=== PATIENT | female | born 1975 | race Caucasian/White ===

== ENCOUNTER 2024-08-07 18:18 | Inpatient (IN) ==
--- NOTE | 2024-08-07 18:32 | ED Triage Note ---
Date of Service August 07, 2024 Provider in Triage Author: Israel Verdugo History of Present Illness This patient was briefly evaluated while in triage. An abbreviated physical exam was performed. This patient is a 48-year-old Female who presents to the ED for evaluation has been having abdominal discomfort-had an MRI, so was sent for CT CT done today shows acute diverticulitis with perforation, abscess, and fistula denies fevers Physical Exam GENERAL: NAD CARDIOVASCULAR: RRR RESPIRATORY: CTA ABDOMEN: BS x 4. Nontender to palpation. Initial orders for labs and / or imaging were placed and patient was placed in the waiting area until a bed is available. Please see further documentation for the full ED course. MDM / Impression Impression Impression: Diverticulitis of intestine with perforation and abscess
[2024-08-07 18:50] LABS: Appearance Urine Clear (Clear); Bilirubin Urine Negative (Negative); Blood Urine Negative (Negative); Color Urine Yellow; Glucose Urine UA Negative (Negative); Ketones Urine Negative (Negative); Leukocyte Esterase Urine Negative (Negative); Nitrite Urine Negative (Negative); Protein Urine Negative (Negative); Specific Gravity Urine > 1.045 (1.000-1.030); Urobilinogen Urine Negative (Negative)
[2024-08-07] MEDS: SODIUM CHLORIDE 0.9% 1,000 ML IV SCH (19:07)
[2024-08-07 19:17] LABS: Basophils # (auto) 0.05 K/uL (0.00-0.20); Basophils % (auto) 0.4 %; Eosinophils # (auto) 0.14 K/uL (0.00-0.50); Hematocrit (blood only) 35.5 % (37.0-47.0); Hemoglobin 11.2 g/dl (12.0-16.0); Immature Granulocytes # (auto) 0.12 K/uL (0.01-0.20); Immature Granulocytes % (auto) 0.9 %; Lymphocytes # (auto) 2.91 K/uL (1.20-3.40); Mean Corpuscular Hemoglobin 19.1 pg (25.0-34.0); Mean Corpuscular Hgb Conc 31.5 g/dL (32.0-36.0); Mean Corpuscular Volume 60.7 fL (80.0-100.0); Monocytes # (auto) 0.89 K/uL (0.11-0.59); Monocytes % (auto) 6.4 %; Neutrophils # (auto) 9.74 K/uL (1.40-6.50); Neutrophils % (auto) 70.3 %; RDW Coefficient of Variation 18.6 % (11.5-14.5); RDW Standard Deviation 35.3 fL (36.4-46.3); Red Blood Count 5.85 M/uL (4.20-5.40); White Blood Count 13.85 K/ul (4.8-10.8)
[2024-08-07 19:28] LABS: Mean Platelet Volume 10.2 fL (9.4-12.4); Platelet Count 348 K/uL (130-400)
[2024-08-07 19:35] LABS: Albumin Level 4.4 gm/dl (3.4-5.0); BUN Creatinine Ratio 22.4 (10-20); Bilirubin Direct 0.1 mg/dl (0-0.2); Bilirubin,Total 0.6 mg/dl (0.2-1.0); Calcium 9.6 mg/dl (8.6-10.3); Creatinine Clr Calc Pharmacy 98.6 ml/min; Magnesium 1.9 mg/dl (1.7-2.4); Potassium 3.7 mmol/L (3.5-5.1)
[2024-08-07 19:45] LABS: Anisocytosis Present; Ovalocytes 1+; Tear Drop Cells 1+
[2024-08-07] MEDS: PIPERACILLIN/TAZOBACTAM 4.5 GM/100 ML BAG IV STA (19:52)
--- NOTE | 2024-08-07 20:01 | Emergency Department Note ---
Impression & Plan Diverticulitis of intestine with perforation and abscess ED Provider Note Diagnosis: Diverticulitis with perforation and abscess and fistula formation, malpositioned IUD Disposition: Admit CHIEF COMPLAINT: Abnormal CT scan HPI: Patient is a 48-year-old female presenting with complaint of abnormal CT scan. Patient was being evaluated due to malpositioned IUD as an outpatient. Patient had CT scan performed which shows diverticulitis with perforation and abscess and fistula formation. Patient denies any fevers nausea vomiting or diarrhea. Patient has not had any issues with diverticulitis previously reportedly. Patient sent over for further evaluation in the emergency room. PAST MEDICAL HISTORY: See Below PAST SURGICAL HISTORY: See Below SOCIAL HISTORY: See Below HOME MEDICATIONS: See Below ALLERGIES: See Below VITALS: See Below PHYSICAL EXAMINATION: GENERAL: Well appearing, well nourished, NAD, non-toxic. EYE EXAM: Normal conjunctiva. OROPHARYNX: Moist mucus membranes. Grossly normal dentition. NECK: Supple, LUNGS: Clear to auscultation. Normal chest wall mechanics. HEART: NSR ABDOMEN: Abdomen soft, non-tender, normo-active bowel sounds, no masses, no rebound or guarding BACK: No CVA TTP. SKIN: No rashes and no bruising. UPPER EXTREMITIES: Upper extremities are grossly normal LOWER EXTREMITIES: Grossly normal, no edema. NEURO EXAM: A&O x3,, normal speech, moves all 4 extremities PSYCH: Cooperative MEDICAL DECISION MAKING: Reviewed external documents: CT scan from outpatient History obtained from: Patient ER Course: Patient is a 48-year-old female presenting with incidental finding on outpatient CT scan. Patient was being worked up due to a malpositioned IUD and had a CT scan today. Patient CT scan report shows diverticulitis with perforation and 2 x 4 cm abscess with fistula. Patient has no active abdominal pain. Patient denies fevers or chills. Patient denies vomiting or diarrhea. Patient given IV Zosyn. Patient's case discussed with general surgery team and medicine service. Patient will be admitted for further treatment and workup Labs (independently interpreted) are significant for: Leukocytosis Medications given: Zosyn Consultants: General Surgeon Dr. Coronado, reviewed patient's presentation and CT scan findings. Recommends medical admission with IV antibiotics and consultation with IR for potential drainage. No indication at this time for acute emergent procedure and the fistula would have to be dealt with after this acute event as an outpatient in the future for potential removal Case discussed with medicine service who accepts patient for further treatment and evaluation Triage Nursing notes reviewed and agree them. Vital Signs: reviewed and remarkable for: no significant abnormalities Past Med/Surg History Problem List (Updated 08/07/24 @ 22:53 by Yoav Espinosa DO) Diverticulitis of intestine with perforation and abscess (Acute) Diverticulitis Dietary counseling and surveillance Knee pain, bilateral KENJI (obstructive sleep apnea) Morbid obesity Fatigue Arthralgia PCOS (polycystic ovarian syndrome) Asthma (Acute 02/21/13) Surgical History Hx of dilation and curettage Hx of section H/O knee surgery (02/21/13) anterior cruciate Family History Grandmother (Paternal) Diabetes Mother Hyperlipidemia Father No problems noted. Social History Smoking Status: Never smoker Hx Alcohol Use: No Preferred Language: Burmese marital status: current occupational status: employed How many Children do You have: 1 How many Children do You have Comment: son Feels Safe at Home: Yes Allergies Allergies Allergy/AdvReac Type Severity Reaction Status Date / Time codeine Allergy Mild Unknown Unverified 08/07/24 21:57 Home Meds Home Medications Medication Instructions Recorded Confirmed levonorgestrel 21 mcg/24 hr (up to 1 device intrauterine UNKNOWN 02/19/20 08/07/24 8 years) 52 mg intrauterine device (Mirena) mometasone 50 mcg/actuation nasal 2 spray intranasal DAILY PRN 02/19/20 08/07/24 spray (Nasonex) unknown multivitamin 1 cap PO DAILY 02/19/20 08/07/24 bupropion HCl 150 mg tablet,12 hr 150 mg PO DAILY 08/07/24 08/07/24 sustained-release meloxicam 7.5 mg tablet 7.5 mg DAILY 08/07/24 08/07/24 phentermine 15 mg capsule 15 mg DAILY 08/07/24 08/07/24 Results & Data (ED) Vital Signs Vital Signs - 24 hr 08/07/24 18:28 08/07/24 18:49 08/07/24 18:59 Temperature 36.1 C L Temperature Source Temporal Artery Scan Pulse Rate 91 H 94 H Pulse Rate [Apical] 81 Pulse Rhythm Pulse Rhythm [Apical] Regular Pulse Strength [Apical] Normal Respiratory Rate 18 18 Respiratory Effort / Characteristics Non-Labored Spontaneous Non-Labored Spontaneous Respiratory Depth Normal Normal Respiratory Pattern Regular Regular Blood Pressure 160/88 H Blood Pressure [Right Arm] 150/88 H Blood Pressure Mean 112 Blood Pressure Mean [Right Arm] 108 Blood Pressure Position [Right Arm] Lying Pulse Oximetry 97 95 Oxygen Delivery Method Room Air Room Air Sepsis Recent Fever Within 48 Hours No Sepsis New/Unexplained Change in Mental Status N/A Sepsis Action Taken by Nursing No Action Required 08/07/24 18:59 08/07/24 20:19 08/07/24 22:08 Temperature Temperature Source Pulse Rate 81 Pulse Rate [Apical] 71 76 Pulse Rhythm Regular Pulse Rhythm [Apical] Regular Pulse Strength [Apical] Normal Respiratory Rate 20 16 20 Respiratory Effort / Characteristics Non-Labored Spontaneous Non-Labored Spontaneous Respiratory Depth Normal Normal Respiratory Pattern Regular Regular Blood Pressure Blood Pressure [Right Arm] 133/83 127/76 Blood Pressure Mean Blood Pressure Mean [Right Arm] 99 93 Blood Pressure Position [Right Arm] Pulse Oximetry 95 98 94 Oxygen Delivery Method Room Air Room Air Room Air Sepsis Recent Fever Within 48 Hours Sepsis New/Unexplained Change in Mental Status Sepsis Action Taken by Nursing 08/07/24 22:42 Temperature Temperature Source Pulse Rate 76 Pulse Rate [Apical] Pulse Rhythm Pulse Rhythm [Apical] Pulse Strength [Apical] Respiratory Rate Respiratory Effort / Characteristics Respiratory Depth Respiratory Pattern Blood Pressure Blood Pressure [Right Arm] Blood Pressure Mean Blood Pressure Mean [Right Arm] Blood Pressure Position [Right Arm] Pulse Oximetry Oxygen Delivery Method Sepsis Recent Fever Within 48 Hours Sepsis New/Unexplained Change in Mental Status Sepsis Action Taken by Nursing Laboratory Data 08/07/24 18:55 08/07/24 18:55 Lab Results 08/07/24 08/07/24 Range/Units 18:40 18:55 WBC 13.85 H (4.8-10.8) K/ul RBC 5.85 H (4.20-5.40) M/uL Hgb 11.2 L (12.0-16.0) g/dl Hct 35.5 L (37.0-47.0) % MCV 60.7 L (80.0-100.0) fL MCH 19.1 L (25.0-34.0) pg MCHC 31.5 L (32.0-36.0) g/dL RDW Std Deviation 35.3 L (36.4-46.3) fL RDW Coeff of Teodoro 18.6 H (11.5-14.5) % Plt Count 348 (130-400) K/uL MPV 10.2 (9.4-12.4) fL Immature Gran % (Auto) 0.9 % Neut % (Auto) 70.3 % Lymph % (Auto) 21.0 % [place] % (Auto) 6.4 % Eos % (Auto) 1.0 % Baso % (Auto) 0.4 % Neut # (Auto) 9.74 H (1.40-6.50) K/uL Lymph # (Auto) 2.91 (1.20-3.40) K/uL [place] # (Auto) 0.89 H (0.11-0.59) K/uL Eos # (Auto) 0.14 (0.00-0.50) K/uL Baso # (Auto) 0.05 (0.00-0.20) K/uL Immature Gran # (Auto) 0.12 (0.01-0.20) K/uL Anisocytosis Present Tear Drop Cells 1+ Ovalocytes 1+ Sodium 137 (136-145) mmol/L Potassium 3.7 (3.5-5.1) mmol/L Chloride 102 (98-107) mmol/L Carbon Dioxide 26 (21-32) mmol/L Anion Gap 9 (3-11) BUN 17 (6-23) mg/dl Creatinine 0.76 (0.6-1.2) mg/dl Est Cr Clr Drug Dosing 98.6 ml/min eGFR 95.40 BUN/Creatinine Ratio 22.4 H (10-20) Glucose 96 (70-99(Fasting)) mg/dl Lactate 1.2 (0.4-2.0) mmol/L Calcium 9.6 (8.6-10.3) mg/dl Magnesium 1.9 (1.7-2.4) mg/dl Total Bilirubin 0.6 (0.2-1.0) mg/dl Direct Bilirubin 0.1 (0-0.2) mg/dl AST 13 (13-39) U/L ALT 16 (7-52) U/L Alkaline Phosphatase 83 (34-104) U/L Troponin I High Sens 3.0 (0-14) pg/ml Total Protein 8.0 (6.0-8.3) gm/dl Albumin 4.4 (3.4-5.0) gm/dl Procalcitonin 0.02 (0-0.5) ng/ml Urine Color Yellow Urine Appearance Clear (Clear) Urine pH 6.0 (4.5-7.5) Ur Specific Sylva > 1.045 H (1.000-1.030) Urine Protein Negative (Negative) Urine Glucose (UA) Negative (Negative) Urine Ketones Negative (Negative) Urine Blood Negative (Negative) Urine Nitrite Negative (Negative) Urine Bilirubin Negative (Negative) Urine Urobilinogen Negative (Negative) Ur Leukocyte Esterase Negative (Negative) Administered Medications Discontinued Medications Piperacillin Sod/Tazobactam Sod (Zosyn) 4.5 gm in 100 mls @ 200 mls/hr IV NOW STA Stop: 08/07/24 19:01 Last Infusion: 08/07/24 20:44 Dose: Infused Documented By: Admin: 08/07/24 19:52 Dose: 200 mls/hr Documented By: BETH Sodium Chloride (Nss) 1,000 mls @ 999 mls/hr IV .Q1H1M DANIELE Stop: 08/07/24 19:34 Last Infusion: 08/07/24 20:44 Dose: Infused Documented By: Admin: 08/07/24 19:07 Dose: 999 mls/hr Documented By: BETH Piperacillin Sod/Tazobactam Sod (Zosyn) 4.5 gm in 100 mls @ 200 mls/hr IV NOW ONE; Protocol Stop: 08/07/24 20:21 Last Admin: 08/07/24 20:15 Dose: Not Given Documented By: BETH Discharge Plan Visit Data Chief Complaint: Abnormal Labs/Diagnostic Testing Stated Complaint: REFERRED BY DOC ED Provider: Yoav Espinosa Discharge Problem: Diverticulitis of intestine with perforation and abscess Forms Stand Alone Forms: [facility] Prescriptions Prescriptions: No Action multivitamin Capsule 1 cap PO DAILY mometasone [Nasonex] 50 mcg/actuation spray,non-aerosol 2 spray intranasal DAILY PRN (Reason: unknown) Rx Instructions: administer into each nostril Mirena 20 mcg/24 hours (5 yrs) 52 mg intrauterine device 1 device intrauterine UNKNOWN bupropion HCl 150 mg tablet sustained-release 12 hr 150 mg PO DAILY phentermine 15 mg capsule 15 mg DAILY meloxicam 7.5 mg tablet 7.5 mg DAILY Referrals Referrals: PCP,NO [Physician] -
[2024-08-07] MEDS: PIPERACILLIN/TAZOBACTAM 4.5 GM/100 ML BAG IV ONE (20:15)
[2024-08-07] MEDS ORDERED: ALUMINUM/MAGNESIUM SUSP 30 ML UDC PO PRN (21:56)
[2024-08-07] MEDS ORDERED: MAGNESIUM HYDROXIDE SUSP 30 ML UDC PO PRN (21:56)
[2024-08-07] MEDS ORDERED: ONDANSETRON INJ 2 MG/ML 2 ML VIAL IV PRN (21:56)
--- NOTE | 2024-08-07 21:58 | History & Physical Report ---
Date of Service August 07, 2024 Assessment & Plan (1) Diverticulitis: Plan 08/07/[address] scan of abdomen pelvis w/ iv and oral contrast findings: Findings suggesting acute diverticulitis with perforation and abscess formation. Abscess measures 20 x 47 mm. Surrounding inflammatory phlegmon and suggestion of fistula between the sigmoid colon, left bladder, and anterior abdominal wall musculature. GI/surgical consultation is recommended. Marked bladder wall thickening and hyperenhancement, likely secondary to above process. Follow-up is advised to exclude a bladder mass. Malpositioned IUD. Pt is being managed for the following: Diverticulitis/abscess Sepsis POA: Secondary to above. WBC and heart rate elevated at presentation. Lactate WNL, Pro-Michael WNL. Patient referred to the ED due to abnormal outpatient CTAP. See above. Patient reports low-grade lower abdominal pain for months, denies fever. N.p.o., IV fluids, Zosyn, general surgery consult Reach out to IR in a.m. if abscess can be drained percutaneously. Follow admitting blood culture. Chronic anemia, history of thalassemia minor: Hemoglobin 11.2 at presentation, about baseline. Monitor. Malpositioned IUD: Follow-up with gynecology as an outpatient. Obesity Class III: Pt takes buproprion, naltrexone and phentermine for wt loss; hold these meds during acute illness. Other chronic medical conditions: Chronic pain of both knees, polyarthralgia - continue with/resume home meds as and when able. Medications reviewed with the patient: albuterol as needed, bupropion 150 Mg daily, diclofenac gel daily to both knees, Flonase as needed, meloxicam 7.5 Mg daily in the morning, naltrexone 25 Mg daily, phentermine 15 Mg daily. DVT prophylaxis: SCDs, Re: likely procedure tomorrow. Full code History of Present Illness Chief Complaint: Abnormal CTAP scan as outpatient Primary Care Provider: Joyce Dorantes DO 48-year-old lady with PMH of prediabetes, intermittent asthma, morbid obesity, left tubo-ovarian mass, chronic pain of both knees, polyarthralgia, thalassemia minor who is being evaluated as an outpatient for malpositioned IUD and received CT scan of abdomen pelvis which showed diverticulitis with perforation/abscess/fistula formation and hence was sent to the ED. Patient denies any fever/chills/sweats, reports ongoing low-grade lower abdominal pain for few months. Denies any increase in abd pain recently. Reports appetite okay, denies pain or burning while passing urine, reports moving bowels as usual. Patient reports having last colonoscopy about 3 to 4 years ago and denies any abnormal report. Patient denies smoking/alcohol/recreational drug use. Medications reviewed with the patient at bedside in detail. Full code. Plan of care discussed with the patient in detail, she voiced understanding and was agreeable to plan of care. Allergies Allergy/AdvReac Type Severity Reaction Status Date / Time codeine Allergy Mild Unknown Unverified 08/07/24 21:57 Home Medications Medication Instructions Recorded Confirmed Type levonorgestrel 21 mcg/24 hr (up to 1 device intrauterine 02/19/20 03/05/20 History 8 years) 52 mg intrauterine device (Mirena) mometasone 50 mcg/actuation nasal 2 spray intranasal DAILY PRN 02/19/20 03/05/20 History spray (Nasonex) multivitamin 1 cap PO DAILY 02/19/20 08/07/24 History bupropion HCl 150 mg tablet,12 hr 150 mg PO DAILY 08/07/24 08/07/24 History sustained-release meloxicam 7.5 mg tablet 7.5 mg DAILY 08/07/24 08/07/24 History phentermine 15 mg capsule 15 mg DAILY 08/07/24 08/07/24 History Past Med/Surg History Problem List (Updated 08/07/24 @ 21:56 by Omari Wong MD) Diverticulitis Dietary counseling and surveillance Knee pain, bilateral KENJI (obstructive sleep apnea) Morbid obesity Fatigue Arthralgia PCOS (polycystic ovarian syndrome) Asthma (Acute 02/21/13) Surgical History Hx of dilation and curettage Hx of section H/O knee surgery (02/21/13) anterior cruciate Family History Grandmother (Paternal) Diabetes Mother Hyperlipidemia Father No problems noted. Social History Smoking Status: Never smoker Hx Alcohol Use: No Preferred Language: Maltese marital status: current occupational status: employed How many Children do You have: 1 How many Children do You have Comment: son Feels Safe at Home: Yes Review of Systems Review of Systems: Negative otherwise mentioned in HPI. Physical Exam Physical Exam: GENERAL: Alert and oriented x3. NAD, on RA. Class III obese HEENT: No pallor, no icterus. Pupils equal, round and reactive to light. Oral mucosa moist. NECK: No JVD, no neck masses. HEART: S1 and S2 heard. Regular rate and rhythm. No murmur, no gallop. RESPIRATORY SYSTEM: Normal AP diameter. No accessory muscle use. No wheezing, no crackles. ABDOMEN: Soft, bowel sounds present, LLQ tender x mild, no distention. CENTRAL NERVOUS SYSTEM: No facial droop. Speech is clear. Obeys simple commands. Moves extremities. EXTREMITIES: No edema, no erythema seen. Results & Data Results & Data Vital Signs (Past 12 Hours) Vital Signs Temp Pulse Pulse Resp BP BP Pulse Ox 08/07/24 20:19 71 16 133/83 98 08/07/24 18:59 81 20 95 08/07/24 18:59 81 18 150/88 H 95 08/07/24 18:49 94 H 08/07/24 18:28 36.1 C L 91 H 18 160/88 H 97 O2 Del Method 08/07/24 20:19 Room Air 08/07/24 18:59 Room Air 08/07/24 18:59 Room Air 08/07/24 18:49 08/07/24 18:28 Room Air
[2024-08-07] MEDS: SODIUM CHLORIDE 0.9% 1,000 ML IV STA (22:54)
[2024-08-08] MEDS: PIPERACILLIN/TAZOBACTAM 4.5 GM/100 ML BAG IV SCH (02:28)
[2024-08-08 04:44] LABS: Hematocrit (blood only) 32.5 % (37.0-47.0); Mean Corpuscular Hemoglobin 18.8 pg (25.0-34.0); Mean Corpuscular Hgb Conc 30.8 g/dL (32.0-36.0); Mean Corpuscular Volume 61.2 fL (80.0-100.0); Mean Platelet Volume 10.7 fL (9.4-12.4); Platelet Count 315 K/uL (130-400); RDW Coefficient of Variation 18.3 % (11.5-14.5); Red Blood Count 5.31 M/uL (4.20-5.40); White Blood Count 9.78 K/ul (4.8-10.8)
[2024-08-08 05:02] LABS: BUN Creatinine Ratio 16.5 (10-20); Calcium 9.1 mg/dl (8.6-10.3); Creatinine Clr Calc Pharmacy 94.9 ml/min; Magnesium 1.8 mg/dl (1.7-2.4); Phosphorus 4.2 mg/dl (2.5-4.9); Potassium 3.9 mmol/L (3.5-5.1)
--- OUTSIDE RECORDS SUMMARY | 2024-08-08 05:37 | External Medical Summary | Summary of Care ---
Author Name Unknown Organization [facility] Address [address] [place] [address] Phone [phone] Care Team Providers Care Manager Dialysis Name Role Phone Joyce Dorantes DO Primary Care Provider [phone] Encounter Details Date Type Department Care Team (Late st Contact Info) Description 05/30/2024 Telephone Nutrition & Weight Management, [facility] [address] [place] [place] [address] Nata Alba PA-C [address] [place] [address] Allergies Active Allergy Reactions Criticality Noted Date Comments Morphine And Codeine High 08/13/2004 lose consciousness documented as of this encounter (statuses as of 08/02/2024) Medications MULTI-VITAMIN PO TABS One tablet daily 30 0 8 Active Cetirizine-Pseud oephedrine ER (ZYRTEC-D ALLERGY & CONGESTION) 5-120 MG TB12 Take 1 Tab by mouth 2 times a day. 6 Active Levonorgestrel 20 MCG/DAY Intrauterine Intrauterine Device (Mirena) Insert 1 Each into uterus once. Active Fluticasone Propionate 50 MCG/ACT Nasal Suspension (Flonase) 2 sprays each nostril daily. Can increase to twice daily as needed. 3 Each 3 4 Active Mometasone Furoate 0.1 % External CreamIndications :Dermatitis Apply topically to affected area daily. Apply to behind ear. 45 g 3 4 Active Additional Information Patient taking differently:ExternalPRN, Apply to behind ear., Reported on 07/20/2024 buPROPion HCl ER (SR) 150 MG Oral Tablet Extended Release 12 Hour (Wellbutrin SR) Take 1 tab by mouth once a day for 1 week then take 1 tab twice a day (morning & late afternoon) 60 Tablet 5 4 Active Naltrexone HCl 50 MG Oral Tablet (Revia) Take 1/2 tab by mouth once a day for 1 week then take 1/2 tab twice a day (morning & late afternoon) 30 Tablet 5 4 Active Diclofenac Sodium 1 % External Gel (Voltaren) Apply topically to affected area 4 times a day. 350 g 1 4 Active Additional Information Patient taking differently:TopicalTID PRN, Reported on 07/20/2024 Meloxicam 7.5 MG Oral Tablet (Mobic) Take 1 Tablet by mouth in the morning. for pain.. 30 Tablet 3 4 Active Albuterol Sulfate HFA 108 (90 Base) MCG/ACT Inhalation Aerosol Solution Use two puffs every four hours as needed for wheezing,cough, chest tightness, shortness of breath, prior to excerise - Inhalation 18 g 5 4 Active documented as of this encounter (statuses as of 08/02/2024) Active Problems Problem Noted Date Diagnosed Date Thrombocytopenia, congenital and hereditary 02/2025 Morbid obesity due to excess calories 07/11/2024 Left tubo-ovarian mass 07/11/2024 Polyarthralgia 07/11/2024 Eyelid gland swelling, right 07/11/2024 Chronic pain of both knees 04/03/2024 Medication management 04/03/2024 Nipple discharge 04/03/2024 Thalassemia minor 01/25/2022 Prediabetes 03/16/2021 Overview: Per Prediabetes protocol KENJI (obstructive sleep apnea) 02/19/2019 Intermittent asthma with reliever use up to twic e per week 09/13/2014 documented as of this encounter (statuses as of 08/02/2024) Resolved Problems Problem Noted Date Diagnosed Date Resolved Date Cyst of left ovary 04/15/2023 Overview (04/15/2023): Consider annual ultrasound Morbid obesity 01/25/2022 10/19/2023 Chronic allergic rhinitis 02/19/2019 Chronic nasal congestion 02/19/201911/2021 Body mass index (BMI) of 40. 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): Thallasemia 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 04/04/2005 01/25/2022 Overview (04/04/2005): transverse and sigmoid sinus thrombosis 2000 felt to be due to BCP, dehydrated and at high [place] per patient Cervical intraepithelial neoplasia grade 1 10/30/2004 01/25/2022 Polycystic ovaries 09/14/2004 Asthma with severity to be determined 08/13/2004 08/24/2011 Overview (10/13/2015): ICD-10 update of inactive term Allergic rhinitis 08/13/2004 10/06/2021 Allergic conjunctivitis 08/13/200401/02 documented as of this encounter (statuses as of 08/02/2024) Immunizations Name Administration Dates Next Due COVID-19 mRNA, LNP-s, No Pre serve, 2-Dose Series (Moderna) 08/30/2020,08/06/2020 Seasonal Influenza Vac., MDV, IM, 0.5 mL (Fluzon e) 04/10/2009 Seasonal Influenza, Quadrivalent, No Preserve, I M 04/21/2018,06/29/2016 06/29/2017 documented as of this encounter Social History Tobacco Use Types Packs/Day Years Used Date Smoking Tobacco: Never Smokeless Tobacco: Never Comments:no passive smoke ex posures Alcohol Use Standard Drinks/Week Comments Yes 0 (1 standard drink = 0.6 oz pur e alcohol) 2-3 drinks/month PHQ-2 Answer Date Recorded PHQ Adult Total Score 0 10/19/2023 Hunger Vital Sign Answer Date Recorded Within the past 12 months, y ou worried that your food would run out before you got the money to buy more. Never true 06/14/20 24 Within the past 12 months, t he food you bought just didn't last and you didn't have money to get more. Never true 06/14/2024 Childcare Answer Date Recorded Do you feel overwhelmed with taking care of a child, family member or friend? No 06/14/2024 Does your family need help f inding childcare? (Household - for ages 0-17 years) Not on file 06/14/2024 Clothing Answer Date Recorded Have you been unable to get clothing when it was really needed? No 06/14/2024 Is your family able to get c lothes or diapers when needed? (Household - for ages 0-17 years) Not on file 06/14/2024 Personal Safety Answer Date Recorded Do you feel unsafe or have concerns for your saf ety? No 06/14/2024 Do you have concerns for you r family's safety? (Household - for ages 0-17 years) Not on file 06/14/2024 Utilities Answer Date Recorded Do you have trouble paying y our heating, water, or electric bill? No 06/14/2024 Is your family able to pay t he heat, water, or electric bill? (Household - for ages 0-17 years) Not on file 06/14/2024 Does your family have access to good internet? (Household - for ages 0-17 years) Not on file 06/14/2024 Employment Status Answer Date Recorded Are you unemployed or without regular income? No 06/14/2024 Does the household have a re gular source of income? (Household - for ages 0-17 years) Not on file 06/14/2024 Social Connections Answer Date Recorded How often do you feel lonely or isolated from th ose around you? Never 06/14/2024 Financial Resource Strain Answer Date R ecorded Do you have any trouble payi ng for your medications, or do you think you might in the future? No 06/14/2024 Does your family have troubl e paying for medicine? (Household - for ages 0-17 years) Not on file 06/14/2024 Transportation Needs Answer Date Record ed Do you have trouble getting a ride to medical visits or work? (Adult - for ages 18 years and over) Not on file 06/14/2024 Does your family have a hard time getting a ride to doctors visits? (Household - for ages 0-17 years) Not on file 06/14/2024 Has lack of transportation k ept you from medical appointments, meetings, work, or from getting things needed for daily living? Check all that apply. No 06/14/2024 Do you (or your family) have trouble finding or paying for a ride (transportation)? (Household - for ages 0-17 years) Not on file 06/14/2024 Housing Stability Answer Date Recorded Do you currently live in a s helter or have no steady place to sleep at night? No 06/14/2024 Do you think you are at risk of becoming homeless? (Adult - for ages 18 years and over) Not on file 06/14/2024 Does your family worry about paying for your home or becoming homeless? (Household - for ages 0-17 years) Not on file 1 08/15/2023 Are you homeless or worried that you might be in the future? No 06/14/2024 Are you (or your family) diane eless or worried that you might be in the future? (Household - for ages 0-17 years) Not on file Food Insecurity Answer Date Recorded Do you need food for this week? No 06/14/2024 Are you able to get enough f ood for your family? (Household - for ages 0-17 years) Not on file 06/14/2024 Does your family need food t his week? (Household - for ages 0-17 years) Not on file 06/14/2024 Do you always have enough fo od for your family? (Household - for ages 0-17 years) Not on file 06/14/2024 Comments No Sex and Gender Information Value Date Recorded Sex Assigned at Female 06/14/2024 1:46 PM EST Legal Sex Female 6:01 AM EST Gender Identity Female 06/14/2024 1:46 PM EST Sexual Orientation Straight 06/14/2024 1: 46 PM EST Occupation Industry Job Start Date Job End Date [employer] Not on file Not on file Not on f ile documented as of this encounter Miscellaneous Notes * Telephone Encounter - Zenaida Rivers RN - 05/30/2024 9:36 AM EST Pt BP 142/82; recommended she follow up with her PCP for BP control documented in this encounter Plan of Treatment Upcoming Encounters Date Type Department Care Team (Late st Contact Info) Description 08/03/2024 11:00 AM EST Imaging Radiology [facility] [address] [phone] 09/05/2024 10:00 AM EST Office Visit Nutrition & Weight Management, [facility] [address] [address] Nata Alba PA-C [address] [place] [address] 10/02/2024 11:40 AM EDT Office Visit Family Practice [facility] [address] [address] Myah Valdivia CRNP [address] [place] [address] Scheduled Procedures Name Priority Associated Diagnoses Date/Ti me COLONOSCOPY FLEXIBLE PROXIMA L DIAGNOSTIC Recall Special screening for malignant neoplasms, colon Health Maintenance Due Date Last Done Comments Hepatitis C Screening 10/17/1991 DTap/Tdap Vaccines (1 - Tdap) 1992 Hepatitis B Vaccine (1 of 3 - 19+ 3-dose series) 1992 Pneumococcal Vaccine: 50+ Years (1 of 2 - PCV) 1992 HPV/Co-Test 10/17/2003 Cologuard 2018 Fecal Occult Blood Test 2018 Sigmoidoscopy 2018 Zoster Vaccines (1 of 2) 10/17/2023 COVID-19 Vaccine (3 - 2023- season) 2024 08/30/2020, 08/06/2020 Influenza Vaccine (FLU shot) (#1) 2024 04/21/2018, 06/29/2016, 04/10/2009 Depression Screening 10/18/2024 10/19/2023 HbA1c 12/30/2024 12/31/2023, 01/01, 03/11/2021, Additional history exists Mammogram 02/28/2025 02/29/2024, 08/05, 04/14/2023, Additional history exists Cervical Cancer Screening 03/18/2025 Pap Smear 03/18/2025 03/18/2022, 05/0 03/2019, 11/02/2017, Additional history exists IUD 7-Year 11/21/2025 11/21/2018 Lipid Panel 07/25/2029 07/25/2024, 02/01, 09/23/2010, Additional history exists Colonoscopy 03/04/2031 03/04/2021, 03/04/2021 Colorectal Cancer Screening 03/04/2031 RETIRED - COLONOSCOPY EVERY 10 YEARS,AGES 18-50 Discontinued 03/04/2021, 03/04/2021 HPV (Gardasil) Vaccine Aged Out No lo nger eligible based on patient's age to complete this topic MENINGOCOCCAL (MENACTRA/MENVEO) Aged Out No longer eligible based on patient's age to complete this topic documented as of this encounter Medical Devices Not on filedocumented as of this encounter Advance Directives Documents on File Type Date Recorded Patient Staff Nurse Icu Resource Team Expl anation Advance Directives and Living Will 03/22/2005 Power of Field Specialist 03/22/2005 * No Code Status (Latest Code Status on File) Date Activated Date Inactivated Comments 03/22/2005 10:26 AM 03/22/2005 10:26 AM Care Teams Manager Dialysis Relationship Specialty Start Date End Date Joyce Dorantes DO [address] [place] [address] PCP - General Family Medicine 12/23/15 documented as of this encounter
--- OUTSIDE RECORDS SUMMARY | 2024-08-08 05:37 | External Medical Summary | Summary of Care ---
Author Name Unknown Organization [facility] Address [address] [place] [address] Phone [phone] Care Team Providers Care Director Sanitation Bureau Name Role Phone PrashantJoyce duran Jennifer JC Primary Care Provider [phone] Reason for Visit * Reason Onset Date Comments Appointment 06/26/2024 Encounter Details Date Type Department Care Team (Late st Contact Info) Description 06/26/2024 Telephone Hematology/Oncology Treatment, [facility] [address] [place] [address] Lauren Galindo MD Appointment Allergies Active Allergy Reactions Criticality Noted Date Comments Morphine And Codeine High 08/13/2004 lose consciousness documented as of this encounter (statuses as of 08/06/2024) Medications MULTI-VITAMIN PO TABS One tablet daily 30 0 01/18/20 08 Active Cetirizine-Pseu doephedrine ER (ZYRTEC-D ALLERGY & CONGESTION) 5-120 MG TB12 Take 1 Tab by mouth 2 times a day. 09/22/19 16 Active Levonorgestrel 20 MCG/DAY Intrauterine Intrauterine Device (Mirena) Insert 1 Each into uterus once. Active Fluticasone Propionate 50 MCG/ACT Nasal Suspension (Flonase) 2 sprays each nostril daily. Can increase to twice daily as needed. 3 Each 3 12/23/19 24 Active Mometasone Furoate 0.1 % External CreamIndication s:Dermatitis Apply topically to affected area daily. Apply to behind ear. 45 g 3 12/23/19 24 Active Additional Information Patient taking differently:ExternalPRN, Apply to behind ear., Reported on 07/20/2024 buPROPion HCl ER (SR) 150 MG Oral Tablet Extended Release 12 Hour (Wellbutrin SR) Take 1 tab by mouth once a day for 1 week then take 1 tab twice a day (morning & late afternoon) 60 Tablet 5 12/22/19 24 Active Naltrexone HCl 50 MG Oral Tablet (Revia) Take 1/2 tab by mouth once a day for 1 week then take 1/2 tab twice a day (morning & late afternoon) 30 Tablet 5 12/22/19 24 Active Diclofenac Sodium 1 % External Gel (Voltaren) Apply topically to affected area 4 times a day. 350 g 1 12/30/19 24 Active Additional Information Patient taking differently:TopicalTID PRN, Reported on 07/20/2024 Meloxicam 7.5 MG Oral Tablet (Mobic) Take 1 Tablet by mouth in the morning. for pain.. 30 Tablet 3 04/03/20 24 Active Albuterol Sulfate HFA 108 (90 Base) MCG/ACT Inhalation Aerosol Solution Use two puffs every four hours as needed for wheezing,cough , chest tightness, shortness of breath, prior to excerise - Inhalation 18 g 5 05/15/20 24 Active Phentermine HCl 15 MG Oral Capsule Take 1 Capsule by mouth in the morning. 30 Capsule 06/04/20 24 025 Discontinued documented as of this encounter (statuses as of 08/06/2024) Active Problems Problem Noted Date Diagnosed Date [...] as of this encounter (statuses as of 08/06/2024) Resolved Problems Problem Noted Date Diagnosed Date [...] as of this encounter (statuses as of 08/06/2024) Immunizations Name Administration Dates Next Due COVID-19 [...] Industry Job Start Date Job End Date [employer] Not on file Not on file Not on f ile documented as of this encounter Miscellaneous Notes * Telephone Encounter - Janet Pantoja OSA - 08/06/2024 9:59 AM EST Call # [phone] - lmom to schedule NEW RETURN appt with either Dr Hernandez or Dr Jerome * Telephone Encounter - Janet Pantoja OSA - 07/26/2024 9:55 AM EST Call # 2- lmom to return call to schedule a NEW RETURN with either Dr Hernandez or Dr Jerome * Telephone Encounter - Janet Pantoja OSA - 07/18/2024 12:26 PM EST Attempted to call patient to schedule follow up appointment. LMOM to return call to co * Telephone Encounter - Kaley Jean-Baptiste RN - 07/13/2024 7:52 AM EST Patient scheduled MRI for 08/03/24. * Telephone Encounter - Kaley Jean-Baptiste RN - 06/29/2024 9:02 AM EST Left message #3 for return call, also sent MyG. * Telephone Encounter - Kaley Jean-Baptiste RN - 06/28/2024 9:46 AM EST Left message #2 for return call. Advised in message that we need to reschedule upcoming appt 07/26/24, but have some questions for her first. Asked her to return call. Scheduling: please cancel 07/26/[address] Galindo. Thanks! * Telephone Encounter - Kaley Jean-Baptiste RN - 06/26/2024 12:22 PM EST Patient is scheduled to see Dr Galindo 07/26/24. This will need to be cancelled and patient will need to see either JAMES or another MD. Dr Tolbert referred her to gynecology due to US showing concerning left ovarian mass. Gynecology ordered MRI; however, this has not been scheduled. Left message for patient to return call. Will need to find out if she has scheduled MRI elsewhere- follow up should be rescheduled based on further work up. documented in this encounter Plan of Treatment Upcoming Encounters Date Type Department Care Team (Late st Contact Info) Description 09/05/2024 10:00 AM EST Office Visit Nutrition & Weight Management, [facility] [address] [place] [address] Nata Alba PA-C [address] [place] [address] 10/02/2024 11:40 AM EDT Office Visit Family Practice [facility] [address] [place] [address] Myah Valdivia CRNP [address] [place] [address] Scheduled Procedures Name Priority Associated Diagnoses Date/Ti [...] Vaccines (1 of 2) 10/17/2023 COVID-19 Vaccine ( - season) 2024 08/30/2020, 08/06/2020 Influenza Vaccine (FLU shot) (#1) 2024 04/21/2018, 06/29/2016, 04/10/2009 Depression Screening 10/18/2024 10/19/2023 HbA1c 12/30/2024 12/31/2023, 01/01, 03/11/2021, Additional history exists Mammogram 02/28/2025 02/29/2024, 08/05, 04/14/2023, Additional history exists Cervical Cancer Screening 03/18/2025 Pap Smear 03/18/2025 03/18/2022, 05/03/2019, 11/02/2017, Additional history exists IUD 7-Year 11/21/2025 [...] Documents on File Type Date Recorded Patient Screen Handler Expl anation Advance Directives and Living Will 03/22/2005 Power of Mac Developer 03/22/2005 * No Code Status (Latest Code Status on File) Date Activated Date Inactivated Comments 03/22/2005 10:26 AM 03/22/2005 10:26 AM Care Teams Director Sanitation Bureau Relationship Specialty Start Date End Date Joyce Dorantes DO [address] [place] [address] PCP - General Family Medicine 12/23/15 documented as of this encounter
--- OUTSIDE RECORDS SUMMARY | 2024-08-08 05:41 | External Medical Summary | Summary of Care ---
Author Name Unknown Organization [facility] Address [address] [place] [address] Phone [phone] Care Team Providers Care Gauge And Weigh Machine Operator Name Role Phone SoilaJoyce lewis Jennifer JC Primary Care Provider [phone] Reason for Visit * Reason Comments Outpatient Testing Encounter Details Date Type Department Care Team (Late st Contact Info) Description 07/25/2024 12:50 PM EST Laboratory Laboratory, [facility] [address] [place] [id number] [facility] [address] [place] [address] Screening for lipid disorders; Ovarian mass, left Allergies Active Allergy Reactions Criticality Noted Date Comments Morphine And Codeine High 08/13/2004 lose consciousness documented as of this encounter (statuses as of 07/25/2024) Medications MULTI-VITAMIN PO TABS One tablet daily [...] - Inhalation 18 g 5 4 Active Phentermine HCl 15 MG Oral CapsuleIndicatio ns:Morbid obesity due to excess calories (HCC) TAKE 1 CAPSULE BY MOUTH EVERY MORNING 30 Capsule 2 5 Active documented as of this encounter (statuses as of 07/25/2024) Active Problems Problem Noted Date Diagnosed Date [...] as of this encounter (statuses as of 07/25/2024) Resolved Problems Problem Noted Date Diagnosed Date [...] term Allergic rhinitis 08/13/2004 10/06/2021 Allergic conjunctivitis 08/13/2004/11/2021 documented as of this encounter (statuses as of 07/25/2024) Immunizations Name Administration Dates Next Due COVID-19 [...] 06/14/2024 Does the household have a re lar source of income? (Household - for ages [...] Industry Job Start Date Job End Date [employer] Not on file Not on file Not on f ile documented as of this encounter Plan of Treatment Upcoming Encounters Date Type Department Care Team (Late st Contact Info) Description 08/03/2024 11:00 AM EST Imaging Radiology [facility] [address] [phone] 09/05/2024 10:00 AM EST Office Visit Nutrition & Weight Management, [facility] [address] [address] Nata Alba PA-C [address] [place] [address] 10/02/2024 11:40 AM EDT Office Visit Family Practice [facility] [address] [address] Myah Valdivia CRNP [address] [place] [address] Pending Results Name Type Priority Associated Diagnoses Date /Time LIPID PANEL WITH DIRECT LDL IF TG IS HIGH Lab Routine Screening for lipid disorders 07/25/2024 11:58 AM EST CA 125 Lab Routine Ovarian mass, left 07/25/2024 11:58 AM EST CEA Lab Routine Ovarian mass, left 07/25/2024 11:58 AM EST CA 19-9 Lab Routine Ovarian mass, left 07/25/2024 11:58 AM EST Scheduled Procedures Name Priority Associated Diagnoses Date/Ti [...] 2018 Zoster Vaccines (1 of 2) 10/17/2023 Lipid Panel 02/20/2024 02/19/2019, 09/02, 01/17/2009 COVID-19 Vaccine ( season) 2024 08/30/2020, 08/06/2020 Influenza Vaccine (FLU shot) (#1) 2024 04/21/2018, 06/29/2016, 04/10/2009 Depression Screening 10/18/2024 10/19/2023 HbA1c 12/30/2024 12/31/2023, 01/01, 03/11/2021, Additional history exists Mammogram 02/28/2025 02/29/2024, 08/05, 04/14/2023, Additional history exists Cervical Cancer Screening 03/18/2025 Pap Smear 03/18/2025 03/18/2022, 05/0 03/2019, 11/02/2017, Additional history exists IUD 7-Year 11/21/2025 11/21/2018 Colonoscopy 03/04/2031 03/04/2021, 03/04/2021 Colorectal Cancer Screening [...] Not on filedocumented as of this encounter Visit Diagnoses Diagnosis Screening for lipid disorders Ovarian mass, left documented in this encounter Advance Directives Documents on File Type Date Recorded Patient Rugby League Footballer Expl anation Advance Directives and Living Will 03/22/2005 Power of Heating Systems Installer 03/22/2005 * No Code Status (Latest Code Status on File) Date Activated Date Inactivated Comments 03/22/2005 10:26 AM 03/22/2005 10:26 AM Care Teams Gauge And Weigh Machine Operator Relationship Specialty Start Date End Date Joyce Dorantes DO [address] [address] PCP - General Family Medicine 12/23/15 documented as of this encounter
--- OUTSIDE RECORDS SUMMARY | 2024-08-08 05:41 | External Medical Summary ---
Author Name Unknown Address Unknown Organization K01:[facility] - [address] [place] [address] Laboratory Report Ordering Provider Test Date Status ZENY HEREDAI 07/25/2024 11:58:05 Final Observation Date Value Abnormality Reference (Units ) Status CEA 07/25/2024 11:58:05 0.9 <=5.2 (ng/ mL) Final Performing Location [facility] - [address] [place] [id number]
--- OUTSIDE RECORDS SUMMARY | 2024-08-08 05:41 | External Medical Summary ---
Author Name Unknown Address Unknown Organization K01:[facility] [place] [facility] [address] [facility] [place] [address] Laboratory Report Ordering Provider Test Date Status ANTON MAGALLANESR 07/25/2024 11:58:05 Final Observation Date Value Abnormality Reference (Units ) Status Triglyceride 07/25/2024 11:58:05 98 <=174 ( mg/dL) Final Triglyceride Reference Range s (mg/dL):
<150 Acceptable
150-174 Borderline high
175-499 High
>=500 Very high Cholesterol 07/25/2024 11:58:05 179 <200 (mg /dL) Final Total Cholesterol Reference Ranges (mg/dL):
<200 Desirable
200-239 Borderline high
>=240 High HDL 07/25/2024 11:58:05 38 Below low normal >49 (mg/dL) Final HDL Cholesterol Reference Ra nges (mg/dL):
>=60 High (Desirable)
<50 Low (Undesirable) For Females
<40 Low (Undesirable) For Males NON-HDL CHOLESTEROL 07/25/2024 11:58:05 141 <=159 (mg/dL) Final Non-HDL Cholesterol Referenc e Range (mg/dL):
<100 Target level for high risk ASCVD patient
<130 Optimal for general population
130-159 Near optimal for general population
160-189 Borderline High
190-219 High
>=220 Very High LDL, (calculated) 07/25/2024 11:58:05 121 <= 129 (mg/dL) Final LDL Cholesterol Reference Ra nges (mg/dL):
<70 Target level for high risk ASCVD patient
<100 Optimal for general population
100-129 Near optimal for general population
130-159 Borderline high
160-189 High
>=190 Very high Performing Location LABORATORY [facility] [place] - [address] [facility] [address]
--- OUTSIDE RECORDS SUMMARY | 2024-08-08 05:41 | External Medical Summary | Summary of Care ---
Author Name Unknown Organization [facility] Address [address] [place] [address] Phone [phone] Care Team Providers Care Restaurant Lead Name Role Phone PrashantJoyce duran Jennifer JC Primary Care Provider Reason for Visit * Reason Comments [employer] Return Encounter Details Date Type Department Care Team (Latest Contact Info) Description 07/25/2024 11:00 AM EST Office Visit Gynecology/Obstetric s [facility] [address] [place] [address] María Davidson MD [address] [place] [address] Intrauterine contraceptive device threads lost, subsequent encounter*; Ovarian mass, left Allergies Active Allergy Reactions [...] 09 01/25/2022 Low grade squamous intraepithelial dysplasia 08/31/ 6 01/25/2022 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/25/2022 Overview (04/04/2005): [...] Industry Job Start Date Job End Date [employer] Not on file Not on file Not on f ile documented as of this encounter Last Filed Vital Signs Vital Sign Reading Time Taken Comments Blood Pressure - - Pulse - - Temperature - - Respiratory Rate - - Oxygen Saturation - - Inhaled Oxygen Concentration - - Weight 99.8 kg (220 lb) 07/25/2024 11:14 AM EST Height 157.5 cm (5' 2") 07/25/2024 11:14 AM EST Body Mass Index 40.24 07/25/2024 11:14 AM EST documented in this encounter Progress Notes * María Davidson MD - 07/25/2024 11:44 AM EST Patient Name: Kley Mercado Patient CC: Malpositioned IUD, Left ovarian mass Context: (HPI) 48 year old with unknown LMP presents to discuss IUD removal. Mirena IUD inserted in 2018. IUD removal attempted in Jun 2024. One of the string broke and the procedure was aborted. TVUS in May 2024 revealed1. Abnormal position of the IUD, which is low in position and penetrates the myometrium. 2. Left ovarian mass, suspicious for a solid neoplasm. Recommend MRI pelvis with gadolinium. Patient had a normal CA 125 in Apr 2024. Patient has had multiple labs and reports concern with an increased ESR. 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, neg coag w/u thought to be due to OCP's, dehydration, altitude Past Surgical Hx: Past Surgical History: Procedure Laterality Date COLONOSCOPY, DIAGNOSTIC (RECTUM) 03/04/2021 Diverticulosis, 5y recall/ COLONOSCOPY FLEXIBLE PROXIMAL DIAGNOSTIC performed by Sly Peña MD at [facility] COLPOSCOPY OF CERVIX W/BIOPSY 09/01/2004 KNEE ARTHROSCOPY/REPAIR LIGAMENT Right ACL replaced KNEE ARTHROSCOPY/REPAIR LIGAMENT Left 07/04/2010 MD DELIVERY ONLY TREATMENT OF INCOMPLETE 07/04/2004 URIEL EMBO SUBCLAVIAN BY NECK 07/04/1999 Social Hx: Social History Socioeconomic History Marital status: Spouse name: WHITNEY Grey Occupational History Occupation: [employer] Employer: [employer] Tobacco Use Smoking status: Never Smokeless tobacco: Never Tobacco comments: no passive smoke exposures Vaping Use Vaping status: Never Used Substance and Sexual Activity Alcohol use: Yes Comment: 2-3 drinks/month Drug use: No Sexual activity: Yes Partners: Male control/protection: I.U.D. Comment: Elham inserted 11/14/2018 Social History Narrative [employer] [place] INFORMATION ENIVIRONMENTAL HISTORY: House: Bilevel Type of Heating System: Electric Air Conditioning: No Basement: Finished, Carpeted rooms and No evidence mold, mildew Home have cockroaches: No Irritants in the home: None Patient's bedroom: FLOOR: second TYPE OF JES: Carpeting Beds: AMOUNT : 1 TYPE OF BEDS: Mattress and Box spring Pillows: AMOUNT: 2 TYPE OF PILLOWS: Synthetic (hypoallergenic, polyester) Bedroom contains: Minimal items Pets: 1 dog(s) [place] farm: No speech scientist; no occupation related worsening of symptoms. 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 (Adult - for ages 18 years and over): No Food Insecurity: No Food Insecurity (06/14/2024) Food Insecurity Do you need food for this week? (Adult - for ages 18 years and over): No Transportation Needs: No Transportation Needs (06/14/2024) Transportation Needs Has lack of transportation kept you from medical appointments, meetings, work, or from getting things needed for daily living? Check all that apply. (Adult - for ages 18 years and over): No Social Connections: Socially Integrated (06/14/2024) Social Connections How often do you feel lonely or isolated from those around you? (Adult - for ages 18 years and over): Never Housing Stability: Low Risk (06/14/2024) Housing Stability Do you currently live in a chcf or have no steady place to sleep at night? (Adult - for ages 18 years and over): No Are you homeless or worried that you might be in the future? (Adult - for ages 18 years and over): No Allergy: Review of patient's allergies indicates: Allergen Reactions Morphine And Codeine lose consciousness Family HX: Family History Problem Relation Name Age of Onset Osteoarthritis Mother No Known Problems Sister Allergies Brother rhinitis, cats No Known Problems Brother Allergies Grandmother (Maternal) rhinitis Asthma Grandmother (Maternal) Dementia Grandmother (Maternal) Allergies Grandmother (Paternal) rhinitis Asthma Grandmother (Paternal) Diabetes Grandmother (Paternal) Diabetes Grandfather (Paternal) No Past Hx Son Cervical Cancer Aunt (Unspecified) Great Aunt ROS: Constitutional: no weight loss, no weakness, and no fatigue Eyes: no worsening of vision ENT: no hearing loss, no congestion Resp: no cough, no sputum, no wheezing, and no SOB Cardiac: no chest pain, no orthopnea, and no dyspnea on exertion GI: no pain, no heartburn, no diarrhea, no constipation Female : no dysuria, no abnormal vaginal bleeding, and no vaginal discharge LABS: Results for orders placed or performed in visit on 06/11/24 RHEUMATOID FACTOR Result Value Ref Range Rheumatoid Factor <10 <14 IU/mL CRP (INFLAMMATORY MARKER) Result Value Ref Range CRP (Inflammatory Marker) 38 (H) <=5 mg/L ERYTHROCYTE SEDIMENTATION RATE (ESR) Result Value Ref Range ESR 48 (H) <30 mm/hour ANTINUCLEAR ANTIBODY (CONNIE) SCREEN, SERGEI Result Value Ref Range CONNIE Screen Negative Negative dsDNA Antibody Interpretation Negative Negative dsDNA Antibody Value 7.5 <20 IU/mL JENNIE Antibodies Screen Interpretation Negative Negative JENNIE Antibodies Screen Value 0.3 <0.7 Ratio Pelvic Sonogram; Done Radiology at [facility] EXAM US PELVIS TRANS-VAGINAL NON-OB - 05/30/2024 8:40 am HISTORY follow up on abnormal left ovarian mass TECHNIQUE Real-time transvaginal ultrasound of the pelvis was performed. COMPARISON 04/14/2023. FINDINGS The uterus measures 7.9 x 3 x 5.5 cm and is mildly prominent and mildly heterogeneous in echotexture, possibly mild adenomyosis. No discrete myometrial lesion. Endometrium measures 5 mm in thickness.Linear echogenic structure represents an IUD and is abnormally low in position within the lower uterine segment. In addition, the arms of the device penetrates the myometrium. The right ovary measures 2.4 x 2.4 x 2 cm and is unremarkable. The left ovary measures 4.1 x 2.6 x 1.7 cm and contains a 2.8 x 2.2 x 1.7 cm (previously 2.2 x 2.1 x 2.1 cm) heterogeneous mass with some internal vascularity, suggesting a solid neoplasm. There is no adnexal mass. There is no free fluid in the cul-de-sac. IMPRESSION IMPRESSION 1. Abnormal position of the IUD, which is low in position and penetrates the myometrium. 2. Left ovarian mass, suspicious for a solid neoplasm. Recommend MRI pelvis with gadolinium. PHYSICAL EXAMINATION Well developed. Well nourishes white female in no acute distress Vital signs Ht 1.575 m (5' 2") | Wt 99.8 kg (220 lb) | BMI 40.24 kg/m | BSA 2.09 m Constitutional: no acute distress Neurologic: grossly intact Extremity: No Cyanoses, clubbing or edema. No lesions on either extremeties Psych: Alert, awake and oriented X 3. Normal gait A/P Intrauterine contraceptive device threads lost, subsequent encounter (Primary): Patient desires removal and re-insertion of the IUD in the OR. Patient will await findings from MRI to determine if additional surgical procedures are warranted. Ovarian mass, left: Tumor markers ordered. MRI pending. Will notify Patient of lab results. All questions answered. - CA 125; Future; Expected date: 07/25/2024 - CEA; Future; Expected date: 07/25/2024 - CA 19-9; Future; Expected date: 07/25/2024 María Davidson MD 07/25/2024 11:44 AM Gynecology/Obstetrics [facility] [address] [place] [address] documented in this encounter Nursing Notes * Erica Larson LPN - 07/25/2024 11:10 AM EST Here for Mirena removal and replacement. Placed 11/14/2018. Is not having periods with IUD. Sarina attempted removal and one string detatched. She was able to visualize 2nd string and did not further attempt removal and recommended f/u with . documented in this encounter Plan of Treatment Upcoming Encounters Date Type Department Care Team (Late st Contact Info) Description 08/03/2024 11:00 AM EST Imaging Radiology [facility] 1st Floor, [place] [address] [place] [phone] 09/05/2024 10:00 AM EST Office Visit Nutrition & Weight Management, [facility] [address] [place] [address] Nata Alba PA-C [address] [place] [address] 10/02/2024 11:40 AM EDT Office Visit Family Practice [facility] [address] [place] [address] Myah Valdivia CRNP [address] [place] [address] Pending Results Name Type Priority Associated Diagnoses Date /Time CA 125 Lab Routine Ovarian mass, left 07/25/2024 11:58 AM EST CEA Lab Routine Ovarian mass, left 07/25/2024 11:58 AM EST CA 19-9 Lab Routine Ovarian mass, left 07/25/2024 11:58 AM EST Scheduled Orders Name Type Priority Associated Diagnoses Orde r Schedule CA 125 Lab Routine Ovarian mass, left Expected: 07/25/2024, Expires: 6 CEA Lab Routine Ovarian mass, left Expected: 07/25/2024, Expires: 6 CA 19-9 Lab Routine Ovarian mass, left Expected: 07/25/2024, Expires: 6 Scheduled Procedures Name Priority Associated Diagnoses Date/Ti [...] Panel 02/20/2024 02/19/2019, 09/02, 01/17/2009 COVID-19 Vaccine (3 - season) 2024 08/30/2020, 08/06/2020 Influenza Vaccine [...] as of this encounter Visit Diagnoses Diagnosis Intrauterine contraceptive device threads lost, subsequent encounter- Primary Ovarian mass, left documented in this encounter Advance Directives Documents on File Type Date Recorded 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
--- OUTSIDE RECORDS SUMMARY | 2024-08-08 05:41 | External Medical Summary | Summary of Care ---
Author Name Unknown Organization [facility] Address [address] [place] [address] Phone [phone] Care Team Providers Care Doctor Of Veterinary Medicine Name Role Phone PrashantJoyce duran Jennifer JC Primary Care Provider Reason for Visit * Reason Onset Date Comments Appointment 06/26/2024 Encounter Details Date Type Department Care Team (Late st Contact Info) Description 06/26/2024 Telephone Hematology/Oncology Treatment, [place] [address] [place] [address] Lauren Galindo MD Appointment Allergies Active Allergy Reactions Criticality Noted Date Comments Morphine And Codeine High 08/13/2004 lose consciousness documented as of this encounter (statuses as of 07/18/2024) Medications MULTI-VITAMIN PO TABS One tablet daily [...] differently:ExternalPRN, Apply to behind ear., Reported on 07/11/2024 buPROPion HCl ER (SR) 150 MG Oral [...] Information Patient taking differently:TopicalTID PRN, Reported on 07/11/2024 Meloxicam 7.5 MG Oral Tablet (Mobic) Take [...] as of this encounter (statuses as of 07/18/2024) Active Problems Problem Noted Date Diagnosed Date [...] as of this encounter (statuses as of 07/18/2024) Resolved Problems Problem Noted Date Diagnosed Date [...] as of this encounter (statuses as of 07/18/2024) Immunizations Name Administration Dates Next Due COVID-19 [...] Industry Job Start Date Job End Date [employer] Not on file Not on file Not on f ile documented as of this encounter Miscellaneous Notes * Telephone Encounter - Kaley Jean-Baptiste RN [...] Care Team (Late st Contact Info) Description 07/20/2024 9:00 AM EST Office Visit Rheumatology [facility] [address] [place] [phone] Martín Paredes CRNP [address] [place] [address] [place] [address] 07/25/2024 11:00 AM EST Office Visit Gynecology/Obstetrics [facility] [address] [place] [place] [address] María Davidson MD [address] [place] [address] 08/03/2024 11:00 AM EST Imaging Radiology [facility] 1st Floor, [place] [address] [place] [address] 09/05/2024 10:00 AM EST Office Visit Nutrition & Weight Management, [facility] [address] [place] [place] [address] Nata Alba PA-C [address] [place] [address] 10/02/2024 11:40 AM EDT Office Visit Family Practice [facility] [address] [place] [address] Myah Valdivia CRNP [address] [place] [address] Scheduled Procedures Name Priority Associated Diagnoses Date/Ti [...] 02/20/2024 02/19/2019, 09/02, 01/17/2009 COVID-19 Vaccine ( - season) 2024 08/30/2020, [...] Documents on File Type Date Recorded 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
--- OUTSIDE RECORDS SUMMARY | 2024-08-08 05:41 | External Medical Summary ---
Author Name Unknown Address Unknown Organization [id number]:LABORATORY [facility] - [address] [place] [address] Laboratory Report Ordering Provider Test Date Status ZENY HEREDIA 07/25/2024 11:58:05 Final Observation Date Value Abnormality Reference (Units ) Status Cancer Ag 125 07/25/2024 11:58:05 11.7 <=38.1 (U/mL) Final Performing Location LABORATORY [facility] - [address] [place] [address]
--- OUTSIDE RECORDS SUMMARY | 2024-08-08 05:41 | External Medical Summary | Summary of Care ---
Author Name Unknown Organization [facility] Address [address] [place] [address] Phone [phone] Care Team Providers Care Machine Tool Electrician Name Role Phone PrashantJoyce duran Jennifer JC Primary Care Provider Reason for Visit * Reason Onset Date Comments Appointment 06/26/2024 Encounter Details Date Type Department Care Team (Late st Contact Info) Description 06/26/2024 Telephone Hematology/Oncology Treatment, [place] [address] [place] [address] Lauren Galindo MD Appointment Allergies Active Allergy Reactions Criticality Noted Date Comments Morphine And Codeine High 08/13/2004 lose consciousness documented as of this encounter (statuses as of 07/26/2024) Medications MULTI-VITAMIN PO TABS One tablet daily [...] as of this encounter (statuses as of 07/26/2024) Active Problems Problem Noted Date Diagnosed Date [...] as of this encounter (statuses as of 07/26/2024) Resolved Problems Problem Noted Date Diagnosed Date [...] as of this encounter (statuses as of 07/26/2024) Immunizations Name Administration Dates Next Due COVID-19 [...] Industry Job Start Date Job End Date [employer] [place] Not on file Not on file Not [...] up appointment. LMOM to return call to [place] * Telephone Encounter - Kaley Jean-Baptiste RN [...] Description 08/03/2024 11:00 AM EST [facility] [address] [place] [phone] 09/05/2024 10:00 AM EST Office Visit Nutrition & Weight Management, [facility] [address] [place] [address] Nata Alba PA-C [address] [place] [address] 10/02/2024 11:40 AM EDT Office Visit Family Practice [facility] [address] [place] [address] Myah Valdivia CRNP [address] [place] [address] Scheduled Procedures Name Priority Associated Diagnoses Date/Ti [...] of 2) 10/17/2023 COVID-19 Vaccine (3 - season) 2024 08/30/2020, [...] Documents on File Type Date Recorded 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
--- OUTSIDE RECORDS SUMMARY | 2024-08-08 05:41 | External Medical Summary | Summary of Care ---
Author Name Unknown Organization [facility] Address [address] [place] [address] Phone [phone] Care Team Providers Care Small Lot Operator Name Role Phone Jose E Joyce Jennifer JC Primary Care Provider [phone] Reason for Visit * Reason Comments NEW PATIENT Referred by Myah medrano for irregular blood results, pain in knees and hips * Evaluate & Treat - Unlimited Visits (Within 30 days (routine)) - Authorized Specialty Diagnoses / Procedures Referred By Alda pan Referred To Contact Rheumatology Diagnoses Polyarthralgia Myah Valdivia CRNP [address] [place] [address] Phone: tel: fax: Referral ID Status Reason Start Date Expiration Date Visits Requested Visits Authorized [id number] Authorized Specialty Services Required 07/11/[phone] Encounter Details Date Type Department Care Team (Late st Contact Info) Description 07/20/2024 9:00 AM EST Office Visit Rheumatology [facility] [address] [place] [phone] Martín [facility]aredes [facility] [address] [facility] [address] Primary generalized (osteo)arthritis*; Chronic pain of both knees Allergies Active Allergy Reactions Criticality Noted Date Comments Morphine And Codeine High 08/13/2004 lose consciousness documented as of this encounter (statuses as of 07/20/2024) Medications MULTI-VITAMIN PO TABS One tablet daily [...] BY MOUTH EVERY MORNING 30 Capsule 2 Active documented as of this encounter (statuses as of 07/20/2024) Active Problems Problem Noted Date Diagnosed Date [...] as of this encounter (statuses as of 07/20/2024) Resolved Problems Problem Noted Date Diagnosed Date [...] as of this encounter (statuses as of 07/20/2024) Immunizations Name Administration Dates Next Due COVID-19 mRNA, LNP-s, No Pre serve, 2-Dose Series (Moderna) 08/30/2020,08/06/2020 Seasonal Influenza Vac., MDV, IM, 0.5 mL (Fluzon e) 04/10/2009 Seasonal Influenza, Quadrivalent, No Preserve, I M 04/21/2018,06/29/2016 06/29/2017 documented as of this encounter Social History Tobacco Use Types Packs/Day Years Used Date Smoking Tobacco: Never Smokeless Tobacco: Never Tobacco Cessation:Counseling Given: Not Answered Comments:no passive smoke exposures Alcohol Use Standard Drinks/Week Comments Yes 0 [...] No 06/14/2024 Does the household have a [facility] source of income? (Household - for ages [...] Industry Job Start Date Job End Date [employer] Not on file Not on file Not on f ile documented as of this encounter Last Filed Vital Signs Vital Sign Reading Time Taken Comments Blood Pressure - - Pulse - - Temperature 36.1 C (96.9 F) 07/20/2024 9:05 AM ES T Respiratory Rate - - Oxygen Saturation - - Inhaled Oxygen Concentration - - Weight 99.3 kg (219 lb) 07/20/2024 9:05 AM EST Height - - Body Mass Index 40.06 07/11/2024 10:44 AM EST documented in this encounter Progress Notes * Martín Paredes CRNP - 07/20/2024 9:00 AM EST Reason for visit: Rheumatology consultation for polyarthralgia Referring Provider: Joyce Dorantes DO HPI: Kely Mercado is here at the request of Joyce Dorantes DO for further evaluation of polyarthralgia. Kely Mercado pmhx is listed below. Reports that she has joint pain in her knee's with carriage removal of her left knee 2011 and right knee ACL repair in 2000. Reports that she played sports in college, rugbe, field hockey, and hockey. Reports she had a ski injury of the left and had surgeries at [facility]. She had steroid injections that lasted about 2 weeks with Ortho first then shehad Gel injections with Dr. Richmond in November that the gel did not seem to improve pain. She denies hand or foot pain or swelling. Reports that her right knee will swell after an active day. Her pain is moderate in the knee's all day. Reports she will feel stiff in the monring. Reports that she took Tylenol Arthritis but was prescribed Melxicam 7.5 mg once daily with benefit.She also uses diclofenac as needed before bed or if she is going to have prolonged activity. Reports that she will stretch in the AM and takes an online Yoga class twice a week. Reports strong family history of osteoarthritis. Denies family history of autoimmune diseases. Musculoskeletal ROS: . Abnormal: joint pain, swelling . AM stiffness (hours): 0.5 . Pain scale (0-10): 5 . Fatigue scale (0-10): 3 . Job status: working Other ROS: . Constitutional: normal . Head normal . Eyes: normal . Ears, nose, throat, mouth: normal . Cardiovascular: normal . Respiratory: normal . Gastrointestinal: normal . Genitourinary: normal . Skin: normal . Neurologic: normal All other ROS reviewed and negative Current Outpatient Medications Medication Sig Dispense Refill Phentermine HCl 15 MG Oral Capsule TAKE 1 CAPSULE BY MOUTH EVERY MORNING 30 Capsule 2 Albuterol Sulfate HFA 108 (90 Base) MCG/ACT Inhalation Aerosol Solution Use two puffs every four hours as needed for wheezing,cough, chest tightness, shortness of breath, prior to excerise - Inhalation 18 g 5 Meloxicam 7.5 MG Oral Tablet (Mobic) Take 1 Tablet by mouth in the morning. for pain.. 30 Tablet 3 Diclofenac Sodium 1 % External Gel (Voltaren) Apply topically to affected area 4 times a day. (Patient taking differently: Apply topically to affected area 3 times a day as needed.) 350 g 1 Fluticasone Propionate 50 MCG/ACT Nasal Suspension (Flonase) 2 sprays each nostril daily. Can increase to twice daily as needed. 3 Each 3 Mometasone Furoate 0.1 % External Cream Apply topically to affected area daily. Apply to behind ear. (Patient taking differently: Apply topically to affected area as needed. Apply to behind ear.) 45 g 3 buPROPion HCl ER (SR) 150 MG Oral Tablet Extended Release 12 Hour (Wellbutrin SR) Take 1 tab by mouth once a day for 1 week then take 1 tab twice a day (morning & late afternoon) 60 Tablet 5 Naltrexone HCl 50 MG Oral Tablet (Revia) Take 1/2 tab by mouth once a day for 1 week then take 1/2 tab twice a day (morning & late afternoon) 30 Tablet 5 Levonorgestrel 20 MCG/DAY Intrauterine Intrauterine Device (Mirena) Insert 1 Each into uterus once. Cetirizine-Pseudoephedrine ER (ZYRTEC-D ALLERGY & CONGESTION) 5-120 MG TB12 Take 1 Tab by mouth2 times a day. MULTI-VITAMIN PO TABS One tablet daily 30 0 No current facility-administered medications for this visit. 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, neg coag w/u thought to be due to OCP's, dehydration, altitude Past Surgical History: Procedure Laterality Date COLONOSCOPY, DIAGNOSTIC (RECTUM) 03/04/2021 Diverticulosis, 5y recall/ COLONOSCOPY FLEXIBLE PROXIMAL DIAGNOSTIC performed by Sly Peña MD at [facility] COLPOSCOPY OF CERVIX W/BIOPSY 09/01/2004 KNEE ARTHROSCOPY/REPAIR LIGAMENT Right ACL replaced KNEE ARTHROSCOPY/REPAIR LIGAMENT Left 07/04/2010 [facility] DELIVERY ONLY TREATMENT OF INCOMPLETE 07/04/2004 URIEL EMBO SUBCLAVIAN BY NECK 07/04/1999 Family History Problem Relation Name Age of Onset Osteoarthritis Mother No Known Problems Sister Allergies Brother rhinitis, cats No Known Problems Brother Allergies Grandmother (Maternal) rhinitis Asthma Grandmother (Maternal) Dementia Grandmother (Maternal) Allergies Grandmother (Paternal) rhinitis Asthma Grandmother (Paternal) Diabetes Grandmother (Paternal) Diabetes Grandfather (Paternal) No Past Hx Son Cervical Cancer Aunt (Unspecified) Great Aunt Social History Social History Tobacco Use Smoking status: Never Smokeless tobacco: Never Tobacco comments: no passive smoke exposures Vaping Use Vaping status: Never Used Substance Use Topics Alcohol use: Yes Comment: 2-3 drinks/month Drug use: No Physical Exam Filed Vitals: 07/20/24 0905 Temp: 36.1 C (96.9 F) TempSrc: Infrared Weight: 99.3 kg (219 lb) General: alert, healthy, and no distress HENT: normocephalic, external ears normal, no mucosal erythema, no mucosal edema, moist mucosa, no oral ulcers Heart: regular rate & rhythm, no murmur, and no gallops Lungs: clear to auscultation , no rales, wheezes or rhonchi Extremities: no edema, no clubbing, no cyanosis Neuro Exam: alert & oriented x 3 with fluent speech, no focal motor/sensory deficits, gait normal Musculoskeletal Exam: A comprehensive musculoskeletal exam was performed for all joints of each upper and lower extremity and assessed for swelling, tenderness and range of motion. Crepitus of right knee noted. . Synovitis: None . Tenderness: None . Effusion: None . Range of Motion: Normal . Dsp Engineer strength: both 5/5 Musculoskeletal Index: . Joint count tender (0-28): 0 Latest Reference Range & Units 04/30/24 12:14 SODIUM 135 - 146 mmol/L 140 POTASSIUM 3.5 - 5.1 mmol/L 4.0 CHLORIDE 98 - 107 mmol/L 101 CO2 22 - 32 mmol/L 27 BUN 6 - 20 mg/dL 17 CREATININE 0.5 - 1.0 mg/dL 0.8 EGFR >=60 mL/min 85 ANION GAP 7 - 15 mmol/L 12 GLUCOSE 70 - 120 mg/dL 108 CALCIUM 8.4 - 10.2 mg/dL 10.0 Protein 6.0 - 8.3 g/dL 7.5 Latest Reference Range & Units 04/30/24 12:14 CBC Rpt ! WBC 4.00 - 10.80 K/uL 9.34 RBC 3.85 - 5.15 M/uL 5.79 HGB 12.0 - 15.3 g/dL 11.5 (L) HCT 36.0 - 45.2 % 35.8 (L) MCV 81.5 - 97.5 fL 61.8 MCH 27.0 - 34.0 pg 19.9 MCHC 32.0 - 36.0 g/dL 32.1 RDW 11.5 - 15.5 % 18.4 PLT 140 - 400 K/uL 337 MPV 6.6 - 11.1 fL 9.5 CBC WITH WBC DIFFERENTIAL Rpt ! Absolute Neutrophils 1.80 - 7.70 K/uL 6.37 Absolute Lymphocytes 1.00 - 4.80 K/ul 2.32 Absolute Monocytes 0.00 - 1.10 K/uL 0.49 Absolute Eosinophils 0.00 - 0.70 K/uL 0.13 Absolute Basophils 0.00 - 0.20 K/uL 0.03 Latest Reference Range & Units 06/11/24 12:38 CONNIE Screen Negative Negative JENNIE Antibodies Screen Value <0.7 Ratio 0.3 JENNIE Antibodies Screen Interpretation Negative Negative dsDNA Antibody Value <20 IU/mL 7.5 dsDNA Antibody Interpretation Negative Negative Latest Reference Range & Units 06/11/24 12:38 CRP (Inflammatory Marker) <=5 mg/L 38 (H) ESR <30 mm/hour 48 (H) Rheumatoid Factor <14 IU/mL <10 Knee X-rays 09/14/2023 IMPRESSION Moderate to severe osteoarthritis bilateral knees Wrist x-rays 05/07/2021 FINDINGS Normal alignment. No acute fracture. Mild 1st CMC and triscaphe joint osteoarthritis with marginal osteophytes. Assessment (M15.0) Primary generalized (osteo)arthritis (primary encounter diagnosis) Plan: XR HAND 3 OR MORE VIEWS (M25.561, M25.562, G89.29) Chronic pain of both knees Ms. Mercado presents today for evaluation of knee pain with elevated inflammatory markers. Patient has moderate to severe arthritis of bilateral knees and sees Orthopedics. Patient elevated inflammatory markers in April and then in June. No tenderness or synovitis of joints on exam. Based on history and exam patient does not appear to inflammatory arthritis. Not sure what to make of the elevated inflammatory markers. There several other factors that may cause these labs become elevated such as certain medications, central obesity, infection, repeated tissue injuries causing chronic inflammation. We will get baseline hand x-rays for completeness. Continue following with Orthopedics for osteoarthritis of the knees. Discussed some conservative measures for OA including continuing meloxicam, Tylenol Arthritis, we will Voltaren gel, stretches and exercises, healthy diet, good sleep hygiene, he bracing. We will not need to follow up with Rheumatology at this point. Patient agreeable to this plan and verbalized understanding. Plan 1. Imaging: Hands 2. No medication changes 3. Follow up as needed 4. Discussed conservative measures for OA 5. Continue following with Orthopedics 6. Contact clinic with any questions, concerns worsening symptoms 7. Discussed the above in detail with the patient. All questions answered. CC PCP I spent a total of 40-54 minutes (exact time 45 mins) on the date of service in preparation, delivery, and documentation of the care provided to Kely Mercado excluding any time spent in the performance of separately billed services. J[facility] Rheumat[facility] Department The patient was discussed with me. I agree with the findings and plan as documented by Martín RAMIREZ in this note. Oscar Tapia MD Rheumatology Department documented in this encounter Nursing Notes * Gracie Krause LPN - 07/20/2024 9:03 AM EST Chief Complaint Patient presents with NEW PATIENT Referred by Myah Valdivia for irregular blood results, pain in knees and hips documented in this encounter Plan of Treatment Upcoming Encounters Date Type Department Care Team (Late st Contact Info) Description 07/25/2024 11:00 AM EST [facility] [address] [place] [address] María Davidson MD [address] [place] [address] 08/03/2024 11:00 AM EST Imaging Radiology [facility] 1st [facility] [address] [place] [phone] 09/05/2024 10:00 AM EST Office Visit Nutrition & Weight Management, [facility] [address] [place] [address] Nata Alba PA-C [address] [place] [address] 10/02/2024 11:40 AM EDT Office Visit Family Practice [facility] [address] [place] [address] Myah Valdivia CRNP [address] [place] [address] Scheduled Orders Name Type Priority Associated Diagnoses Orde r Schedule XR HAND 3 OR MORE VIEWS Medical Imaging Routine Primary generalized (osteo)arthritis Ordered: 07/20/2024 Scheduled Procedures Name Priority Associated Diagnoses Date/Ti [...] 02/19/2019, 09/02, 01/17/2009 COVID-19 Vaccine (3 - 2023- season) 2024 [...] as of this encounter Visit Diagnoses Diagnosis Primary generalized (osteo)arthritis- Primary Generalized osteoarthrosis, involving multiple sites Chronic pain of both knees documented in this encounter Advance Directives Documents on File Type Date Recorded Patient Data Center Project Manager Expl anation Advance Directives and Living Will 03/22/2005 Power of Executive Pilot 03/22/2005 * No Code Status (Latest Code Status on File) Date Activated Date Inactivated Comments 03/22/2005 10:26 AM 03/22/2005 10:26 AM Care Teams Small Lot Operator Relationship Specialty Start Date End Date Joyce Dorantes DO [address] [place] [address] PCP - General Family Medicine 12/23/15 documented as of this encounter
--- OUTSIDE RECORDS SUMMARY | 2024-08-08 05:41 | External Medical Summary | Summary of Care ---
Author Name Unknown Organization [facility] Address [address] [place] [address] Phone [phone] Care Team Providers Care Gravity Prospecting Supervisor Name Role Phone PrashantJoyce duran Jennifer JC Primary Care Provider Reason for Visit * Reason Onset Date Comments Appointment 06/26/2024 Encounter Details Date Type Department Care Team (Late st Contact Info) Description 06/26/2024 Telephone Hematology/Oncology Treatment, [place] [address] [place] [address] Lauren Galindo MD Appointment Allergies [...] Industry Job Start Date Job End Date [employer] Not on file Not on file Not [...] 07/20/2024 9:00 AM EST Office Visit Rheumatology [facility] [address] [place] [phone] Martín Paredes CRNP [address] [place] [address] [place] [address] 07/25/2024 11:00 AM EST Office Visit Gynecology/Obstetrics [facility] [address] [place] [address] María Davidson MD [address] [place] [address] 08/03/2024 11:00 AM EST Imaging Radiology [facility] 1st Floor, [place] [address] [place] [address] 09/05/2024 10:00 AM EST Office Visit Nutrition & Weight Management, [facility] [address] [place] [address] Nata Alba PA-C [address] [place] [address] 10/02/2024 11:40 AM EDT Office Visit Family Practice [facility] [address] [place] [address] Myah Valdivia CRNP [address] [place] [address] Scheduled Procedures Name Priority Associated Diagnoses Date/Ti [...] Documents on File Type Date Recorded Patient Color Paste Mixer Expl anation Advance Directives and Living Will 03/22/2005 Power of Residential Treatment Staff 03/22/2005 * No Code Status (Latest Code Status on File) Date Activated Date Inactivated Comments 03/22/2005 10:26 AM 03/22/2005 10:26 AM Care Teams Gravity Prospecting Supervisor Relationship Specialty Start Date End Date Joyce Dorantes DO [address] [place] [address] PCP - General Family Medicine 12/23/15 documented as of this encounter
--- OUTSIDE RECORDS SUMMARY | 2024-08-08 05:41 | External Medical Summary | Summary of Care ---
Author Name Unknown Organization [facility] Address [address] [place] [address] Phone [phone] Care Team Providers Care Communication Lecturer Name Role Phone PrashantJoyce duran Jennifer JC Primary Care Provider Reason for Visit * Reason Onset Date Comments Appointment 06/26/2024 Encounter Details Date Type Department Care Team (Late st Contact Info) Description 06/26/2024 Telephone Hematology/Oncology Treatment, [place] [address] [place] [address] Lauren Galindo MD Appointment Allergies [...] Industry Job Start Date Job End Date [id number] Not on file Not on file Not on f ile documented as of this encounter Miscellaneous Notes * Telephone Encounter - Janet Pantoja OSA - 07/18/2024 12:26 PM EST Attempted to call patient to schedule follow up appointment. LMOM to return call to wv * Telephone Encounter - Kaley Jean-Baptiste RN [...] 07/20/2024 9:00 AM EST Office Visit Rheumatology [facility] [address] [place] [phone] Martín Paredes CRNP [address] [place] [address] [place] [address] 07/25/2024 11:00 AM EST Office Visit Gynecology/Obstetrics [facility] [address] [place] [address] María Davidson MD [address] [place] [address] 08/03/2024 11:00 AM EST Imaging Radiology [facility] 1st Floor, [place] [address] [place] [address] 09/05/2024 10:00 AM EST Office Visit Nutrition & Weight Management, [facility] [address] [place] [address] Nata Alba PA-C [address] [place] [address] 10/02/2024 11:40 AM EDT Office Visit Family [facility] [address] [place] [address] Myah Valdivia CRNP [address] [place] [address] Scheduled Procedures Name Priority Associated Diagnoses Date/Ti [...] Documents on File Type Date Recorded Patient Laundry Sorter Expl anation Advance Directives and Living Will 03/22/2005 Power of Kitchen Lead 03/22/2005 * No Code Status (Latest Code Status on File) Date Activated Date Inactivated Comments 03/22/2005 10:26 AM 03/22/2005 10:26 AM Care Teams Communication Lecturer Relationship Specialty Start Date End Date Joyce Dorantes DO [address] [place] [address] PCP - General Family Medicine 12/23/15 documented as of this encounter
--- OUTSIDE RECORDS SUMMARY | 2024-08-08 05:41 | External Medical Summary ---
Author Name Unknown Address Unknown Organization K01:LABORATORY [facility] - [address] [place] [address] Laboratory Report Ordering Provider Test Date Status ZENY HEREDIA 07/25/2024 11:58:05 Final Observation Date Value Abnormality Reference (Units ) Status Cancer Ag 19-9 07/25/2024 11:58:05 6.2 <35.0 (U/mL) Final Performing Location LABORATORY [facility] - [address] [place] [address]
--- OUTSIDE RECORDS SUMMARY | 2024-08-08 05:41 | External Medical Summary | Summary of Care ---
Author Name Unknown Organization [facility] Address [address] [place] [address] Phone [phone] Care Team Providers Care Patient Insurance Clerk Name Role Phone PrashantJoyce duran Jennifer JC Primary Care Provider Reason for Visit * Reason Onset Date Comments Appointment 06/26/2024 Encounter Details Date Type Department Care Team (Late st Contact Info) Description 06/26/2024 Telephone Hematology/Oncology Treatment, [place] [address] [place] [address] Lauren Galindo MD Appointment Allergies [...] Industry Job Start Date Job End Date [employer] Not on file Not on file Not [...] 07/20/2024 9:00 AM EST Office Visit Rheumatology [facility] [address] [place] [phone] Martín Paredes CRNP [address] [place] [address] [place] [address] 07/25/2024 11:00 AM EST Office Visit Gynecology/Obstetrics [facility] [address] [place] [address] María Davidson MD [address] [place] [address] 08/03/2024 11:00 AM EST Imaging Radiology [facility] 1st Floor, [place] [address] [place] [address] 09/05/2024 10:00 AM EST Office Visit Nutrition & Weight Management, [facility] [address] [place] [address] Nata Alba PA-C [address] [place] [address] 10/02/2024 11:40 AM EDT Office Visit Family Practice [facility] [address] [place] [address] Myah Valdivia CRNP [address] [place] [address] Scheduled Procedures Name Priority Associated Diagnoses Date/Ti [...] Documents on File Type Date Recorded Patient Carpet Measurer Expl anation Advance Directives and Living Will 03/22/2005 Power of Bus Info Consultant 03/22/2005 * No Code Status (Latest Code Status on File) Date Activated Date Inactivated Comments 03/22/2005 10:26 AM 03/22/2005 10:26 AM Care Teams Patient Insurance Clerk Relationship Specialty Start Date End Date Joyce Dorantes DO [address] [place] [address] PCP - General Family Medicine 12/23/15 documented as of this encounter
--- OUTSIDE RECORDS SUMMARY | 2024-08-08 05:42 | External Medical Summary | Summary of Care ---
Author Name Unknown Organization [facility] Address [address] [place] [address] Phone [phone] Care Team Providers Care Engineering Director Name Role Phone PrashantJoyce duran Jennifer JC Primary Care Provider Reason for Visit * Reason Onset Date Comments Appointment 06/26/2024 Encounter Details Date Type Department Care Team (Late st Contact Info) Description 06/26/2024 Telephone Hematology/Oncology Treatment, [place] [address] [place] [address] Lauren Galindo MD Appointment Allergies Active Allergy Reactions Criticality Noted Date Comments Morphine And Codeine High 08/13/2004 lose consciousness documented as of this encounter (statuses as of 06/29/2024) Medications MULTI-VITAMIN PO TABS One tablet daily [...] differently:ExternalPRN, Apply to behind ear., Reported on 06/14/2024 buPROPion HCl ER (SR) 150 MG Oral [...] Information Patient taking differently:TopicalTID PRN, Reported on 06/14/2024 Meloxicam 7.5 MG Oral Tablet (Mobic) Take 1 Tablet by mouth in the morning. for pain.. 30 Tablet 3 4 Active Albuterol Sulfate HFA 108 (90 Base) MCG/ACT Inhalation Aerosol Solution Use two puffs every four hours as needed for wheezing,cough, chest tightness, shortness of breath, prior to excerise - Inhalation 18 g 5 4 Active Phentermine HCl 15 MG Oral Capsule Take 1 Capsule by mouth in the morning. 30 Capsule 4 Active documented as of this encounter (statuses as of 06/29/2024) Active Problems Problem Noted Date Diagnosed Date Chronic pain of both knees 04/03/2024 Medication management 04/03/2024 Nipple discharge 04/03/2024 Cyst of left ovary 04/15/2023 Overview (04/15/2023): Consider annual ultrasound Thalassemia minor 01/25/2022 Prediabetes 03/16/2021 Overview: Per Prediabetes protocol KENJI (obstructive sleep apnea) 02/19/2019 Intermittent asthma with reliever use up to twic e per week 09/13/2014 documented as of this encounter (statuses as of 06/29/2024) Resolved Problems Problem Noted Date Diagnosed Date Resolved Date Morbid obesity 01/25/2022 10/19/2023 Chronic allergic rhinitis [...] grade 1 10/30/2004 01/25/2022 Polycystic ovaries 09/14/2004 2 Asthma with severity to be determined 08/13/2004 08/24/2011 Overview (10/13/2015): ICD-10 update of inactive term Allergic rhinitis 08/13/2004 10/06/2021 Allergic conjunctivitis 08/13/200401/02 documented as of this encounter (statuses as of 06/29/2024) Immunizations Name Administration Dates Next Due COVID-19 [...] Industry Job Start Date Job End Date [employer] Not on file Not on file Not [...] Care Team (Late st Contact Info) Description 07/06/2024 10:40 AM EST Office Visit [facility] [address] [place] [address] Myah Valdivia CRNP [address] [place] [address] 07/12/2024 9:45 AM EST Office Visit Gynecology/Obstetrics [facility] [address] [place] [address] Sarina Herrera CRNP [address] [place] [address] 07/25/2024 11:00 AM EST Office Visit Gynecology/Obstetrics [facility] [address] [place] [address] María Davidson MD [address] [place] [address] 09/05/2024 10:00 AM EST Office Visit Nutrition & Weight Management, [facility] [address] [place] [address] Nata Alba PA-C [address] [place] [address] 10/02/2024 11:40 AM EDT Office Visit [facility] [address] [place] [address] Myah Valdivia CRNP [address] [place] [address] Scheduled Procedures Name Priority Associated Diagnoses Date/Ti [...] Documents on File Type Date Recorded Patient Link And Link Knitting Machine Operator Expl anation Advance Directives and Living Will 03/22/2005 Power of Sign Language Interpreter 03/22/2005 * No Code Status (Latest Code Status on File) Date Activated Date Inactivated Comments 03/22/2005 10:26 AM 03/22/2005 10:26 AM Care Teams Engineering Director Relationship Specialty Start Date End Date Joyce Dorantes DO [address] [place] [place] [address] PCP - General Family Medicine 12/23/15 documented as of this encounter
--- OUTSIDE RECORDS SUMMARY | 2024-08-08 05:42 | External Medical Summary | Summary of Care ---
Author Name Unknown Organization [facility] Address [address] [place] [address] Phone [phone] Care Team Providers Care Quality Process Lead Name Role Phone PrashantJoyce duran Jennifer JC Primary Care Provider Reason for Visit * Reason Onset Date Comments Appointment 06/26/2024 Encounter Details Date Type Department Care Team (Late st Contact Info) Description 06/26/2024 Telephone Hematology/Oncology Treatment, [place] [address] [place] [address] Lauren Galindo MD Appointment Allergies Active Allergy Reactions Criticality Noted Date Comments Morphine And Codeine High 08/13/2004 lose consciousness documented as of this encounter (statuses as of 06/28/2024) Medications MULTI-VITAMIN PO TABS One tablet daily [...] as of this encounter (statuses as of 06/28/2024) Active Problems Problem Noted Date Diagnosed Date Chronic pain of both knees 04/03/2024 Medication management 04/03/2024 Nipple discharge 04/03/2024 Cyst of left ovary 04/15/2023 Overview (04/15/2023): Consider annual ultrasound Thalassemia minor 01/25/2022 Prediabetes 03/16/2021 Overview: Per Prediabetes protocol KENJI (obstructive sleep apnea) 02/19/2019 Intermittent asthma with reliever use up to twic e per week 09/13/2014 documented as of this encounter (statuses as of 06/28/2024) Resolved Problems Problem Noted Date Diagnosed Date [...] as of this encounter (statuses as of 06/28/2024) Immunizations Name Administration Dates Next Due COVID-19 [...] Industry Job Start Date Job End Date [employer] Not on file Not on file Not [...] Description 07/06/2024 10:40 AM EST Office Visit Family Practice [facility] [address] [facility] [place] [address] Myah Valdivia CRNP [address] [place] [address] 07/12/2024 9:45 AM EST Office Visit Gynecology/Obstetrics [facility] [address] [place] [address] Sarina Herrera CRNP [address] [place] [address] 07/25/2024 11:00 AM EST Office Visit Gynecology/Obstetrics [facility] [address] [place] [address] María Davidson MD [address] [place] [address] 07/26/2024 1:30 PM EST Office Visit [facility]ology[facility]On[facility] [address] [facility] [phone] Lauren Galindo MD 09/05/2024 10:00 AM EST Office Visit Nutrition & Weight Management, [facility] [address] [place] [address] Nata Alba PA-C [address] [place] [address] 10/02/2024 11:40 AM EDT Office Visit Family Practice [facility] [address] [place] [address] Myah Valdivia CRNP [address] [place] [address] Scheduled Procedures Name Priority Associated Diagnoses Date/Ti me COLONOSCOPY FLEXIBLE PROXIMA L DIAGNOSTIC Recall Special screening for malignant neoplasms, colon Health Maintenance Due Date Last Done Comments Hepatitis C Screening 10/17/1991 DTap/Tdap Vaccines (1 - Tdap) 1992 Hepatitis B Vaccine (1 of 3 - 19+ 3-dose series) 1992 Pneumococcal Vaccine: Pediatrics (0 to 5 Years) and At-Risk Patients (6 to 64 Years) (1 of 2 - PCV) 1992 HPV/Co-Test [...] Documents on File Type Date Recorded Patient Medical Billing Assistant Expl anation Advance Directives and Living Will 03/22/2005 Power of Gear Generator Set Up Operator 03/22/2005 * No Code Status (Latest Code Status on File) Date Activated Date Inactivated Comments 03/22/2005 10:26 AM 03/22/2005 10:26 AM Care Teams Quality Process Lead Relationship Specialty Start Date End Date Joyce Dorantes DO [address] [place] [address] PCP - General Family Medicine 12/23/15 documented as of this encounter
--- OUTSIDE RECORDS SUMMARY | 2024-08-08 05:42 | External Medical Summary | Summary of Care ---
Author Name Unknown Organization [facility] Address [address] [place] [address] Phone [phone] Care Team Providers Care Stock Ranch Supervisor Name Role Phone PrashantJoyce duran Jennifer JC Primary Care Provider Reason for Visit * Reason Onset Date Comments Appointment 06/26/2024 Encounter Details Date Type Department Care Team (Late st Contact Info) Description 06/26/2024 Telephone Hematology/Oncology Treatment, [place] [address] [place] [address] Lauren Galindo MD Appointment Allergies Active Allergy Reactions Criticality Noted Date Comments Morphine And Codeine High 08/13/2004 lose consciousness documented as of this encounter (statuses as of 07/03/2024) Medications MULTI-VITAMIN PO TABS One tablet daily [...] as of this encounter (statuses as of 07/03/2024) Active Problems Problem Noted Date Diagnosed Date Chronic pain of both knees 04/03/2024 Medication management 04/03/2024 Nipple discharge 04/03/2024 Cyst of left ovary 04/15/2023 Overview (04/15/2023): Consider annual ultrasound Thalassemia minor 01/25/2022 Prediabetes 03/16/2021 Overview: Per Prediabetes protocol KENJI (obstructive sleep apnea) 02/19/2019 Intermittent asthma with reliever use up to twic e per week 09/13/2014 documented as of this encounter (statuses as of 07/03/2024) Resolved Problems Problem Noted Date Diagnosed Date [...] as of this encounter (statuses as of 07/03/2024) Immunizations Name Administration Dates Next Due COVID-19 [...] Industry Job Start Date Job End Date [employer] Not on file Not on file Not [...] Description 07/06/2024 10:40 AM EST Office Visit [facility] [address] [place] [address] Myah Valdivia CRNP [address] [place] [address] 07/12/2024 9:45 AM EST Office Visit Gynecology/Obstetrics [facility] [address] [place] [address] Sarina Herrera CRNP [address] [place] [address] 07/25/2024 11:00 AM EST Office Visit Gynecology/Obstetrics [facility] [address] [place] [address] María Davidson MD [address] [place] [address] 09/05/2024 10:00 AM EST Office Visit Nutrition & Weight Management, [facility] [address] [place] [address] Nata Alba PA-C [address] [place] [address] 10/02/2024 11:40 AM EDT Office Visit [facility] [address] [place] [address] Myah Valdivia CRNP [address] [place] [address] Scheduled Procedures Name Priority Associated Diagnoses Date/Ti [...] Documents on File Type Date Recorded Patient Lighting Technician Expl anation Advance Directives and Living Will 03/22/2005 Power of Fitness Coordinator 03/22/2005 * No Code Status (Latest Code Status on File) Date Activated Date Inactivated Comments 03/22/2005 10:26 AM 03/22/2005 10:26 AM Care Teams Stock [place] Supervisor Relationship Specialty Start Date End Date Joyce Dorantes DO [address] [place] [address] PCP - General Family Medicine 12/23/15 documented as of this encounter
--- OUTSIDE RECORDS SUMMARY | 2024-08-08 05:42 | External Medical Summary | Summary of Care ---
Author Name Unknown Organization [facility] Address [address] [place] [address] Phone [phone] Care Team Providers Care Finish Molder Name Role Phone Joyce Dorantes DO Primary Care Provider [phone] Reason for Referral * Evaluate & Treat - Unlimited Visits (Within 30 days (routine)) - Authorized Specialty Diagnoses / Procedures Referred By Alda pan Referred To Contact Rheumatology Diagnoses Polyarthralgia Myah Valdivia CRNP [address] [place] [address] Phone: tel: fax: Referral ID Status Reason Start Date Expiration Date Visits Requested Visits Authorized [id number] Authorized Specialty Services Required 07/11/[phone] Question Answer Referral Priority Within 30 days (routine) Where should this appointment be scheduled? [facility] Reason for referral: Inflammatory arthritis/Autoimmune or Connective Tissue Diseases Comments Seronegative Crp and esr high Reason for Visit * Reason Comments Follow Up Patient presents in office today for a follow-up visit. Encounter Details Date Type Department Care Team (Late st Contact Info) Description 07/11/2024 10:40 AM EST Office Visit Family [facility] [address] [place] [address] Myah Valdivia CRNP [address] [place] [address] Thalassemia minor*; Nipple discharge; Left tubo-ovarian mass; Polyarthralgia; Medication management; Thrombocytopenia, congenital and hereditary (HCC); Morbid obesity due to excess calories (HCC); Eyelid gland swelling, right Allergies Active Allergy Reactions Criticality Noted Date Comments Morphine And Codeine High 08/13/2004 lose consciousness documented as of this encounter (statuses as of 07/11/2024) Medications MULTI-VITAMIN PO TABS One tablet daily [...] as of this encounter (statuses as of 07/11/2024) Active Problems Problem Noted Date Diagnosed Date [...] as of this encounter (statuses as of 07/11/2024) Resolved Problems Problem Noted Date Diagnosed Date Resolved Date Cyst of left ovary 04/15/2023 5 Overview (04/15/2023): Consider annual ultrasound Morbid obesity [...] as of this encounter (statuses as of 07/11/2024) Immunizations Name Administration Dates Next Due COVID-19 [...] Industry Job Start Date Job End Date [employer] Not on file Not on file Not on f ile documented as of this encounter Last Filed Vital Signs Vital Sign Reading Time Taken Comments Blood Pressure 124/76 07/11/2024 10:44 AM EST Pulse 80 07/11/2024 10:44 AM EST Temperature - - Respiratory Rate 16 07/11/2024 10:44 AM EST Oxygen Saturation 99% 07/11/2024 10:44 AM EST Inhaled Oxygen Concentration - - Weight 99.8 kg (220 lb) 07/11/2024 10:44 AM EST Height 157.5 cm (5' 2") 07/11/2024 10:44 AM EST Body Mass Index 40.24 07/11/2024 10:44 AM EST documented in this encounter Progress Notes * Myah Valdivia CRNP - 07/11/2024 10:39 AM EST Images from the original note were not included. Follow up Family Medicine Visit CC: History of Present Illness: Kely Mercado is a 48 year old female presenting for follow uo of Recent labs and imaging Left ovarian mass- TBD- MRI pelvis pending Thalasemia minor with RITA. She has lost approx 15 lbs and seeing weight management. Joint pain is improved with meloxicam. Last renal function. Social History Socioeconomic History Marital status: Spouse name: WHITNEY Grey Number of children: Not on file Years of education: Not on file Highest education level: Not on file Occupational History Occupation: [employer] Employer: [employer] Tobacco Use Smoking status: Never Smokeless tobacco: Never Tobacco comments: no passive smoke exposures Vaping Use Vaping status: Never Used Substance and Sexual Activity Alcohol use: Yes Comment: 2-3 drinks/month Drug use: No Sexual activity: Yes Partners: Male control/protection: I.U.D. Comment: Elham inserted 11/14/2018 Other Topics Concern Not on file Social History Narrative [employer] [place] INFORMATION [...] 1 dog(s) Lives on a farm: No environmental research scientist; no occupation related worsening of symptoms. Entered By: Teddy Ford MD 08/13/2004 environmentalist Single Works from Home Works for [employer] Social Needs Financial Resource Strain: Low Risk (06/14/2024) Financial Resource Strain Do you have any trouble paying for your medications, or do you think you might in the future? (Adult - for ages 18 years and over): No Does your family have trouble paying for medicine? (Household - for ages 0-17 years): Not on file Food Insecurity: No Food Insecurity (06/14/2024) Food Insecurity Do you need food for this week? (Adult - for ages 18 years and over): No Are you able to get enough food for your family? (Household - for ages 0-17 years): Not on file Does your family need food this week? (Household - for ages 0-17 years): Not on file Do you always have enough food for your family? (Household - for ages 0-17 years): Not on file Transportation Needs: No Transportation Needs (06/14/2024) Transportation Needs Do you have trouble getting a ride to medical visits or work? (Adult - for ages 18 years and over):Not on file Does your family have a hard time getting a ride to doctors visits? (Household - for ages 0-17 years): Not on file Has lack of transportation kept you from medical appointments, meetings, work, or from getting things needed for daily living? Check all that apply. (Adult - for ages 18 years and over): No Do you (or your family) have trouble finding or paying for a ride (transportation)? (Household - for ages 0-17 years): Not on file Social Connections: Socially Integrated (06/14/2024) Social Connections How often do you feel lonely or isolated from those around you? (Adult - for ages 18 years and over): Never Housing Stability: Low Risk (06/14/2024) Housing Stability Do you currently live in a skilled nursing or have no steady place to sleep at night? (Adult - for ages 18 years and over): No Do you think you are at risk of becoming homeless? (Adult - for ages 18 years and over): Not on file Does your family worry about paying for your home or becoming homeless? (Household - for ages 0-17 years): Not on file Are you homeless or worried that you might be in the future? (Adult - for ages 18 years and over): No Are you (or your family) homeless or worried that you might be in the future? (Household - for ages0-17 years): Not on file PMH: Past Medical History: Diagnosis Date Allergic rhinitis [...] performed by Sly Peña MD at [facility] COLPOSCOPY OF CERVIX W/BIOPSY 09/01/2004 KNEE ARTHROSCOPY/REPAIR LIGAMENT Right ACL replaced KNEE ARTHROSCOPY/REPAIR LIGAMENT Left 07/04/2010 [facility] DELIVERY ONLY TREATMENT OF INCOMPLETE 07/04/2004 URIEL EMBO SUBCLAVIAN BY NECK 07/04/1999 Current Outpatient Medications Medication Sig Dispense Refill [...] No current facility-administered medications for this visit. Review of patient's allergies indicates: Allergen Reactions Morphine And Codeine lose consciousness Most Recent Immunizations Administered Date(s) Administered Allergy Serum 05/06/2008 COVID-19 mRNA, LNP-s, No Preserve, 2-Dose Series (Moderna) 08/30/2020 Seasonal Influenza Vac., MDV, IM, 0.5 mL (Fluzone) 04/10/2009 Seasonal Influenza, Quadrivalent, No Preserve, IM 04/21/2018 Review of Systems: Review of Systems Constitutional: Negative for fatigue. Musculoskeletal: Positive for arthralgias. Physical Exam: Filed Vitals: 07/11/24 1044 BP: 124/76 Pulse: 80 Resp: 16 SpO2: 99% Weight: 220 lb (99.8 kg) Height: 5' 2" (1.575 m) Physical Exam HENT: Head: Normocephalic. Eyes: Comments: PUFFY, NO ERYTHEMA Cardiovascular: Rate and Rhythm: Normal rate and regular rhythm. Pulmonary: Effort: Pulmonary effort is normal. Breath sounds: Normal breath sounds. Abdominal: General: Bowel sounds are normal. Palpations: Abdomen is soft. Tenderness: There is abdominal tenderness in the left lower quadrant. Neurological: General: No focal deficit present. Mental Status: She is alert and oriented to person, place, and time. Psychiatric: Mood and Affect: Mood normal. Behavior: Behavior normal. Thought Content: Thought content normal. Judgment: Judgment normal. Assessment and Plan: 1. Thalassemia minor (Primary) S/p hematology visit No new intervention 2. Nipple discharge Now resolved Breast MRI negative 3. Left tubo-ovarian mass Left side Slightly larger Continue follow up with OBGYN 4. Polyarthralgia Ongoing with elevated ESR and CRP Seronegative autoimmune testing - RHEUMATOLOGY REFERRAL OP 5. Medication management - BASIC METABOLIC PANEL; Future 6. Thrombocytopenia, congenital and hereditary (HCC) 7. Morbid obesity due to excess calories (HCC) Working on weight loss with weight management team 8. Eyelid gland swelling, right No evidence of acute infection Recommend warm compresses I have advised the patient to call our office incase of any worsening or new symptoms. I spent a total of 30-39 minutes (exact time 30 mins) on the date of service in preparation, delivery, and documentation of the care provided to Kely Mercado excluding any time spent in the performance of separately billed services. ELISA Singh, JAMES [facility] Family Medicine documented in this encounter Nursing Notes * Alethea [place]ton MED ASSIST - 07/11/2024 10:43 AM EST The patient has been properly identified by confirmation of name and date of . Chief Complaint Patient presents with Follow Up Patient presents in office today for a follow-up visit. documented in this encounter Plan of Treatment Upcoming Encounters Date Type Department Care Team (Late st Contact Info) Description 07/20/2024 9:00 AM EST Office Visit Rheumatology [place] [id number] [facility] [place] [address] Martín Paredes CRNP [address] [place] [address] 07/25/2024 11:00 AM EST Office Visit Gynecology/Obstetrics [facility] [address] [facility] [place] [address] María Davidson MD [address] [place] [address] 09/05/2024 10:00 AM EST Office Visit Nutrition & Weight Management, [facility] [address] [place] [address] Nata Alba PA-C [address] [place] [address] 10/02/2024 11:40 AM EDT Office Visit Family Practice [facility] [address] [place] [address] Myah Valdivia CRNP [address] [place] [address] Scheduled Orders Name Type Priority Associated Diagnoses Orde r Schedule BASIC METABOLIC PANEL Lab Routine Medication management Expected: 10/09/2024 (Approximate), Expires: 07/11/2025 Scheduled Procedures Name Priority Associated Diagnoses Date/Ti me COLONOSCOPY FLEXIBLE PROXIMA L DIAGNOSTIC Recall Special screening for malignant neoplasms, colon Scheduled Referrals Name Type Priority Associated Diagnoses Order Schedule RHEUMATOLOGY REFERRAL OP Referral Within 30 days (routine) Polyarthralgia Ordered: 07/11/2024 Health Maintenance Due Date Last Done Comments [...] as of this encounter Visit Diagnoses Diagnosis Thalassemia minor- Primary Nipple discharge Other sign and symptom in breast Left tubo-ovarian mass Polyarthralgia Pain in joint, multiple sites Medication management Encounter for long-term (current) use of other medications Thrombocytopenia, congenital and hereditary (HCC) Congenital and hereditary thrombocytopenic purpura Morbid obesity due to excess calories (HCC) Eyelid gland swelling, right documented in this encounter Advance Directives Documents on File Type Date Recorded Patient Upper Shaper Expl anation Advance Directives and Living Will 03/22/2005 Power of Needle Grader 03/22/2005 * No Code Status (Latest Code Status on File) Date Activated Date Inactivated Comments 03/22/2005 10:26 AM 03/22/2005 10:26 AM Care Teams Finish Molder Relationship Specialty Start Date End Date Joyce Dorantes DO [address] [place] [address] PCP - General Family Medicine 12/23/15 documented as of this encounter
--- OUTSIDE RECORDS SUMMARY | 2024-08-08 05:42 | External Medical Summary | Summary of Care ---
Author Name Unknown Organization [facility] Address [address] [place] [address] Phone [phone] Care Team Providers Care Weight Recorder Name Role Phone PrashantJoyce duran Jennifer JC Primary Care Provider Reason for Visit * Reason Onset Date Comments Appointment 06/26/2024 Encounter Details Date Type Department Care Team (Late st Contact Info) Description 06/26/2024 Telephone Hematology/Oncology Treatment, [facility] [address] [place] [address] Lauren Galindo MD Appointment Allergies [...] Industry Job Start Date Job End Date [employer] Not on file Not on file Not [...] Description 07/06/2024 10:40 AM EST Office Visit [facility] [address] [place] [address] Myah Valdivia CRNP [address] [place] [address] 07/12/2024 9:45 AM EST Office Visit Gynecology/Obstetrics [facility] [address] [place] [address] Sarina Herrera CRNP [address] [place] [address] 07/25/2024 11:00 AM EST Office Visit Gynecology/Obstetrics [facility] [address] [place] [address] María Davidson MD [address] [place] [address] 09/05/2024 10:00 AM EST Office Visit Nutrition & Weight Management, [facility] [address] [place] [address] Nata Alba PA-C [address] [place] [address] 10/02/2024 11:40 AM EDT Office Visit [facility] [address] [place] [address] Myah Valdivia CRNP [address] [place] [address] Scheduled Procedures Name Priority Associated Diagnoses Date/Ti [...] Documents on File Type Date Recorded Patient Multimedia Educational Specialist Expl anation Advance Directives and Living Will 03/22/2005 Power of Convenience Store Clerk 03/22/2005 * No Code Status (Latest Code Status on File) Date Activated Date Inactivated Comments 03/22/2005 10:26 AM 03/22/2005 10:26 AM Care Teams Weight Recorder Relationship Specialty Start Date End Date Joyce Dorantes DO [address] [place] [place] [address] PCP - General Family Medicine 12/23/15 documented as of this encounter
--- OUTSIDE RECORDS SUMMARY | 2024-08-08 05:42 | External Medical Summary | Summary of Care ---
Author Name Unknown Organization [facility] Address [address] [place] [address] Phone [phone] Care Team Providers Care Poultry Grader Name Role Phone SoilaJoyce lewis Jennifer JC Primary Care Provider [phone] Reason for Visit * Reason Comments eRx-Medication Refill Encounter Details Date Type Department Care Team (Late st Contact Info) Description 07/06/2024 Refill Nutrition & Weight Management, [facility] [address] [place] [address] Nata Alba PA-C [address] [place] [address] Morbid obesity due to excess calories (HCC)* Allergies Active Allergy Reactions Criticality Noted Date Comments Morphine And Codeine High 08/13/2004 lose consciousness documented as of this encounter (statuses as of 07/06/2024) Medications MULTI-VITAMIN PO TABS One tablet daily [...] 24 Active Phentermine HCl 15 MG Oral CapsuleIndicati ons:Morbid obesity due to excess calories (HCC) TAKE 1 CAPSULE BY MOUTH EVERY MORNING 30 Capsule 2 07/06/19 25 Active Phentermine HCl 15 MG Oral Capsule Take 1 Capsule by mouth in the morning. 30 Capsule 06/04/20 24 025 Discontinued documented as of this encounter (statuses as of 07/06/2024) Active Problems Problem Noted Date Diagnosed Date Chronic pain of both knees 04/03/2024 Medication management 04/03/2024 Nipple discharge 04/03/2024 Cyst of left ovary 04/15/2023 Overview (04/15/2023): Consider annual ultrasound Thalassemia minor 01/25/2022 Prediabetes 03/16/2021 Overview: Per Prediabetes protocol KENJI (obstructive sleep apnea) 02/19/2019 Intermittent asthma with reliever use up to twic e per week 09/13/2014 documented as of this encounter (statuses as of 07/06/2024) Resolved Problems Problem Noted Date Diagnosed Date [...] term Allergic rhinitis 08/13/2004 10/06/2021 Allergic conjunctivitis 08/13/2004 07/2 11/2021 documented as of this encounter (statuses as of 07/06/2024) Immunizations Name Administration Dates Next Due COVID-19 [...] Industry Job Start Date Job End Date [employer] Not on file Not on file Not on f ile documented as of this encounter Miscellaneous Notes * Telephone Encounter - Nata Alba PA-C - 07/06/2024 10:43 AM EST Signed Prescriptions: Disp Refills Phentermine HCl 15 MG Oral Capsule 30 Cap*2 Sig: TAKE 1 CAPSULE BY MOUTH EVERY MORNING Authorizing Provider: NATA ALBA * Telephone Encounter - Zenaida Rivers RN - 07/06/2024 8:54 AM ESTPending Prescriptions: Disp Refills Phentermine HCl 15 MG Oral Capsule 30 Cap*0 Sig: TAKE 1 CAPSULEBY MOUTH EVERY MORNING documented in this encounter Plan of Treatment Upcoming Encounters Date Type Department Care Team (Late st Contact Info) Description 07/11/2024 10:40 AM EST Office Visit [facility] [address] [place] [address] Myah Valdivia CRNP [address] [place] [address] 07/12/2024 9:45 AM EST Office Visit Gynecology/Obstetrics [facility] [address] [place] [address] Sarina Herrera CRNP [address] [place] [address] 07/25/2024 11:00 AM EST Office Visit Gynecology/Obstetrics [facility] [address] [place] [address] María Davidson MD [address] [place] [address] 09/05/2024 10:00 AM EST Office Visit Nutrition & Weight Management, [facility] [address] [place] [address] Nata Alba PA-C [address] [place] [address] 10/02/2024 11:40 AM EDT Office Visit [facility] [address] [place] [address] Myah Valdivia CRNP [address] [place] [address] Scheduled Procedures Name Priority Associated Diagnoses Date/Ti [...] Depression Screening 10/18/2024 10/19/2023 HbA1c 12/30/2024 12/31/2023, 0708/2021, 03/11/2021, Additional history exists Mammogram 02/28/2025 02/29/2024, [...] as of this encounter Visit Diagnoses Diagnosis Morbid obesity due to excess calories (HCC)- Primary documented in this encounter Advance Directives Documents on File Type Date Recorded Patient Central Office Technician Expl anation Advance Directives and Living Will 03/22/2005 Power of Shop Tech 03/22/2005 * No Code Status (Latest Code Status on File) Date Activated Date Inactivated Comments 03/22/2005 10:26 AM 03/22/2005 10:26 AM Care Teams Poultry Grader Relationship Specialty Start Date End Date Joyce Dorantes DO [address] [place] [address] PCP - General Family Medicine 12/23/15 documented as of this encounter
--- OUTSIDE RECORDS SUMMARY | 2024-08-08 05:42 | External Medical Summary | Summary of Care ---
Author Name Unknown Organization [facility] Address [address] [place] [address] Phone [phone] Care Team Providers Care Ldr Rn Name Role Phone Joyce Dorantes DO Primary Care Provider Reason for Visit * Reason Onset Date Comments Referral 07/11/2024 Encounter Details Date Type Department Care Team (Late st Contact Info) Description 07/11/2024 Telephone Family Practice [facility] [address] [facility] [address] Joyce Dorantes DO [address] [place] [place] [address] Referral Allergies Active Allergy Reactions Criticality Noted Date [...] Morbid obesity due to excess calories 07/11/2024 Chronic pain of both knees 04/03/2024 [...] Industry Job Start Date Job End Date [employer] Not on file Not on file Not on f ile documented as of this encounter Miscellaneous Notes * Telephone Encounter - Chelo Geronimo OSA - 07/11/2024 11:26 AM EST Patient needs scheduled for MRI referral. Thank you. documented in this encounter Plan of Treatment Upcoming Encounters Date Type Department Care Team (Late st Contact Info) Description 07/20/2024 9:00 AM EST Office Visit Rheumatology [place] [address] [facility] [place] [address] Martín Paredes CRNP [address] [place] [address] [place] [address] 07/25/2024 11:00 AM EST Office Visit Gynecology/Obstetrics [facility] [address] [place] [address] María Davidson MD [address] [place] [address] 09/05/2024 10:00 AM EST Office Visit Nutrition & Weight Management, [facility] [address] [place] [address] Nata Alba PA-C [address] [place] [address] 10/02/2024 11:40 AM EDT Office Visit Family Practice [facility] [address] [place] [address] Myah Valdivia CRNP [address] [place] [address] Scheduled Procedures Name Priority Associated Diagnoses Date/Ti [...] Documents on File Type Date Recorded Patient Auto Service Mechanic Expl 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
--- OUTSIDE RECORDS SUMMARY | 2024-08-08 05:42 | External Medical Summary | Summary of Care ---
Author Name Unknown Organization [facility] Address [address] [place] [address] Phone [phone] Care Team Providers Care Guardian Ad Litem Name Role Phone PrashantJoyce duran Jennifer JC Primary Care Provider Reason for Visit * Reason Onset Date Comments Appointment 06/26/2024 Encounter Details Date Type Department Care Team (Late st Contact Info) Description 06/26/2024 Telephone Hematology/Oncology Treatment, [facility] [address] [place] [address] Lauren Galindo MD Appointment Allergies Active Allergy Reactions Criticality Noted Date Comments Morphine And Codeine High 08/13/2004 lose consciousness documented as of this encounter (statuses as of 07/13/2024) Medications MULTI-VITAMIN PO TABS One tablet daily [...] as of this encounter (statuses as of 07/13/2024) Active Problems Problem Noted Date Diagnosed Date [...] as of this encounter (statuses as of 07/13/2024) Resolved Problems Problem Noted Date Diagnosed Date [...] as of this encounter (statuses as of 07/13/2024) Immunizations Name Administration Dates Next Due COVID-19 [...] Industry Job Start Date Job End Date [employer] Not on file Not on file Not [...] 07/20/2024 9:00 AM EST Office Visit Rheumatology [address] [place] [address] Martín Paredes CRNP [address] [place] [address] [place] [address] 07/25/2024 11:00 AM EST Office Visit Gynecology/Obstetrics [facility] [address] [place] [address] María Davidson MD [address] [place] [address] 08/03/2024 11:00 AM EST [facility] [address] [place] [address] 09/05/2024 10:00 AM EST Office Visit Nutrition & Weight Management, [facility] [address] [place] [address] Nata Alba PA-C [address] [place] [address] 10/02/2024 11:40 AM EDT Office Visit Family Practice [facility] [address] [place] [place] [address] Myah Valdivia CRNP [address] [place] [address] Scheduled Procedures Name Priority Associated Diagnoses Date/Ti [...] Documents on File Type Date Recorded Patient Whiskey Filterer Expl anation Advance Directives and Living Will 03/22/2005 Power of Senior Relationship Manager 03/22/2005 * No Code Status (Latest Code Status on File) Date Activated Date Inactivated Comments 03/22/2005 10:26 AM 03/22/2005 10:26 AM Care Teams Guardian Ad Litem Relationship Specialty Start Date End Date Joyce Dorantes DO [address] [place] [address] PCP - General Family Medicine 12/23/15 documented as of this encounter
--- OUTSIDE RECORDS SUMMARY | 2024-08-08 05:43 | External Medical Summary ---
Author Name Unknown Address Unknown Organization K01:[facility] [place] [facility] [address] [place] [address] Laboratory Report Ordering Provider Test Date Status [id number] 06/11/2024 12:38:12 Final Observation Date Value Abnormality Reference (Units ) Status Erythrocyte sedimentation rate by Photometric method 06/11/2024 12:38:12 48 Above high normal <30 (mm/hour) Final Performing Location [facility] [place] - [address] [place] [address]
--- OUTSIDE RECORDS SUMMARY | 2024-08-08 05:43 | External Medical Summary | Summary of Care ---
Author Name Unknown Organization [facility] Address [address] [place] [address] Phone [phone] Care Team Providers Care Tax Professional Name Role Phone PrashantJoyce duran Jennifer JC Primary Care Provider Reason for Visit * Reason Onset Date Comments Appointment 06/26/2024 Encounter Details Date Type Department Care Team (Late st Contact Info) Description 06/26/2024 Telephone Hematology/Oncology Treatment, [facility] [address] [place] [address] Lauren Galindo MD Appointment Allergies Active Allergy Reactions Criticality Noted Date Comments Morphine And Codeine High 08/13/2004 lose consciousness documented as of this encounter (statuses as of 06/26/2024) Medications MULTI-VITAMIN PO TABS One tablet daily [...] as of this encounter (statuses as of 06/26/2024) Active Problems Problem Noted Date Diagnosed Date Chronic pain of both knees 04/03/2024 Medication management 04/03/2024 Nipple discharge 04/03/2024 Cyst of left ovary 04/15/2023 Overview (04/15/2023): Consider annual ultrasound Thalassemia minor 01/25/2022 Prediabetes 03/16/2021 Overview: Per Prediabetes protocol KENJI (obstructive sleep apnea) 02/19/2019 Intermittent asthma with reliever use up to twic e per week 09/13/2014 documented as of this encounter (statuses as of 06/26/2024) Resolved Problems Problem Noted Date Diagnosed Date [...] as of this encounter (statuses as of 06/26/2024) Immunizations Name Administration Dates Next Due COVID-19 [...] Industry Job Start Date Job End Date [employer] Not on file Not on file Not [...] 10:40 AM EST Office Visit Family Practice [facility] [address] [place] [address] Myah Valdivia CRNP [address] [place] [address] 07/12/2024 9:45 AM EST Office Visit Gynecology/Obstetrics [facility] [address] [place] [address] Sarina Herrera CRNP [address] [place] [address] 07/25/2024 11:00 AM EST Office Visit Gynecology/Obstetrics [facility] [address] [place] [address] María Davidson MD [address] [place] [address] 07/26/2024 1:30 PM EST Office Visit Hematology/Oncology [facility] [address] [facility] [id number] Laruen Galindo MD 09/05/2024 10:00 AM EST Office Visit Nutrition & Weight Management, [facility] [address] [place] [address] Nata Alba PA-C [address] [place] [address] 10/02/2024 11:40 AM EDT Office Visit Family Practice [facility] [address] [place] [address] Myah Valdivia CRNP [address] [place] [address] Scheduled Procedures Name Priority Associated Diagnoses Date/Ti [...] 02/19/2019, 09/02, 01/17/2009 COVID-19 Vaccine ( - 2023- season) 2024 08/30/2020, 08/06/2020 Influenza [...] Documents on File Type Date Recorded Patient C Python Developer Expl anation Advance Directives and Living Will 03/22/2005 Power of Business Relations Manager 03/22/2005 * No Code Status (Latest Code Status on File) Date Activated Date Inactivated Comments 03/22/2005 10:26 AM 03/22/2005 10:26 AM Care Teams Tax Professional Relationship Specialty Start Date End Date Joyce Dorantes DO [address] [facility] [place] [address] PCP - General Family Medicine 12/23/15 documented as of this encounter
--- OUTSIDE RECORDS SUMMARY | 2024-08-08 05:43 | External Medical Summary | Summary of Care ---
Author Name Unknown Organization [facility] Address [address] [facility] [place] [address] Phone [phone] Care Team Providers Care Web Content Editor Name Role Phone Soilajoshua Joyce Jennifer JC Primary Care Provider Reason for Visit * Reason Comments Follow Up Scan review Encounter Details Date Type Department Care Team (Late st Contact Info) Description 06/11/2024 11:00 AM EST Office Visit [facility]ematology/Oncology [facility] [address] [facility] [phone] Lauren Galindo MD [address] [place] [address] [place] [phone] Fatty liver*; Left tubo-ovarian mass Allergies Active Allergy Reactions Criticality Noted Date Comments Morphine And Codeine High 08/13/2004 lose consciousness documented as of this encounter (statuses as of 06/19/2024) Medications MULTI-VITAMIN PO TABS One tablet daily [...] as of this encounter (statuses as of 06/19/2024) Active Problems Problem Noted Date Diagnosed Date Chronic pain of both knees 04/03/2024 Medication management 04/03/2024 Nipple discharge 04/03/2024 Cyst of left ovary 04/15/2023 Overview (04/15/2023): Consider annual ultrasound Thalassemia minor 01/25/2022 Prediabetes 03/16/2021 Overview: Per Prediabetes protocol KENJI (obstructive sleep apnea) 02/19/2019 Intermittent asthma with reliever use up to twic e per week 09/13/2014 documented as of this encounter (statuses as of 06/19/2024) Resolved Problems Problem Noted Date Diagnosed Date [...] as of this encounter (statuses as of 06/19/2024) Immunizations Name Administration Dates Next Due COVID-19 [...] Industry Job Start Date Job End Date [employer] Not on file Not on file Not on f ile documented as of this encounter Last Filed Vital Signs Vital Sign Reading Time Taken Comments Blood Pressure 135/83 06/11/2024 11:12 AM EST Pulse 90 06/11/2024 11:12 AM EST Temperature 37.1 C (98.7 F) 06/11/2024 1 1:12 AM EST Respiratory Rate - - Oxygen Saturation 95% 06/11/2024 11: 12 AM EST Inhaled Oxygen Concentration - - Weight 102.6 kg (226 lb 3.2 oz) 024 11:12 AM EST Height - - Body Mass Index 41.37 05/07/2024 1:45 PM EST documented in this encounter Progress Notes * Lauren Galindo MD - 06/11/2024 11:34 AM EST Date of visit: 06/11/2024 Subjective Kely Mercado is a 48 year old female presents for follow up Chief Complaint Patient presents with Follow Up Scan review HPI: Date of visit: 05/07/2024 Chief Complaint Patient 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 with 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 HPI: Kely Mercado is a 48 year old female seen on 05/07/2024 for Hematology- Oncology consultation due to : Thalassemia, unspecified type [D56.9] - known history of Thalassemia minor Iron deficiency anemia, unspecified iron deficiency anemia type [D50.9] Underwent laboratory testing on 04/30/2024 that shows the following results: Component Latest Ref Rng 12/04/2020 04/03/2024 04/30/2024 WBC 4.00 - 10.80 K/uL 11.44 (H) 12.82 (H) 9.34 RBC 3.85 - 5.15 M/uL 5.97 (H) 6.11 5.79 HGB 12.0 - 15.3 g/dL 11.9 (L) 11.9 (L) 11.5 (L) HCT 36.0 - 45.2 % 37.0 40.3 35.8 (L) MCV 81.5 - 97.5 fL 62.0 (L) 66.0 61.8 MCH 27.0 - 34.0 pg 19.9 (L) 19.5 19.9 MCHC 32.0 - 36.0 g/dL 32.2 29.5 32.1 RDW 11.5 - 15.5 % 19.8 (H) 19.3 18.4 PLT 140 - 400 K/uL 307 429 (H) 337 MPV 6.6 - 11.1 fL 10.4 11.1 9.5 Ferritin Latest Ref Rng 13 - 150 ng/mL 12/04/2020 294 (H) 01/12/2022 280 (H) 04/03/2024 402 (H) Iron Iron Binding Capacity Transferrin Saturation Percent Latest Ref Rng 33 - 151 ug/dL 250 - 425 ug/dL 15 - 55 % 12/04/2020 53 280 19 01/12/2022 69 267 26 04/03/2024 45 284 16 ESR 37, CRP 34 normal being less than or equal to 5 CMP normal creatinine and liver function tests CBC shows hemoglobin 11.5 grams/deciliter hematocrit 35.8% RBC 5.79 MCV 61.8 RDW 18.4%, platelet count 337 ferritin 402, TSAT 16% pathologist review of the peripheral slide showed microcytic anemia and severely depressed retic hgb and mild thrombocytosis . Retic count 1.99% TSH 3.25 Patient reports having left breast milky drainage for the past 10 months starting in August 2023.She was seen by Dr. Suh on 08/16/2023. 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 Patient reports being followed up for left ovarian /adnexal pelvic mass. CA-125 = 13.6. Patient reports that her menses had ceased after IUD placement in 2007. She reports significant arthritis of bilateral knees. CRP significantly elevated 34 (normal<5). Patient was diagnosed with prediabetes, not on any treatment. A1c 6.2% on 12/31/2023. She has been on Wellbutrin, naltrexone and low-dose phentermine and reports having lost 15 lb in the past 2 months. ASSESSMENT/PLAN: 48-year-old woman with known history of thalassemia minor. She has known family history of thalassemia. Her most recent CBC shows hemoglobin 11.5 grams/deciliter hematocrit 35.8% RBC 5.79 MCV 61.8 RDW 18.4%, platelet count 337 ferritin 402, TSAT 16% . Pathologist's review of the peripheral slide showed microcytic anemia and severely depressed retic hgb and mild thrombocytosis. Reticulocyte count 1.99%. Patient does not need supplemental iron therapy. Markedly elevated inflammatory marker CRP 34 (normal < 5), cause unknown. Galactorrhea- Patient reports having left breast milky drainage for the past 10 months starting in August 2023. She was seen by Dr. Suh on 08/16/2023. Prolactin 10.4 History of dural sinus thrombus in 1999, at which time she had undergone a complete hypercoagulableworkup and was found to be negative for any hypercoagulable mutations. Left ovarian /adnexal pelvic mass. CA-125 = 13.6. Patient reports that her menses had ceased after IUD placement in 2007. Arthritis of bilateral knees, osteoarthritis/RA not clear. CRP significantly elevated 34 (normal<5). ESR borderline elevated. Rest of the autoimmune workup is negative Patient was diagnosed with prediabetes, not on any treatment. A1c 6.2% on 12/31/2023. She has been on Wellbutrin, naltrexone and low-dose phentermine and reports having lost 15 lb in the past 2 months. Discharge from breast (Primary) - MRI BRAIN W WO CONTRAST; Future; Expected date: 05/07/2024 - MRI BREAST BILATERAL W WO CONTRAST Thrombus - MRI BRAIN W WO CONTRAST; Future; Expected date: 05/07/2024 Fatty liver - US ABDOMEN DOPPLER COMPLETE Left tubo-ovarian mass - US PELVIS TRANS-VAGINAL NON-OB PLAN OF CARE DISCUSSED WITH PATIENT ON 05/07/2024 : MRI brain to rule out prolactinoma and to follow up on the dural sinus thrombus. MRI breasts for further workup of abnormal left breast drainage/discharge. Doppler ultrasound liver (for fatty liver workup) and spleen (due to hemoglobinopathy Pelvic ultrasound for follow up of the left ovarian mass. Return to clinic for follow up in 1 month to discuss the above test results 06/11/2024: Follow up visit MRI brain 06/05/2024: FINDINGS Mild cerebellar tonsillar ectopia is noted, which does not meet imaging criteria for Chiari malformation. There is a small irregular area of faint paintbrush- like enhancement in the central buddy, which is not clearly visible on precontrast images; this is consistent with a capillary telangiectasia.The brain otherwise demonstrates normal morphology, volume, and signal intensity without evidence of intracranial space-occupying lesion, edema, hemorrhage, mass effect, midline shift, hydrocephalus,or extraaxial fluid collection. The ventricles, sulci, and basal cisterns are normal in size and configuration. The midline structures, including the pituitary gland, corpus callosum, brainstem, and p ineal region are unremarkable. Specifically, the pituitary gland demonstrates normal size, morphology, and homogeneous enhancement. The pituitary stalk is at the midline. The suprasellar and parasellar structures appear normal. No restricted diffusion is identified. No pathological enhancement is seen. Expected flow voids are maintained in the main intracranial vessels. No calvarial abnormalities are detected. The intraorbital contents are within normal limits. The paranasal sinuses and mastoid air cells are clear and well aerated. IMPRESSION IMPRESSION 1. Mild cerebellar tonsillar ectopia, which does not meet imaging criteria for Chiari malformation. 2. 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 3. Otherwise, unremarkable MRI scan of the brain and sella turcica. Specifically, no definite pituitary abnormality identified. 05/30/2024:The uterus measures 7.9 x 3 x 5.5 cm and is mildly prominent and mildly heterogeneous inechotexture, possibly mild adenomyosis. No discrete myometrial lesion. Endometrium measures 5 mm inthickness. Linear echogenic structure represents an IUD and is [...] solid neoplasm. Recommend MRI pelvis with gadolinium. 05/30/2024:ve & Impression EXAM: US ABDOMEN DOPPLER COMPLETE; US ABDOMEN COMPLETE HISTORY: fatty liver, elevated CRP and ferritin TECHNIQUE: Real-time scanning is performed of the abdomen. Real-time scanning, color flow imaging and Doppler spectral analysis is performed right upper quadrant of hepatic vasculature. COMPARISON: CT CHEST W CONTRAST, ACC: [id number], dated 2020-12-12 14:25:56 FINDINGS: Gallbladder: Not abnormally distended. No cholelithiasis or demonstrable intraluminal sludge. This is allowing for technical artifact. No current ultrasound evidence acute cholecystitis. No intrahepatic biliary dilatation. There is no extrahepatic biliary dilatation with common duct measuring approximally 2 mm. There is no gross choledocholithiasis. Liver: Size length: Right lobe approximate 16.0 cm Visualized parenchyma homogeneous but diffusely somewhat increased in echotexture; a nonspecific finding as can reflect fatty infiltration, chronic inflammation, cirrhosis, Orr, hemochromatosis and etc.. Currently, however, visualized surface contour is smooth without nodularity. There is no discrete focal lesion. Spleen: Size length: 12.2 cm prominent but quantitatively within normal limits for size per length.Visualized parenchyma homogeneous without focal lesion. Ascites: None demonstrated. Pancreas: Unfortunately, pancreatic bed obscured by overlying bowel particularly distal body and tail. In visualized portions of parenchyma no discrete focal lesion or pancreatic ductal dilatation. Kidneys: Size length: Right-11.6 cm and left-11.8 cm Renal contour is bilaterally maintained as is cortex in regard to thickness/echotexture. No focal lesion. No hydronephrosis. No demonstrable intrarenal calculus or perinephric abnormality. Abdominal aorta: No focal aneurysm. There is however an element of distal ectasia with loss of expected cranial to caudal tapering. AP measurements: Proximal-2.2 cm, mid-1.7 cm and distal-1.7 cm. Venous flow seen in visualized portion inferior vena cava Pleural effusion: None demonstrated. Appropriate venous flow is seen within the inferior vena cava and portal vein. Portal vein mildly prominent but within normal limits for diameter measuring 1.3 cm. Hepatopetal flow is demonstrated. Appropriate venous flow identified in splenic vein superior mesenteric vein hepatic arteries and hepatic veins. There is no evidence of definite filling defect. IMPRESSION IMPRESSION: Diffuse increase in echotexture of hepatic parenchyma. Discussion as above. Appropriate venous flow within visualized inferior vena cava and right upper quadrant vasculature. Please see above discussion. 05/30/2024: Ultrasound abdomenEXAM: US ABDOMEN DOPPLER COMPLETE; US ABDOMEN COMPLETE HISTORY: fatty liver, elevated CRP and ferritin TECHNIQUE: Real-time scanning is performed of the abdomen. Real-time scanning, color flow imaging and Doppler spectral analysis is performed right upper quadrant of hepatic vasculature. COMPARISON: CT CHEST W CONTRAST, ACC: [id number], dated 2020-12-12 14:25:56 FINDINGS: Gallbladder: Not abnormally distended. No cholelithiasis or demonstrable intraluminal sludge. This is allowing for technical artifact. No current ultrasound evidence acute cholecystitis. No intrahepatic biliary dilatation. There is no extrahepatic biliary dilatation with common duct measuring approximally 2 mm. There is no gross choledocholithiasis. Liver: Size length: Right lobe approximate 16.0 cm Visualized parenchyma homogeneous but diffusely somewhat increased in echotexture; a nonspecific finding as can reflect fatty infiltration, chronic inflammation, cirrhosis, Orr, hemochromatosis and etc.. Currently, however, visualized surface contour is smooth without nodularity. There is no discrete focal lesion. Spleen: Size length: 12.2 cm prominent but quantitatively within normal limits for size per length.Visualized parenchyma homogeneous without focal lesion. Ascites: None demonstrated. Pancreas: Unfortunately, pancreatic bed obscured by overlying bowel particularly distal body and tail. In visualized portions of parenchyma no discrete focal lesion or pancreatic ductal dilatation. Kidneys: Size length: Right-11.6 cm and left-11.8 cm Renal contour is bilaterally maintained as is cortex in regard to thickness/echotexture. No focal lesion. No hydronephrosis. No demonstrable intrarenal calculus or perinephric abnormality. Abdominal aorta: No focal aneurysm. There is however an element of distal ectasia with loss of expected cranial to caudal tapering. AP measurements: Proximal-2.2 cm, mid-1.7 cm and distal-1.7 cm. Venous flow seen in visualized portion inferior vena cava Pleural effusion: None demonstrated. Appropriate venous flow is seen within the inferior vena cava and portal vein. Portal vein mildly prominent but within normal limits for diameter measuring 1.3 cm. Hepatopetal flow is demonstrated. Appropriate venous flow identified in splenic vein superior mesenteric vein hepatic arteries and hepatic veins. There is no evidence of definite filling defect. IMPRESSION IMPRESSION: Diffuse increase in echotexture of hepatic parenchyma. Discussion as above. Appropriate venous flow within visualized inferior vena cava and right upper quadrant vasculature. Please see above discussion. 05/12/2024:MRI BREAST BILATERAL W WO CONTRAST History Milky left nipple discharge for 10 months, which has spontaneously resolved now The patient has no documented relevant family history. Technique MR (magnetic resonance) imaging was performed utilizing multiple sequences. Following the intravenous administration of gadolinium, dynamic scanning was performed. Kinetic analysis was evaluated withClub Venit software. Films Compared 02/29/2024 MAMMOGRAM DIAGNOSTIC ARMANDO BILATERAL and 02/29/2024 US BREAST LIMITED LEFT Findings Left. The left breast is almost entirely fatty. There is minimal background parenchymal enhancement. No suspicious mass or nonmass enhancement is seen. A few retroareolar ducts are mildly dilated with no associated abnormalities. There is no axillary or internal mammary lymphadenopathy. Right. The right breast is almost entirely fatty. There is minimal background parenchymal enhancement. No suspicious mass or nonmass enhancement is seen. There is no axillary or internal mammary lymphadenopathy. Impression No findings suspicious for malignancy BI-RADS Category: 2 - Benign. Recommendation Resume annual mammographic screening, and manage discharge clinically. PMH: Patient Active Problem List Diagnosis Intermittent asthma with reliever use up to twice per week KENJI (obstructive sleep apnea) Prediabetes Thalassemia minor Cyst of left ovary Chronic pain of both knees Medication management Nipple discharge Current Outpatient Medications Medication Sig Dispense Refill MULTI-VITAMIN PO TABS One tablet daily 30 0 Cetirizine-Pseudoephedrine ER (ZYRTEC-D ALLERGY & CONGESTION) 5-120 MG TB12 Take 1 Tab by mouth2 times a day. Levonorgestrel 20 MCG/DAY Intrauterine Intrauterine Device (Mirena) Insert 1 Each into uterus once. Fluticasone Propionate 50 MCG/ACT Nasal Suspension (Flonase) [...] (morning & late afternoon) 30 Tablet 5 Diclofenac Sodium 1 % External Gel (Voltaren) Apply topically to affected area 4 times a day. (Patient taking differently: Apply topically to affected area 3 times a day as needed.) 350 g 1 Meloxicam 7.5 MG Oral Tablet (Mobic) Take 1 Tablet by mouth in the morning. for pain.. 30 Tablet 3 Albuterol Sulfate HFA 108 (90 Base) MCG/ACT Inhalation Aerosol Solution Use two puffs every four hours as needed for wheezing,cough, chest tightness, shortness of breath, prior to excerise - Inhalation 18 g 5 Phentermine HCl 15 MG Oral Capsule Take 1 Capsule by mouth in the morning. 30 Capsule 0 No current facility-administered medications for this visit. Review of patient's allergies indicates: Allergen Reactions Morphine And Codeine lose consciousness Objective BP 135/83 (BP Site: Right Arm, BP Position: Standing, BP Cuff Size: Large) | Pulse 90 | Temp 37.1 C (98.7 F) (Tympanic) | Wt 102.6 kg (226 lb 3.2 oz) | SpO2 95% | BMI 41.37 kg/m | BSA 2.12 m ASSESSMENT/PLAN: Fatty liver (Primary) - ANTINUCLEAR ANTIBODY (CONNIE) EIA SCREEN WITH REFLEX AB QUANT; Future; Expected date: 06/11/2024 - RHEUMATOID FACTOR; Future; Expected date: 06/11/2024 - CRP (INFLAMMATORY MARKER); Future; Expected date: 06/11/2024 - ERYTHROCYTE SEDIMENTATION RATE (ESR); Future; Expected date: 06/11/2024 Left tubo-ovarian mass Follow-up: Return in about 6 weeks (around 07/23/2024). | Check-out note: Labs today Follow up with machine rope maker regarding the left ovarian mass- appointment on 06/13/2024- please update me with the outcome/ recommendations. Hepatology referral Follow up with me in 6 weeks Lauren Galindo MD documented in this encounter Nursing Notes * Sulema Barrios MED ASSIST - 06/11/2024 11:14 AM EST Patient identifed by name and birthdate Do you have any concerns about pain management for today's visit? Yes. Patient instructed to discuss pain concerns with provider during the visit today Living Will or Advance Directive for Health Care as noted on the problem list. [facility] is a way you can talk to your provider on line through e-mail. Would you like to sign up? I can activate it for you? ALREADY ACTIVE Filed Vitals: 06/11/24 1112 BP: 135/83 Pulse: 90 Temp: 37.1 C (98.7 F) TempSrc: Tympanic SpO2: 95% Weight: 102.6 kg (226 lb 3.2 oz) Patient was instructed to not get up on the exam table/exam chair until directed and assisted by their provider; patient is to remain seated in the chair/ wheelchair/ exam table/ exam chair for fall prevention and safety reasons. Patient is aware to have assistance to step down off exam table/exam chair with personnel. Patient voiced full comprehension of instructions. documented in this encounter Plan of Treatment Upcoming Encounters Date Type Department Care Team (Late st Contact Info) Description 06/22/2024 9:00 AM EST Office Visit Family Practice [facility] [address] [place] [address] Myah Valdivia CRNP [address] [place] [address] 07/12/2024 9:45 AM EST Office Visit Gynecology/Obstetrics [facility] [address] [place] [address] Sarina Herrera CRNP [address] [place] [address] 07/25/2024 11:00 AM EST Office Visit Gynecology/Obstetrics [facility] [address] [place] [address] María Davidson MD [address] [place] [address] 07/26/2024 1:30 PM EST Office Visit Hematology/Oncology [facility] [address] [place] [id number] Lauren Galindo MD [address] [place] [phone] 09/05/2024 10:00 AM EST Office Visit Nutrition & Weight Management, [facility] [address] [facility] [place] [address] Nata Alba PA-C [address] [facility] [place] [address] 10/02/2024 11:40 AM EDT Office Visit Family Practice [facility] [address] [facility] [place] [address] [facility]ah Valdivia CR[facility] [address] [facility] [place] [address] Scheduled Procedures Name Priority Associated Diagnoses Date/Ti me COLONOSCOPY FLEXIBLE PROXIMA L DIAGNOSTIC Recall Special screening for malignant neoplasms, colon Health Maintenance Due Date Last Done Comments Pneumococcal Vaccine: Pediatrics (0 to 5 Years) and At-Risk Patients (6 to 64 Years) (1 of 2 - PCV) 10/17/1979 Hepatitis C Screening 10/17/1991 DTap/Tdap Vaccines (1 - Tdap) 1992 Hepatitis B Vaccine (1 of 3 - 19+ 3-dose series) 1992 HPV/Co-Test 10/17/2003 Cologuard 2018 Fecal Occult [...] Not on filedocumented as of this encounter Results * (ABNORMAL) ERYTHROCYTE SEDIMENTATION RATE (ESR) (06/11/2024 12:38 PM EST) ESR 48(H) <30 mm/hour 06/11/2024 5:18 PM EST LAB[facility]AT[facility] Blood Venous blood specimen / Unknown Venipuncture / Unknown 06/11/2024 12:38 PM EST 06/11/2024 12:38 PM EST Lauren Galindo MD LAB BLOOD OR DERABLES Final Result Performing Organization Address [facility] Co de Phone Number [facility]ATORY [facility] [address] [place] [address] * (ABNORMAL) CRP (INFLAMMATORY MARKER) (06/11/2024 12:38 PM EST) [facility] CRP (Inflammatory Marker) 38(H) <=5 mg/L 06/11/2024 5:47 PM EST [facility]ORY [facility] Blood Venous blood specimen / Unknown Venipuncture / Unknown 06/11/2024 12:38 PM EST 06/11/2024 12:38 PM EST Lauren Galindo MD LAB BLOOD OR DERABLES Final Result Performing Organization Address [facility] de Phone Number [facility]ORY [facility] [address] [place] [address] * RHEUMATOID FACTOR (06/11/2024 12:38 PM EST) [facility] Rheumatoid Factor <10 <14 IU/mL 06/11/2024 5:47 PM EST [facility] Blood Venous blood specimen / Unknown Venipuncture / Unknown 06/11/2024 12:38 PM EST 06/11/2024 12:38 PM EST Lauren Galindo MD LAB BLOOD OR DERABLES Final Result Performing Organization Address [facility] de Phone Number [facility]ORY [facility] [address] [place] [address] documented in this encounter Visit Diagnoses Diagnosis Fatty liver- Primary Other chronic nonalcoholic liver disease Left tubo-ovarian mass documented in this encounter Advance Directives Documents on File Type Date Recorded 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
--- OUTSIDE RECORDS SUMMARY | 2024-08-08 05:43 | External Medical Summary | Summary of Care ---
Author Name Unknown Organization [facility] Address [address] [facility] [place] [address] Phone [phone] Care Team Providers Care Marriage And Family Counselor Name Role Phone SoilaJoyce lewis Jennifer JC Primary Care Provider [phone] Reason for Visit * Reason Onset Date Comments Test Results 05/30/2024 Unexpected or In determinate Result Encounter Details Date Type Department Care Team (Late st Contact Info) Description 05/30/2024 Telephone Hematology/Oncology, [facility] [address] [place] [address] Lauren Galindo MD [address] [place] [address] Test Results (Unexpected or Indeterminate ... Allergies Active Allergy Reactions Criticality Noted Date Comments Morphine And Codeine High 08/13/2004 lose consciousness documented as of this encounter (statuses as of 06/08/2024) Medications MULTI-VITAMIN PO TABS One tablet daily 30 0 01/18/20 08 Active Cetirizine-Pseud oephedrine ER (ZYRTEC-D ALLERGY & [...] 24 Active Mometasone Furoate 0.1 % External CreamIndications :Dermatitis Apply topically to affected area daily. Apply to behind ear. 45 g 3 12/23/19 24 Active Additional Information Patient taking differently:ExternalPRN, Apply to behind ear., Reported on 03/16/2024 buPROPion HCl ER (SR) 150 MG Oral [...] Information Patient taking differently:TopicalTID PRN, Reported on 03/16/2024 Meloxicam 7.5 MG Oral Tablet (Mobic) Take [...] by mouth in the morning. 30 Capsule 03/19/20 24 024 Discontin ued(Refil l) documented as of this encounter (statuses as of 06/08/2024) Active Problems Problem Noted Date Diagnosed Date Chronic pain of both knees 04/03/2024 Medication management 04/03/2024 Nipple discharge 04/03/2024 Cyst of left ovary 04/15/2023 Overview (04/15/2023): Consider annual ultrasound Thalassemia minor 01/25/2022 Prediabetes 03/16/2021 Overview: Per Prediabetes protocol KENJI (obstructive sleep apnea) 02/19/2019 Intermittent asthma with reliever use up to twic e per week 09/13/2014 documented as of this encounter (statuses as of 06/08/2024) Resolved Problems Problem Noted Date Diagnosed Date [...] as of this encounter (statuses as of 06/08/2024) Immunizations Name Administration Dates Next Due COVID-19 [...] 10/19/2023 Hunger Vital Sign Answer Date Recorded Worried About Running Out of Food in the Last Ye ar Never true 02/02/2019 Ran Out of Food in the Last Year Never true 02/02/2019 Utilities Answer Date Recorded Do you have trouble paying y our heating, water, or electric bill? (Adult - for ages 18 years and over) Not on file 12/20/2023 Is your family able to pay t he heat, water, or electric bill? (Household - for ages 0-17 years) Not on file 12/20/2023 Does your family have access to good internet? (Household - for ages 0-17 years) Not on file 12/20/2023 Social Connections Answer Date Recorded How often do you feel lonely or isolated from those around you? (Adult - for ages 18 years and over) Not on file 12/20/2023 Comments No Sex and Gender Information Value Date Recorded Sex Assigned at Not on file Legal Sex Female 6:01 AM EST Gender Identity Not on file Sexual Orientation Not on file Occupation Industry Job Start Date Job End Date [employer] Not on file Not on file Not on f ile documented as of this encounter Miscellaneous Notes * Telephone Encounter - Kaley Jean-Baptiste RN - 06/08/2024 8:[address] Galindo has appt with patient 06/11. If not already reviewed, US results will be reviewed by her at this visit. * Telephone Encounter - Kaley Jean-Baptiste RN - 06/07/2024 8:12 AM EST Note placed on Dr Tolbert's computer reminding her to review this result. * Telephone Encounter - Kaley Jean-Baptiste RN - 06/04/2024 8:19 AM EST TT sent to Dr Tolbert 06/01/[address] Tolbert: were results reviewed? Thanks! * Telephone Encounter - Kaley Jean-Baptiste RN - 05/30/2024 4:[address] Tolbert: please route to Diana Reardon when this encounter has been reviewed Sarina: LEEROY on results- patient sees you for door to door lead generation follow up 07/12/23 * Telephone Encounter - Diana Reardon OSA - 05/30/2024 9:29 AM EST Hello- The radiologist discovered an unexpected or indeterminate finding on Kely Mercado ([id number]) and asks that you review the following report. Study Type: US PELVIS TRANS-VAGINAL NON-OB Date of Study: 05/30/2024 IMPRESSION 1. Abnormal position of the IUD, which is low in position and penetrates the myometrium. 2. Left ovarian mass, suspicious for a solid neoplasm. Recommend MRI pelvis with gadolinium. Please respond to this encounter to acknowledge receipt of this message and take responsibility to ensure this report is reviewed. Thank you, KENJI Cramer Client Service [facility] documented in this encounter Plan of Treatment Upcoming Encounters Date Type Department Care Team (Late st Contact Info) Description 06/11/2024 11:00 AM EST Office Visit Hematology[facility]Oncology [facility] [place] [address] [place] [phone] Lauren Galindo MD [address] [place] [address] 06/14/2024 1:45 PM EST Office Visit Gynecology/Obstetrics [facility] [address] [place] [address] Sarina Herrera CRNP [address] [place] [address] 07/12/2024 9:45 AM EST Office Visit Gynecology/Obstetrics 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
--- OUTSIDE RECORDS SUMMARY | 2024-08-08 05:43 | External Medical Summary ---
Author Name Unknown Address Unknown Organization K01:LABORATORY [address] [facility] [address] Laboratory Report Ordering Provider Test Date Status MOY ALEX 06/11/2024 12:38:12 Final Observation Date Value Abnormality Reference (Units ) Status Nuclear IgG Ab [Ratio] in Serum by Immunoassay 06/11/2024 12:38:12 Negative Negative Final DNA double strand Ab [Presence] in Serum 06/11/2024 12:38:12 Negative Negative Final DOUBLE STRANDED DNA VALUE - [facility] 06/11/2024 12:38:12 7.5 <20 (IU/mL) Final Extractable nuclear Ab [Presence] in Serum 06/11/2024 12:38:12 Negative Negative Final Nuclear IgG Ab [Ratio] in Serum by Immunoassay 06/11/2024 12:38:12 0.3 <0.7 (Ratio) Final Screening is based on detect ion of the following antibodies: dsDNA, U1-AUDIT OFFICER (RNP70, A, C), SS-A/Ro, SS-B / La, Tracy-1, Scl-70, Centromere B proteins and Sm proteins. In conjunction with clinical findings, this can aid in the diagnosis of systemic lupus erythematosous (SLE), mixed connective tissue disease (MCTD), Sjogren's syndrome, scleroderma and polymyositis/dermatomyositis.
However, a negative result does not rule out systemic rheumatic or other autoimmune disease. If clinically suspected, further evaluation and testing may be necessary. Please consult with Rheumatology Department.
Methodology: Fluorescent Enzyme Immunoassay. Performing Location LABORATORY [address] [facility] [address]
--- OUTSIDE RECORDS SUMMARY | 2024-08-08 05:43 | External Medical Summary | Summary of Care ---
Author Name Unknown Organization [facility] Address [address] [place] [address] Phone [phone] Care Team Providers Care Aircraft Powertrain Repairer Name Role Phone Joyce Dorantes DO Primary Care Provider Encounter Details Date Type Department Care Team (Late st Contact Info) Description 06/14/2024 Telephone Gynecology/Obstetrics [facility] [address] [facility] [place] [address] Sarina Herrera CRNP [address] [place] [address] Allergies Active Allergy Reactions Criticality Noted Date Comments Morphine And Codeine High 08/13/2004 lose consciousness documented as of this encounter (statuses as of 06/14/2024) Medications MULTI-VITAMIN PO TABS One tablet daily [...] as of this encounter (statuses as of 06/14/2024) Active Problems Problem Noted Date Diagnosed Date Chronic pain of both knees 04/03/2024 Medication management 04/03/2024 Nipple discharge 04/03/2024 Cyst of left ovary 04/15/2023 Overview (04/15/2023): Consider annual ultrasound Thalassemia minor 01/25/2022 Prediabetes 03/16/2021 Overview: Per Prediabetes protocol KENJI (obstructive sleep apnea) 02/19/2019 Intermittent asthma with reliever use up to twic e per week 09/13/2014 documented as of this encounter (statuses as of 06/14/2024) Resolved Problems Problem Noted Date Diagnosed Date [...] as of this encounter (statuses as of 06/14/2024) Immunizations Name Administration Dates Next Due COVID-19 [...] Industry Job Start Date Job End Date [employer] Not on file Not on file Not on f ile documented as of this encounter Miscellaneous Notes * Telephone Encounter - Erica Larson LPN - 06/14/2024 10:44 AM EST Reviewed with patient. She would like to still have iud replaced today. * Telephone Encounter - Erica Larson LPN - 06/14/2024 8:56 AM EST left message for patient to call office * Telephone Encounter - Sarina Herrera CRNP - 06/14/2024 8:26 AM EST Pt is scheduled for IUD removal and replacement today. However, she had a recent u/s showing the following: Left ovarian mass, suspicious for a solid neoplasm. Recommend MRI pelvis with gadolinium. This was ordered by hematology. She had a normal Ca125, but has not yet had this MRI of her pelvis.I feel as though it is more important to get this figured out rather than replace the IUD that we have known was low lying for a few years (that she did not want replaced despite this info). Hematology ordered her an u/s, but the report is recommending a MRI. The note remains unsigned from that hematology visit, so I'm not exactly sure what was said at the visit. If they are managing this, fine.otheriwse I think she needs to see a physician in our office for evaluation/management of this ovarian mass before we replace her IUD. If she does want to come today for the IUD replacement, this is fine, but I don't think this shouldtake priority. documented in this encounter Plan of Treatment Upcoming Encounters Date Type Department Care Team (Late st Contact Info) Description 06/14/2024 1:45 PM EST Office Visit Gynecology/Obstetrics [facility] [address] [place] [address] Sarina Herrera CRNP [address] [place] [address] 06/22/2024 9:00 AM EST Office Visit Family Practice [facility] [address] [place] [address] Myah Valdivia CRNP [address] [place] [address] 07/12/2024 9:45 AM EST Office Visit [facility]necology[facility]st[facility]s [facility] [place] [address] Sarina Herrera CRNP [address] [place] [address] 07/26/2024 1:30 PM EST Office Visit Hematology/Oncology [facility] [place] [address] [facility] [place] [phone] Lauren Galindo MD [address] [place] [address] [place] [phone] 09/05/2024 10:00 AM EST Office Visit Nutrition & Weight Management, [facility] [address] [place] [address] Nata Alba PA-C [address] [facility] [place] [address] 10/02/2024 11:40 AM EDT Office Visit Family Practice [facility] [address] [place] [address] Myah Valdivia CRNP [address] [place] [address] Scheduled Procedures Name Priority Associated Diagnoses Date/Ti [...] Documents on File Type Date Recorded Patient Defensive Secondary Coach Expl anation Advance Directives and Living Will 03/22/2005 Power of Plaster Form Maker 03/22/2005 * No Code Status (Latest Code Status on File) Date Activated Date Inactivated Comments 03/22/2005 10:26 AM 03/22/2005 10:26 AM Care Teams Aircraft Powertrain Repairer Relationship Specialty Start Date End Date Joyce Dorantes DO [address] [place] [address] PCP - General Family Medicine 12/23/15 documented as of this encounter
--- OUTSIDE RECORDS SUMMARY | 2024-08-08 05:43 | External Medical Summary | Summary of Care ---
Author Name Unknown Organization [facility] Address [address] [place] [address] Phone [phone] Care Team Providers Care Resp Therapist Name Role Phone Joyce Dorantes DO Primary Care Provider [phone] Reason for Referral * Precert (Within 10 days (routine)) - Pending Review Specialty Diagnoses / Procedures Referred By Alda pan Referred To Contact Radiology Diagnoses Ovarian mass, left Procedures MRI PELVIS W WO CONTRAST Sarina Herrera CRNP [address] [place] [address] Phone: tel: fax: Referral ID Status Reason Start Date Expiration Date V isits Requested Visits Authorized [id number] Pending Review 06/21/[phone] Reason for Visit * Reason Comments IUD Encounter Details Date Type Department Care Team (Latest Contact Info) Description 06/14/2024 1:45 PM EST Office Visit Gynecology/Obstetric s [facility] [address] [place] [address] Sarina Herrera CRNP [address] [place] [phone] Malpositioned IUD, sequela*; Ovarian mass, left Allergies Active Allergy Reactions [...] Industry Job Start Date Job End Date [employer] Not on file Not on file Not on f ile documented as of this encounter Last Filed Vital Signs Vital Sign Reading Time Taken Comments Blood Pressure 130/82 06/14/2024 1:53 PM EST Pulse - - Temperature - - Respiratory Rate - - Oxygen Saturation - - Inhaled Oxygen Concentration - - Weight 102.7 kg (226 lb 6.4 oz) 06/14/2024 1:53 PM EST Height - - Body Mass Index 41.41 05/07/2024 1:45 PM EST documented in this encounter Progress Notes * Sarina Herrera CRNP - 06/14/2024 3:15 PM EST Kely Mercado [id number] Kely Mercado 48 year old is here for Mirena IUD removal and reinsertion. Mirena has been positioned in lower uterine segment for several years but she has declined removal and replacement. She now states she has some pain with intercourse, thinking the IUD has moved down causing this. Also fearful of . Would like another IUD placed. She also had a recent pelvic u/s that showed a concerning left ovarian mass. MRI recommended. Needsorder placed for this. Ultrasound ordered by hematology, and she states at her hematology appt earlier this week they had asked her to see if this office would order the MRI. Theatrical Performer Documentation Provider requested firer portable boiler. Name of firer portable boiler: Priya Mcmanus "time out" was initiated by JAMES La prior to procedure. The patient was identified byname and date of . The correct procedure, and correct site identified. Correct positioning (asapplicable). There is availability of necessary equipment. Patient states she is not allergic to lat ex. IUD strings visualized in cervical os. Strings grasped with ring forceps. Gentle traction applied, and one IUD string broke off. At this point, decision was made to discontinue procedure, and have ptf/u with physician. Discussed that if both strings fall off, or if unable to remove, she will need removal in the OR. Of note, there is one string still visible, approximately 2cm in length. IMP: failed removal of Mirena IUD Malpositioned IUD, sequela (Primary) Ovarian mass, left - MRI PELVIS W WO CONTRAST; Future; Expected date: 06/21/2024 Follow Up: Return in about 2 weeks (around 06/28/2024) for IUD removal- physician. | For: IUD removal- physician JAMES La 06/14/2024 3:15 PM documented in this encounter Nursing Notes * Priya Hawkins CMA - 06/14/2024 1:53 PM EST Patient present today for Mirena IUD removal and insertion. No unprotected intercourse in the last 14 days. Currently malpositioned. documented in this encounter Plan of Treatment Upcoming Encounters Date Type Department Care Team (Late st Contact Info) Description 06/22/2024 9:00 AM EST Office Visit [facility] [address] [facility] [place] [address] Myah Valdivia CRNP [address] [place] [address] 07/12/2024 9:45 AM EST Office Visit Gynecology/Obstetrics [facility] [address] [facility] [address] Sarina Herrera CRNP [address] [place] [address] 07/25/2024 11:00 AM EST Office Visit Gynecology/Obstetrics [facility] [address] [facility] [place] [address] María Davidson MD [address] [place] [address] 07/26/2024 1:30 PM EST Office Visit Hematology/Oncology [facility] [address] [place] [phone] Lauren Galindo MD [address] [place] [address] [place] [phone] 09/05/2024 10:00 AM EST Office Visit Nutrition & Weight Management, [facility] [address] [facility] [place] [address] Nata Alba PA-C [facility] [place] [address] 10/02/2024 11:40 AM EDT Office Visit Family Practice 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
--- OUTSIDE RECORDS SUMMARY | 2024-08-08 05:43 | External Medical Summary | Summary of Care ---
Author Name Unknown Organization [facility] Address [address] [place] [address] Phone [phone] Care Team Providers Care Cafeteria Supervisor Name Role Phone SoilaJoyce lewis Jennifer JC Primary Care Provider [phone] Reason for Visit * Reason Onset Date Comments Test Results 05/30/2024 Unexpected or In determinate Result Encounter Details Date Type Department Care Team (Late st Contact Info) Description 05/30/2024 Telephone Hematology/Oncology, [facility] [address] [place] [address] Lauren Galindo MD [address] [place] [address] Test Results (Unexpected or Indeterminate ... Allergies Active Allergy Reactions Criticality Noted Date Comments Morphine And Codeine High 08/13/2004 lose consciousness documented as of this encounter (statuses as of 06/07/2024) Medications MULTI-VITAMIN PO TABS One tablet daily [...] as of this encounter (statuses as of 06/07/2024) Active Problems Problem Noted Date Diagnosed Date Chronic pain of both knees 04/03/2024 Medication management 04/03/2024 Nipple discharge 04/03/2024 Cyst of left ovary 04/15/2023 Overview (04/15/2023): Consider annual ultrasound Thalassemia minor 01/25/2022 Prediabetes 03/16/2021 Overview: Per Prediabetes protocol KENJI (obstructive sleep apnea) 02/19/2019 Intermittent asthma with reliever use up to twic e per week 09/13/2014 documented as of this encounter (statuses as of 06/07/2024) Resolved Problems Problem Noted Date Diagnosed Date [...] as of this encounter (statuses as of 06/07/2024) Immunizations Name Administration Dates Next Due COVID-19 [...] Industry Job Start Date Job End Date [employer] Not on file Not on file Not [...] Reardon when this encounter has been reviewed Jessa UMAÑA on results- patient sees you for fabricator special items follow up 07/12/23 * Telephone Encounter - Diana Reardon OSA - 05/30/2024 9:29 AM EST Hello- The radiologist discovered an unexpected or indeterminate finding on Kely Mercado ([id number]) and asks that you review the following [...] reviewed. Thank you, KENJI Cramer Client Service Rep [facility] [place] documented in this encounter Plan of Treatment Upcoming Encounters Date Type Department Care Team (Late st Contact Info) Description 06/11/2024 11:00 AM EST Office Visit Hematology/Oncology [facility] [address] [facility] [place] [address] Lauren Galindo MD [address] [place] [address] [place] [address] 06/14/2024 1:45 PM EST Office Visit Gynecology/Obstetrics [facility] [address] [place] [address] Sarina Herrera CRNP [address] [place] [address] 07/12/2024 9:45 AM EST Office Visit Gynecology/Obstetrics [facility] [address] [place] [address] Sarina Herrera CRNP [address] [place] [address] 09/05/2024 10:00 AM EST Office Visit Nutrition & Weight Management, [facility] [address] [place] [address] Nata Alba PA-C [address] [place] [address] 10/02/2024 1:00 PM EDT Office Visit Family Practice [facility] [address] [place] [address] Myah Valdivia CRNP [address] [place] [address] Scheduled Procedures Name Priority Associated Diagnoses Date/Ti [...] Documents on File Type Date Recorded Patient Coat Tailor Expl anation Advance Directives and Living Will 03/22/2005 Power of Charcoal Burner Beehive Kiln 03/22/2005 * No Code Status (Latest Code Status on File) Date Activated Date Inactivated Comments 03/22/2005 10:26 AM 03/22/2005 10:26 AM Care Teams Cafeteria Supervisor Relationship Specialty Start Date End Date Joyce Dorantes DO [address] [place] [address] PCP - General Family Medicine 12/23/15 documented as of this encounter
--- OUTSIDE RECORDS SUMMARY | 2024-08-08 05:43 | External Medical Summary | Summary of Care ---
Author Name Unknown Organization [facility] Address [address] [place] [address] Phone [phone] Care Team Providers Care Grounds Manager Name Role Phone Joyce Dorantes DO Primary Care Provider [phone] Reason for Referral * Precert (Within 10 days (routine)) - Pending Review Specialty Diagnoses / Procedures Referred By Alda pan Referred To Contact Radiology Diagnoses Ovarian mass, left Procedures MRI PELVIS W WO CONTRAST Sarina Herrera CRNP [address] [place] [address] Phone: tel: fax: Referral ID Status Reason Start Date Expiration Date V isits Requested Visits Authorized [id number] Pending Review 06/21/2024 999 999 Reason for Visit * Reason Comments IUD Encounter Details Date Type Department Care Team (Latest Contact Info) Description 06/14/2024 1:45 PM EST Office Visit Gynecology/Obstetric s [facility] [address] [place] [address] Sarina Herrera CRNP [address] [place] [phone] Malpositioned IUD, sequela*; Ovarian mass, left Allergies [...] Industry Job Start Date 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 Industrial Roofer Documentation Provider requested staff consultant. Name of staff consultant: Priya Mcmanus "time out" was initiated by [...] Description 06/22/2024 9:00 AM EST Office Visit [facility] [address] [facility] [place] [address] Myah Valdivia CRNP [address] [place] [address] 07/12/2024 9:45 AM EST Office Visit [facility] [place] [address] Sarina Herrera CRNP [address] [place] [address] 07/25/2024 11:00 AM EST Office Visit [facility] [place] [address] María Davidson MD [address] [place] [address] 07/26/2024 1:30 PM EST Office Visit Hematology/Oncology [facility] [address] [place] [phone] Lauren Galindo MD [address] [place] [address] [place] [phone] 09/05/2024 10:00 AM EST Office Visit Nutrition & Weight Management, [facility] 132 [facility] [place] [address] Nata Alba PA-C [facility] [place] [address] 10/02/2024 11:40 AM EDT Office Visit [facility] [place] [address] Myah Valdivia CRNP [address] [place] [address] Scheduled Orders Name Type Priority Associated Diagnoses [...] Documents on File Type Date Recorded Patient Nurse Clinical Expl anation Advance Directives and Living Will 03/22/2005 Power of Regional Manager 03/22/2005 * No Code Status (Latest Code Status on File) Date Activated Date Inactivated Comments 03/22/2005 10:26 AM 03/22/2005 10:26 AM Care Teams Grounds Manager Relationship Specialty Start Date End Date Joyce Dorantes DO [address] [place] [address] PCP - General Family Medicine 12/23/15 documented as of this encounter
--- OUTSIDE RECORDS SUMMARY | 2024-08-08 05:43 | External Medical Summary | Summary of Care ---
Author Name Unknown Organization [facility] Address [address] [place] [address] Phone [phone] Care Team Providers Care Director Biostatistics Name Role Phone Joyce Dorantes DO Primary Care Provider Reason for Visit * Reason Onset Date Comments Health Maintenance 06/13/2024 Encounter Details Date Type Department Care Team (Late st Contact Info) Description 06/13/2024 Telephone Family Practice [facility] [address] [facility] [place] [address] Joyce Dorantes DO [address] [facility] [address] Health Maintenance Allergies Active Allergy Reactions Criticality Noted Date Comments Morphine And Codeine High 08/13/2004 lose consciousness documented as of this encounter (statuses as of 06/13/2024) Medications MULTI-VITAMIN PO TABS One tablet daily [...] as of this encounter (statuses as of 06/13/2024) Active Problems Problem Noted Date Diagnosed Date Chronic pain of both knees 04/03/2024 Medication management 04/03/2024 Nipple discharge 04/03/2024 Cyst of left ovary 04/15/2023 Overview (04/15/2023): Consider annual ultrasound Thalassemia minor 01/25/2022 Prediabetes 03/16/2021 Overview: Per Prediabetes protocol KENJI (obstructive sleep apnea) 02/19/2019 Intermittent asthma with reliever use up to twic e per week 09/13/2014 documented as of this encounter (statuses as of 06/13/2024) Resolved Problems Problem Noted Date Diagnosed Date [...] as of this encounter (statuses as of 06/13/2024) Immunizations Name Administration Dates Next Due COVID-19 [...] Industry Job Start Date Job End Date [employer] Not on file Not on file Not on f ile documented as of this encounter Miscellaneous Notes * Telephone Encounter - Cinthya Carmichael LPN - 06/13/2024 2:11 PM EST Care Gaps Comprehensive Care Outreach Last Office/Telemedicine Visit: 04/03/2024 (in office), 11/24/2022 (telemedicine) Next Office Visit: 06/22/2024 Hemoglobin AIC Results: Lab Results Component Value Date/Time HEMOGLOBIN A1C - [facility] 6.2 (H) 12/31/2023 08:25 AM HEMOGLOBIN A1C - [facility] 5.7 (H) 01/12/2022 09:36 AM HEMOGLOBIN A1C - [facility] 6.2 (H) 03/11/2021 10:37 AM HEMOGLOBIN A1C - [facility] 5.9 09/23/2010 09:07 AM BP Readings from Last 1 Encounters: 06/11/24 135/83 Reviewed Health Maintenance below: Health Maintenance Topic Date Due Pneumococcal Vaccine: Pediatrics (0 to 5 Years) and At-Risk Patients (6 to 64 Years) (1 of 2 - PCV)Never done Hepatitis C Screening Never done Hepatitis B Vaccine (1 of 3 - 19+ 3-dose series) Never done DTap/Tdap Vaccines (1 - Tdap) Never done Zoster Vaccines (1 of 2) Never done Lipid Panel 02/20/2024 lipid Care Gap Outreach Action Taken: [place] [facility] message sent documented in this encounter Plan of Treatment Upcoming Encounters Date Type Department Care Team (Late st Contact Info) Description 06/14/2024 1:45 PM EST Office Visit Gynecology/Obstetrics [facility] [address] [place] [address] Sarina Herrera CRNP [address] [place] [address] 06/22/2024 9:00 AM EST Office Visit Family Practice [facility] [address] [place] [address] Myah Valdivia CRNP [address] [place] [address] 07/12/2024 9:45 AM EST Office Visit Gynecology/Obstetrics [facility] [address] [place] [address] Sarina Herrera CRNP [address] [place] [address] 07/26/2024 1:30 PM EST Office Visit Hematology/Oncology [facility] [address] [place] [address] Lauren Galindo MD [address] [place] [address] [place] [address] 09/05/2024 10:00 AM EST Office Visit Nutrition & Weight Management, [facility] [address] [place] [address] Nata Alba PA-C [address] [place] [address] 10/02/2024 11:40 AM EDT Office Visit Family Practice [facility] [address] [place] [address] Myah Valdivia CRNP [address] [place] [address] Scheduled Procedures Name Priority Associated Diagnoses Date/Ti [...] Documents on File Type Date Recorded Patient Room Cleaner Expl anation Advance Directives and Living Will 03/22/2005 Power of Neonatal Doctor 03/22/2005 * No Code Status (Latest Code Status on File) Date Activated Date Inactivated Comments 03/22/2005 10:26 AM 03/22/2005 10:26 AM Care Teams Director Biostatistics Relationship Specialty Start Date End Date Joyce Dorantes DO [address] [place] [address] PCP - General Family Medicine 12/23/15 documented as of this encounter
--- OUTSIDE RECORDS SUMMARY | 2024-08-08 05:43 | External Medical Summary | Summary of Care ---
Author Name Unknown Organization [facility] Address [address] [facility] [place] [address] Phone [phone] Care Team Providers Care Tourist Guide Name Role Phone Joyce Dorantes DO Primary Care Provider Encounter Details Date Type Department Care Team (Late st Contact Info) Description 06/01/2024 Telephone Gynecology/Obstetrics [facility] [address] [place] [address] BackerTaryn CRNP [address] [facility] [place] [address] Allergies Active Allergy Reactions Criticality Noted Date Comments Morphine And Codeine High 08/13/2004 lose consciousness documented as of this encounter (statuses as of 06/06/2024) Medications MULTI-VITAMIN PO TABS One tablet daily [...] as of this encounter (statuses as of 06/06/2024) Active Problems Problem Noted Date Diagnosed Date Chronic pain of both knees 04/03/2024 Medication management 04/03/2024 Nipple discharge 04/03/2024 Cyst of left ovary 04/15/2023 Overview (04/15/2023): Consider annual ultrasound Thalassemia minor 01/25/2022 Prediabetes 03/16/2021 Overview: Per Prediabetes protocol KENJI (obstructive sleep apnea) 02/19/2019 Intermittent asthma with reliever use up to twic e per week 09/13/2014 documented as of this encounter (statuses as of 06/06/2024) Resolved Problems Problem Noted Date Diagnosed Date [...] as of this encounter (statuses as of 06/06/2024) Immunizations Name Administration Dates Next Due COVID-19 [...] Industry Job Start Date Job End Date [employer] Not on file Not on file Not on f ile documented as of this encounter Miscellaneous Notes * Telephone Encounter - Erica Larson LPN - 06/06/2024 3:54 PM EST left message for patient to call office . Letter sent * Telephone Encounter - Ronda Lewis LPN - 06/04/2024 10:24 AM EST Attempted to call pt, na, lm for pt to call office. Triage number provided. * Telephone Encounter - Kayla De Los Santos LPN - 06/01/2024 8:27 AM EST left message for patient to call office * Telephone Encounter - Taryn Michael CRNP - 06/01/2024 8:01 AM EST IUD low in pelvis, recommend removal. Advise barrier method, such as condoms, as back up contraception. JAMES Urbano * Telephone Encounter - Taryn Michael CRNP - 06/01/2024 8:01 AM EST ----- Message from Kaley Jean-Baptiste RN sent at 05/30/2024 4:28 PM EST ----- ----- Message from KENJI Hayes sent at 05/30/2024 3:55 PM EST ----- SP patient thank you. ----- Message ----- From: Diana Reardon OSA Sent: 05/30/2024 9:32 AM EST To: Lauren Galindo MD; # documented in this encounter Plan of Treatment Upcoming Encounters Date Type Department Care Team (Late st Contact Info) Description 06/11/2024 11:00 AM EST Office Visit Hematology/Oncology [facility] [place] [address] [facility] [address] Lauren Galindo MD [address] [place] [address] [place] [address] 06/14/2024 1:45 PM EST Office Visit Gynecology/Obstetrics [facility] [address] [facility] [place] [address] Sarina Herrera CRNP [address] [place] [address] 07/12/2024 9:45 AM EST Office Visit Gynecology/Obstetrics [facility] [address] [place] [address] Sarina Herrera CRNP [address] [place] [address] 09/05/2024 10:00 AM EST Office Visit Nutrition & [facility] Management, [facility] [place] [address] Nata Alba PA-C [address] [place] [address] 10/02/2024 1:00 PM EDT Office Visit Family Practice [facility] [address] [place] [address] Myah Valdivia CRNP [address] [place] [address] Scheduled Procedures Name Priority Associated Diagnoses Date/Ti [...] Cancer Screening 03/18/2025 Pap Smear 03/18/2025 03/18/2022, 050 03/2019, 11/02/2017, Additional history exists IUD 7-Year [...] Documents on File Type Date Recorded Patient Route Salesman And Driver Expl anation Advance Directives and Living Will 03/22/2005 Power of Band Saw Runner 03/22/2005 * No Code Status (Latest Code Status on File) Date Activated Date Inactivated Comments 03/22/2005 10:26 AM 03/22/2005 10:26 AM Care Teams Tourist Guide Relationship Specialty Start Date End Date Joyce Dorantes DO [address] [place] [address] PCP - General Family Medicine 12/23/15 documented as of this encounter
--- OUTSIDE RECORDS SUMMARY | 2024-08-08 05:43 | External Medical Summary ---
Author Name Unknown Address Unknown Organization K01:[facility] - [address] [place] [address] Laboratory Report Ordering Provider Test Date Status MOY ALEX 06/11/2024 12:38:12 Final Observation Date Value Abnormality Reference (Units ) Status CRP, low-sensitivity 06/11/2024 12:38:12 38 Above high normal <=5 (mg/L) Final Performing Location [facility] - [address] [place] [address]
--- OUTSIDE RECORDS SUMMARY | 2024-08-08 05:43 | External Medical Summary | Summary of Care ---
Author Name Unknown Organization [facility] Address [address] [place] [address] Phone [phone] Care Team Providers Care Avionics System Engineer Name Role Phone SoilaJoyce lewis Jennifer JC Primary Care Provider [phone] Reason for Visit * Reason Onset Date Comments Medication Refill 05/12/2024 Encounter Details Date Type Department Care Team (Late st Contact Info) Description 05/12/2024 Refill Nutrition & Weight Management, [facility] [address] [place] [address] Nata Alba PA-C [address] [place] [address] Allergies Active Allergy Reactions Criticality Noted Date Comments Morphine And Codeine High 08/13/2004 lose consciousness documented as of this encounter (statuses as of 06/11/2024) Medications MULTI-VITAMIN PO TABS One tablet daily [...] pain.. 30 Tablet 3 04/03/20 24 Active Phentermine HCl 15 MG Oral Capsule Take 1 Capsule by mouth in the morning. 30 Capsule 06/04/20 24 Active Phentermine HCl 15 MG Oral Capsule Take 1 Capsule by mouth in the morning. 30 Capsule 03/19/20 24 024 Discontin ued(Refil l) documented as of this encounter (statuses as of 06/11/2024) Active Problems Problem Noted Date Diagnosed Date Chronic pain of both knees 04/03/2024 Medication management 04/03/2024 Nipple discharge 04/03/2024 Cyst of left ovary 04/15/2023 Overview (04/15/2023): Consider annual ultrasound Thalassemia minor 01/25/2022 Prediabetes 03/16/2021 Overview: Per Prediabetes protocol KENJI (obstructive sleep apnea) 02/19/2019 Intermittent asthma with reliever use up to twic e per week 09/13/2014 documented as of this encounter (statuses as of 06/11/2024) Resolved Problems Problem Noted Date Diagnosed Date [...] as of this encounter (statuses as of 06/11/2024) Immunizations Name Administration Dates Next Due COVID-19 [...] Industry Job Start Date Job End Date [employer] Not on file Not on file Not on f ile documented as of this encounter Miscellaneous Notes * Telephone Encounter - Shawn Garcia PA-C - 06/01/2024 10:34 AM EST She is out of office. BP high on 05/27 at heme/onc and elevated on 05/30/24 at 142/82 Ok at pcp appt in April. Most recent rx for phentermine was March 19 for 30 day supply so has been without it and still running high. Hold for Nata's review upon return. * Telephone Encounter - Jose Miller LPN - 05/28/2024 10:57 AM EST See last BP * Telephone Encounter - Jose Miller LPN - 05/24/2024 2:49 PM EST Left message for patient to return call. * Telephone Encounter - Jose Miller LPN - 05/23/2024 10:27 AM EST Refused Prescriptions: Disp Refills Phentermine HCl 15 MG Oral Capsule 30 Cap*0 Sig: Take 1 Capsule by mouth in the morning. Refused By: NATA ALBA Reason for Refusal: Appt. Required, please call patient * Telephone Encounter - Nata Alba PA-C - 05/15/2024 2:47 PM EST Refused Prescriptions: Disp Refills Phentermine HCl 15 MG Oral Capsule 30 Cap*0 Sig: Take 1 Capsule by mouth in the morning. Refused By: NATA ALBA Reason for Refusal: Appt. Required, please call patient * Telephone Encounter - Jose Miller LPN - 05/15/2024 12:24 PM EST Pending Prescriptions: Disp Refills Phentermine HCl 15 MG Oral Capsule 30 Cap*0 Sig: Take 1 Capsule by mouth in the morning. * Telephone Encounter - Jose Miller LPN - 05/15/2024 12:22 PM EST Did you pend patient's preferred pharmacy and medication before forwarding?yes Pharmacy: [id number] [place] Pending Prescriptions: Disp Refills Phentermine HCl 15 MG Oral Capsule 30 Cap*0 Sig: Take 1 Capsule by mouth in the morning. Last Visit: 03/16/2024 (in office), Visit date not found (telemedicine) Next Visit: 09/05/2024 If no future appointments scheduled, and last appointment is greater than a year ago, please schedule patient for a follow-up appointment Last date the medication was ordered: 03/19/24 Is this request for a controlled substance?Yes, What was the last refill date 03/19/24 w/ quantity 30 and dosage 15mg and Urine Drug Screen Not completed Urine Drug Screen:No results found for this or any previous visit. Patient Phone Numbers Labs: Lab Results Component Value Date/Time CREAT 0.8 04/30/2024 12:14 PM CREAT 0.8 02/28/2020 02:28 PM POTASSIUM 4.0 04/30/2024 12:14 PM POTASSIUM 4.0 02/28/2020 02:28 PM TSH 3.25 04/03/2024 01:43 PM TSH 2.69 02/28/2020 02:28 PM LDL 118 02/19/2019 08:55 AM LDL NOT APPLICABLE 02/19/2019 08:55 AM ALT 15 04/30/2024 12:14 PM ALT 25 02/28/2020 02:28 PM HGBA1C 6.2 (H) 12/31/2023 08:25 AM HGBA1C 5.9 09/23/2010 09:07 AM documented in this encounter Plan of Treatment Upcoming Encounters Date Type Department Care Team (Late st Contact Info) Description 06/14/2024 1:45 PM EST Office Visit Gynecology/Obstetrics [facility] [address] [place] [address] Sarina Herrera CRNP [address] [place] [address] 07/12/2024 9:45 AM EST Office Visit Gynecology/Obstetrics [facility] [address] [place] [address] Sarina Herrera CRNP [address] [place] [address] 09/05/2024 10:00 AM EST Office Visit Nutrition & Weight Management, [facility] [address] [place] [address] Nata Alba PA-C [address] [place] [address] 10/02/2024 1:00 PM EDT Office Visit Family Practice [facility] [address] [place] [address] Myah Valdivia CRNP [address] [place] [address] Scheduled Procedures Name Priority Associated Diagnoses Date/Ti [...] Panel 02/20/2024 02/19/2019, 09/02, 01/17/2009 COVID-19 Vaccine (2023- season) 2024 08/30/2020, 08/06/2020 Influenza Vaccine (FLU [...] Documents on File Type Date Recorded Patient Developmental Psychologist Expl anation Advance Directives and Living Will 03/22/2005 Power of Grip 03/22/2005 * No Code Status (Latest Code Status on File) Date Activated Date Inactivated Comments 03/22/2005 10:26 AM 03/22/2005 10:26 AM Care Teams Avionics System Engineer Relationship Specialty Start Date End Date Joyce Dorantes DO [address] [place] [address] PCP - General Family Medicine 12/23/15 documented as of this encounter
--- OUTSIDE RECORDS SUMMARY | 2024-08-08 05:43 | External Medical Summary | Summary of Care ---
Author Name Unknown Organization [facility] Address [address] [place] [address] Phone [phone] Care Team Providers Care Diamond Picker Name Role Phone Joyce Dorantes DO Primary Care Provider [phone] Reason for Visit * Reason Onset Date Comments Health Maintenance 06/13/2024 Encounter Details Date Type Department Care Team (Late st Contact Info) Description 06/13/2024 Telephone Family Practice [facility] [address] [facility] [place] [address] Joyce Dorantes DO [address] [facility] [address] Health Maintenance Allergies Active Allergy Reactions Criticality Noted Date Comments Morphine And Codeine High 08/13/2004 lose consciousness documented as of this encounter (statuses as of 06/20/2024) Medications MULTI-VITAMIN PO TABS One tablet daily [...] as of this encounter (statuses as of 06/20/2024) Active Problems Problem Noted Date Diagnosed Date Chronic pain of both knees 04/03/2024 Medication management 04/03/2024 Nipple discharge 04/03/2024 Cyst of left ovary 04/15/2023 Overview (04/15/2023): Consider annual ultrasound Thalassemia minor 01/25/2022 Prediabetes 03/16/2021 Overview: Per Prediabetes protocol KENJI (obstructive sleep apnea) 02/19/2019 Intermittent asthma with reliever use up to twic e per week 09/13/2014 documented as of this encounter (statuses as of 06/20/2024) Resolved Problems Problem Noted Date Diagnosed Date [...] as of this encounter (statuses as of 06/20/2024) Immunizations Name Administration Dates Next Due COVID-19 [...] Industry Job Start Date Job End Date [employer] Not on file Not on file Not on f ile documented as of this encounter Miscellaneous Notes * Addendum Note - Baltazar Carmichael LPN - 06/20/2024 7:48 AM ESTAddended by: BALTAZAR CARMICHAEL on: 06/20/2024 07:48 AM Modules accepted: Orders * Telephone Encounter - Baltazar Carmichael LPN - 06/13/2024 2:11 PM EST [...] 02/20/2024 lipid Care Gap Outreach Action Taken: Streamlinehart message sent documented in this encounter Plan of Treatment Upcoming Encounters Date Type Department Care Team (Late st Contact Info) Description 06/22/2024 9:00 AM EST Office Visit Family Practice [facility] [address] [place] [address] Myah Valdivia CRNP [address] [place] [address] 07/12/2024 9:45 AM EST Office Visit Gynecology/Obstetrics [facility] [address] [place] [address] Sarina Herrera CRNP [address] [place] [address] 07/25/2024 11:00 AM EST Office Visit Gynecology/Obstetrics [facility] [address] [place] [address] María Davidson MD [address] [place] [address] 07/26/2024 1:30 PM EST Office Visit Hematology/Oncology [facility] [address] [facility], [place] [phone] Lauren Galindo MD [address] [place] [address] [place] [phone] 09/05/2024 10:00 AM EST Office Visit Nutrition & Weight Management, [facility] [address] [place] [address] Nata Alba PA-C [address] [place] [address] 10/02/2024 11:40 AM EDT Office Visit Family Practice [facility] [address] [place] [address] Myah Valdivia CRNP [address] [place] [address] Scheduled Orders Name Type Priority Associated Diagnoses Orde r Schedule LIPID PANEL WITH DIRECT LDL IF TG IS HIGH Lab Routine Screening for lipid disorders Expected: 06/20/2024, Expires: 06/20/2025 Scheduled Procedures Name Priority Associated Diagnoses Date/Ti [...] encounter Visit Diagnoses Diagnosis Screening for lipid disorders- Primary documented in this encounter Advance Directives Documents on File Type Date Recorded Patient Window Draper Expl anation Advance Directives and Living Will 03/22/2005 Power of Job Analyst 03/22/2005 * No Code Status (Latest Code Status on File) Date Activated Date Inactivated Comments 03/22/2005 10:26 AM 03/22/2005 10:26 AM Care Teams Diamond Picker Relationship Specialty Start Date End Date Joyce Dorantes DO [address] [place] [address] PCP - General Family Medicine 12/23/15 documented as of this encounter
--- OUTSIDE RECORDS SUMMARY | 2024-08-08 05:43 | External Medical Summary ---
Author Name Unknown Address Unknown Organization K01:LAB[facility]ORY [facility] [place] - [address] [place] [address] Laboratory Report Ordering Provider Test Date Status MOY ALEX 06/11/2024 12:38:12 Final Observation Date Value Abnormality Reference (Units ) Status Rheumatoid Factor 06/11/2024 12:38:12 <10 <1 4 (IU/mL) Final Performing Location LABORATORY [facility] - [address] [place] [address]
--- OUTSIDE RECORDS SUMMARY | 2024-08-08 05:43 | External Medical Summary | Summary of Care ---
Author Name Unknown Organization [facility] Address [address] [place] [address] Phone [phone] Care Team Providers Care Assistant Professor Nurse Education Name Role Phone SoilajoshuaThierrya Jennifer JC Primary Care Provider Reason for Visit * Reason Comments Outpatient Testing Encounter Details Date Type Department Care Team (Late st Contact Info) Description 06/11/2024 12:30 PM EST Laboratory Laboratory Scenery Harriet Steward [address] [place] [phone] Harriet, Lab Scenery [address] [place] [address] Fatty liver Allergies Active Allergy Reactions Criticality Noted Date [...] Industry Job Start Date Job End Date [employer] Not on file Not on file Not on f ile documented as of this encounter Plan of Treatment Upcoming Encounters Date Type Department Care Team (Late st Contact Info) Description 06/14/2024 1:45 PM EST Office Visit Gynecology/Obstetrics [facility] [address] [place] [address] Sarina Herrera CRNP [address] [place] [address] 07/12/2024 9:45 AM EST Office Visit Gynecology/Obstetrics [facility] 132 [facility] [place] [address] Sarina Herrera CRNP 132 [facility] [place] [address] 07/26/2024 1:30 PM EST Office Visit Hematology/Oncology [facility] 200 [facility], [place] [address] Lauren Galindo MD [address] [place] [address] [place] [phone] 09/05/2024 10:00 AM EST Office Visit Nutrition & Weight Management, [facility] 132 [facility] [place] [address] Nata Alba PA-C [facility] [place] [address] 10/02/2024 1:00 PM EDT Office Visit Family Practice [facility] 132 [facility] [place] [address] Myah Valdivia CRNP 132 [facility] [place] [address] Pending Results Name Type Priority Associated Diagnoses Date /Time ANTINUCLEAR ANTIBODY (CONNIE) EIA SCREEN WITH REFLEX AB QUANT Lab Routine Fatty liver 06/11/2024 12:38 PM EST RHEUMATOID FACTOR Lab Routine Fatty liver 06/11/2024 12:38 PM EST CRP (INFLAMMATORY MARKER) Lab Routine Fatty liver 06/11/2024 12:38 PM EST ERYTHROCYTE SEDIMENTATION RATE (ESR) Lab Routine Fatty liver 06/11/2024 12:38 PM EST ANTINUCLEAR ANTIBODY (CONNIE) SCREEN, SERGEI Lab Routine Fatty liver 06/11/2024 12:38 PM EST Scheduled Procedures Name Priority Associated Diagnoses [...] as of this encounter Visit Diagnoses Diagnosis Fatty liver Other chronic nonalcoholic liver disease documented in this encounter Advance Directives Documents on File Type Date Recorded Patient Fish Conservationist Expl anation Advance Directives and Living Will 03/22/2005 Power of Correspondence Specialist 03/22/2005 * No Code Status (Latest Code Status on File) Date Activated Date Inactivated Comments 03/22/2005 10:26 AM 03/22/2005 10:26 AM Care Teams Assistant Professor Nurse Education Relationship Specialty Start Date End Date Joyce Dorantes DO [address] [place] [address] PCP - General Family Medicine 12/23/15 documented as of this encounter
--- OUTSIDE RECORDS SUMMARY | 2024-08-08 05:44 | External Medical Summary | Summary of Care ---
Author Name Unknown Organization [facility] Address [address] [facility] [place] [address] Phone [phone] Care Team Providers Care Web Development Consultant Name Role Phone SoilaJoyce lewis Jennifer JC Primary Care Provider +1 [phone] Reason for Visit * Reason Onset Date Comments Test Results 05/30/2024 Unexpected or In determinate Result Encounter Details Date Type Department Care Team (Late st Contact Info) Description 05/30/2024 Telephone Hematology/Oncology, [facility] [address] [place] [address] Lauren Galindo MD [address] [place] [address] Test Results (Unexpected or Indeterminate [...] Industry Job Start Date Job End Date [employer] Not on file Not on file Not [...] UMAÑA on results- 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 Thank you, KENJI Cramer Client Service [facility] documented in this encounter Plan of Treatment Upcoming Encounters Date Type Department Care Team (Late st Contact Info) Description 06/11/2024 11:00 AM EST Office Visit Hematology/Oncology [facility] 200 [facility] [place] [address] Lauren Galindo MD [address] [place] [address] [place] [address] 06/14/2024 1:45 PM EST Office Visit Gynecology/Obstetrics [facility] [address] [place] [address] Sarina Herrera CRNP [address] [place] [address] 07/12/2024 9:45 AM EST Office Visit Gynecology/Obstetrics [facility] [address] [place] [address] Sarina Herrera CRNP [address] [place] [address] 09/05/2024 10:00 AM EST Office Visit Nutrition & Weight Management, [facility] [address] [place] [address] Nata Alba PA-C [address] [place] [address] 10/02/2024 1:00 PM EDT Office Visit Family Practice [facility] [address] [place] [address] Myah Valdivia CRNP [address] [place] [address] Scheduled Procedures Name Priority Associated Diagnoses Date/Ti [...] Documents on File Type Date Recorded Patient Flour Blender Helper Expl anation Advance Directives and Living Will 03/22/2005 Power of Professor Of Environmental Studies 03/22/2005 * No Code Status (Latest Code Status on File) Date Activated Date Inactivated Comments 03/22/2005 10:26 AM 03/22/2005 10:26 AM Care Teams Web Development Consultant Relationship Specialty Start Date End Date Joyce Dorantes DO [address] [place] [address] PCP - General Family Medicine 12/23/15 documented as of this encounter
--- OUTSIDE RECORDS SUMMARY | 2024-08-08 05:44 | External Medical Summary | Summary of Care ---
Author Name Unknown Organization [facility] Address 100 [facility] [address] Phone [phone] Care Team Providers Care Lottery Office Manager Name Role Phone SoilaJoyce lewis Jennifer JC Primary Care Provider [phone] Reason for Visit * Reason Onset Date Comments Test Results 05/30/2024 Unexpected or In determinate Result Encounter Details Date Type Department Care Team (Late st Contact Info) Description 05/30/2024 Telephone Hematology/Oncology, [facility] 400 [place] [address] Lauren Galindo MD 400 [place] [address] Test Results (Unexpected or Indeterminate ... Allergies Active Allergy Reactions Criticality Noted Date Comments Morphine And Codeine High 08/13/2004 lose consciousness documented as of this encounter (statuses as of 06/04/2024) Medications MULTI-VITAMIN PO TABS One tablet daily [...] Patient taking differently:TopicalTID PRN, Reported on 03/16/2024 Phentermine HCl 15 MG Oral Capsule Take 1 Capsule by mouth in the morning. 30 Capsule 4 Active Additional Information Patient not taking.Reported on 04/03/2024 Meloxicam 7.5 MG Oral Tablet (Mobic) Take [...] as of this encounter (statuses as of 06/04/2024) Active Problems Problem Noted Date Diagnosed Date Chronic pain of both knees 04/03/2024 Medication management 04/03/2024 Nipple discharge 04/03/2024 Cyst of left ovary 04/15/2023 Overview (04/15/2023): Consider annual ultrasound Thalassemia minor 01/25/2022 Prediabetes 03/16/2021 Overview: Per Prediabetes protocol KENJI (obstructive sleep apnea) 02/19/2019 Intermittent asthma with reliever use up to twic e per week 09/13/2014 documented as of this encounter (statuses as of 06/04/2024) Resolved Problems Problem Noted Date Diagnosed Date [...] as of this encounter (statuses as of 06/04/2024) Immunizations Name Administration Dates Next Due COVID-19 [...] Industry Job Start Date Job End Date [employer] Not on file Not on file Not [...] LEEROY on results- patient sees you for excel expert follow up 07/12/23 * Telephone Encounter - Diana Reardon OSA - 05/30/2024 9:29 AM EST Hello- The radiologist discovered an unexpected or indeterminate finding on Kely Mercado ([id number]) and asks that you review the following [...] Thank you, KENJI Cramer Client Service Rep [facility] [place] documented in this encounter Plan of Treatment Upcoming Encounters Date Type Department Care Team (Late st Contact Info) Description 06/05/2024 4:00 PM EST Imaging Radiology [facility] 1st [facility] 132 [facility] [place] [address] 06/11/2024 8:30 AM EST Office Visit Hematology/Oncology [facility] [place] 200 [facility] [place] [address] Lauren Galindo MD [address] [place] [address] [place] [address] 07/12/2024 9:45 AM EST Office Visit Gynecology/Obstetrics [facility] [address] [place] [address] Sarina Herrera CRNP [address] [place] [address] 09/05/2024 10:00 AM EST Office Visit Nutrition & Weight Management, [facility] [address] [place] [address] Nata Alba PA-C [address] [place] [address] 10/02/2024 1:00 PM EDT Office Visit Family Practice [facility] [address] [place] [address] Myah Valdivia CRNP [address] [place] [address] Scheduled Procedures Name Priority Associated Diagnoses Date/Ti [...] Documents on File Type Date Recorded Patient Waste Picker Expl anation Advance Directives and Living Will 03/22/2005 Power of Knuckle Strap Sewer 03/22/2005 * No Code Status (Latest Code Status on File) Date Activated Date Inactivated Comments 03/22/2005 10:26 AM 03/22/2005 10:26 AM Care Teams Lottery Office Manager Relationship Specialty Start Date End Date Joyce Dorantes DO [address] [place] [address] PCP - General Family Medicine 12/23/15 documented as of this encounter
--- OUTSIDE RECORDS SUMMARY | 2024-08-08 05:44 | External Medical Summary | Summary of Care ---
Author Name Unknown Organization [facility] Address 100 [place] [address] Phone [phone] Care Team Providers Care Dry Starch Operator Name Role Phone SoilaJoyce lewis Jennifer JC Primary Care Provider [phone] Reason for Visit * Reason Onset Date Comments Test Results 05/30/2024 Unexpected or In determinate Result Encounter Details Date Type Department Care Team (Late st Contact Info) Description 05/30/2024 Telephone Hematology/Oncology, [facility] [address] [place] [address] Lauren Galindo MD [address] [place] [address] Test Results (Unexpected or Indeterminate [...] Industry Job Start Date Job End Date [employer] Not on file Not on file Not on f ile documented as of this encounter Miscellaneous Notes * Telephone Encounter - Kaley Jean-Baptiste RN - 05/30/2024 4:[address] Tolbert: please route to Diana Reardon when this encounter has been reviewed Jessa UMAÑA on results- patient sees you for form presser follow up 07/12/23 * Telephone Encounter - Diana Reardon OSA - 05/30/2024 9:29 AM EST Hello- The radiologist discovered an unexpected or indeterminate finding on Kely Ernestine Mercado ([id number]) and asks that you review the following [...] Service Rep [facility] documented in this encounter Plan of Treatment Upcoming Encounters Date Type Department Care Team (Late st Contact Info) Description 06/05/2024 4:00 PM EST Imaging Radiology [facility] 1st [facility] 132 [facility] [place] [address] 06/11/2024 8:30 AM EST Office Visit Hematology/Oncology [facility] 200 [facility] [phone] Lauren Galindo MD [address] [place] [address] [place] [phone] 07/12/2024 9:45 AM EST Office Visit Gynecology/Obstetrics [facility] 132 [facility] [place] [address] Sarina Herrera CRNP 132 [facility] [place] [address] 09/05/2024 10:00 AM EST Office Visit Nutrition & Weight Management, [facility] [address] [place] [address] Nata Alba PA-C [address] [place] [address] 10/02/2024 1:00 PM EDT Office Visit Family Practice [facility] [address] [place] [address] Myah Valdivia CRNP [address] [place] [address] Scheduled Procedures Name Priority Associated Diagnoses Date/Ti [...] Documents on File Type Date Recorded Patient Vascular Tech Expl anation Advance Directives and Living Will 03/22/2005 Power of Jewel Setter 03/22/2005 * No Code Status (Latest Code Status on File) Date Activated Date Inactivated Comments 03/22/2005 10:26 AM 03/22/2005 10:26 AM Care Teams Dry Starch Operator Relationship Specialty Start Date End Date Joyce Dorantes DO [address] [place] [address] PCP - General Family Medicine 12/23/15 documented as of this encounter
--- OUTSIDE RECORDS SUMMARY | 2024-08-08 05:44 | External Medical Summary | Summary of Care ---
Author Name Unknown Organization [facility] Address [address] [place] [address] Phone [phone] Care Team Providers Care Mint Machine Operator Name Role Phone Jose EJoyce Jennifer JC Primary Care Provider [phone] Reason for Visit * Reason Onset Date Comments Medication Refill 05/12/2024 Encounter Details Date Type Department Care Team (Late st Contact Info) Description 05/12/2024 Refill Nutrition & Weight Management, [facility] [address] [place] [address] Nata Alba PA-C [address] [place] [address] Allergies Active Allergy Reactions Criticality Noted Date [...] Industry Job Start Date Job End Date [employer] Not on file Not on file Not [...] pharmacy and medication before forwarding?yes Pharmacy: [id number] Pending Prescriptions: Disp Refills Phentermine [...] Description 06/05/2024 4:00 PM EST Imaging [facility] [address] [place] [address] 06/11/2024 11:00 AM EST Office Visit Hematology/Oncology [facility] 200 [facility] [phone] Lauren Galindo MD [address] [place] [address] [place] [phone] 07/12/2024 9:45 AM EST Office Visit Gynecology/Obstetrics [facility] [address] [place] [address] Sarina Herrera CRNP [address] [place] [address] 09/05/2024 10:00 AM EST Office Visit Nutrition & Weight Management, [facility] [address] [place] [address] Nata Alba PA-C [address] [place] [address] 10/02/2024 1:00 PM EDT Office Visit Family Practice [facility] [address] [place] [address] Myah Valdivia CRNP [address] [place] [address] Scheduled Procedures Name Priority Associated Diagnoses Date/Ti [...] Documents on File Type Date Recorded Patient Center Sales And Service Associate Expl anation Advance Directives and Living Will 03/22/2005 Power of Green Chain Marker 03/22/2005 * No Code Status (Latest Code Status on File) Date Activated Date Inactivated Comments 03/22/2005 10:26 AM 03/22/2005 10:26 AM Care Teams Mint Machine Operator Relationship Specialty Start Date End Date Joyce Dorantes DO [address] [place] [address] PCP - General Family Medicine 12/23/15 documented as of this encounter
--- OUTSIDE RECORDS SUMMARY | 2024-08-08 05:44 | External Medical Summary | Summary of Care ---
Author Name Unknown Organization [facility] Address [address] [facility] [address] Phone [phone] Care Team Providers Care Netbackup Administrator Name Role Phone Joyce Dorantes DO Primary Care Provider Encounter Details Date Type Department Care Team (Late st Contact Info) Description 06/01/2024 Telephone Gynecology/Obstetrics [facility] [address] [place] [address] BackerTaryn CRNP [address] [facility] [place] [address] Allergies Active Allergy Reactions Criticality Noted Date [...] Industry Job Start Date Job End Date [employer] Not on file Not on file Not on f ile documented as of this encounter Miscellaneous Notes * Telephone Encounter - Ronda Lewis LPN [...] 06/11/2024 11:00 AM EST Office Visit Hematology/Oncology [facility] [place] [facility] [address] Lauren Galindo MD [address] [place] [address] [place] [address] 06/14/2024 1:45 PM EST Office Visit Gynecology/Obstetrics [address] [place] [address] Sarina Herrera CRNP [address] [place] [address] 07/12/2024 9:45 AM EST Office Visit Gynecology/Obstetrics [facility] [address] [place] [address] Sarina Herrera CRNP [address] [place] [address] 09/05/2024 10:00 AM EST Office Visit Nutrition & Weight Management, [facility] [address] [place] [address] Nata Alba PA-C [address] [place] [address] 10/02/2024 1:00 PM EDT Office Visit Family Practice [facility] [address] [place] [address] Myha Valdivia CRNP [address] [place] [address] Scheduled Procedures Name Priority Associated Diagnoses Date/Ti [...] Documents on File Type Date Recorded Patient Shop Fitter Expl anation Advance Directives and Living Will 03/22/2005 Power of Qm Nurse 03/22/2005 * No Code Status (Latest Code Status on File) Date Activated Date Inactivated Comments 03/22/2005 10:26 AM 03/22/2005 10:26 AM Care Teams Netbackup Administrator Relationship Specialty Start Date End Date Joyce Dorantes DO [address] [place] [address] PCP - General Family Medicine 12/23/15 documented as of this encounter
--- OUTSIDE RECORDS SUMMARY | 2024-08-08 05:44 | External Medical Summary | Summary of Care ---
Author Name Unknown Organization [facility] Address 100 [place] [address] Phone [phone] Care Team Providers Care Director Of Community Life Name Role Phone SoilaJoyce lewis Jennifer JC Primary Care Provider [phone] Reason for Visit * Reason Onset Date Comments Test Results 05/30/2024 Unexpected or In determinate Result Encounter Details Date Type Department Care Team (Late st Contact Info) Description 05/30/2024 Telephone Hematology/Oncology, [facility] 400 [place] [address] Lauren Galindo MD 400 [place] [address] Test Results (Unexpected or Indeterminate ... Allergies Active Allergy Reactions Criticality Noted Date Comments Morphine And Codeine High 08/13/2004 lose consciousness documented as of this encounter (statuses as of 05/30/2024) Medications MULTI-VITAMIN PO TABS One tablet daily [...] as of this encounter (statuses as of 05/30/2024) Active Problems Problem Noted Date Diagnosed Date Chronic pain of both knees 04/03/2024 Medication management 04/03/2024 Nipple discharge 04/03/2024 Cyst of left ovary 04/15/2023 Overview (04/15/2023): Consider annual ultrasound Thalassemia minor 01/25/2022 Prediabetes 03/16/2021 Overview: Per Prediabetes protocol KENJI (obstructive sleep apnea) 02/19/2019 Intermittent asthma with reliever use up to twic e per week 09/13/2014 documented as of this encounter (statuses as of 05/30/2024) Resolved Problems Problem Noted Date Diagnosed Date [...] as of this encounter (statuses as of 05/30/2024) Immunizations Name Administration Dates Next Due COVID-19 [...] Industry Job Start Date Job End Date [employer] Not on file Not on file Not on f ile documented as of this encounter Miscellaneous Notes * Telephone Encounter - Kaley Jean-Baptiste RN - 05/30/2024 4:[address] Tolbert: please route to Diana Reardon when this encounter has been reviewed Jessa UMAÑA on results- patient sees you for legal file clerk follow up 07/12/23 * Telephone Encounter - Diana Reardon OSA - 05/30/2024 9:29 AM EST Hello- The radiologist discovered an unexpected or indeterminate finding on Kely Ernestine Mercado ([id number]) and asks that you review the following [...] Thank you, KENJI Cramer Client Service Rep [facility] documented in this encounter Plan of Treatment Upcoming Encounters Date Type Department Care Team (Late st Contact Info) Description 06/05/2024 4:00 PM EST Imaging Radiology [facility]st [facility] 132 [facility] [place] [address] 06/11/2024 8:30 AM EST Office Visit Hematology/Oncology [facility] 200 [facility] [phone] Lauren Galindo MD [address] [place] [address] [place] [address] 07/12/2024 9:45 AM EST Office Visit Gynecology/Obstetrics [facility] 132 [facility] [place] [address] Sarina Herrera CRNP 132 [facility] [place] [address] 09/05/2024 10:00 AM EST Office Visit Nutrition & Weight Management, [facility] [address] [place] [address] Nata Alba PA-C [address] [place] [address] 10/02/2024 1:00 PM EDT Office Visit Family Practice [facility] [address] [place] [address] Myah Valdivia CRNP [address] [place] [address] Scheduled Procedures Name Priority Associated Diagnoses Date/Ti [...] Documents on File Type Date Recorded Patient Cloth Presser Expl anation Advance Directives and Living Will 03/22/2005 Power of Tearoom Hostess 03/22/2005 * No Code Status (Latest Code Status on File) Date Activated Date Inactivated Comments 03/22/2005 10:26 AM 03/22/2005 10:26 AM Care Teams Director Of Community Life Relationship Specialty Start Date End Date Joyce Dorantes DO [address] [place] [address] PCP - General Family Medicine 12/23/15 documented as of this encounter
--- OUTSIDE RECORDS SUMMARY | 2024-08-08 05:44 | External Medical Summary | Summary of Care ---
Author Name Unknown Organization [facility] Address [address] [facility] [place] [address] Phone [phone] Care Team Providers Care Citizen Participation Specialist Name Role Phone SoilaJoyce lewis Jennifer JC Primary Care Provider [phone] [phone] Reason for Visit * Reason Onset Date Comments Test Results 05/30/2024 Unexpected or In determinate Result Encounter Details Date Type Department Care Team (Late st Contact Info) Description 05/30/2024 Telephone Hematology/Oncology, [facility] [address] [place] [address] Lauren Galindo MD [address] [place] [address] Test Results (Unexpected or Indeterminate [...] Industry Job Start Date Job End Date [employer] Not on file Not on file Not on f ile documented as of this encounter Miscellaneous Notes * Telephone Encounter - Kaley Jean-Baptiste RN - 05/30/2024 4:[address] Tolbert: please route to Diana Reardon when this encounter has been reviewed Jessa UMAÑA on results- patient sees you for picker follow up 07/12/23 * Telephone Encounter - Diana Reardon OSA - 05/30/2024 9:29 AM EST Hello- The radiologist discovered an unexpected or indeterminate finding on Kely Ernestine Mercado ([id number]) and asks that you review the following [...] Thank you, KENJI Cramer Client Service Rep [facility] documented in this encounter Plan of Treatment Upcoming Encounters Date Type Department Care Team (Late st Contact Info) Description 06/05/2024 4:00 PM EST Imaging Radiology [facility] 1st [facility] 132 [facility] [place] [address] 06/11/2024 8:30 AM EST Office Visit Hematology/Oncology [facility] [phone] Lauren Galindo MD [address] [place] [address] Brad [place] [phone] 07/12/2024 9:45 AM EST Office Visit Gynecology/Obstetrics [facility] 132 [facility] [place] [address] Sarina Herrera CRNP 132 [facility] [place] [address] 09/05/2024 10:00 AM EST Office Visit Nutrition & Weight Management, [facility] [address] [place] [address] Nata Alba PA-C [address] [place] [address] 10/02/2024 1:00 PM EDT Office Visit Family Practice [facility] [address] [place] [address] Myah Valdivia CRNP [address] [place] [address] Scheduled Procedures Name Priority Associated Diagnoses Date/Ti [...] Documents on File Type Date Recorded Patient Criminal Justice Social Worker Expl anation Advance Directives and Living Will 03/22/2005 Power of Supervisor Operations 03/22/2005 * No Code Status (Latest Code Status on File) Date Activated Date Inactivated Comments 03/22/2005 10:26 AM 03/22/2005 10:26 AM Care Teams Citizen Participation Specialist Relationship Specialty Start Date End Date Joyce Dorantes DO [address] [place] [address] PCP - General Family Medicine 12/23/15 documented as of this encounter
--- OUTSIDE RECORDS SUMMARY | 2024-08-08 05:45 | External Medical Summary ---
Author Name Unknown Address Unknown Organization [id number][facility] [address] [place] [address] Laboratory Report Ordering Provider Test Date Status JANETANTHONY 04/30/2024 12:14:44 Final Observation Date Value Abnormality Reference (Units ) Status Nucleated erythrocytes/100 leukocytes [Ratio] in Blood by Automated count 04/30/2024 12:14:44 Final Performing Location [facility] - [address] [place] [address]
--- OUTSIDE RECORDS SUMMARY | 2024-08-08 05:45 | External Medical Summary | Summary of Care ---
Author Name Unknown Organization [facility] Address [address] [place] [address] Phone [phone] Care Team Providers Care Blasting Miner Name Role Phone PrashantJoyce duran Primary Care Provider [phone] Reason for Visit * Reason Onset Date Comments Nurse Documentation BP and P ana ck Weight Check Pt here for BP/w eight check Blood Pressure Check 05/30/2024 Encounter Details Date Type Department Care Team (Late st Contact Info) Description 05/30/2024 9:45 AM EST Nurse Only Nutrition & Weight Management, [facility] 132 [place] [address] MatosNurse ton Gi Nutrition [facility] 132 [place] [address] Nurse Documentation (BP and P check); Weig... Allergies Active Allergy Reactions Criticality Noted Date [...] Industry Job Start Date Job End Date [employer] Not on file Not on file Not on f ile documented as of this encounter Last Filed Vital Signs Vital Sign Reading Time Taken Comments Blood Pressure 142/82 05/30/2024 9:28 AM EST Pulse - - Temperature - - Respiratory Rate - - Oxygen Saturation - - Inhaled Oxygen Concentration - - Weight 103.3 kg (227 lb 11.2 oz) 05/30/2024 9:28 AM EST Height - - Body Mass Index 41.65 05/07/2024 1:45 PM EST documented in this encounter Progress Notes * Zenaida Rivers RN - 05/30/2024 9:34 AM EST Kely Mercado presented for blood pressure check per provider orders. The blood pressure was obtained using the left arm in the sitting position using a adult cuff. The results were charted in Vital Signs. BP Readings from Last 3 Encounters: 05/30/24 142/82 05/07/24 156/85 04/13/24 132/68 BP 142/82 | Wt 103.3 kg (227 lb 11.2 oz) | BMI 41.65 kg/m | BSA 2.13 m documented in this encounter Nursing Notes * Zenaida Rivers RN - 05/30/2024 9:31 AM EST Chief Complaint Patient presents with Nurse Documentation BP and P check Weight Check Pt here for BP/weight check * Jose Miller LPN - 05/30/2024 9:17 AM EST Chief Complaint Patient presents with Nurse Documentation BP and P and check documented in this encounter Plan of Treatment Upcoming Encounters Date Type Department Care Team (Late st Contact Info) Description 06/05/2024 4:00 PM EST Imaging Radiology [facility] 1st [facility] 132 [facility] [place] [address] 06/11/2024 8:30 AM EST Office Visit Hematology/Oncology [facility] [address] Lauren Galindo MD [address] [place] [address] [place] [address] 07/12/2024 9:45 AM EST Office Visit Gynecology/Obstetrics [facility] [address] [place] [address] Sarina Herrera CRNP [address] [place] [address] 09/05/2024 10:00 AM EST Office Visit Nutrition & Weight Management, [facility] [address] [place] [address] Nata Alba PA-C [address] [place] [address] 10/02/2024 1:00 PM EDT Office Visit Family Practice [facility] [address] [place] [address] Myah Valdivia CRNP [address] [place] [address] Scheduled Orders Name Type Priority Associated Diagnoses Orde r Schedule BLOOD PRESSURE Procedures Routine Morbid obesity due to excess calories (HCC) Ordered: 05/30/2024 Scheduled Procedures Name Priority Associated Diagnoses Date/Ti [...] Cancer Screening 03/18/2025 Pap Smear 03/18/2025 03/18/2022, 03/2019, 11/02/2017, Additional history exists IUD 7-Year [...] Documents on File Type Date Recorded Patient Floor Worker Expl anation Advance Directives and Living Will 03/22/2005 Power of Motorcycle Technician 03/22/2005 * No Code Status (Latest Code Status on File) Date Activated Date Inactivated Comments 03/22/2005 10:26 AM 03/22/2005 10:26 AM Care Teams Blasting Miner Relationship Specialty Start Date End Date Joyce Dorantes DO [address] [place] [address] PCP - General Family Medicine 12/23/15 documented as of this encounter"
--- OUTSIDE RECORDS SUMMARY | 2024-08-08 05:45 | External Medical Summary ---
Author Name Unknown Address Unknown Organization K01:[facility] [address] [place] [address] Laboratory Report Ordering Provider Test Date Status ANTOHNY GONZALES 04/30/2024 12:14:44 Final Observation Date Value Abnormality Reference (Units ) Status Erythrocyte sedimentation rate by Photometric method 04/30/2024 12:14:44 37 Above high normal <30 (mm/hour) Final Performing Location [facility] [place] [address] [place] [address]
--- OUTSIDE RECORDS SUMMARY | 2024-08-08 05:45 | External Medical Summary | Summary of Care ---
Author Name Unknown Organization [facility] Address [address] [place] [address] Phone [phone] Care Team Providers Care Turret Punch Press Operator Name Role Phone PrashantJoyce duran Primary Care Provider [phone] Reason for Visit * Reason Onset Date Comments Nurse Documentation BP and P ana ck Weight Check Pt here for BP/w eight check Blood Pressure Check 05/30/2024 Encounter Details Date Type Department Care Team (Late st Contact Info) Description 05/30/2024 9:45 AM EST Nurse Only Nutrition & Weight Management, [facility] 132 [place] [address] MatosNurse ton Gi Nutrition [facility] 132 [facility] [place] [address] Nurse Documentation (BP and P check); Weig... [...] Industry Job Start Date Job End Date [employer] Not on file Not on file Not [...] 4:00 PM EST Imaging Radiology [facility] 132 [facility] [place] [address] 06/11/2024 8:30 AM EST Office Visit Hematology/Oncology [facility] [address] Lauren Galindo MD [address] [place] [address] [place] [address] 07/12/2024 9:45 AM EST Office Visit Gynecology/Obst[facility] [address] [place] [address] Sarina Herrera CRNP [address] [place] [address] 09/05/2024 10:00 AM EST Office Visit Nutrition & Weight Management, [facility] [address] [place] [address] Nata Alba PA-C [address] [place] [address] 10/02/2024 1:00 PM EDT Office Visit Family Practice [facility] [address] [place] [address] Myah Valdivia CRNP [address] [place] [address] Scheduled Orders Name Type Priority Associated Diagnoses [...] Documents on File Type Date Recorded Patient Cutter And Edge Trimmer Expl anation Advance Directives and Living Will 03/22/2005 Power of Bar Back 03/22/2005 * No Code Status (Latest Code Status on File) Date Activated Date Inactivated Comments 03/22/2005 10:26 AM 03/22/2005 10:26 AM Care Teams Turret Punch Press Operator Relationship Specialty Start Date End Date Joyce Dorantes DO [address] [place] [address] PCP - General Family Medicine 12/23/15 documented as of this encounter"
--- OUTSIDE RECORDS SUMMARY | 2024-08-08 05:45 | External Medical Summary | Summary of Care ---
Author Name Unknown Organization [facility] Address [address] [place] [address] Phone [phone] Care Team Providers Care Telepathist Name Role Phone Jose E Joyce Jennifer JC Primary Care Provider [phone] Reason for Referral * Precert (Within 24 hrs (call dept; emergent)) - Authorized Specialty Diagnoses / Procedures Referred By Contac t Referred To Contact Radiology Diagnoses Discharge from breast Procedures MRI BREAST BILATERAL W WO CONTRAST Lauren Galindo MD 400 [facility] [place] [address] Referral ID Status Reason Start Date Expiration Date V isits Requested Visits Authorized [id number] Authorized Precert 05/07/2024 11/03/2024 999 999 * Precert (Within 24 hrs (call dept; emergent)) - Authorized Specialty Diagnoses / Procedures Referred By Contkranthi t Referred To Contact Radiology Diagnoses Discharge from breast Thrombus Procedures MRI BRAIN W WO CONTRAST Lauren [facility]indo MD [address] [facility] [place] [address] Referral ID Status Reason Start Date Expiration Date V isits Requested Visits Authorized [id number] Authorized Precert 05/07/2024 11/03/2024 999 999 Reason for Visit * Reason Comments 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 * Evaluate & Treat - Unlimited Visits (Within 30 days (routine)) - Authorized Specialty Diagnoses / Procedures Referred By Alda pan Referred To Contact Hematology/Oncology / Hematology Oncology Diagnoses Thalassemia, unspecified type Iron deficiency anemia, unspecified iron deficiency anemia type Rhed, JAMES Bella [address] [place] [address] Referral ID Status Reason Start Date Expiration Date Visits Requested Visits Authorized [id number] Authorized Specialty Services Required 04/10/2024 999 999 Encounter Details Date Type Department Care Team (Late st Contact Info) Description 05/07/2024 1:30 PM EST Office Visit Hematology/Oncology [facility] [place] [address] [facility] [address] Lauren Galindo MD [address] [place] [address] [place] [phone] Discharge from breast*; Thrombus; Fatty liver; Left tubo-ovarian mass Allergies Active Allergy Reactions Criticality Noted Date Comments Morphine And Codeine High 08/13/2004 lose consciousness documented as of this encounter (statuses as of 05/07/2024) Medications Medication Sig Dispensed Refills Start Date End Date Status MULTI-VITAMIN PO TABS One tablet daily 30 0 01/18/2008 Active Cetirizine-Pseudoep hedrine ER (ZYRTEC-D ALLERGY & CONGESTION) 5-120 MG TB12 Take 1 Tab by mouth 2 times a day. 09/22/2015 Active Levonorgestrel 20 MCG/DAY Intrauterine Intrauterine Device (Mirena) Insert 1 Each into uterus once. Active Albuterol Sulfate HFA 108 (90 Base) MCG/ACT Inhalation Aerosol Solution Use two puffs every four hours as needed for wheezing,cough, chest tightness, shortness of breath, prior to excerise - Inhalation 18 g 5 11/24/2022 Active Fluticasone Propionate 50 MCG/ACT Nasal Suspension (Flonase) 2 sprays each nostril daily. Can increase to twice daily as needed. 3 Each 3 12/23/2023 Active Mometasone Furoate 0.1 % External CreamIndications:De rmatitis Apply topically to affected area daily. Apply to behind ear. 45 g 3 12/23/2023 Active Additional Information Patient taking differently:ExternalPRN, Apply to behind ear., Reported on 03/16/2024 buPROPion HCl ER (SR) 150 MG Oral Tablet Extended Release 12 Hour (Wellbutrin SR) Take 1 tab by mouth once a day for 1 week then take 1 tab twice a day (morning & late afternoon) 60 Tablet 5 12/22/2023 Active Naltrexone HCl 50 MG Oral Tablet (Revia) Take 1/2 tab by mouth once a day for 1 week then take 1/2 tab twice a day (morning & late afternoon) 30 Tablet 5 12/22/2023 Active Diclofenac Sodium 1 % External Gel (Voltaren) Apply topically to affected area 4 times a day. 350 g 1 12/30/2023 Active Additional Information Patient taking differently:TopicalTID PRN, Reported on 03/16/2024 Phentermine HCl 15 MG Oral Capsule Take 1 Capsule by mouth in the morning. 30 Capsule 03/19/2024 Active Additional Information Patient not taking.Reported on 04/03/2024 Meloxicam 7.5 MG Oral Tablet (Mobic) Take 1 Tablet by mouth in the morning. for pain.. 30 Tablet 3 04/03/2024 Active documented as of this encounter (statuses as of 05/07/2024) Active Problems Problem Noted Date Diagnosed Date Chronic pain of both knees 04/03/2024 Medication management 04/03/2024 Nipple discharge 04/03/2024 Cyst of left ovary 04/15/2023 Overview: Consider annual ultrasound Thalassemia minor 01/25/2022 Prediabetes 03/16/2021 Overview: Per Prediabetes protocol KENJI (obstructive sleep apnea) 02/19/2019 Intermittent asthma with reliever use up to twic e per week 09/13/2014 documented as of this encounter (statuses as of 05/07/2024) Resolved Problems Problem Noted Date Diagnosed Date [...] intraepithelial dysplasia 6 01/25/2022 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 04/04/2005 01/25/2022 Overview: transverse and sigmoid sinus thrombosis 2000 felt to be due to BCP, dehydrated and at high altitude per patient Cervical intraepithelial neoplasia grade 1 10/30/2004 01/25/2022 Polycystic ovaries 09/14/2004 Asthma with severity to be determined 08/13/2004 08/24/2011 Overview: ICD-10 update of inactive term Allergic rhinitis 08/13/2004 10/06/2021 Allergic conjunctivitis 08/13/200401/02 documented as of this encounter (statuses as of 05/07/2024) Immunizations Name Administration Dates Next Due COVID-19 [...] years and over) Not on file 12/20/2023 Sex and Gender Information Value Date Recorded Sex Assigned at Not on file Gender Identity Not on file Sexual Orientation Not on file Job Start Date Occupation Industry Not on file Not on file Not on file documented as of this encounter Last Filed Vital Signs Vital Sign Reading Time Taken Comments Blood Pressure 156/85 05/07/2024 1:45 PM EST Pulse 78 05/07/2024 1:45 PM EST Temperature 36.3 C (97.3 F) 05/07/2024 1:45 PM ES T Respiratory Rate - - Oxygen Saturation 98% 05/07/2024 1:45 PM EST Inhaled Oxygen Concentration - - Weight 104.9 kg (231 lb 4.8 oz) 05/07/2024 1:45 PM EST Height 157.5 cm (5' 2") 05/07/2024 1:45 PM EST Body Mass Index 42.31 05/07/2024 1:45 PM EST documented in this encounter Progress Notes * Lauren Galindo MD - 05/07/2024 2:03 PM EST Date of visit: 05/07/2024 Chief Complaint Patient presents with 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 PMH: Patient Active Problem List Diagnosis Intermittent [...] (Mirena) Insert 1 Each into uterus once. Albuterol Sulfate HFA 108 (90 Base) MCG/ACT Inhalation Aerosol Solution Use two puffs every four hours as needed for wheezing,cough, chest tightness, shortness of breath, prior to excerise - Inhalation 18 g 5 Fluticasone Propionate 50 MCG/ACT Nasal Suspension (Flonase) [...] a day as needed.) 350 g 1 Phentermine HCl 15 MG Oral Capsule Take 1 Capsule by mouth in the morning. (Patient not taking: Reported on 04/03/2024) 30 Capsule 0 Meloxicam 7.5 MG Oral Tablet (Mobic) Take 1 Tablet by mouth in the morning. for pain.. 30 Tablet 3 No current facility-administered medications for this visit. Review of patient's allergies indicates: Allergen Reactions Morphine And Codeine lose consciousness Review of Systems Constitutional: Negative. HENT: Negative. Eyes: Negative. Respiratory: Negative. Cardiovascular: Negative. Gastrointestinal: Negative. Endocrine: Negative. Genitourinary: Negative. Skin: Negative. Allergic/Immunologic: Negative. Neurological: Negative. Hematological: Negative. Objective BP 156/85 (BP Site: Left Arm, BP Position: Sitting, BP Cuff Size: Regular) | Pulse 78 | Temp 36.3 C (97.3 F) (Tympanic) | Ht 1.575 m (5' 2") | Wt 104.9 kg (231 lb 4.8 oz) | SpO2 98% | BMI 42.31 kg/m | BSA 2.14 m Physical Exam Constitutional: Appearance: Normal appearance. HENT: Head: Normocephalic and atraumatic. Eyes: General: No scleral icterus. Extraocular Movements: Extraocular movements intact. Conjunctiva/sclera: Conjunctivae normal. Pupils: Pupils are equal, round, and reactive to light. Cardiovascular: Rate and Rhythm: Normal rate and regular rhythm. Heart sounds: No murmur heard. Pulmonary: Effort: Pulmonary effort is normal. Breath sounds: Normal breath sounds. Abdominal: General: Abdomen is flat. Bowel sounds are normal. Palpations: Abdomen is soft. Musculoskeletal: Cervical back: Normal range of motion and neck supple. No tenderness. Lymphadenopathy: Cervical: No cervical adenopathy. Skin: Coloration: Skin is not jaundiced or pale. Findings: No bruising. Neurological: General: No focal deficit present. Mental Status: She is alert and oriented to person, place, and time. Psychiatric: Mood and Affect: Mood normal. Behavior: Behavior normal. Thought Content: Thought content normal. Judgment: Judgment normal. ASSESSMENT/PLAN: 48-year-old woman with known history of [...] month to discuss the above test results Lauren Galindo MD documented in this encounter Nursing Notes * Stephani Naik CMA - 05/07/2024 1:48 PM EST Patient identifed by name and birthdate [...] it for you? ALREADY ACTIVE Filed Vitals: 05/07/24 1345 BP: 156/85 Pulse: 78 Temp: 36.3 C (97.3 F) TempSrc: Tympanic SpO2: 98% Weight: 104.9 kg (231 lb 4.8 oz) Height: 1.575 m (5' 2") Patient was instructed to not get up [...] Care Team (Late st Contact Info) Description 05/09/2024 6:30 PM EST Imaging Radiology [address] 132 [facility] [place] [address] 05/12/2024 8:00 AM EST Imaging Radiology [address] 132 [facility] [place] [address] 05/16/2024 7:45 AM EST Imaging Radiology [facility] 132 [facility] [place] [address] 05/16/2024 8:30 AM EST Imaging Radiology [facility] [address] [place] [address] 05/24/2024 2:30 PM EST Office Visit Hematology/Oncology [facility] [address] [facility] [phone] Lauren Galindo MD [address] [place] [address] [place] [phone] 07/12/2024 9:45 AM EST Office Visit Gynecology/Obstetrics [facility] [address] [place] [address] Sarina Herrera CRNP 132 [facility] [place] [address] 09/05/2024 10:00 AM EST Office Visit Nutrition & Weight Management, [facility] [address] [place] [address] Nata Alba PA-C [address] [place] [address] 10/02/2024 1:00 PM EDT Office Visit Family Practice [facility] [address] [place] [address] Myah Valdivia CRNP [address] [place] [address] Scheduled Orders Name Type Priority Associated Diagnoses Orde r Schedule MRI BRAIN W WO CONTRAST Medical Imaging STAT Discharge from breast Thrombus Expected: 05/07/2024, Expires: 06/06/2025 MRI BREAST BILATERAL W WO CONTRAST Medical Imaging STAT Discharge from breast Ordered: 05/07/2024 US ABDOMEN DOPPLER COMPLETE Medical Imaging STAT Fatty liver Ordered: 05/07/2024 US PELVIS TRANS-VAGINAL NON-OB Medical Imaging STAT Left tubo-ovarian mass Ordered: 05/07/2024 Scheduled Procedures Name Priority Associated Diagnoses Date/Ti [...] as of this encounter Visit Diagnoses Diagnosis Discharge from breast- Primary Thrombus Embolism and thrombosis of unspecified site Fatty liver Other chronic nonalcoholic liver disease Left tubo-ovarian mass documented in this encounter Advance Directives Documents on File Type Date Recorded Patient Air Conditioning Manager Expl anation Advance Directives and Living Will 03/22/2005 Power of Certified Medical Aide 03/22/2005 * No Code Status (Latest Code Status on File) Date Activated Date Inactivated Comments 03/22/2005 10:26 AM 03/22/2005 10:26 AM Care Teams Telepathist Relationship Specialty Start Date End Date Joyce Dorantes DO [address] [place] [address] PCP - General Family Medicine 12/23/15 documented as of this encounter
--- OUTSIDE RECORDS SUMMARY | 2024-08-08 05:45 | External Medical Summary | Summary of Care ---
Author Name Unknown Organization [facility] Address [address] [place] [address] Phone [phone] Care Team Providers Care Turkey Egg Gatherer Name Role Phone SoilaJoyce lewis Jennifer JC Primary Care Provider Reason for Visit * Reason Onset Date Comments Appointment 05/30/2024 Encounter Details Date Type Department Care Team (Late st Contact Info) Description 05/30/2024 Telephone Radiology [address] [place] [address] Diana Rodriguez TECH Appointment Allergies Active Allergy Reactions Criticality Noted [...] 2-Dose Series (Moderna) 08/30/2020,08/06/2020 Seasonal Influenza Vac., BARBARA, IM, 0.5 mL (Fluzon e) 04/10/2009 Seasonal [...] Industry Job Start Date Job End Date [employer] Not on file Not on file Not on f ile documented as of this encounter Plan of Treatment Upcoming Encounters Date Type Department Care Team (Late st Contact Info) Description 06/05/2024 4:00 PM EST Imaging Radiology [facility] 1st [facility] 132 [facility] [place] [id number] 06/11/2024 8:30 AM EST Office Visit Hematology/Oncology [facility] [place] [facility] [address] Lauren Galindo MD [address] [place] [address] 07/12/2024 9:45 AM EST Office Visit Gynecology/Obstetrics [facility] [address] [place] [address] Sarina Herrera CRNP [address] [place] [address] 09/05/2024 10:00 AM EST Office Visit Nutrition & Weight Management, [facility] [address] [place] [address] Nata Alba PA-C [address] [place] [address] 10/02/2024 1:00 PM EDT Office Visit Family Practice [facility] [address] [place] [address] Myah Valdivia CRNP [address] [place] [address] Scheduled Procedures Name Priority Associated Diagnoses Date/Ti [...] Documents on File Type Date Recorded Patient Rubbing Bed Operator Expl anation Advance Directives and Living Will 03/22/2005 Power of Youth Worker 03/22/2005 * No Code Status (Latest Code Status on File) Date Activated Date Inactivated Comments 03/22/2005 10:26 AM 03/22/2005 10:26 AM Care Teams Turkey Egg Gatherer Relationship Specialty Start Date End Date Joyce Dorantes DO [address] [place] [address] PCP - General Family Medicine 12/23/15 documented as of this encounter
--- OUTSIDE RECORDS SUMMARY | 2024-08-08 05:45 | External Medical Summary ---
Author Name Unknown Address Unknown Organization K0G:[facility] [address] [place] [address] Laboratory Report Ordering Provider Test Date Status ANTHONY GONZALES 04/30/2024 12:14:44 Final Observation Date Value Abnormality Reference (Units ) Status BUN 04/30/2024 12:14:44 17 6-20 (mg/dL) Final Creatinine 04/30/2024 12:14:44 0.8 0.5-1.0 (mg/dL) Final Glomerular filtration rate/1.73 sq M.predicted [Volume Rate/Area] in Serum, Plasma or Blood by Creatinine-based formula (CKD-EPI) 04/30/2024 12:14:44 85 >=60 (mL/min) Final eGFR is calculated based on the CKD-EPI 2020 equation. Sodium 04/30/2024 12:14:44 140 135-146 (m mol/L) Final Potassium 04/30/2024 12:14:44 4.0 3.5-5.1 (m mol/L) Final Cl 04/30/2024 12:14:44 101 98-107 (mm ol/L) Final CO2 04/30/2024 12:14:44 27 22-32 (mmo l/L) Final Anion gap 04/30/2024 12:14:44 12 7-15 (mmol /L) Final Glucose 04/30/2024 12:14:44 108 70-120 (mg /dL) Final Albumin 04/30/2024 12:14:44 4.3 3.8-5.0 (g /dL) Final AST (Aspartate aminotransferase) 04/30/2024 12:14:44 18 10-35 (U/L) Final Alk Phos 04/30/2024 12:14:44 107 35-130 (U/ L) Final Bilirubin, Total 04/30/2024 12:14:44 0.4 <=1 .2 (mg/dL) Final Calcium 04/30/2024 12:14:44 10.0 8.4-10.2 ( mg/dL) Final Protein 04/30/2024 12:14:44 7.5 6.0-8.3 (g /dL) Final ALT (Alanine aminotransferase) 04/30/2024 12:14:44 15 10-35 (U/L) Final Performing Location [facility] [address] [facility] [address]
--- OUTSIDE RECORDS SUMMARY | 2024-08-08 05:45 | External Medical Summary | Summary of Care ---
Author Name Unknown Organization [facility] Address [address] [place] [address] Phone [phone] Care Team Providers Care Booth Manager Name Role Phone SoilaJoyce lewis Jennifer JC Primary Care Provider +1 [phone] Reason for Visit * Reason Onset Date Comments Medication Refill 05/14/2024 Encounter Details Date Type Department Care Team (Late st Contact Info) Description 05/14/2024 Refill Nutrition & Weight Management, [facility] [address] [place] [address] Nata Alba PA-C [address] [place] [address] Allergies Active Allergy Reactions Criticality Noted Date Comments Morphine And Codeine High 08/13/2004 lose consciousness documented as of this encounter (statuses as of 05/14/2024) Medications MULTI-VITAMIN PO TABS One tablet daily [...] to excerise - Inhalation 18 g 5 3 Active Fluticasone Propionate 50 MCG/ACT Nasal Suspension [...] for pain.. 30 Tablet 3 4 Active documented as of this encounter (statuses as of 05/14/2024) Active Problems Problem Noted Date Diagnosed Date Chronic pain of both knees 04/03/2024 Medication management 04/03/2024 Nipple discharge 04/03/2024 Cyst of left ovary 04/15/2023 Overview (04/15/2023): Consider annual ultrasound Thalassemia minor 01/25/2022 Prediabetes 03/16/2021 Overview: Per Prediabetes protocol KENJI (obstructive sleep apnea) 02/19/2019 Intermittent asthma with reliever use up to twic e per week 09/13/2014 documented as of this encounter (statuses as of 05/14/2024) Resolved Problems Problem Noted Date Diagnosed Date [...] as of this encounter (statuses as of 05/14/2024) Immunizations Name Administration Dates Next Due COVID-19 [...] Industry Job Start Date Job End Date [employer] Not on file Not on file Not on f ile documented as of this encounter Miscellaneous Notes * Telephone Encounter - Zenaida Rivers RN - 05/14/2024 1:52 PM ESTRefused Prescriptions: Disp Refills Phentermine HCl 15 MG Oral Capsule 30 Cap*0 Sig: Take 1 Capsuleby mouth in the morning.Refused By: ZENAIDA RIVERS LReason for Refusal: Refill Not Appropriate------- documented in this encounter Plan of Treatment Upcoming Encounters Date Type Department Care Team (Late st Contact Info) Description 05/30/2024 7:15 AM EST Imaging Radiology [facility] 132 [facility] [address] 05/30/2024 8:00 AM EST Imaging Radiology [address] [place] [address] 05/30/2024 8:45 AM EST Imaging Radiology [address] [place] [address] 06/05/2024 4:00 PM EST Imaging Radiology [facility] 1st Floor, [place] 132 [facility] [place] [address] 06/11/2024 8:30 AM EST Office Visit Hematology/Oncology [facility] 200 [facility] [address] Lauren Galindo MD [address] [place] [address] [place] [phone] 07/12/2024 9:45 AM EST Office Visit Gynecology/Obstetrics [facility] 132 [facility] [place] [address] Sarina Herrera CRNP 132 [facility] [place] [address] 09/05/2024 10:00 AM EST Office Visit Nutrition & Weight Management, [facility] 132 [facility] [place] [address] Nata Alba PA-C [address] [place] [address] 10/02/2024 1:00 PM EDT Office Visit Family [facility] [address] [place] [address] Myah Valdivia CRNP [address] [place] [address] Scheduled Procedures Name Priority Associated Diagnoses Date/Ti [...] on File Type Date Recorded Patient Community Marketing Coordinator Expl anation Advance Directives and Living Will 03/22/2005 Power of Supervisor Fur Floor Worker 03/22/2005 * No Code Status (Latest Code Status on File) Date Activated Date Inactivated Comments 03/22/2005 10:26 AM 03/22/2005 10:26 AM Care Teams Booth Manager Relationship Specialty Start Date End Date Joyce Dorantes DO [address] [place] [address] PCP - General Family Medicine 12/23/15 documented as of this encounter
--- OUTSIDE RECORDS SUMMARY | 2024-08-08 05:45 | External Medical Summary | Summary of Care ---
Author Name Unknown Organization [facility] Address 100 [facility] [place] [address] Phone [phone] Care Team Providers Care Shipping Support Name Role Phone SoilaJoyce lewis Jennifer JC Primary Care Provider +[phone] Reason for Visit * Reason Onset Date Comments Test Results 05/30/2024 Unexpected or In determinate Result Encounter Details Date Type Department Care Team (Late st Contact Info) Description 05/30/2024 Telephone Hematology/Oncology, [facility] [address] [place] [address] Lauren Galindo MD [address] [place] [address] Test Results (Unexpected or Indeterminate [...] Industry Job Start Date Job End Date [employer] Not on file Not on file Not on f ile documented as of this encounter Miscellaneous Notes * Telephone Encounter - Diana Reardon OSA - 05/30/2024 9:29 AM EST Hello- The radiologist discovered an unexpected or indeterminate finding on Kely Mercado ([id number]) and asks that you review the following [...] Thank you, KENJI Cramer Client Service Rep [facility] Medicine [place] documented in this encounter Plan of Treatment Upcoming Encounters Date Type Department Care Team (Late st Contact Info) Description 06/05/2024 4:00 PM EST Imaging Radiology [facility] 1st [facility] [address] [place] [address] 06/11/2024 8:30 AM EST Office Visit Hematology/Oncology [facility] 200 [facility] [phone] Lauren Galindo MD [address] [place] [address] [place] [phone] 07/12/2024 9:45 AM EST Office Visit Gynecology/Obstetrics [facility] 132 [facility] [place] [address] Sarina Herrera CRNP 132 [facility] [place] [address] 09/05/2024 10:00 AM EST Office Visit Nutrition & Weight Management, [facility] [address] [place] [address] Nata Alba PA-C [address] [place] [address] 10/02/2024 1:00 PM EDT Office Visit Family Practice [facility] [address] [place] [address] Skip Myah JAMES Turner [address] [place] [address] Scheduled Procedures Name Priority Associated Diagnoses Date/Ti [...] Documents on File Type Date Recorded Patient Salesforce Administrator Expl anation Advance Directives and Living Will 03/22/2005 Power of Computer Technician 03/22/2005 * No Code Status (Latest Code Status on File) Date Activated Date Inactivated Comments 03/22/2005 10:26 AM 03/22/2005 10:26 AM Care Teams Shipping Support Relationship Specialty Start Date End Date Joyce Dorantes DO 132 [place] [address] PCP - General Family Medicine 12/23/15 documented as of this encounter
--- OUTSIDE RECORDS SUMMARY | 2024-08-08 05:45 | External Medical Summary ---
Author Name Unknown Address Unknown Organization [facility] [place] [address] [place] [address] Laboratory Report Ordering Provider Test Date Status ANTHONY GONZALES 04/30/2024 12:14:44 Final Observation Date Value Abnormality Reference (Units ) Status WBC, Total 04/30/2024 12:14:44 9.34 4.00-10.8 0 (K/uL) Final RBC 04/30/2024 12:14:44 5.79 3.85-5.15 (M/uL) Final Hemoglobin 04/30/2024 12:14:44 11.5 Below low normal 12 .0-15.3 (g/dL) Final HCT 04/30/2024 12:14:44 35.8 Below low normal 36. 0-45.2 (%) Final MCV 04/30/2024 12:14:44 61.8 81.5-97.5 (fL) Final MCH 04/30/2024 12:14:44 19.9 27.0-34.0 (pg) Final MCHC 04/30/2024 12:14:44 32.1 32.0-36.0 (g/dL) Final RDW 04/30/2024 12:14:44 18.4 11.5-15.5 (%) Final Platelets 04/30/2024 12:14:44 337 140-400 (K /uL) Final MPV 04/30/2024 12:14:44 9.5 6.6-11.1 ( fL) Final Performing Location [facility] 0 - [address] [place] [address]
--- OUTSIDE RECORDS SUMMARY | 2024-08-08 05:45 | External Medical Summary | Summary of Care ---
Author Name Unknown Organization [facility] Address [address] [facility] [address] Phone [phone] Care Team Providers Care Surgical Supervisor Name Role Phone SoilaJoyce lewis Jennifer JC Primary Care Provider [phone] Reason for Visit * Reason Onset Date Comments Information 05/11/2024 US needs resched uled Encounter Details Date Type Department Care Team (Late st Contact Info) Description 05/11/2024 Telephone Radiology [facility] [address] [facility] [place] [address] Lauren Galindo MD 400 [facility] [place] [phone] Information (US needs rescheduled ) Allergies Active Allergy Reactions Criticality Noted Date [...] Industry Job Start Date Job End Date [employer] Not on file Not on file Not on f ile documented as of this encounter Miscellaneous Notes * Telephone Encounter - Kaley Davidson OSA - 05/14/2024 8:52 AM EST PT IS SCHEDULED FOR 05/30/24 * Telephone Encounter - Payal Sutherland OSA - 05/12/2024 8:59 AM EST Patient was attempting to reschedule the US that needed to be added to her chart. It does not look like the new order has been placed. Are you able to advise. Thank you! * Telephone Encounter - Bushra Swain RDMS - 05/11/2024 4:12 PM EST Kely is scheduled on Tuesday05/14/24 for ultrasound. Her ordering physician is adding an additional order, so she will need rescheduled to another day. We will need 3 [id number] time slots for her: Abdomen US complete Abdomen doppler complete Transvaginal US Thank you! documented in this encounter Plan of Treatment Upcoming Encounters Date Type Department Care Team (Late st Contact Info) Description 05/30/2024 7:15 AM EST Imaging Radiology [facility] 132 [facility] [place] [address] 05/30/2024 8:00 AM EST Imaging Radiology [address] [place] [address] 05/30/2024 8:45 AM EST Imaging Radiology [facility] 132 [facility] [place] [address] 06/05/2024 4:00 PM EST Imaging Radiology [facility] 1st Floor, [place] [address] [place] [address] 06/11/2024 8:30 AM EST Office Visit Hematology/Oncology [facility] 200 [facility] [address] Lauren Galindo MD [address] [place] [address] [place] [phone] 07/12/2024 9:45 AM EST Office Visit Gynecology/Obstetrics [facility] [address] [place] [address] Sarina Herrera CRNP [address] [place] [address] 09/05/2024 10:00 AM EST Office Visit Nutrition & Weight Management, [facility] [address] [place] [address] Nata Alba PA-C [address] [place] [address] 10/02/2024 1:00 PM EDT Office Visit Family Practice [facility] [address] [place] [address] Myah Valdivia CRNP [address] [place] [address] Scheduled Procedures Name Priority Associated Diagnoses Date/Ti [...] Documents on File Type Date Recorded Patient Management Information Systems Director Expl anation Advance Directives and Living Will 03/22/2005 Power of Glass Cutter Hand 03/22/2005 * No Code Status (Latest Code Status on File) Date Activated Date Inactivated Comments 03/22/2005 10:26 AM 03/22/2005 10:26 AM Care Teams Surgical Supervisor Relationship Specialty Start Date End Date Joyce Dorantes DO [address] [place] [address] PCP - General Family Medicine 12/23/15 documented as of this encounter
--- OUTSIDE RECORDS SUMMARY | 2024-08-08 05:45 | External Medical Summary ---
Author Name Unknown Address Unknown Organization [facility] [address] [place] [address] Laboratory Report Ordering Provider Test Date Status ANTHONY GONZALES 04/30/2024 12:14:44 Final Observation Date Value Abnormality Reference (Units ) Status SYNC LEUKOCYTES IN BLOOD BY AUTOMATED COUNT 04/30/2024 12:14:44 9.34 4.00-10.80 (K/uL) Final Segs 04/30/2024 12:14:44 68.3 40.0-75.0 (%) Final Lymphs % 04/30/2024 12:14:44 24.8 18.0-42.0 (%) Final Monos 04/30/2024 12:14:44 5.2 1.0-11.0 (%) Final Eosinophils 04/30/2024 12:14:44 1.4 0.0-6.0 (%) Final Basos 04/30/2024 12:14:44 0.3 0.0-2.0 (%) Final Absolute Segs 04/30/2024 12:14:44 6.37 1.80-7.70 (K/uL) Final Lymphs, absolute 04/30/2024 12:14:44 2.32 1.00-4.80 (K/ul) Final Monos, Abs 04/30/2024 12:14:44 0.49 0.00-1.10 (K/uL) Final Eos, Abs 04/30/2024 12:14:44 0.13 0.00-0.70 (K/uL) Final Basos, Abs 04/30/2024 12:14:44 0.03 0.00-0.20 (K/uL) Final Performing Location [facility] [address] - [address] [place] [address]
--- OUTSIDE RECORDS SUMMARY | 2024-08-08 05:45 | External Medical Summary | Summary of Care ---
Author Name Unknown Organization [facility] Address [address] [place] [address] Phone [phone] Care Team Providers Care Shoer Name Role Phone PrashantJoyce duran Primary Care Provider +[phone] Reason for Visit * Reason Onset Date Comments Nurse Documentation BP and P ana ck Weight Check Pt here for BP/w eight check Blood Pressure Check 05/30/2024 Encounter Details Date Type Department Care Team (Late st Contact Info) Description 05/30/2024 9:45 AM EST Nurse Only Nutrition & Weight Management, [facility] 132 [place] [address] MatosNurse ton Gi Nutrition [facility] 132 [place] [address] Nurse Documentation (BP and P check); Weig... [...] Industry Job Start Date Job End Date [employer] Not on file Not on file Not [...] Description 06/05/2024 4:00 PM EST Imaging Radiology [facility] 1st [facility] 132 [facility] [place] [address] 06/11/2024 8:30 AM EST Office Visit Hematology/Oncology [facility] [place] 200 [facility] [address] Lauren Galindo MD [address] [place] [address] [place] [address] 07/12/2024 9:45 AM EST Office Visit Gynecology/Obstetrics [facility] [address] [place] [address] Sarina Herrera CRNP [address] [place] [address] 09/05/2024 10:00 AM EST Office Visit Nutrition & Weight Management, [facility] [address] [place] [address] Nata Alba PA-C [address] [place] [address] 10/02/2024 1:00 PM EDT Office Visit Family Practice [facility] [address] [place] [address] Myah Valdivia CRNP [address] [place] [address] Scheduled Orders Name Type Priority Associated Diagnoses [...] Documents on File Type Date Recorded Patient Trimming Cutter Expl anation Advance Directives and Living Will 03/22/2005 Power of Multiple Games Dealer 03/22/2005 * No Code Status (Latest Code Status on File) Date Activated Date Inactivated Comments 03/22/2005 10:26 AM 03/22/2005 10:26 AM Care Teams Shoer Relationship Specialty Start Date End Date Joyce Dorantes DO 132 [place] [address] PCP - General Family Medicine 12/23/15 documented as of this encounter"
--- OUTSIDE RECORDS SUMMARY | 2024-08-08 05:45 | External Medical Summary ---
Author Name Unknown Address Unknown Organization K01:[facility] [place] [address] [place] [address] Laboratory Report Ordering Provider Test Date Status ANTHONY GONZALES 04/30/2024 12:14:44 Final Observation Date Value Abnormality Reference (Units ) Status CRP, low-sensitivity 04/30/2024 12:14:44 34 Above high normal <=5 (mg/L) Final Performing Location [facility] - [address] [place] [address]
--- OUTSIDE RECORDS SUMMARY | 2024-08-08 05:45 | External Medical Summary | Summary of Care ---
Author Name Unknown Organization [facility] Address [address] [facility] [address] Phone [phone] Care Team Providers Care Mac Developer Name Role Phone SoilaJoyce lewis Jennifer JC Primary Care Provider +[phone] Reason for Visit * Reason Onset Date Comments Test Results 05/30/2024 Unexpected or In determinate Result Encounter Details Date Type Department Care Team (Late st Contact Info) Description 05/30/2024 Telephone Hematology/Oncology, [facility] 400 [place] [address] Laurne Galindo MD 400 [place] [address] Test Results (Unexpected or Indeterminate [...] Industry Job Start Date Job End Date [employer] Not on file Not on file Not on f ile documented as of this encounter Miscellaneous Notes * Telephone Encounter - Diana Reardon OSA - 05/30/2024 9:29 AM EST Hello- The radiologist discovered an unexpected or indeterminate finding on Kely Mercado ([id number]) and asks that you review the following [...] Cramer Client Service Rep [facility] Medicine [place] documented in this encounter Plan of Treatment Upcoming Encounters Date Type Department Care Team (Late st Contact Info) Description 06/05/2024 4:00 PM EST Imaging Radiology [facility] [address] [facility] [address] [place] [address] 06/11/2024 8:30 AM EST Office Visit Hematology/Oncology [facility] 200 [facility] [address] Lauren Galindo MD [address] [place] [address] [place] [phone] 07/12/2024 9:45 AM EST Office Visit Gynecology/Obstetrics [facility] 132 [facility] [place] [address] Sarina Herrera CRNP 132 [facility] [place] [address] 09/05/2024 10:00 AM EST Office Visit Nutrition & Weight Management, [facility] [address] [place] [address] Nata Alba PA-C [address] [place] [address] 10/02/2024 1:00 PM EDT Office Visit Family Practice [facility] [address] [place] [address] Skip Myah JAMES Turner [address] [place] [address] Scheduled Procedures Name Priority Associated Diagnoses Date/Ti [...] Documents on File Type Date Recorded Patient Production Broaching Machine Operator Expl anation Advance Directives and Living Will 03/22/2005 Power of Radio Reporter 03/22/2005 * No Code Status (Latest Code Status on File) Date Activated Date Inactivated Comments 03/22/2005 10:26 AM 03/22/2005 10:26 AM Care Teams Mac Developer Relationship Specialty Start Date End Date Joyce Dorantes DO 132 [place] [address] PCP - General Family Medicine 12/23/15 documented as of this encounter
--- OUTSIDE RECORDS SUMMARY | 2024-08-08 05:45 | External Medical Summary | Summary of Care ---
Author Name Unknown Organization [facility] Address [address] [place] [address] Phone [phone] Care Team Providers Care Naphthalene Operator Helper Name Role Phone SoilaSona lewis Jennifer JC Primary Care Provider [phone] Reason for Visit * Reason Onset Date Comments Medication Refill 05/13/2024 Encounter Details Date Type Department Care Team (Late st Contact Info) Description 05/13/[address] [facility] [address] [facility] [place] [address] Ned Delacruz MD [address] [facility] [place] [id number] Allergies Active Allergy Reactions Criticality Noted Date Comments Morphine And Codeine High 08/13/2004 lose consciousness documented as of this encounter (statuses as of 05/15/2024) Medications MULTI-VITAMIN PO TABS One tablet daily [...] in the morning. 30 Capsule 03/19/20 24 Active Additional Information Patient not taking.Reported on [...] Inhalation 18 g 5 05/15/20 24 Active Albuterol Sulfate HFA 108 (90 Base) MCG/ACT Inhalation Aerosol Solution Use two puffs every four hours as needed for wheezing,cough, chest tightness, shortness of breath, prior to excerise - Inhalation 18 g 5 11/25/19 23 024 Discontin ued(Refil l) documented as of this encounter (statuses as of 05/15/2024) Active Problems Problem Noted Date Diagnosed Date Chronic pain of both knees 04/03/2024 Medication management 04/03/2024 Nipple discharge 04/03/2024 Cyst of left ovary 04/15/2023 Overview (04/15/2023): Consider annual ultrasound Thalassemia minor 01/25/2022 Prediabetes 03/16/2021 Overview: Per Prediabetes protocol KENJI (obstructive sleep apnea) 02/19/2019 Intermittent asthma with reliever use up to twic e per week 09/13/2014 documented as of this encounter (statuses as of 05/15/2024) Resolved Problems Problem Noted Date Diagnosed Date [...] as of this encounter (statuses as of 05/15/2024) Immunizations Name Administration Dates Next Due COVID-19 [...] Industry Job Start Date Job End Date [employer] Not on file Not on file Not on f ile documented as of this encounter Miscellaneous Notes * Telephone Encounter - Moon Nix, [facility] - 05/15/2024 10:05 AM ESTSigned Prescriptions: Disp Refills Albuterol Sulfate HFA 108 (90 Base) MCG/AC*18 g 5 Sig: Use two puffs every four hours as needed for wheezing,cough, chest tightness, shortness of breath, prior to excerise - InhalationAuthorizing Provider: SONA DORANTES User: MOON NIX------- documented in this encounter Plan of Treatment Upcoming Encounters Date Type Department Care Team (Late st Contact Info) Description 05/30/2024 7:15 AM EST [address] Radiology [address] [address] 05/30/2024 8:00 AM EST Imaging Radiology [address] [place] [address] 05/30/2024 8:45 AM EST Imaging Radiology [address] [place] [address] 06/05/2024 4:00 PM EST Imaging Radiology [facility] [address] [place] [address] 06/11/2024 8:30 AM EST Office Visit Hematology/Oncology [facility] [phone] Lauren Galindo MD [address] [place] [address] [place] [phone] 07/12/2024 9:45 AM EST Office Visit Gynecology/Obstetrics [address] [place] [address] Sarina Herrera CRNP [address] [place] [address] 09/05/2024 10:00 AM EST Office Visit Nutrition & Weight Management, [facility] [address] [place] [address] Nata Alba PA-C [address] [place] [address] 10/02/2024 1:00 PM EDT Office Visit Family Practice [facility] [address] [place] [address] Myah Valdivia CRNP [address] [place] [address] Scheduled Procedures Name Priority Associated Diagnoses Date/Ti [...] Documents on File Type Date Recorded Patient Trimmer And Reinforcer Expl anation Advance Directives and Living Will 03/22/2005 Power of Hemmer Chainstitch 03/22/2005 * No Code Status (Latest Code Status on File) Date Activated Date Inactivated Comments 03/22/2005 10:26 AM 03/22/2005 10:26 AM Care Teams Naphthalene Operator Helper Relationship Specialty Start Date End Date Sona Dorantes DO 132 [place] [address] PCP - General Family Medicine 12/23/15 documented as of this encounter
--- OUTSIDE RECORDS SUMMARY | 2024-08-08 05:45 | External Medical Summary | Summary of Care ---
Author Name Unknown Organization [facility] Address [address] [place] [address] Phone [phone] Care Team Providers Care Body Stylist Name Role Phone SoilaJoyce lewis Jennifer JC Primary Care Provider [phone] Reason for Visit * Reason Comments Outpatient Testing Encounter Details Date Type Department Care Team (Late st Contact Info) Description 04/30/2024 12:10 PM EDT Laboratory Laboratory, [facility] 132 [place] [phone] [employer] [address] [place] [address] Thalassemia minor Allergies Active Allergy Reactions Criticality Noted Date Comments Morphine And Codeine High 08/13/2004 lose consciousness documented as of this encounter (statuses as of 04/30/2024) Medications Medication Sig Dispensed Refills Start Date [...] day (morning & late afternoon) 60 Tablet 12/22/2023 Active Naltrexone HCl 50 MG Oral Tablet (Revia) Take 1/2 tab by mouth once a day for 1 week then take 1/2 tab twice a day (morning & late afternoon) 30 Tablet 12/22/2023 Active Diclofenac Sodium 1 % External [...] as of this encounter (statuses as of 04/30/2024) Active Problems Problem Noted Date Diagnosed Date Chronic pain of both knees 04/03/2024 Medication management 04/03/2024 Nipple discharge 04/03/2024 Cyst of left ovary 04/15/2023 Overview: Consider annual ultrasound Thalassemia minor 01/25/2022 Prediabetes 03/16/2021 Overview: Per Prediabetes protocol KENJI (obstructive sleep apnea) 02/19/2019 Intermittent asthma with reliever use up to twic e per week 09/13/2014 documented as of this encounter (statuses as of 04/30/2024) Resolved Problems Problem Noted Date Diagnosed Date [...] as of this encounter (statuses as of 04/30/2024) Immunizations Name Administration Dates Next Due COVID-19 mRNA, LNP-s, No Pre serve, 2-Dose Series (Moderna) 08/30/2020,08/06/2020 Seasonal Influenza Vac., V, IM, 0.5 mL (Fluzon e) 04/10/2009 Seasonal [...] on file documented as of this encounter Plan of Treatment Upcoming Encounters Date Type Department Care Team (Late st Contact Info) Description 05/07/2024 1:30 PM EST Office Visit Hematology/Oncology [facility] [place] [address] [facility] [place] [phone] Lauren Galindo MD [address] [place] [address] [place] [phone] 07/12/2024 9:45 AM EST Office Visit Gynecology/Obstetrics [address] [place] [address] Sarina Herrera CRNP [address] [place] [address] 09/05/2024 10:00 AM EST Office Visit Nutrition & Weight Management, [facility] [address] [place] [address] Nata Alba PA-C [address] [place] [address] 10/02/2024 1:00 PM EDT Office Visit Family Practice [facility] [address] [place] [address] Myah Valdivia CRNP [address] [place] [address] Pending Results Name Type Priority Associated Diagnoses Date /Time COMPREHENSIVE METABOLIC PANEL Lab Routine Thalassemia minor 04/30/2024 12:14 PM EDT CRP (INFLAMMATORY MARKER) Lab Routine Thalassemia minor 04/30/2024 12:14 PM EDT ERYTHROCYTE SEDIMENTATION RATE (ESR) Lab Routine Thalassemia minor 04/30/2024 12:14 PM EDT Scheduled Procedures Name Priority Associated Diagnoses Date/Ti [...] Not on filedocumented as of this encounter Procedures Procedure Name Priority Date/Time Associated Diagnosis Comments DIFFERENTIAL, AUTOMATED Routine 04/30/2024 12:14 PM EDT Thalassemia minor CBC Routine 04/30/2024 12:14 PM EDT Thalassemia minor CBC Routine 04/30/2024 12:14 PM EDT Thalassemia minor DIFFERENTIAL, TECHNOLOGIST REVIEW Routine 04/30/2024 12:14 PM EDT Thalassemia minor documented in this encounter Results * DIFFERENTIAL, TECHNOLOGIST REVIEW (04/30/2024 12:14 PM EDT) Pathologist [facility] 04/30/2024 12:26 PM EDT LAB[facility]ATORY [facility] 57-10 Blood Venous blood specimen / Unknown Venipuncture / Unknown 04/30/2024 12:14 PM EDT 04/30/2024 12:14 PM EDT Deysi Neyda RAMIREZ LAB BLOOD ORDER [facility] [place] 57-10 [address] [place], [place] [address] * DIFFERENTIAL, AUTOMATED (04/30/2024 12:14 PM EDT) WBC 9.34 4.00 - 10.80 K/uL 04/30/2024 12:26 PM EDT LABORATORY [facility] 57-10 Neutrophils % 68.3 40.0 - 75.0 % 04/30/2024 12:26 PM EDT LABORATORY [facility] [place] 57-10 Lymphocytes % 24.8 18.0 - 42.0 % 04/30/2024 12:26 PM EDT LAB[facility]ORY [facility] [place] 57-10 Monocytes % 5.2 1.0 - 11.0 % 04/30/2024 12:26 PM EDT LAB[facility]ORY [facility] 57-10 Eosinophils % 1.4 0.0 - 6.0 % 04/30/2024 12:26 PM EDT LABORATORY [facility] [place] 57-10 Basophils % 0.3 0.0 - 2.0 % 04/30/2024 12:26 PM EDT LABORATORY [facility] 57-10 Absolute Neutrophils 6.37 1.80 - 7.70 K/uL 04/30/2024 12:26 PM EDT LABORATORY [facility] [place] 57-10 Absolute Lymphocytes 2.32 1.00 - 4.80 K/ul 04/30/2024 12:26 PM EDT LABORATORY [facility] [place] 57-10 Absolute Monocytes 0.49 0.00 - 1.10 K/uL 04/30/2024 12:26 PM EDT LAB[facility]ORY [facility] [place] 57[facility]10 Absolute Eosinophils 0.13 0.00 - 0.70 K/uL 04/30/2024 12:26 PM EDT LAB[facility]ORY [facility] 57[facility]10 Absolute Basophils 0.03 0.00 - 0.20 K/uL 04/30/2024 12:26 PM EDT LAB[facility]ORY [facility] [place] 57-10 Blood Venous blood specimen / Unknown Venipuncture / Unknown 04/30/2024 12:14 PM EDT 04/30/2024 12:14 PM EDT Deysi RAMIREZ LAB BLOOD ORDER [facility] [place]10 [address] [place] [address] * (ABNORMAL) CBC (04/30/2024 12:14 PM EDT) [facility] WBC 9.34 4.00 - 10.80 K/uL 04/30/2024 12:26 PM EDT LABORATORY [facility]10 RBC 5.79 3.85 - 5.15 M/uL 04/30/2024 12:26 PM EDT LABORATORY [facility] 57-10 HGB 11.5(L) 12.0 - 15.3 g/dL 04/30/2024 12:26 PM EDT LABORATORY [facility] 57[facility]10 HCT 35.8(L) 36.0 - 45.2 % 04/30/2024 12:26 PM EDT LABORATORY [facility] 57[facility]10 MCV 61.8 81.5 - 97.5 fL 04/30/2024 12:26 PM EDT LAB[facility]ORY [facility] 57[facility]10 MCH 19.9 27.0 - 34.0 pg 04/30/2024 12:26 PM EDT LAB[facility] 57[facility]10 MCHC 32.1 32.0 - 36.0 g/dL 04/30/2024 12:26 PM EDT LABOR[facility]ORY [facility] 57[facility]10 RDW 18.4 11.5 - 15.5 % 04/30/2024 12:26 PM EDT LABORATORY [facility] 57[facility]10 PLT 337 140 - 400 K/uL 04/30/2024 12:26 PM EDT LAB[facility]ORY [facility]10 MPV 9.5 6.6 - 11.1 fL 04/30/2024 12:26 PM EDT LAB[facility]ORY [facility]10 Blood Venous blood specimen / Unknown Venipuncture / Unknown 04/30/2024 12:14 PM EDT 04/30/2024 12:14 PM EDT Deysi Faye Wu RAMIREZ LAB BLOOD ORDER [facility] [place] 57-10 [address] [place] [address] documented in this encounter Visit Diagnoses Diagnosis Thalassemia minor documented in this encounter Advance Directives Documents on File Type Date Recorded Patient Jacquard Loom Heddles Tier Expl anation Advance Directives and Living Will 03/22/2005 Power of Portrait Studio Photographer 03/22/2005 * No Code Status (Latest Code Status on File) Date Activated Date Inactivated Comments 03/22/2005 10:26 AM 03/22/2005 10:26 AM Care Teams Body Stylist Relationship Specialty Start Date End Date Joyce Dorantes DO 132 [place] [address] PCP - General Family Medicine 12/23/15 documented as of this encounter
--- OUTSIDE RECORDS SUMMARY | 2024-08-08 05:46 | External Medical Summary | Summary of Care ---
Author Name Unknown Organization [facility] Address [address] [place] [address] Phone [phone] Care Team Providers Care Quality Control Name Role Phone SoilaJoyce lewis Jennifer JC Primary Care Provider Reason for Visit * Reason Comments Re-Check Encounter Details Date Type Department Care Team (Late st Contact Info) Description 04/03/2024 1:00 PM EDT Office Visit Family Practice [facility] [address] [facility] [address] Myah Valdivia CRNP [address] [place] [address] Chronic pain of both knees*; Nipple discharge; Medication management Allergies Active Allergy Reactions Criticality Noted Date Comments Morphine And Codeine High 08/13/2004 lose consciousness documented as of this encounter (statuses as of 04/03/2024) Medications Medication Sig Dispensed Refills Start Date End Date Status MULTI-VITAMIN PO TABS One tablet daily 30 0 01/18/2008 Active Cetirizine-Pseudoe phedrine ER (ZYRTEC-D ALLERGY & CONGESTION) 5-120 MG [...] 12/23/2023 Active Mometasone Furoate 0.1 % External CreamIndications:D ermatitis Apply topically to affected area daily. Apply [...] for pain.. 30 Tablet 3 04/03/2024 Active Meloxicam 7.5 MG Oral Tablet (Mobic) Take 1 Tablet by mouth in the morning. for pain.. 30 Tablet 3 01/02/2024 Discontinue d(Refill) documented as of this encounter (statuses as of 04/03/2024) Active Problems Problem Noted Date Diagnosed Date Chronic pain of both knees 04/03/2024 Medication management 04/03/2024 Nipple discharge 04/03/2024 Cyst of left ovary 04/15/2023 Overview: Consider annual ultrasound Thalassemia minor 01/25/2022 Prediabetes 03/16/2021 Overview: Per Prediabetes protocol KENJI (obstructive sleep apnea) 02/19/2019 Intermittent asthma with reliever use up to twic e per week 09/13/2014 documented as of this encounter (statuses as of 04/03/2024) Resolved Problems Problem Noted Date Diagnosed Date [...] dysplasia 08/31/ 6 01/25/2022 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 [...] as of this encounter (statuses as of 04/03/2024) Immunizations Name Administration Dates Next Due COVID-19 [...] Sign Reading Time Taken Comments Blood Pressure 130/80 04/03/2024 12:55 PM EDT Pulse 68 04/03/2024 12:55 PM EDT Temperature - - Respiratory Rate - - Oxygen Saturation - - Inhaled Oxygen Concentration - - Weight 106.6 kg (235 lb) 04/03/2024 12:55 PM EDT Height - - Body Mass Index 42.98 03/16/2024 9:45 AM EDT documented in this encounter Progress Notes * Skip MyahJAMES Claire - 04/03/2024 1:07 PM EDT Follow up Family Medicine Visit CC: Chief Complaint Patient presents with Re-Check History of Present Illness: Kely Mercado is a 48 year old female presenting rice 6 month follow up. Feels like the meloxicam wears off in the evening. She prefers to take lower dose. Voltaren gel HELPS- uses less often She is taking meloxicam. Now taking before bed and sleeping better. Declines flu shot. Nipple discharge is still present. 2 mammograms. Feels build up of pressure then yellowish brown discharge left side. Breast feels full at times.She has been seen by breast care office with all imaging normal. Social History Socioeconomic History Marital status: Spouse name: WHITNEY Grey Number of children: Not on file Years of education: Not on file Highest education level: Not on file Occupational History Occupation: [employer] Employer: [place] [employer] Tobacco Use Smoking status: Never Smokeless tobacco: Never Tobacco comments: no passive smoke exposures Vaping Use Vaping status: Never Used Substance and Sexual Activity Alcohol use: Yes Comment: 2-3 drinks/month Drug use: No Sexual activity: Yes Partners: Male control/protection: I.U.D. Comment: Elham inserted 11/14/2018 Other Topics Concern Not on file Social History Narrative [facility] INFORMATION ENIVIRONMENTAL HISTORY: House: Bilevel Type [...] 1 dog(s) Lives on a farm: No scientist propagator; no occupation related worsening of symptoms. 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 (Adult - for ages 18 years and over): Not on file Housing Stability: Not on file PMH: Past Medical History: [...] performed by Sly Peña MD at END[facility] COLPOSCOPY OF CERVIX W/BIOPSY 09/01/2004 KNEE ARTHROSCOPY/REPAIR LIGAMENT Right ACL replaced KNEE ARTHROSCOPY/REPAIR LIGAMENT Left 07/04/2010 DE DELIVERY ONLY TREATMENT OF INCOMPLETE 07/04/2004 URIEL EMBO SUBCLAVIAN BY NECK 07/04/1999 Current Outpatient Medications Medication Sig Dispense Refill Meloxicam 7.5 MG Oral Tablet (Mobic) Take [...] (morning & late afternoon) 30 Tablet 5 Albuterol Sulfate HFA 108 (90 Base) MCG/ACT Inhalation Aerosol Solution Use two puffs every four hours as needed for wheezing,cough, chest tightness, shortness of breath, prior to excerise - Inhalation 18 g 5 Levonorgestrel 20 MCG/DAY Intrauterine Intrauterine Device (Mirena) Insert 1 Each into uterus once. Cetirizine-Pseudoephedrine ER (ZYRTEC-D ALLERGY & CONGESTION) 5-120 MG TB12 Take 1 Tab by mouth2 times a day. MULTI-VITAMIN PO TABS One tablet daily 30 0 Phentermine HCl 15 MG Oral Capsule Take 1 Capsule by mouth in the morning. (Patient not taking: Reported on 04/03/2024) 30 Capsule 0 No current facility-administered medications [...] Systems: Review of Systems Constitutional: Negative for fatigue and fever. Respiratory: Negative for shortness of breath. Cardiovascular: Negative for chest pain. Gastrointestinal: Negative for abdominal pain. Genitourinary: Left nipple discharge Waxy and brown and yellow Musculoskeletal: Positive for arthralgias. Physical Exam: BP 130/80 | Pulse 68 | Wt 106.6 kg (235 lb) | BMI 42.98 kg/m | BSA 2.16 m Physical Exam HENT: Head: Normocephalic. Cardiovascular: Rate and Rhythm: Normal rate and regular rhythm. Pulmonary: Effort: Pulmonary effort is normal. Breath sounds: Normal breath sounds. Chest: Breasts: Left: Nipple discharge present. Comments: Waxy, brown and yellow Neurological: General: No focal deficit present. Mental Status: She is alert and oriented to person, place, and time. Psychiatric: Mood and Affect: Mood normal. Behavior: Behavior normal. Thought Content: Thought content normal. Judgment: Judgment normal. Assessment and Plan: 1. Chronic pain of both knees CONTINUE MELOXICAM Add voltaren gel to knees bilaterally 2. Nipple discharge SINCE SPRING S/P IMAGING - PROLACTIN; Future - CULTURE, WOUND, DEEP, AEROBIC AND ANAEROBIC; Future - TSH WITH FREE T4 IF INDICATED; Future - CBC WITH WBC DIFFERENTIAL AND ANEMIA REFLEX WORKUP; Future - CULTURE, WOUND, DEEP, AEROBIC AND ANAEROBIC 3. Medication management - BASIC METABOLIC PANEL; Future I have advised the patient to call our office incase of any worsening or new symptoms. I spent a total of 30-39 minutes (exact time 30 mins) on the date of service in preparation, delivery, and documentation of the care provided to Kely Mercado excluding any time spent in the performance of separately billed services. Samantha, MSN, JAMES [facility] Medicine documented in this encounter Plan of Treatment Upcoming Encounters Date Type Department Care Team (Late st Contact Info) Description 04/13/2024 1:15 PM EDT Nurse Only Nutrition & Weight Management, [address] [place] [address] Carlo, Nurse Gi Nutrition [address] [place] [address] 04/17/2024 11:30 AM EDT Imaging Radiology [facility] 1st Floor, [place] [address] [facility] [place] [address] 07/12/2024 9:45 AM EST Office Visit Gynecology/Obstetrics [address] [place] [address] Sarina Herrera CRNP 132 [facility] [place] [address] 10/02/2024 1:00 PM EDT Office Visit Family Practice [facility] [address] [place] [address] Myah Valdivia CRNP [address] [place] [address] Pending Results Name Type Priority Associated Diagnoses Date /Time PROLACTIN Lab Routine Nipple discharge 04/03/2024 1:43 PM EDT TSH WITH FREE T4 IF INDICATED Lab Routine Nipple discharge 04/03/2024 1:43 PM EDT CBC WITH WBC DIFFERENTIAL AND ANEMIA REFLEX WORKUP Lab Routine Nipple discharge 04/03/2024 1:43 PM EDT Scheduled Orders Name Type Priority Associated Diagnoses Orde r Schedule PROLACTIN Lab Routine Nipple discharge Expected: 04/03/2024 (Approximate), Expires: 04/03/2025 CULTURE, WOUND, DEEP, AEROBIC AND ANAEROBIC Lab Routine Nipple discharge Expected: 04/03/2024, Expires: 04/03/2025 TSH WITH FREE T4 IF INDICATED Lab Routine Nipple discharge Expected: 04/03/2024 (Approximate), Expires: 04/03/2025 CBC WITH WBC DIFFERENTIAL AND ANEMIA REFLEX WORKUP Lab Routine Nipple discharge Expected: 04/03/2024 (Approximate), Expires: 04/03/2025 Scheduled Procedures Name Priority Associated Diagnoses Date/Ti [...] filedocumented as of this encounter Results * BASIC METABOLIC PANEL (04/03/2024 1:43 PM EDT) BUN 18 6 - 20 mg/dL 04/03/2024 3:29 PM EDT LABORATORY [facility]10 CREATININE 0.9 0.5 - 1.0 mg/dL 04/03/2024 3:29 PM EDT LAB[facility]ORY [facility] 57[facility]10 EGFR 82 >=60 mL/min 04/03/2024 3:29 PM EDT LAB[facility]ORY [facility] 57[facility]10 Comment:eGFR is calculated b ased on the CKD-EPI 2020 equation. SODIUM 143 135 - 146 mmol/L 04/03/2024 3:29 PM EDT LAB[facility]ORY [facility] 57[facility]10 POTASSIUM 4.1 3.5 - 5.1 mmol/L 04/03/2024 3:29 PM EDT LAB[facility] 57[facility]10 CHLORIDE 102 98 - 107 mmol/L 04/03/2024 3:29 PM EDT LAB[facility]10 CO2 28 22 - 32 mmol/L 04/03/2024 3:29 PM EDT LAB[facility] 57[facility]10 ANION GAP 13 7 - 15 mmol/L 04/03/2024 3:29 PM EDT LAB[facility] 57[facility]10 GLUCOSE 93 70 - 120 mg/dL 04/03/2024 3:29 PM EDT LAB[facility]10 CALCIUM 10.1 8.4 - 10.2 mg/dL 04/03/2024 3:29 PM EDT LAB[facility]10 Blood Venous blood specimen / Unknown Venipuncture / Unknown 04/03/2024 1:43 PM EDT 04/03/2024 1:43 PM EDT Myah RAMIREZ LAB BLOOD D[facility] [place] 57-[address] [place] [address] documented in this encounter Visit Diagnoses Diagnosis Chronic pain of both knees- Primary Nipple discharge Other sign and symptom in breast Medication management Encounter for long-term (current) use of other medications documented in this encounter Advance Directives Documents on File Type Date Recorded 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
--- OUTSIDE RECORDS SUMMARY | 2024-08-08 05:46 | External Medical Summary | Summary of Care ---
Author Name Unknown Organization [facility] Address [address] [place] [address] Phone [phone] Care Team Providers Care Nurses Medical Assistants Phlebotomists Name Role Phone Jose EJoyce Jennifer JC Primary Care Provider [phone] Reason for Visit * Reason Comments Outpatient Testing Encounter Details Date Type Department Care Team (Late st Contact Info) Description 04/03/2024 1:40 PM EDT Laboratory Laboratory, [facility] [address] [place] [address] [facility] [address] [place] [address] Cyst of left ovary; Medication management; Nipple discharge Allergies Active Allergy Reactions Criticality Noted Date [...] EDT Nurse Only Nutrition & Weight Management, [facility] 132 [facility] [place] [address] Nurse Carlo Gi Nutrition [facility] [address] [place] [address] 04/17/2024 11:30 AM EDT Imaging Radiology [facility] 1st Floor, [place] [address] [place] [address] 07/12/2024 9:45 AM EST Office Visit Gynecology/Obstetrics [facility] [address] [place] [address] Sarina Herrera CRNP [address] [place] [address] 10/02/2024 1:00 PM EDT Office Visit Family Practice [facility] [address] [place] [address] Myah Valdivia CRNP [address] [place] [address] Pending Results Name Type Priority Associated Diagnoses Date /Time CA 125 Lab Routine Cyst of left ovary 04/03/2024 1:43 PM EDT BASIC METABOLIC PANEL Lab Routine Medication management 04/03/2024 1:43 PM EDT PROLACTIN Lab Routine Nipple discharge 04/03/2024 1:43 PM EDT TSH WITH FREE T4 IF INDICATED Lab Routine Nipple discharge 04/03/2024 1:43 PM EDT CBC WITH WBC DIFFERENTIAL AND ANEMIA REFLEX WORKUP Lab Routine Nipple discharge 04/03/2024 1:43 PM EDT ANEMIA CBC Lab Routine Nipple discharge 04/03/2024 1:43 PM EDT DIFFERENTIAL, AUTOMATED Lab Routine Nipple discharge 04/03/2024 1:43 PM EDT ANEMIA REFLEX CHEMISTRY HOLD Lab Routine Nipple discharge 04/03/2024 1:43 PM EDT Scheduled Procedures Name Priority Associated [...] as of this encounter Visit Diagnoses Diagnosis Cyst of left ovary Other and unspecified ovarian cyst Medication management Encounter for long-term (current) use of other medications Nipple discharge Other sign and symptom in breast documented in this encounter Advance Directives Documents on File Type Date Recorded 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
--- OUTSIDE RECORDS SUMMARY | 2024-08-08 05:46 | External Medical Summary | Summary of Care ---
Author Name Unknown Organization [facility] Address [address] [place] [facility] [place] [address] Phone [phone] Care Team Providers Care Single End Sewer Name Role Phone SoilaJoyce lewis Jennifer JC Primary Care Provider +1 [phone] Reason for Visit * Reason Onset Date Comments Referral 04/11/2024 SP 30-Day Encounter Details Date Type Department Care Team (Late st Contact Info) Description 04/11/2024 New Patient Triage (PRINCIPAL MILITARY ANALYST USE ONLY) Hematology/Oncology [facility] 200 [facility] [place] [address] Deysi Washburn CRNP 400 [facility] [place] [address] Referral (SP 30-Day) Allergies Active Allergy Reactions Criticality Noted Date Comments Morphine And Codeine High 08/13/2004 lose consciousness documented as of this encounter (statuses as of 04/11/2024) Medications Medication Sig Dispensed Refills Start Date [...] as of this encounter (statuses as of 04/11/2024) Active Problems Problem Noted Date Diagnosed Date Chronic pain of both knees 04/03/2024 Medication management 04/03/2024 Nipple discharge 04/03/2024 Cyst of left ovary 04/15/2023 Overview: Consider annual ultrasound Thalassemia minor 01/25/2022 Prediabetes 03/16/2021 Overview: Per Prediabetes protocol KENJI (obstructive sleep apnea) 02/19/2019 Intermittent asthma with reliever use up to twic e per week 09/13/2014 documented as of this encounter (statuses as of 04/11/2024) Resolved Problems Problem Noted Date Diagnosed Date [...] as of this encounter (statuses as of 04/11/2024) Immunizations Name Administration Dates Next Due COVID-19 [...] on file documented as of this encounter Progress Notes * Taryn Regan LPN - 04/11/2024 7:05 AM EDT Images from the original note were not included. New Patient Triage What is the diagnosis/reason for referral?: Thalassemia unspecified type, RITA unspecified Enter order ID here: [id number] Specialty specific documentation: Hematology/Oncology NEW PATIENT - HEMATOLOGY/ONCOLOGY SPECIALTY TRIAGE Triage needed?: Yes Referring provider name: JAMES Servin Confirmation of diagnosis: Yes TRIAGE PLAN: Baseline/staging imaging complete: No Labs available: Yes Referral to other specialty recommended (ie. Surgery, outpatient infusion): No Additional triage comments: Please see Patient Message 04/06/2024 JAMES Servin documented in this encounter Plan of Treatment Upcoming Encounters Date Type Department Care Team (Late st Contact Info) Description 04/13/2024 1:15 PM EDT Nurse Only Nutrition & Weight Management, [facility] [address] [place] [address] [facility], Nurse Gi Nutrition [facility] [address] [place] [address] 07/12/2024 9:45 AM EST Office Visit Gynecology/Obstetrics [facility] [address] [place] [address] Sarina Herrera CRNP [address] [place] [address] 10/02/2024 1:00 PM EDT Office Visit Family Practice [facility] [address] [place] [address] Myah Valdivia CRNP [address] [place] [address] Scheduled Procedures Name Priority Associated Diagnoses Date/Ti [...] Documents on File Type Date Recorded 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
--- OUTSIDE RECORDS SUMMARY | 2024-08-08 05:46 | External Medical Summary ---
Author Name Unknown Address Unknown Organization K01:[facility] [facility] [address] [place] [address] Laboratory Report Ordering Provider Test Date Status ARIADNE SHELL 04/03/2024 13:43:47 Final Observation Date Value Abnormality Reference (Units ) Status Retic, % (auto) 04/03/2024 13:43:47 1.99 Above high normal 0.80-1.90 (%) Final Reticulocytes, Absolute 04/03/2024 13:43:47 121.8 Above high normal 31.3-100.1 (K/uL) Final Reticulocyte fraction, immature 04/03/2024 13:43:47 26.7 Above high normal 2.5-20.6 (%) Final Reticulocyte HGB 04/03/2024 13:43:47 20.6 Below low normal 29.7-37.4 (pg) Final Performing Location [facility] [place] [facility] [place] [address]
--- OUTSIDE RECORDS SUMMARY | 2024-08-08 05:46 | External Medical Summary | Summary of Care ---
Author Name Unknown Organization [facility] Address [address] [place] [address] Phone [phone] Care Team Providers Care Harness And Bag Inspector Name Role Phone SoilaJoyce lewis Jennifer JC Primary Care Provider [phone] Reason for Visit * Reason Onset Date Comments Referral 04/11/2024 SP 30-Day Encounter Details Date Type Department Care Team (Late st Contact Info) Description 04/11/2024 New Patient Triage (EXTRUSION DIE CORRECTOR USE ONLY) Hematology/Oncology [facility] [address] [facility] [place] [address] Deysi Washburn CRNP 400 [place] [address] Referral (SP 30-Day) Allergies Active Allergy Reactions Criticality Noted Date Comments Morphine And Codeine High 08/13/2004 lose consciousness documented as of this encounter (statuses as of 04/16/2024) Medications Medication Sig Dispensed Refills Start Date [...] as of this encounter (statuses as of 04/16/2024) Active Problems Problem Noted Date Diagnosed Date Chronic pain of both knees 04/03/2024 Medication management 04/03/2024 Nipple discharge 04/03/2024 Cyst of left ovary 04/15/2023 Overview: Consider annual ultrasound Thalassemia minor 01/25/2022 Prediabetes 03/16/2021 Overview: Per Prediabetes protocol KENJI (obstructive sleep apnea) 02/19/2019 Intermittent asthma with reliever use up to twic e per week 09/13/2014 documented as of this encounter (statuses as of 04/16/2024) Resolved Problems Problem Noted Date Diagnosed Date [...] as of this encounter (statuses as of 04/16/2024) Immunizations Name Administration Dates Next Due COVID-19 [...] as of this encounter Progress Notes * Deysi Washburn CRNP - 04/16/2024 11:07 AM EDT Hematology New Referral Triage Note 48 y/o female referred for thalassemia minor. 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 Patient with chronic, stable and mild microcytic anemiawith baseline Hgb in the 11 range. No iron deficiency present. Does not appear patient is taking anoral iron supplement. Currently with a mild leukocytosis and thrombocytosis, possibly reactive. Patient is a non smoker. Timeframe to be seen: 30 days Can the patient be seen by an advanced practitioner? no Are additional labs or studies needed prior to initial visit? Yes - CBCd, CMP, CRP and ESR Is an infusion appointment needed after initial visit? no Discussed care plan with patient or proxy?: No Nurse to call. Previously seen hematology? No JAMES Medina Hematology * Taryn Regan LPN - 04/11/2024 7:05 AM EDT Images from the original note were not included. New Patient Triage What is the diagnosis/reason for referral?: Thalassemia unspecified type, RITA unspecified Enter order ID here: [id number] Specialty specific documentation: Hematology/Oncology NEW PATIENT - [...] Care Team (Late st Contact Info) Description 07/12/2024 9:45 AM EST Office Visit Gynecology/Obstetrics [facility] [address] [place] [address] Sarina Herrera CRNP [address] [place] [address] 09/05/2024 10:00 AM EST Office [facility] [address] [place] [address] Nata Alba PA-C [address] [place] [address] 10/02/2024 1:00 PM EDT Office Visit Family Practice [facility] [address] [place] [address] Myah Valdivia CRNP [address] [place] [address] Scheduled Procedures Name Priority Associated Diagnoses Date/Ti [...] Documents on File Type Date Recorded 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
--- OUTSIDE RECORDS SUMMARY | 2024-08-08 05:46 | External Medical Summary | Summary of Care ---
Author Name Unknown Organization [facility] Address [address] [place] [address] Phone [phone] Care Team Providers Care Landscape Architecture Teacher Name Role Phone Joyce Dorantes DO Primary Care Provider [phone] Encounter Details Date Type Department Care Team (Late st Contact Info) Description 04/18/2024 Orders Only PATIENT PORTAL DO NOT DELETE THIS DEPT USED BY [place] [address] Allergies Active Allergy Reactions Criticality Noted Date Comments Morphine And Codeine High 08/13/2004 lose consciousness documented as of this encounter (statuses as of 04/18/2024) Medications Medication Sig Dispensed Refills Start Date [...] as of this encounter (statuses as of 04/18/2024) Active Problems Problem Noted Date Diagnosed Date Chronic pain of both knees 04/03/2024 Medication management 04/03/2024 Nipple discharge 04/03/2024 Cyst of left ovary 04/15/2023 Overview: Consider annual ultrasound Thalassemia minor 01/25/2022 Prediabetes 03/16/2021 Overview: Per Prediabetes protocol KENJI (obstructive sleep apnea) 02/19/2019 Intermittent asthma with reliever use up to twic e per week 09/13/2014 documented as of this encounter (statuses as of 04/18/2024) Resolved Problems Problem Noted Date Diagnosed Date [...] as of this encounter (statuses as of 04/18/2024) Immunizations Name Administration Dates Next Due COVID-19 [...] AM EST Office Visit Gynecology/Obstetrics [facility] [address] [place] [address] Sarina Herrera CRNP [address] [place] [address] 09/05/2024 10:00 AM EST [facility] [address] [place] [address] Nata Alba PA-C [address] [place] [address] 10/02/2024 1:00 PM EDT Office Visit Family Practice [facility] [address] [place] [address] Myah Valdivia CRNP [address] [place] [address] Scheduled Procedures Name Priority Associated Diagnoses Date/Ti [...] Cancer Screening 03/18/2025 Pap Smear 03/18/2025 03/18/2022, 0503/2019, 11/02/2017, Additional history exists IUD 7-Year 11/21/2025 [...] Documents on File Type Date Recorded Patient Toy Painter Expl anation Advance Directives and Living Will 03/22/2005 Power of Gas Pit Worker 03/22/2005 * No Code Status (Latest Code Status on File) Date Activated Date Inactivated Comments 03/22/2005 10:26 AM 03/22/2005 10:26 AM Care Teams Landscape Architecture Teacher Relationship Specialty Start Date End Date Joyce Dorantes DO [address] [place] [address] PCP - General Family Medicine 12/23/15 documented as of this encounter
--- OUTSIDE RECORDS SUMMARY | 2024-08-08 05:46 | External Medical Summary | Summary of Care ---
Author Name Unknown Organization [facility] Address [address] [facility] [place] [address] Phone [phone] Care Team Providers Care Embroidery Finisher Name Role Phone SoilaJoyce lewis Jennifer JC Primary Care Provider [phone] Reason for Visit * Reason Onset Date Comments Referral 04/11/2024 SP 30-Day Encounter Details Date Type Department Care Team (Late st Contact Info) Description 04/11/2024 New Patient Triage (WARP COILER USE ONLY) Hematology/Oncology [facility] [address] [facility] [place] [address] Deysi Washburn CRNP [address] [place] [address] Referral (SP 30-Day) Allergies Active Allergy [...] as of this encounter Progress Notes * Joey Regan LPN - 04/16/2024 1:53 PM EDT Discussed care plan with patient or proxy?: Yes, LM for patient to return call, phone number provided. Sent to CS: Ok to schedule with next available MD, New Hematology, "Thalassemia, RITA", within the next 30-days. Please schedule lab appt 3-4 days prior to appointment for the following labs, "CBCd, CMP, CRP and ESR". 04/16/2024 Communicated with patient on Date (mm/dd/yyyy): 04/16/2024 at Time ([facility]): 01:53 PM Additional imaging needed: No Additional imaging orders pended: No Further labs recommended and ordered: Yes Bone Marrow biopsy recommended:No [facility] clinic review recommended: No * Deysi Washburn CRNP - 04/16/2024 11:07 [...] seen hematology? No JAMES Medina Hematology * Joey Regan LPN - 04/11/2024 7:05 AM EDT Images from the original note were not included. New Patient Triage What is the diagnosis/reason for referral?: Thalassemia unspecified type, RITA unspecified Enter order ID here: [id number] Specialty specific documentation: Hematology/Oncology NEW PATIENT - HEMATOLOGY/ONCOLOGY SPECIALTY TRIAGE Triage needed?: Yes Referring provider name: JAMES Servin Confirmation of diagnosis: Yes TRIAGE PLAN: Baseline/staging imaging complete: No Labs available: Yes Referral to other specialty recommended (ie. Surgery, outpatient infusion): No Additional triage comments: Please see Patient Message 04/06/2024 JAMES Servin documented in this encounter Miscellaneous Notes * Addendum Note - Joey Regan LPN - 04/16/2024 2:00 PM EDTAddended by: JOEY REGAN on: 04/16/2024 02:00 PM Modules accepted: Orders documented in this encounter Plan of Treatment Upcoming Encounters Date Type Department Care Team (Late st Contact Info) Description 07/12/2024 9:45 AM EST Office Visit Gynecology/Obstetrics [facility] [address] [place] [address] Sarina Herrera CRNP [address] [place] [address] 09/05/2024 10:00 AM EST Office Visit Nutrition & Weight Management, [facility] [address] [place] [address] Nata Alba PA-C [address] [place] [address] 10/02/2024 1:00 PM EDT Office Visit Family Practice [facility] [address] [place] [address] Myah Valdivia CRNP [address] [place] [address] Scheduled Orders Name Type Priority Associated Diagnoses Orde r Schedule CBC WITH WBC DIFFERENTIAL Lab Routine Thalassemia minor Expected: 04/16/2024 (Approximate), Expires: 07/04/2024 COMPREHENSIVE METABOLIC PANEL Lab Routine Thalassemia minor Expected: 04/16/2024 (Approximate), Expires: 07/04/2024 CRP (INFLAMMATORY MARKER) Lab Routine Thalassemia minor Expected: 04/16/2024 (Approximate), Expires: 07/04/2024 ERYTHROCYTE SEDIMENTATION RATE (ESR) Lab Routine Thalassemia minor Expected: 04/16/2024 (Approximate), Expires: 07/04/2024 Scheduled Procedures Name Priority Associated Diagnoses Date/Ti [...] encounter Visit Diagnoses Diagnosis Thalassemia minor- Primary Thrombocytopenia, congenital and hereditary (HCC) Congenital and hereditary thrombocytopenic purpura Erythrocytosis Polycythemia, secondary documented in this encounter Advance Directives Documents on File Type Date Recorded Patient Shipping And Receiving Clerk Expl anation Advance Directives and Living Will 03/22/2005 Power of Associate Automation Engineer 03/22/2005 * No Code Status (Latest Code Status on File) Date Activated Date Inactivated Comments 03/22/2005 10:26 AM 03/22/2005 10:26 AM Care Teams Embroidery Finisher Relationship Specialty Start Date End Date Joyce Dorantes DO [address] [place] [address] PCP - General Family Medicine 12/23/15 documented as of this encounter
--- OUTSIDE RECORDS SUMMARY | 2024-08-08 05:46 | External Medical Summary | Summary of Care ---
Author Name Unknown Organization [facility] Address [address] [place] [address] Phone [phone] Care Team Providers Care Inspector Raw Quartz Name Role Phone PrashantJoyce duran Jennifer JC Primary Care Provider +1 [phone] Reason for Visit * Reason Comments Nurse Documentation B12 shot Encounter Details Date Type Department Care Team (Late st Contact Info) Description 04/13/2024 1:15 PM EDT Nurse Only Nutrition & Weight Management, [facility] 132 [place] [address] [facility] 132 [place] [address] Nurse Documentation (B12 shot) Allergies Active Allergy Reactions Criticality Noted Date Comments Morphine And Codeine High 08/13/2004 lose consciousness documented as of this encounter (statuses as of 04/13/2024) Medications Medication Sig Dispensed Refills Start Date [...] as of this encounter (statuses as of 04/13/2024) Active Problems Problem Noted Date Diagnosed Date Chronic pain of both knees 04/03/2024 Medication management 04/03/2024 Nipple discharge 04/03/2024 Cyst of left ovary 04/15/2023 Overview: Consider annual ultrasound Thalassemia minor 01/25/2022 Prediabetes 03/16/2021 Overview: Per Prediabetes protocol KENJI (obstructive sleep apnea) 02/19/2019 Intermittent asthma with reliever use up to twic e per week 09/13/2014 documented as of this encounter (statuses as of 04/13/2024) Resolved Problems Problem Noted Date Diagnosed Date [...] as of this encounter (statuses as of 04/13/2024) Immunizations Name Administration Dates Next Due COVID-19 [...] Sign Reading Time Taken Comments Blood Pressure 132/68 04/13/2024 1:24 PM EDT Pulse 67 04/13/2024 1:24 PM EDT Temperature - - Respiratory Rate - - Oxygen Saturation 97% 04/13/2024 1:24 PM EDT Inhaled Oxygen Concentration - - Weight - - Height - - Body Mass Index - - documented in this encounter Plan of Treatment Upcoming Encounters Date Type Department Care Team (Late st Contact Info) Description 07/12/2024 9:45 AM EST Office Visit Gynecology/Obstetrics [facility] 132 [facility] [place] [address] Sarina Herrera CRNP [address] [place] [address] 09/05/2024 10:00 AM EST Office Visit Nutrition & Weight Management, [facility] [address] [place] [address] Nata Alba PA-C [address] [place] [address] 10/02/2024 1:00 PM EDT Office Visit Family Practice [facility] [address] [place] [address] Myah Valdivia CRNP [address] [place] [address] Scheduled Procedures Name Priority Associated Diagnoses Date/Ti [...] on File Type Date Recorded Patient Industrial Waste Treatment Technician Expl anation Advance Directives and Living Will 03/22/2005 Power of Medical Services Manager 03/22/2005 * No Code Status (Latest Code Status on File) Date Activated Date Inactivated Comments 03/22/2005 10:26 AM 03/22/2005 10:26 AM Care Teams Inspector Raw Quartz Relationship Specialty Start Date End Date Joyce Dorantes DO [address] [place] [address] PCP - General Family Medicine 12/23/15 documented as of this encounter
--- OUTSIDE RECORDS SUMMARY | 2024-08-08 05:47 | External Medical Summary | Summary of Care ---
Author Name Unknown Organization [facility] Address [address] [place] [address] Phone [phone] Care Team Providers Care Microsoft Crm Developer Name Role Phone SoilaJoyce lewis Jennifer JC Primary Care Provider [phone] Reason for Visit * Reason Comments Weight Management The pt stated she is here to follow up regarding her Wellbutrin/Naltrexone. Encounter Details Date Type Department Care Team (Late st Contact Info) Description 03/16/2024 9:40 AM EDT Office Visit Nutrition & Weight Management, [facility] [address] [place] [address] Nata Alba PA-C [address] [place] [address] Morbid obesity due to excess calories (HCC)* Allergies Active Allergy Reactions Criticality Noted Date Comments Morphine And Codeine High 08/13/2004 lose consciousness documented as of this encounter (statuses as of 03/16/2024) Medications Medication Sig Dispensed Refills Start Date End Date Status MULTI-VITAMIN PO TABS One tablet daily 30 0 01/18/2008 Active Cetirizine-Pseudoeph edrine ER (ZYRTEC-D ALLERGY & CONGESTION) 5-120 MG TB12 Take 1 Tab by mouth 2 times a day. 09/22/2015 Active Additional Information Patient taking differently:1 Tablet OralPRN, Reported on 03/16/2024 Levonorgestrel 20 MCG/DAY Intrauterine Intrauterine Device (Mirena) [...] 12/23/2023 Active Mometasone Furoate 0.1 % External CreamIndications:Juan matitis Apply topically to affected area daily. Apply [...] morning. for pain.. 30 Tablet 3 01/02/2024 Active documented as of this encounter (statuses as of 03/16/2024) Active Problems Problem Noted Date Diagnosed Date Cyst of left ovary 04/15/2023 Overview: Consider annual ultrasound Thalassemia minor 01/25/2022 Prediabetes 03/16/2021 Overview: Per Prediabetes protocol KENJI (obstructive sleep apnea) 02/19/2019 Intermittent asthma with reliever use up to twic e per week 09/13/2014 documented as of this encounter (statuses as of 03/16/2024) Resolved Problems Problem Noted Date Diagnosed Date [...] as of this encounter (statuses as of 03/16/2024) Immunizations Name Administration Dates Next Due COVID-19 mRNA, LNP-s, No Pre serve, 2-Dose Series (Moderna) 08/30/2020,08/06/2020 Seasonal Influenza, Quadrivalent, No Preserve, I M 04/21/2018,06/29/2016 06/29/2017 Seasonal Influenza, Trivalen t, (IIV3), with Preserv, (Fluzone) 04/10/2009 documented as of this encounter Social History [...] Sign Reading Time Taken Comments Blood Pressure 132/82 03/16/2024 9:45 AM EDT Pulse 64 03/16/2024 9:45 AM EDT Temperature 36.6 C (97.9 F) 03/16/2024 9:45 AM ED T Respiratory Rate - - Oxygen Saturation 97% 03/16/2024 9:45 AM EDT Inhaled Oxygen Concentration - - Weight 106 kg (233 lb 11.2 oz) 03/16/2024 9:45 A M EDT Height 157.5 cm (5' 2") 03/16/2024 9:45 AM EDT Body Mass Index 42.74 03/16/2024 9:45 AM EDT documented in this encounter Progress Notes * Nata Alba PA-C - 03/16/2024 9:48 AM EDT Comprehensive [facility] Management Clinic Note Nursing Notes: Jose Miller, ZENIA 03/16/24 0946 Signed Chief Complaint Patient presents with Weight Management The pt stated she is here to follow up regarding her Wellbutrin/Naltrexone. Kely Mercado presents in follow up to the comprehensive weight management clinic. The patient is a 48 year old female Wt Readings from Last 6 Encounters: 03/16/24 106 kg (233 lb 11.2 oz) 10/19/23 108 kg (238 lb) 10/14/23 108.4 kg (239 lb) 09/14/23 108.6 kg (239 lb 8 oz) 04/05/23 110.1 kg (242 lb 11.2 oz) 04/05/23 110.2 kg (243 lb) Patient is receiving ongoing education regarding dietary and physical modifications for weight loss. - Initial clinic visit 05/04/22. Weight 243 lbs Height 62 Body mass index is 44.56 kg/m. - Today's weight: 233 lbs - Total weight loss of -10 since initial weight in clinic - Patient's last follow up with GI/Nutrition clinic was on 09/14/23. 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 job in [employer], will be walking more, packing lunch (working from home now) -requesting to see ortho - ongoing R knee pain, worse with walking, taking ibuprofen/tylenol, concerned with pain given her increased need to walk 04/05/23 -on wellbutrin/naltrexone -had headache initially, better now -tolerating well, craving less sweets -had some abdominal pain - thinks maybe diverticulitis flare, feeling better now -having some knee pain - limits walking on occasion -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 - more travel/hotel/eating out 12/15/22 -not on any AOM - couldn't get Ozempic covered this year -still using Noom Today's Visit 05/04/22 - Overall goal: goal under 200lbs - Wt hx: has gained since COVID; Doing Noom x 1 year; Tried Ozempic 2 times - only up to 0.5mg - Highest wt as adult: 250 lbs - Lowest wt as adult: 160lbs pre kids - Barriers: right knee pain Patient Active Problem List Diagnosis Intermittent asthma with reliever use up to twice per week KENJI (obstructive sleep apnea) Prediabetes Thalassemia minor Cyst of left ovary Review of Systems: Review of Systems Musculoskeletal: Positive for arthralgias. All other systems reviewed and are negative. Current Medications: Current Outpatient Medications Medication Sig Dispense Refill MULTI-VITAMIN PO TABS One tablet daily 30 0 Cetirizine-Pseudoephedrine ER (ZYRTEC-D ALLERGY & CONGESTION) 5-120 MG TB12 Take 1 Tab by mouth2 times a day. (Patient taking differently: Take 1 Tablet by mouth as needed.) Levonorgestrel 20 MCG/DAY Intrauterine Intrauterine Device (Mirena) [...] No current facility-administered medications for this visit. Water intake: yes Prescribed diet: [id number] Calorie Controlled Current diet: Breakfast-- smoothie Snack-- cheese stick Lunch-- salad - riley salad from [employer] Snack--pretzels Dinner-- steak, mushrooms, broccoli Snack-- skips Drinks-- water, coffee Meals Away from Home-- 1-2x per week Food logs: No Type of exercise: Walking more, now having some knee pain Exercise: Times per week: daily Weight loss Pharmacotherapy: yes Wellbutrin 150 mg mg Twice a day Naltrexone 25 mg mg Twice a day BP 132/82 | Pulse 64 | Temp 36.6 C (97.9 F) | Ht 1.575 m (5' 2") | Wt 106 kg (233 lb 11.2 oz) |SpO2 97% | BMI 42.74 kg/m | BSA 2.15 m PHYSICAL EXAMINATION: General: Patient awake alert and oriented. Patient is well appearing and in no acute distress. Skin: No rashes. HEENT: Head is atraumatic, normocephalic. EOMs intact Abdomen: Obese Neuro: No focal deficits Psych: Appropriate mood and affect. Assessment and Plan: Abnormal weight gain / Body mass index is 42.74 kg/m. / Morbid obesity : - Would like to proceed with medical management - Barriers are consistency. - Motivators are feeling better overall, avoiding/reducing co-morbid conditions. - The patient was encouraged to to avoid all fruit juices and regular sodas, consume at least 64 ounces of water per day, keep food logs and get weighed on a weekly basis. They were encouraged to increase physical activity as prescribed. - Handouts regarding nutrition and physical activity were provided, as appropriate. 1. Keep a food log. If you bite it, write it! Apps like [employer] or [employer] Calorie goal: 5770-7377 2. Drink 48-64 ounces of non-caloric beverages per day. No fruit juices or regular soda Try crystal light, propel, zero calorie flavored water, plain water 3. Goal of 30 minutes of exercise 5 days per week (150 minutes per week--can be divided up however you would like) Aim for aerobic activity and muscle strengthening activities 4. Increase fruit and vegetable servings to 5-6 per day. 1/2 of your plate should be fruits and vegetables 5. Eat 100-200 calories within 1-2 hours of awakening, and every 4 - 6 hours while awake. (3 meals with snacks in between) Choose 100 calorie or less snacks, protein snacks 7. Weight yourself weekly and follow trend over time (day to day weight fluctuations can be discouraging) 8. Decrease starches like bread, pasta, cereal, potatoes and corn. Aim for of your plate Try substitutions like zoodles, lentil pasta, cauliflower mashed potatoes, whole grain foods, quinoa Limit junk/processed foods Chips, pretzels, cookies, cakes, sweets White bread/rolls/wraps/bagels, white rice 9. Increase protein to feel full longer (1/4 of your plate) Kely was seen today for weight management. Diagnoses and all orders for this visit: Morbid obesity due to excess calories (HCC) -continue wellbutrin and naltrexone -will get EKG today - if normal, add phentermine - last ECHO reviewed -increase protein, fruits and veggies --increase exercise - knee is feeling better -consider phentermine+/-topamax Abnormal weight gain Prediabetes -not currently on metformin -recent A1c 6.2% Intermittent asthma with reliever use up to twice per week without complication -stable KENJI (obstructive sleep apnea) -compliant with CPAP Pseudotumor cerebri -history of pseudotumor -recent headaches, improved now The patient agreed to try the plan as discussed and return in 1 months. They were encouraged to call or send a patient portal message in the meantime with any questions or concerns prior to their next clinic visit. I spent a total of 20 minutes on the date of service in preparation, delivery, and documentation ofthe care provided to Kely Mercado excluding any time spent in the performance of separately billed services. This included but was no limited to providing counseling about the benefits of weight loss, about their nutritional status, detailed explanations about calorie count, types of nutrients to choose, and composition of the meals. Motivational interview provided in order to prepare the patient to achieve future goals. Nata Alba PA-C documented in this encounter Nursing Notes * Jose Miller LPN - 03/16/2024 9:44 AM EDT Chief Complaint Patient presents with Weight Management The pt stated she is here to follow up regarding her Wellbutrin/Naltrexone. documented in this encounter Plan of Treatment Upcoming Encounters Date Type Department Care Team (Late st Contact Info) Description 03/16/2024 11:30 AM EDT Nurse Only Ancillary [facility] [address] [place] [address] Nurse Carlo Fam Prac [facility] [address] [place] [address] 04/03/2024 1:00 PM EDT Office Visit Family Practice [facility] [address] [place] [address] Myah Valdivia CRNP [address] [facility] [place] [address] 04/13/2024 1:15 PM EDT Nurse Only Nutrition & Weight Management, [facility] [address] [place] [address] Nurse Carlo Gi Nutrition [facility] [address] [place] [address] 04/17/2024 11:30 AM EDT Imaging Radiology [facility] 1st Floor, [place] [address] [place] [address] 07/12/2024 9:45 AM EST Office Visit Gynecology/Obstetrics [facility] [address] [place] [address] Sarina Herrera CRNP [address] [place] [address] Scheduled Orders Name Type Priority Associated Diagnoses Orde r Schedule EKG EKG Routine Morbid obesity due to excess calories (HCC) Expected: 03/16/2024 (Approximate), Expires: 04/15/2025 Scheduled Procedures Name Priority Associated Diagnoses Date/Ti [...] Documents on File Type Date Recorded Patient Manager Group Expl anation Advance Directives and Living Will 03/22/2005 Power of Welfare Administrator 03/22/2005 * No Code Status (Latest Code Status on File) Date Activated Date Inactivated Comments 03/22/2005 10:26 AM 03/22/2005 10:26 AM Care Teams Microsoft Crm Developer Relationship Specialty Start Date End Date Joyce Dorantes DO [address] [facility] [place] [address] PCP - General Family Medicine 12/23/15 documented as of this encounter
--- OUTSIDE RECORDS SUMMARY | 2024-08-08 05:47 | External Medical Summary ---
Author Name Unknown Address Unknown Organization [id number]:[facility] [place] [address] [facility] [facility] [address] Laboratory Report Ordering Provider Test Date Status ARIADNE SHELL 04/03/2024 13:36:49 Final No anaerobic growth
null Observation Date Value Abnormality Reference (Units) Status Bacteria identified in Specimen by Culture 04/03/2024 13:36:49 [id number]^STAPHYLOCO CCUS EPIDERMIDIS Abnormal Final One colony Staphylococcus ep idermidis
This result may not be clinically significant and should be interpreted in the context of the microbe detected. Gram Stain 04/03/2024 13:36:49 No polymorphonuclear leukocyt es seen Final Gram Stain 04/03/2024 13:36:49 No organisms seen Final Test: Culture, Wound, Deep, Aerobic and Anaerobic
Specimen Source: Breast, Left
Specimen Type: Drainage
Specimen Date: 04/03/2024 1336
Result Date: 04/09/2024 1020
Result Status: Final result
Abnormal: Yes
Resulting Lab: [facility]
[address] [facility] [address]

CULTURE

One colony Staphylococcus epidermidis (Abnormal)

This result may not be clinically significant and should be interpreted in
the context of the microbe detected.

No anaerobic growth

STAIN

No polymorphonuclear leukocytes seen

No organisms seen

null Performing Location [facility] [place] - [address] [facility] [address]
--- OUTSIDE RECORDS SUMMARY | 2024-08-08 05:47 | External Medical Summary ---
Author Name Unknown Address Unknown Organization [id number]:[facility] [place] - [address] [place] [address] Laboratory Report Ordering Provider Test Date Status ARIADNE SHELL 04/03/2024 13:43:47 Final Observation Date Value Abnormality Reference (Units ) Status WBC, Total 04/03/2024 13:43:47 12.82 Above high normal 4 .00-10.80 (K/uL) Final RBC 04/03/2024 13:43:47 6.11 3.85-5.15 (M/uL) Final Hemoglobin 04/03/2024 13:43:47 11.9 Below low normal 12 .0-15.3 (g/dL) Final Anemia reflex testing trigge rs on a HGB < 12.0 for Females and HGB < 13.0 for Males in accordance with the WHO Anemia Guidelines
Anemia reflex testing triggers on a HGB < 12.0 for Females and HGB < 13.0 for Males in accordance with the WHO Anemia Guidelines HCT 04/03/2024 13:43:47 40.3 36.0-45.2 (%) Final MCV 04/03/2024 13:43:47 66.0 81.5-97.5 (fL) Final MCH 04/03/2024 13:43:47 19.5 27.0-34.0 (pg) Final MCHC 04/03/2024 13:43:47 29.5 32.0-36.0 (g/dL) Final RDW 04/03/2024 13:43:47 19.3 11.5-15.5 (%) Final Platelets 04/03/2024 13:43:47 429 Above hi gh normal 140-400 (K/uL) Final MPV 04/03/2024 13:43:47 11.1 6.6-11.1 ( fL) Final Nucleated erythrocytes/100 leukocytes [Ratio] in Blood by Automated count 04/03/2024 13:43:47 0 <=0 (/100 WBCs) Final Performing Location [facility] [place] - [address] [facility] [address]
--- OUTSIDE RECORDS SUMMARY | 2024-08-08 05:47 | External Medical Summary ---
Author Name Unknown Address Unknown Organization [id number][place] [place] [address] [facility] [address] [facility] [address] Laboratory Report Ordering Provider Test Date Status AKIN SHELLBryan 04/03/2024 13:43:47 Final Observation Date Value Abnormality Reference (Units ) Status TSH 04/03/2024 13:43:47 3.25 0.27-4.20 (uIU/mL) Final Performing Location [facility] [place] [address] [facility] [address]
--- OUTSIDE RECORDS SUMMARY | 2024-08-08 05:47 | External Medical Summary ---
Author Name Unknown Address Unknown Organization [id number][place] [place] [address] [facility] [address] [facility] [address] Laboratory Report Ordering Provider Test Date Status AKIN SHELLBryan 04/03/2024 13:43:47 Final Observation Date Value Abnormality Reference (Units ) Status Ferritin 04/03/2024 13:43:47 402 Above high normal 13 -150 (ng/mL) Final Postmenopausal women have hi gher ferritin levels than pre-menopausal women. The above reference interval is based on pre-menopausal women. Performing Location [facility] [address] [facility] [address]
--- OUTSIDE RECORDS SUMMARY | 2024-08-08 05:47 | External Medical Summary | Summary of Care ---
Author Name Unknown Organization [facility] Address [address] [place] [address] Phone [phone] Care Team Providers Care Formwork Carpenter Name Role Phone SoilaJoyce lewis Jennifer JC Primary Care Provider Encounter Details Date Type Department Care Team (Late st Contact Info) Description 03/16/2024 11:30 AM EDT Nurse Only Ancillary [facility] [address] [place] [address] [facility] Nurse [facility] [address] [place] [address] Arrived Allergies Active Allergy Reactions Criticality Noted Date [...] Family Practice [facility] [address] [facility] [place] [address] Myah Valdivia CRNP [address] [place] [address] 04/13/2024 1:15 PM EDT Nurse Only Nutrition & Weight Management, [facility] [address] [place] [address] Nurse Evelina Matos Nutrition [facility] [address] [facility] [place] [address] 04/17/2024 11:30 AM EDT Imaging Radiology [facility] 1st Floor, [place] [address] [place] [address] 07/12/2024 9:45 AM EST Office Visit Gynecology/Obstetrics [facility] [address] [place] [address] Sarina Herrera, [employer] [address] [place] [address] Scheduled Procedures Name Priority Associated Diagnoses Date/Ti [...] Documents on File Type Date Recorded Patient Supervisor Putty And Caluking Expl anation Advance Directives and Living Will 03/22/2005 Power of Histology Aide 03/22/2005 * No Code Status (Latest Code Status on File) Date Activated Date Inactivated Comments 03/22/2005 10:26 AM 03/22/2005 10:26 AM Care Teams Formwork Carpenter Relationship Specialty Start Date End Date Joyce Dorantes DO [address] [place] [address] PCP - General Family Medicine 12/23/15 documented as of this encounter
--- OUTSIDE RECORDS SUMMARY | 2024-08-08 05:47 | External Medical Summary | Summary of Care ---
Author Name Unknown Organization [facility] Address [address] [place] [address] Phone [phone] Care Team Providers Care Freight Team Associate Name Role Phone Joyce Dorantes DO Primary Care Provider Reason for Visit * Reason Onset Date Comments Appointment 12/27/2023 Encounter Details Date Type Department Care Team (Late st Contact Info) Description 12/27/2023 Telephone Family Practice [facility] [address] [facility] [address] Joyce Dorantes DO [address] [place] [address] Appointment Allergies Active Allergy Reactions Criticality Noted Date Comments Morphine And Codeine High 08/13/2004 lose consciousness documented as of this encounter (statuses as of 03/27/2024) Medications Medication Sig Dispensed Refills Start Date [...] & late afternoon) 30 Tablet 12/22/2023 Active documented as of this encounter (statuses as of 03/27/2024) Active Problems Problem Noted Date Diagnosed Date Cyst of left ovary 04/15/2023 Overview: Consider annual ultrasound Thalassemia minor 01/25/2022 Prediabetes 03/16/2021 Overview: Per Prediabetes protocol KENJI (obstructive sleep apnea) 02/19/2019 Intermittent asthma with reliever use up to twic e per week 09/13/2014 documented as of this encounter (statuses as of 03/27/2024) Resolved Problems Problem Noted Date Diagnosed Date [...] as of this encounter (statuses as of 03/27/2024) Immunizations Name Administration Dates Next Due COVID-19 [...] on file documented as of this encounter Miscellaneous Notes * Telephone Encounter - Antonette Noble RN - 12/27/2023 3:55 PM EDT Could we offer with Skip later in week? * Telephone Encounter - Mariama Day OSA - 12/27/2023 2:57 PM EDT Pain in right knee No Appointments Available Patient declined appointments?: No What Visit Type is needed? Acute If Acute Visit Type is needed, were surrounding clinics offered to patient (Yes/No)? Yes Was patient offered appointments with other available providers (Yes/No)? Yes See Call Details? (Yes or No): Yes documented in this encounter Plan of Treatment Upcoming Encounters Date Type Department Care Team (Late st Contact Info) Description 04/03/2024 1:00 PM EDT Office Visit Family [facility] [address] [facility] [place] [address] Myah Valdivia CRNP [address] [place] [address] 04/13/2024 1:15 PM EDT Nurse Only Nutrition & Weight Management, [facility] [address] [place] [address] [facility], Nurse Gi Nutrition [facility] [address] [facility] [place] [address] 04/17/2024 11:30 AM EDT Imaging Radiology [facility] 1st Floor, [place] [address] [place] [address] 07/12/2024 9:45 AM EST Office Visit Gynecology/Obstetrics [facility] [address] [facility] [place] [address] Sarina Herrera CRNP [address] [place] [address] Scheduled Procedures Name Priority Associated Diagnoses Date/Ti [...] Documents on File Type Date Recorded Patient Stopperer Assembler Expl anation Advance Directives and Living Will 03/22/2005 Power of Retirement Actuary 03/22/2005 * No Code Status (Latest Code Status on File) Date Activated Date Inactivated Comments 03/22/2005 10:26 AM 03/22/2005 10:26 AM Care Teams Freight Team Associate Relationship Specialty Start Date End Date Joyce Dorantes DO [address] [place] [address] PCP - General Family Medicine 12/23/15 documented as of this encounter
--- OUTSIDE RECORDS SUMMARY | 2024-08-08 05:47 | External Medical Summary ---
Author Name Unknown Address Unknown Organization [id number]:LABORATORY [facility] [place] - [address] [facility] [address] Laboratory Report Ordering Provider Test Date Status ARIADNE SEHLL 04/03/2024 13:43:47 Final Observation Date Value Abnormality Reference (Units ) Status SYNC LEUKOCYTES IN BLOOD BY AUTOMATED COUNT 04/03/2024 13:43:47 12.82 Above high normal 4.00-10.80 (K/uL) Final Neutrophils/100 leukocytes in Blood by Manual count 04/03/2024 13:43:47 64.0 40.0-75.0 (%) Final Lymphocytes/100 leukocytes in Blood by Manual count 04/03/2024 13:43:47 23.0 18.0-42.0 (%) Final Monocytes/100 leukocytes in Blood by Manual count 04/03/2024 13:43:47 11.0 1.0-11.0 (%) Final Eosinophils/100 leukocytes in Blood by Manual count 04/03/2024 13:43:47 1.0 0.0-6.0 (%) Final Basophils/100 leukocytes in Blood by Manual count 04/03/2024 13:43:47 1.0 0.0-2.0 (%) Final Neutrophils [#/volume] in Blood by Manual count 04/03/2024 13:43:47 8.20 Above high normal 1.80-7.70 (K/uL) Final Lymphocytes [#/volume] in Blood by Manual count 04/03/2024 13:43:47 2.95 1.00-4.80 (K/uL) Final Monocytes [#/volume] in Blood by Manual count 04/03/2024 13:43:47 1.41 Above high normal 0.00-1.10 (K/uL) Final Eosinophils [#/volume] in Blood by Manual count 04/03/2024 13:43:47 0.13 0.00-0.70 (K/uL) Final Basophils [#/volume] in Blood by Manual count 04/03/2024 13:43:47 0.13 0.00-0.20 (K/uL) Final Ovalocytes [Presence] in Blood by Light microscopy 04/03/2024 13:43:47 Moderate Abnormal None Seen Final Schistocytes 04/03/2024 13:43:47 Moderate Abnormal None Seen Final Variant lymphocytes [Presence] in Blood by Light microscopy 04/03/2024 13:43:47 Present Abnormal None Seen Final Performing Location LABORATORY [facility] [place] - [address] [facility] [address]
--- OUTSIDE RECORDS SUMMARY | 2024-08-08 05:47 | External Medical Summary ---
Author Name Unknown Address Unknown Organization [id number]:[facility] [place] [address] [facility] [address] Laboratory Report Ordering Provider Test Date Status ARIADNE SHELL 04/03/2024 13:43:47 Final Observation Date Value Abnormality Reference (Units) Status Pathologist review of results 04/03/2024 13:43:47 Microcytic anemia with morphologic changes suggestive of Iron Deficiency Anemia (RITA). Final Pathologist review of results 04/03/2024 13:43:47 Negative for evidence of dysplasia or malignancy. Final Pathologist review of results 04/03/2024 13:43:47 Negative for evidence of specific infection. Final Pathologist review of results 04/03/2024 13:43:47 Final Pathologist review of results 04/03/2024 13:43:47 Comment: Morphology and severely depressed retic hgb and mild thrombocytosis all support RITA. Please replete iron and if these indices fail to correct, then consider thalassemia workup. Please consider a Blood Management referral if Patient Blood Management nursing and pharmacy support is desired. Final HEMATOLOGY PATHOLOGIST 04/03/2024 13:43:47 Dr. Nikolai Mcclure MD Final Performing Location [facility] - [address] [facility] [address]
--- OUTSIDE RECORDS SUMMARY | 2024-08-08 05:47 | External Medical Summary ---
Author Name Unknown Address Unknown Organization [id number]:[facility]ATORY [facility] - [address] [place] [address] Laboratory Report Ordering Provider Test Date Status ARIADNE SHELL 04/03/2024 13:43:47 Final Observation Date Value Abnormality Reference (Units ) Status BUN 04/03/2024 13:43:47 18 6-20 (mg/dL) Final Creatinine 04/03/2024 13:43:47 0.9 0.5-1.0 (mg/dL) Final Glomerular filtration rate/1.73 sq M.predicted [Volume Rate/Area] in Serum, Plasma or Blood by Creatinine-based formula (CKD-EPI) 04/03/2024 13:43:47 82 >=60 (mL/min) Final eGFR is calculated based on the CKD-EPI 2020 equation. Sodium 04/03/2024 13:43:47 143 135-146 (m mol/L) Final Potassium 04/03/2024 13:43:47 4.1 3.5-5.1 (m mol/L) Final Cl 04/03/2024 13:43:47 102 98-107 (mm ol/L) Final CO2 04/03/2024 13:43:47 28 22-32 (mmo l/L) Final Anion gap 04/03/2024 13:43:47 13 7-15 (mmol /L) Final Glucose 04/03/2024 13:43:47 93 70-120 (mg /dL) Final Calcium 04/03/2024 13:43:47 10.1 8.4-10.2 ( mg/dL) Final Performing Location [facility]ATORY [facility] [place] [address]
--- OUTSIDE RECORDS SUMMARY | 2024-08-08 05:47 | External Medical Summary ---
Author Name Unknown Address Unknown Organization [id number]:LAB[facility]ATORY [facility] - [address] [place] [address] Laboratory Report Ordering Provider Test Date Status LORETTA COOK 04/03/2024 13:43:47 Final Observation Date Value Abnormality Reference (Units ) Status Cancer Ag 125 04/03/2024 13:43:47 13.6 <=38.1 (U/mL) Final Performing Location [facility] - [address] [place] [address]
--- OUTSIDE RECORDS SUMMARY | 2024-08-08 05:47 | External Medical Summary ---
Author Name Unknown Address Unknown Organization [id number]:[facility]ATORY [facility] [place] - [address] [facility] [address] Laboratory Report Ordering Provider Test Date Status AKIN SHELLBryan 04/03/2024 13:43:47 Final Observation Date Value Abnormality Reference (Units ) Status Prolactin [Mass/volume] in Serum or Plasma by 3rd IS 04/03/2024 13:43:47 10.4 4.8-30.0 (ng/mL) Final Prolactin level varies durin g menstrual cycle, with peak level at ovulatory phase.
Postmenopausal women have lower prolactin than premenopausal women. The reference interval for non- premenopausal women is 4.8-30 ng/mL, and for postmenopausal women is 4.0-20.0 ng/mL. Performing Location LAB[facility]ATORY [facility] [place] [facility] [address] [facility] [address]
--- OUTSIDE RECORDS SUMMARY | 2024-08-08 05:47 | External Medical Summary ---
Author Name Unknown Address Unknown Organization [id number]:LAB[facility]ATORY [facility] [place] - [address] [place] [address] Laboratory Report Ordering Provider Test Date Status ARIADNE SHELL 04/03/2024 13:43:47 Final Observation Date Value Abnormality Reference (Units ) Status Iron 04/03/2024 13:43:47 45 33-151 (ug /dL) Final Iron-binding capacity 04/03/2024 13:43:47 284 250-425 (ug/dL) Final Transferrin Sat % 04/03/2024 13:43:47 16 15 -55 (%) Final Performing Location LABORATORY [facility] [place] - [address] [place] [address]
--- OUTSIDE RECORDS SUMMARY | 2024-08-08 05:47 | External Medical Summary | Summary of Care ---
Author Name Unknown Organization [facility] Address [address] [place] [address] Phone [phone] Care Team Providers Care Landscape Architecture Professor Name Role Phone Joyce Dorantes DO Primary Care Provider [phone] Encounter Details Date Type Department Care Team (Late st Contact Info) Description 03/19/2024 Orders Only Nutrition & Weight Management, [facility] [address] [facility] [place] [address] Nata Alba PA-C [address] [place] [address] Allergies Active Allergy Reactions Criticality Noted Date Comments Morphine And Codeine High 08/13/2004 lose consciousness documented as of this encounter (statuses as of 03/19/2024) Medications Medication Sig Dispensed Refills Start Date [...] for pain.. 30 Tablet 3 01/02/2024 Active Phentermine HCl 15 MG Oral Capsule Take 1 Capsule by mouth in the morning. 30 Capsule 03/19/2024 Active documented as of this encounter (statuses as of 03/19/2024) Active Problems Problem Noted Date Diagnosed Date Cyst of left ovary 04/15/2023 Overview: Consider annual ultrasound Thalassemia minor 01/25/2022 Prediabetes 03/16/2021 Overview: Per Prediabetes protocol KENJI (obstructive sleep apnea) 02/19/2019 Intermittent asthma with reliever use up to twic e per week 09/13/2014 documented as of this encounter (statuses as of 03/19/2024) Resolved Problems Problem Noted Date Diagnosed Date [...] as of this encounter (statuses as of 03/19/2024) Immunizations Name Administration Dates Next Due COVID-19 [...] [facility] [address] [place] [address] Myah Valdivia CRNP [address] [place] [address] 04/13/2024 1:15 PM EDT Nurse Only Nutrition & Weight Management, [facility] [address] [place] [address] Nurse Carlo Gi Nutrition [facility] [address] [place] [address] 04/17/2024 11:30 AM EDT Imaging Radiology [facility] 1st [facility] [place] [address] [place] [address] 07/12/2024 9:45 AM EST Office Visit Gynecology/Obstetrics [facility] [address] [facility] [place] [address] Sarina Herrera CRNP [address] [place] [address] Scheduled Procedures Name Priority Associated Diagnoses Date/Ti [...] Documents on File Type Date Recorded Patient Mingler Operator Expl anation Advance Directives and Living Will 03/22/2005 Power of Engineering Design Manager 03/22/2005 * No Code Status (Latest Code Status on File) Date Activated Date Inactivated Comments 03/22/2005 10:26 AM 03/22/2005 10:26 AM Care Teams Landscape Architecture Professor Relationship Specialty Start Date End Date Joyce Dorantes DO [address] [place] [address] PCP - General Family Medicine 12/23/15 documented as of this encounter
--- OUTSIDE RECORDS SUMMARY | 2024-08-08 05:48 | External Medical Summary | Summary of Care ---
Author Name Unknown Organization [facility] Address [address] [place] [address] Phone [phone] Care Team Providers Care General Forecaster Name Role Phone Joyce Dorantes DO Primary Care Provider Reason for Visit * Reason Onset Date Comments Appointment 02/28/2024 Encounter Details Date Type Department Care Team (Late st Contact Info) Description 02/28/2024 Telephone Family Practice [facility] [address] [facility] [address] Joyce Dorantes DO [address] [facility] [place] [address] Appointment Allergies Active Allergy Reactions Criticality Noted Date Comments Morphine And Codeine High 08/13/2004 lose consciousness documented as of this encounter (statuses as of 02/28/2024) Medications Medication Sig Dispensed Refills Start Date [...] behind ear. 45 g 3 12/23/2023 Active buPROPion HCl ER (SR) 150 MG Oral [...] a day. 350 g 1 12/30/2023 Active Meloxicam 7.5 MG Oral Tablet (Mobic) Take 1 Tablet by mouth in the morning. for pain.. 30 Tablet 3 01/02/2024 Active documented as of this encounter (statuses as of 02/28/2024) Active Problems Problem Noted Date Diagnosed Date Cyst of left ovary 04/15/2023 Overview: Consider annual ultrasound Thalassemia minor 01/25/2022 Prediabetes 03/16/2021 Overview: Per Prediabetes protocol KENJI (obstructive sleep apnea) 02/19/2019 Intermittent asthma with reliever use up to twic e per week 09/13/2014 documented as of this encounter (statuses as of 02/28/2024) Resolved Problems Problem Noted Date Diagnosed Date [...] as of this encounter (statuses as of 02/28/2024) Immunizations Name Administration Dates Next Due COVID-19 mRNA, LNP-s, No Pre serve, 2-Dose Series (Moderna) 08/30/2020,08/06/2020 Seasonal Influenza, Quadrivalent, No Preserve, I M 04/21/2018,06/29/2016 06/29/2017 Seasonal Influenza, Split, IIV3, With Preserve, Inj 04/10/2009 documented as of this encounter Social [...] encounter Miscellaneous Notes * Telephone Encounter - Deysi Null OSA - 02/28/2024 11:24 AM EDT LM for patient that we cancelled her 11:30 for tomorrow and to keep mammo and us documented in this encounter Plan of Treatment Upcoming Encounters Date Type Department Care Team (Late st Contact Info) Description 02/29/2024 1:00 PM EDT Imaging Radiology [facility] 1st Floor, [place] [address] [address] 02/29/2024 1:30 PM EDT Imaging Radiology [facility] [address] [place] [address] 03/16/2024 9:40 AM EDT Office Visit Nutrition & Weight Management, [facility] [address] [place] [address] Nata Alba PA-C [address] [place] [address] 04/17/2024 11:30 AM EDT Imaging Radiology [facility] 1st [facility] [place] [address] [place] [address] 07/12/2024 9:45 AM EST Office Visit Gynecology/Obstetrics [facility] [address] [place] [address] Sarina Herrera CRNP [address] [place] [address] Scheduled Procedures Name Priority Associated Diagnoses Date/Ti [...] Fecal Occult Blood Test 2018 Sigmoidoscopy 2018 COVID-19 Vaccine (3 - 2022- season) 2023 08/30/2020, 08/06/2020 Zoster Vaccines (1 of 2) 10/17/2023 Lipid Panel 02/20/2024 02/19/2019, 09/02, 01/17/2009 Influenza Vaccine (FLU shot) (#1) 2024 04/21/2018, 06/29/2016, 04/10/2009 Mammogram 08/30/2024 08/30/2023, 04/03, 04/14/2023, Additional history exists Depression Screening 10/18/2024 10/19/2023 HbA1c 12/30/2024 12/31/2023, 01/01, 03/11/2021, Additional history exists Cervical Cancer Screening 03/18/2025 [...] Documents on File Type Date Recorded Patient Head Of Science Expl anation Advance Directives and Living Will 03/22/2005 Power of Human Resources Services Specialist 03/22/2005 * No Code Status (Latest Code Status on File) Date Activated Date Inactivated Comments 03/22/2005 10:26 AM 03/22/2005 10:26 AM Care Teams General Forecaster Relationship Specialty Start Date End Date Joyce Dorantes DO [address] [place] [address] PCP - General Family Medicine 12/23/15 documented as of this encounter
--- OUTSIDE RECORDS SUMMARY | 2024-08-08 05:48 | External Medical Summary | Summary of Care ---
Author Name Unknown Organization [facility] Address [address] [place] [address] Phone [phone] Care Team Providers Care Scalehouse Attendant Name Role Phone Joyce Dorantes DO Primary Care Provider Reason for Visit * Reason Onset Date Comments Order Request 02/27/2024 Encounter Details Date Type Department Care Team (Late st Contact Info) Description 02/27/2024 Telephone Family Practice [facility] [place] [address] Joyce Dorantes DO [address] [place] [address] Order Request Allergies Active Allergy Reactions Criticality Noted Date Comments Morphine And Codeine High 08/13/2004 lose consciousness documented as of this encounter (statuses as of 02/27/2024) Medications Medication Sig Dispensed Refills Start Date [...] as of this encounter (statuses as of 02/27/2024) Active Problems Problem Noted Date Diagnosed Date Cyst of left ovary 04/15/2023 Overview: Consider annual ultrasound Thalassemia minor 01/25/2022 Prediabetes 03/16/2021 Overview: Per Prediabetes protocol KENJI (obstructive sleep apnea) 02/19/2019 Intermittent asthma with reliever use up to twic e per week 09/13/2014 documented as of this encounter (statuses as of 02/27/2024) Resolved Problems Problem Noted Date Diagnosed Date [...] 09 01/25/2022 Low grade squamous intraepithelial dysplasia 01/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 Pt states that she is due for her mammogram and would like an order placed. Pt reports that she has been having right nipple pain that it intermittent every day along with yellow discharge from the nipple. Did you want to see pt before she has the mammogram? Order pend below for the mammogram. * Telephone Encounter - Abeba Day OSA - 02/27/2024 12:01 PM EDT An order was requested for this patient. Name of Requesting Provider: patient Order Requested: yearly mammogram Diagnosis/Reason for Request: yearly If order request is for Mammogram: Is the patient having any breast symptoms? Yes Is there a chance of ? No Has the patient had any breast problems in the past? No What location AND department does the patient wish to have their order completed at? [facility] Fax Number, if applicable: patient is having breast problems If the caller is not a current patient, please advise the patient to call their current PCP to havethe order's prior to being seen in our office. The patient was informed that our providers would not order anything (medication, labs, etc.) prior to being seen. documented in this encounter Plan of Treatment Upcoming Encounters Date Type Department Care Team (Late st Contact Info) Description 02/29/2024 11:30 AM EDT [facility] [place] [address] 02/29/2024 1:00 PM EDT Imaging Radiology [address] [place] [address] 03/16/2024 9:40 AM EDT Office Visit Nutrition & Weight Management, [facility] [address] [place] [address] Nata Alba PA-C [address] [place] [address] 04/17/2024 11:30 AM EDT Imaging Radiology [address] [place] [address] 07/12/2024 9:45 AM EST Office Visit Gynecology/Obstetrics [facility] [address] [place] [address] Sarina Herrera CRNP [address] [place] [address] Scheduled Orders Name Type Priority Associated Diagnoses Orde r Schedule MAMMOGRAM SCREENING ARMANDO BILATERAL Medical Imaging Routine Encounter for screening mammogram for breast cancer Expected: 02/28/2024, Expires: 03/29/2025 MAMMOGRAM DIAGNOSTIC RIGHT Medical Imaging Routine Nipple pain Nipple discharge Ordered: 02/27/2024 US BREAST LIMITED RIGHT Medical Imaging Routine Nipple pain Nipple discharge Ordered: 02/27/2024 Scheduled Procedures Name Priority Associated Diagnoses Date/Ti me COLONOSCOPY FLEXIBLE PROXIMA L DIAGNOSTIC Recall Special screening for malignant neoplasms, colon Health Maintenance Due Date Last Done Comments Pneumococcal Vaccine: Pediatrics (0 to 5 Years) and At-Risk Patients (6 to 64 Years) (1 of 2 - PCV) 10/17/1979 Hepatitis C Screening 10/17/1991 DTaP,Tdap,and Td Vaccines (1 - Tdap) 1992 Hepatitis B Vaccine (1 of 3 - 19+ 3-dose series) 1992 HPV/Co-Test 10/17/2003 Cologuard 2018 Fecal Occult Blood Test 2018 Sigmoidoscopy 2018 COVID-19 Vaccine (3 - 2022- season) 2023 08/30/2020, 08/06/2020 Zoster Vaccines (1 of 2) 10/17/2023 Lipid Panel 02/20/2024 02/19/2019, /09/2010, 01/17/2009 Influenza Vaccine (FLU shot) (#1) 2024 [...] as of this encounter Visit Diagnoses Diagnosis Encounter for screening mammogram for breast cancer- Primary Nipple pain Mastodynia Nipple discharge Other sign and symptom in breast documented in this encounter Advance Directives Documents on File Type Date Recorded Patient Utility Bill Collector Expl anation Advance Directives and Living Will 03/22/2005 Power of Branch Service Representative 03/22/2005 * No Code Status (Latest Code Status on File) Date Activated Date Inactivated Comments 03/22/2005 10:26 AM 03/22/2005 10:26 AM Care Teams Scalehouse Attendant Relationship Specialty Start Date End Date Joyce Dorantes DO [address] [place] [address] PCP - General Family Medicine 12/23/15 documented as of this encounter
[2024-08-08 06:48] LABS: Hypochromasia Present; Microcytosis Present
[2024-08-08] MEDS: ACETAMINOPHEN 325 MG TAB PO PRN (07:44)
--- NOTE | 2024-08-08 11:48 | Surgery Consultation ---
Date of Consultation August 08, 2024 Assessment & Plan (1) Diverticulitis of intestine with perforation and abscess: 48-year-old female with vague intermittent lower abdominal pain for the past 2 to 3 months found to have complicated diverticulitis of the sigmoid colon with phlegmon and small abscess on outpatient CT scan of the abdomen and pelvis. There is question of possible fistula to the bladder however patient has no concerning symptoms for fistula. Her leukocytosis has resolved. Her pain is minimal at this time. Will discuss with IR team about possibly IR drainage of the abscess. She will require at least 3 to 4 days of IV antibiotics and transition to oral antibiotics for 2 weeks. Will like to need to repeat CT scan in 1 week to assess response to antibiotic therapy. She will need a colonoscopy in 6 to 8 weeks once through the acute phase. She may require colorectal evaluation given concern for possible fistula however this can be reassessed after repeating CT scan. No acute surgical or intervention required at this time. Would continue medical management. Keep NPO. IV Zosyn, antiemetics and pain management as needed. Will follow along. Dr. Jara has seen patient and agrees with above. Supervising Physician Co-Signing Physician Notes I have seen and examined the patient personally and agree with the above assessment and plan. In brief, she had vague intermittent abdominal pain in the lower abdomen on the left side for the past few months. CT scan demonstrates complicated diverticulitis with abscess and possible fistula to the bladder. She has no white blood cell count elevation at this time. Minimal tenderness to palpation in the lower right and left quadrants. No surgical intervention required at this time. We will talk with the IR team for possible IR drain placement into the abscess which measures up to 4.7 cm. Continue IV antibiotics. Will continue to follow. If no improvement she will require repeat CT scan. History of Present Illness Reason for Consultation: Sigmoid diverticulitis with abscess, possible fistula Requesting Physician: Dr. Wong Attending Physician: John Triana MD History of Present Illness 48-year-old female with a history of morbid obesity, obstructive sleep apnea, PCOS, asthma presented to the emergency room due to abnormal CT scan of abdomen pelvis showing diverticulitis with abscess. Patient states that she has had some vague lower abdominal pain off and on for the past 2 to 3 months. This all started with a displaced IUD which prompted MRI imaging which showed phlegmon changes surrounding the sigmoid colon and then prompted a CT scan of the abdomen and pelvis as an outpatient to further evaluate which showed sigmoid diverticulitis with phlegmon and small abscess up to 47 mm extending to the an terior abdominal wall musculature and possibly abutting the dome of the bladder. She states the abdominal pain is very vague and otherwise has been feeling okay. She has denied any fevers, chills, nausea, vomiting. She denies of any recurrent UTIs, blood in the urine, stool in the urine or passing any gas in the urine stream. She denies of any diarrhea, bowel changes or blood in the stools. States she had a colonoscopy 4 years ago which showed diverticulosis and she was placed on oral antibiotics at the time however she has had no history of acute diverticulitis with prior admissions. History of a no other abdominal surgeries.Currently states she is feeling good pain is minimal in the lower abdomen only upon examination. She denies of any fevers or chills currently. Allergies Allergy/AdvReac Type Severity Reaction Status Date / Time codeine Allergy Mild Unknown Unverified 08/07/24 21:57 Home Medications Medication Instructions Recorded Confirmed Type levonorgestrel 21 mcg/24 hr (up to 1 device intrauterine UNKNOWN 02/19/20 08/07/24 History 8 years) 52 mg intrauterine device (Mirena) mometasone 50 mcg/actuation nasal 2 spray intranasal DAILY PRN 02/19/20 08/07/24 History spray (Nasonex) unknown multivitamin 1 cap PO DAILY 02/19/20 08/07/24 History bupropion HCl 150 mg tablet,12 hr 150 mg PO DAILY 08/07/24 08/07/24 History sustained-release meloxicam 7.5 mg tablet 7.5 mg DAILY 08/07/24 08/07/24 History phentermine 15 mg capsule 15 mg DAILY 08/07/24 08/07/24 History naltrexone 50 mg tablet 25 mg PO DAILY 08/08/24 08/08/24 History Patient History Surgical History Hx of dilation and curettage Hx of section H/O knee surgery (02/21/13) anterior cruciate Family History Grandmother (Paternal) Diabetes Mother Hyperlipidemia Father No problems noted. Social History Smoking Status: Never smoker Second Hand Exposure: No; Do You Dip or Chew Tobacco: No; Tobacco Cessation Education Requested by Patient: No Hx Alcohol Use: No Hx Substance Use: No Preferred Language: Kyrgyz Communication Ability: Effective Market Basket Maker Required: No Beliefs That Will Affect Care: None marital status: Current Living Situation: Spouse current occupational status: employed How many Children do You have: 1 How many Children do You have Comment: son Other Information That Helps Us Care for You: No Feels Safe at Home: Yes Safety Concerns: Feels Safe At This Time Assistive Devices: CPAP and Glasses Review of Systems Review of Systems: All systems reviewed & are unremarkable except as noted in HPI & below Physical Exam Constitutional: WD/WN, vitals as above + obese, cooperative and comfortable; no acute distress and not ill appearing Respiratory: normal respiratory effort, lungs clear to auscultation Cardiovascular: RRR, no murmur, no edema Gastrointestinal (Abdomen): Inspection/Auscultation: abdomen normal to inspection; abdomen not distended Percussion/Palpation: + abdomen tender (LLQ into suprapubic region) and abdomen soft; no guarding, abdomen not rigid and abdomen not firm Skin: no rashes, warm and dry Psychiatric: A+Ox3, euthymic affect Results & Data Vital Signs (Past 12 Hours) Vital Signs Temp Pulse Pulse Resp BP BP Pulse Ox 08/08/24 11:24 36.8 C 66 17 112/60 96 08/08/24 07:45 37.1 C 64 18 130/70 98 08/08/24 07:09 69 08/08/24 05:56 108/70 08/08/24 05:54 68 16 96 08/08/24 05:30 55 L 17 96 08/08/24 05:03 64 19 93 08/08/24 04:30 60 18 93 08/08/24 04:06 95 08/08/24 03:30 63 18 94 08/08/24 03:00 65 23 94 08/08/24 02:46 65 18 150/77 H 97 08/08/24 02:03 68 24 94 08/08/24 01:36 62 08/08/24 01:33 65 24 96 08/08/24 01:03 70 20 92 08/08/24 00:46 70 20 110/67 95 08/08/24 00:46 08/08/24 00:30 66 19 94 08/08/24 00:09 68 23 96 08/07/24 23:58 110/67 Pulse Ox O2 Del Method O2 Del Method 08/08/24 11:24 Room Air 08/08/24 07:45 Room Air 08/08/24 07:09 08/08/24 05:56 08/08/24 05:54 Room Air 08/08/24 05:30 08/08/24 05:03 08/08/24 04:30 08/08/24 04:06 08/08/24 03:30 08/08/24 03:00 08/08/24 02:46 Room Air 08/08/24 02:03 08/08/24 01:36 08/08/24 01:33 08/08/24 01:03 08/08/24 00:46 Room Air 08/08/24 00:46 95 Room Air 08/08/24 00:30 08/08/24 00:09 08/07/24 23:58 Laboratory Results 08/08/24 08/07/24 08/07/24 Range/Units 04:12 18:55 18:40 WBC 9.78 13.85 H (4.8-10.8) K/ul RBC 5.31 5.85 H (4.20-5.40) M/uL Hgb 10.0 L 11.2 L (12.0-16.0) g/dl Hct 32.5 L 35.5 L (37.0-47.0) % MCV 61.2 L 60.7 L (80.0-100.0) fL MCH 18.8 L 19.1 L (25.0-34.0) pg MCHC 30.8 L 31.5 L (32.0-36.0) g/dL RDW Std Deviation 36.0 L 35.3 L (36.4-46.3) fL RDW Coeff of Teodoro 18.3 H 18.6 H (11.5-14.5) % Plt Count 315 348 (130-400) K/uL MPV 10.7 10.2 (9.4-12.4) fL Immature Gran % (Auto) 0.9 % Neut % (Auto) 70.3 % Lymph % (Auto) 21.0 % [place] % (Auto) 6.4 % Eos % (Auto) 1.0 % Baso % (Auto) 0.4 % Neut # (Auto) 9.74 H (1.40-6.50) K/uL Lymph # (Auto) 2.91 (1.20-3.40) K/uL [place] # (Auto) 0.89 H (0.11-0.59) K/uL Eos # (Auto) 0.14 (0.00-0.50) K/uL Baso # (Auto) 0.05 (0.00-0.20) K/uL Immature Gran # (Auto) 0.12 (0.01-0.20) K/uL Hypochromasia Present Anisocytosis Present Microcytosis Present Tear Drop Cells 1+ Ovalocytes 1+ Sodium 140 137 (136-145) mmol/L Potassium 3.9 3.7 (3.5-5.1) mmol/L Chloride 107 102 (98-107) mmol/L Carbon Dioxide 28 26 (21-32) mmol/L Anion Gap 5 9 (3-11) BUN 13 17 (6-23) mg/dl Creatinine 0.79 0.76 (0.6-1.2) mg/dl Est Cr Clr Drug Dosing 94.9 98.6 ml/min eGFR 91.07 95.40 BUN/Creatinine Ratio 16.5 22.4 H (10-20) Glucose 108 H 96 (70-99(Fasting)) mg/dl Lactate 1.2 (0.4-2.0) mmol/L Calcium 9.1 9.6 (8.6-10.3) mg/dl Phosphorus 4.2 (2.5-4.9) mg/dl Magnesium 1.8 1.9 (1.7-2.4) mg/dl Total Bilirubin 0.6 (0.2-1.0) mg/dl Direct Bilirubin 0.1 (0-0.2) mg/dl AST 13 (13-39) U/L ALT 16 (7-52) U/L Alkaline Phosphatase 83 (34-104) U/L Troponin I High Sens 3.0 (0-14) pg/ml Total Protein 8.0 (6.0-8.3) gm/dl Albumin 4.4 (3.4-5.0) gm/dl Procalcitonin 0.02 (0-0.5) ng/ml Urine Color Yellow Urine Appearance Clear (Clear) Urine pH 6.0 (4.5-7.5) Ur Specific [place] > 1.045 H (1.000-1.030) Urine Protein Negative (Negative) Urine Glucose (UA) Negative (Negative) Urine Ketones Negative (Negative) Urine Blood Negative (Negative) Urine Nitrite Negative (Negative) Urine Bilirubin Negative (Negative) Urine Urobilinogen Negative (Negative) Ur Leukocyte Esterase Negative (Negative) Diagnostic Findings CT abdomen and pelvis COMPARISON 08/03/2024, 01/01/2021, 12/12/2020 FINDINGS LOWER CHEST: HEART(visualized): Within normal limits. LUNG BASES: Stable right middle lobe subpleural 4 mm nodule compared with 12/12/2020, consistent with benign etiology. ABDOMEN/PELVIS: LINES AND DEVICES: None. LIVER: Within normal limits. BILE DUCTS: Within normal limits. GALLBLADDER: No calcified gallstones. PANCREAS: Within normal limits. SPLEEN: Within normal limits. ADRENALS: Stable mild nodularity of the left adrenal gland consistent with mild adenomatous changes. No right adrenal nodule. KIDNEYS/URETERS: Within normal limits. BLADDER: Marked left anterior bladder dome wall thickening confluent with an adjacent air containing abscess and fistula to adjacent proximal sigmoid colon and surrounding phlegmon left (axial image 117 through 131 series 2). The left anterolateral bladder wall measures up to 24 mm in thickness and hyper enhances, likely infectious/inflammatory in etiology favored over neoplastic process. BOWEL: Diverticulosis coli is present. At the level of the proximal to mid sigmoid colon, there is paracolic fatty stranding and anterior pelvic phlegmon suggesting acute diverticulitis. Extending between the medial aspect of the sigmoid colon, the left anterolateral bladder, and anterior abdominal wall, there is a 20 x 47 mm air containing rim enhancing collection consistent with an abscess (image 368 series 8). Inflammation about the abscess extends into the anterior abdominal wall musculature. Fistula between the bladder and sigmoid colon is present (image 119 series 2 and image 99 series 6). Findings most likely represent acute diverticulitis with perforation and abscess formation. GI consultation is suggested. There is no bowel obstruction at this time. Appendix is within normal limits. A small hiatal hernia is present. LYMPH NODES: Subcentimeter mesocolic lymph nodes are present, most likely reactive. VESSELS: No abdominal aortic aneurysm. Mild calcified atherosclerotic changes. REPRODUCTIVE ORGANS: Malpositioned IUD located in the cervix with the arms probably extending into the low uterine segment myometrium. Bilateral stable ovarian masses, possibly fibromas/thecomas as seen on prior MRIs. PERITONEUM/RETROPERITONEUM: Anterior pelvic abscess as above. No free intraperitoneal air or ascites is appreciated. ABDOMINAL WALL/SOFT TISSUES: Small fatty umbilical hernia. BONES: Multilevel degenerative disc disease. Grade 1 anterolisthesis and bilateral spondylolysis at L5-S1. IMPRESSION IMPRESSION Findings suggesting acute diverticulitis with perforation and abscess formation. Abscess measures 20 x 47 mm. Surrounding inflammatory phlegmon and suggestion of fistula between the sigmoid colon, left bladder, and anterior abdominal wall musculature. GI/surgical consultation is recommended. Marked bladder wall thickening and hyperenhancement, likely secondary to above process. Follow-up is advised to exclude a bladder mass. Malpositioned IUD. Other chronic findings as above. I personally reviewed outpatient ct scan images and concur with above findings
[2024-08-08] MEDS: MELOXICAM 7.5 MG TAB PO SCH (15:10)
[2024-08-08] MEDS: buPROPion SR 150 MG TABCR PO SCH (15:10)
[2024-08-08] MEDS: NALTREXONE HCL 50 MG TAB PO SCH (15:59)
--- NOTE | 2024-08-08 17:04 | Hospitalist Progress Note ---
Date of Service August 08, 2024 Assessment & Plan (1) Diverticulitis: Plan 08/07/[address] scan of abdomen pelvis w/ iv and oral contrast findings: Findings suggesting acute diverticulitis with perforation and abscess formation. Abscess measures 20 x 47 mm. Surrounding inflammatory phlegmon and suggestion of fistula between the sigmoid colon, left bladder, and anterior abdominal wall musculature. GI/surgical consultation is recommended. Marked bladder wall thickening and hyperenhancement, likely secondary to above process. Follow-up is advised to exclude a bladder mass. Malpositioned IUD. Pt is being managed for the following: Diverticulitis/abscess Sepsis POA: Secondary to above. WBC and heart rate elevated at presentation. Lactate WNL, Pro-Michael WNL. Patient referred to the ED due to abnormal outpatient CTAP. See above. Patient reports low-grade lower abdominal pain for months, denies fever. N.p.o., IV fluids, Zosyn, general surgery consult Reach out to IR in a.m. if abscess can be drained percutaneously. Follow admitting blood culture. Chronic anemia, history of thalassemia minor: Hemoglobin 11.2 at presentation, about baseline. Monitor. Malpositioned IUD: Follow-up with gynecology as an outpatient. Obesity Class III: Pt takes buproprion, naltrexone and phentermine for wt loss; hold these meds during acute illness. Other chronic medical conditions: Chronic pain of both knees, polyarthralgia - continue with/resume home meds as and when able. Medications reviewed with the patient: albuterol as needed, bupropion 150 Mg daily, diclofenac gel daily to both knees, Flonase as needed, meloxicam 7.5 Mg daily in the morning, naltrexone 25 Mg daily, phentermine 15 Mg daily. DVT prophylaxis: SCDs, Re: likely procedure tomorrow. Full code Admission and Anticipated Discharge Date Admission Date: August 07, 2024 Results & Data Results & Data Vital Signs (Past 12 Hours) Vital Signs Temp Pulse Pulse Resp BP BP Pulse Ox 08/08/24 14:23 08/08/24 14:00 64 27 H 129/74 08/08/24 13:51 62 22 08/08/24 13:42 62 26 H 08/08/24 13:36 65 24 08/08/24 13:12 62 23 08/08/24 12:45 63 18 08/08/24 12:33 63 27 H 08/08/24 12:21 67 16 08/08/24 12:12 66 27 H 08/08/24 12:09 63 19 08/08/24 11:57 62 18 08/08/24 11:24 112/60 08/08/24 11:24 36.8 C 66 17 112/60 96 08/08/24 07:45 37.1 C 64 18 130/70 98 08/08/24 07:25 130/70 08/08/24 07:09 69 08/08/24 05:56 108/70 08/08/24 05:54 68 16 96 08/08/24 05:30 55 L 17 96 O2 Del Method 08/08/24 14:23 Room Air 08/08/24 14:00 08/08/24 13:51 08/08/24 13:42 08/08/24 13:36 08/08/24 13:12 08/08/24 12:45 08/08/24 12:33 08/08/24 12:21 08/08/24 12:12 08/08/24 12:09 08/08/24 11:57 08/08/24 11:24 08/08/24 11:24 Room Air 08/08/24 07:45 Room Air 08/08/24 07:25 08/08/24 07:09 08/08/24 05:56 08/08/24 05:54 Room Air 08/08/24 05:30
[2024-08-09] MEDS: ADVANCED PROBIOTIC 625 MG CAPSULE PO SCH (09:44)
[2024-08-09 10:23] LABS: Basophils # (auto) 0.04 K/uL (0.00-0.20); Basophils % (auto) 0.4 %; Eosinophils # (auto) 0.13 K/uL (0.00-0.50); Eosinophils % (auto) 1.3 %; Hemoglobin 10.5 g/dl (12.0-16.0); Immature Granulocytes # (auto) 0.08 K/uL (0.01-0.20); Immature Granulocytes % (auto) 0.8 %; Lymphocytes # (auto) 2.31 K/uL (1.20-3.40); Lymphocytes % (auto) 23.8 %; Mean Corpuscular Hemoglobin 19.1 pg (25.0-34.0); Mean Corpuscular Hgb Conc 30.9 g/dL (32.0-36.0); Mean Corpuscular Volume 61.7 fL (80.0-100.0); Monocytes # (auto) 0.62 K/uL (0.11-0.59); Monocytes % (auto) 6.4 %; Neutrophils # (auto) 6.53 K/uL (1.40-6.50); Neutrophils % (auto) 67.3 %; Red Blood Count 5.51 M/uL (4.20-5.40); White Blood Count 9.71 K/ul (4.8-10.8)
--- NOTE | 2024-08-09 10:28 | Surgery Progress Note ---
Date of Service August 09, 2024 Assessment & Plan (1) Diverticulitis of intestine with perforation and abscess: Plan: 48-year-old female with vague intermittent lower abdominal pain for the past 2 to 3 months found to have complicated diverticulitis of the sigmoid colon with phlegmon and small abscess on outpatient CT scan of the abdomen and pelvis. There is question of possible fistula to the bladder however patient has no concerning symptoms for fistula. Her leukocytosis has resolved. Her pain is minimal at this time. 08/09/2024 avss abdominal pain stable no leukocytosis Plan: She will require at least 3 to 4 days of IV antibiotics and transition to oral antibiotics for 2 weeks. Will likely need to repeat CT scan in 1 week to assess response to antibiotic therapy. She will need a colonoscopy in 6 to 8 weeks once through the acute phase. She may require colorectal evaluation given concern for possible fistula however this can be reassessed after repeating CT scan. No acute surgical or intervention required at this time. continue medical management. IV Zosyn, antiemetics and pain management as needed. Okay for low fiber diet. Will follow along. Dr. Jara has seen patient and agrees with above. Admission and Anticipated Discharge Date Admission Date: August 07, 2024 Subjective feeling good no n,v no chills or fevers pain minimal in lower abdomen loose stools with the antibiotics Physical Exam Constitutional: WD/WN, vitals as above + obese, cooperative and comfortable; no acute distress and not ill appearing Gastrointestinal (Abdomen): Inspection/Auscultation: abdomen normal to inspection; abdomen not distended Percussion/Palpation: + abdomen tender (mild in the LLQ) and abdomen soft; no guarding, abdomen not rigid and abdomen not firm Skin: no rashes, warm and dry Psychiatric: Orientation: alert and oriented x 3 Results & Data Vital Signs (Past 12 Hours) Vital Signs Temp Pulse Pulse Pulse Resp BP Pulse Ox 08/09/24 07:43 36.7 C 69 16 118/76 97 08/09/24 07:32 08/09/24 07:21 80 08/09/24 04:00 36.7 C 65 18 110/63 98 08/09/24 00:00 36.9 C 71 18 110/70 97 O2 Del Method 08/09/24 07:43 Room Air 08/09/24 07:32 Room Air 08/09/24 07:21 08/09/24 04:00 CPAP 08/09/24 00:00 CPAP Laboratory Results 08/09/24 Range/Units 10:05 WBC 9.71 (4.8-10.8) K/ul RBC 5.51 H (4.20-5.40) M/uL Hgb 10.5 L (12.0-16.0) g/dl Hct 34.0 L (37.0-47.0) % MCV 61.7 L (80.0-100.0) fL MCH 19.1 L (25.0-34.0) pg MCHC 30.9 L (32.0-36.0) g/dL RDW Std Deviation 36.0 L (36.4-46.3) fL RDW Coeff of Teodoro 18.0 H (11.5-14.5) % Plt Count Pending Immature Gran % (Auto) 0.8 % Neut % (Auto) 67.3 % Lymph % (Auto) 23.8 % [place] % (Auto) 6.4 % Eos % (Auto) 1.3 % Baso % (Auto) 0.4 % Neut # (Auto) 6.53 H (1.40-6.50) K/uL Lymph # (Auto) 2.31 (1.20-3.40) K/uL [place] # (Auto) 0.62 H (0.11-0.59) K/uL Eos # (Auto) 0.13 (0.00-0.50) K/uL Baso # (Auto) 0.04 (0.00-0.20) K/uL Immature Gran # (Auto) 0.08 (0.01-0.20) K/uL Sodium Pending Potassium Pending Chloride Pending Carbon Dioxide Pending Anion Gap Pending BUN Pending Creatinine Pending Est Cr Clr Drug Dosing Pending eGFR Pending BUN/Creatinine Ratio Pending Glucose Pending Calcium Pending Iron Pending Vitamin B12 Pending Folate Pending
[2024-08-09 10:37] LABS: BUN Creatinine Ratio 11.1 (10-20); Calcium 9.6 mg/dl (8.6-10.3); Creatinine Clr Calc Pharmacy 91.7 ml/min; Potassium 4.1 mmol/L (3.5-5.1)
[2024-08-09 10:39] LABS: Mean Platelet Volume 9.9 fL (9.4-12.4); Platelet Count 299 K/uL (130-400)
[2024-08-09 10:41] LABS: Microcytosis Present; Ovalocytes 1+; Polychromasia 1+; Tear Drop Cells 1+
[2024-08-09 11:03] LABS: Folate (Folic Acid),Ser orPlas 12.8 ng/ml (>5.38)
--- NOTE | 2024-08-09 11:57 | Infectious Disease Consult ---
Date of Service August 09, 2024 Telehealth Information I performed this visit using a real-time telehealth connection between my location and the patients location ([facility]). After connecting through interactive tele-video, patient was identified by name and date of and/or wristband check.Patient (or authorized healthcare account executive sales representative) was informed that this was a telemedicine visit and it was being conducted confidentially over secure lines. My office door was closed and no one else was present in the room with me.Patient (or authorized healthcare account executive sales representative) provided consent to proceed with the visit, expressed an understanding of privacy and security of the telemedicine visit, and gave permission to have a hospital account executive sales representative in the room in order to assist with the visit and to conduct portions of the visit, as needed. I informed the patient (or authorized healthcare account executive sales representative) that I reviewed their record and presented the opportunity for them to ask any questions regarding the visit today. The patient agreed to participate. Assessment & Plan (1) Diverticulitis of intestine with perforation and abscess: (2) IUD complication: (3) Morbid obesity: Plan - Please continue of IV piptazo for today. - If by tomorrow, she remained stable and ready for discharge, can step down to oral Cipro 500 mg PO BID and Augmentin 875/125 TID for a total of 4 weeks. - She will require a repeat CT scan in 3 weeks (I ordered it in [facility] - she will get it done in [facility]). I will F/U on it and decide on further management accordingly. - Thank you for your consult. We will sign off for now. History of Present Illness History of Present Illness Ms. Mercado is a 48-year-old woman with PMHx of prediabetes, intermittent asthma, morbid obesity, osteoarthritis and thalassemia minor who was admitted to [facility] on 08/07/[address] scan of the abdomen and pelvis done for suspected malpositioned IUD showed diverticulitis complicated with perforation and abscess. Patient reported having low-grade fever with mild abdominal pain for few months now. On presentation to the emergency department, her blood pressure was high; however, the rest of the vitals were within normal limits. Initial workup showed leukocytosis of 13.8 (ANC 9.7); the rest of blood workup was not impressive. Patient did have an MRI of the pelvis performed at [facility] on 08/03 because of her malpositioned IUD which showed large inflammatory phlegmon in the anterior pelvis between the proximal sigmoid colon and the anterior bladder dome as well as anterior abdominal wall. There was some concern for perforated diverticulitis with abscess formation. It further demonstrated bilateral solid ovarian masses. CT scan of the abdomen and pelvis was further performed on 08/07 at [facility] which was suggestive of acute diverticulitis with perforation and abscess formation as well as possible fistula between the sigmoid colon, left bladder and anterior abdominal wall. ID team was consulted for further recommendations and to help guide antibiotic treatment. Allergies Allergy/AdvReac Type Severity Reaction Status Date / Time codeine Allergy Mild Unknown Unverified 08/07/24 21:57 Home Medications Medication Instructions Recorded Confirmed Type levonorgestrel 21 mcg/24 hr (up to 1 device intrauterine UNKNOWN 02/19/20 08/07/24 History 8 years) 52 mg intrauterine device (Mirena) mometasone 50 mcg/actuation nasal 2 spray intranasal DAILY PRN 02/19/20 08/07/24 History spray (Nasonex) unknown multivitamin 1 cap PO DAILY 02/19/20 08/07/24 History bupropion HCl 150 mg tablet,12 hr 150 mg PO DAILY 08/07/24 08/07/24 History sustained-release meloxicam 7.5 mg tablet 7.5 mg DAILY 08/07/24 08/07/24 History phentermine 15 mg capsule 15 mg DAILY 08/07/24 08/07/24 History naltrexone 50 mg tablet 25 mg PO DAILY 08/08/24 08/08/24 History Patient History Surgical History Hx of dilation and curettage Hx of section H/O knee surgery (02/21/13) anterior cruciate Family History Grandmother (Paternal) Diabetes Mother Hyperlipidemia Father No problems noted. 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 Physical Exam Couldn't be performed as the consult was conducted via telemed. Results & Data Vital Signs (Past 12 Hours) Vital Signs Temp Pulse Pulse Pulse Resp BP Pulse Ox 08/09/24 11:50 36.8 C 63 16 110/73 97 08/09/24 07:43 36.7 C 69 16 118/76 97 08/09/24 07:32 08/09/24 07:21 80 08/09/24 04:00 36.7 C 65 18 110/63 98 08/09/24 00:00 36.9 C 71 18 110/70 97 O2 Del Method 08/09/24 11:50 Room Air 08/09/24 07:43 Room Air 08/09/24 07:32 Room Air 08/09/24 07:21 08/09/24 04:00 CPAP 08/09/24 00:00 CPAP Laboratory Results Microbiology: 08/07: 2 sets of blood culture negative to date Diagnostic Findings CT scan of the abdomen pelvis performed on 08/07/2024 at [facility]: Findings suggesting acute diverticulitis with perforation and abscess formation. Abscess measures 20 x 47 mm. Surrounding inflammatory phlegmon and suggestion of fistula between the sigmoid colon, left bladder, and anterior abdominal wall musculature.
--- NOTE | 2024-08-09 18:57 | Hospitalist Progress Note ---
Date of Service August 09, 2024 Assessment & Plan (1) Diverticulitis: Plan Per admitting service with addendum: 08/07/[address] scan of abdomen pelvis w/ iv and oral contrast findings: Findings suggesting acute diverticulitis with perforation and abscess formation. Abscess measures 20 x 47 mm. Surrounding inflammatory phlegmon and suggestion of fistula between the sigmoid colon, left bladder, and anterior abdominal wall musculature. GI/surgical consultation is recommended. Marked bladder wall thickening and hyperenhancement, likely secondary to above process. Follow-up is advised to exclude a bladder mass. Malpositioned IUD. Pt is being managed for the following: Diverticulitis/abscess Sepsis POA: Secondary to above. WBC and heart rate elevated at presentation. Lactate WNL, Pro-Michael WNL. Patient referred to the ED due to abnormal outpatient CTAP. See above. Patient reports low-grade lower abdominal pain for months, denies fever. N.p.o., IV fluids, Zosyn, general surgery consult Reach out to IR in a.m. if abscess can be drained percutaneously. Follow admitting blood culture. 08/09/2024 Progressing well Afebrile Right lower quadrant pain improving Blood cultures: Negative so far Evaluated by general surgery No procedures planned Recommend repeat CT abdomen pelvis in 1 week Elevated by infectious disease service Recommend 4 weeks of ciprofloxacin 5 mg p.o. twice daily and Augmentin 8 7 5 mg [address] abdomen and pelvis in 3 weeks at [facility]-to be reviewed by Dr. Gallagher infectious disease service at [facility] Anticipate discharge home tomorrow Chronic anemia, history of thalassemia minor: Hemoglobin 11.2 at presentation, about baseline. Monitor. Malpositioned IUD: Follow-up with gynecology as an outpatient. Obesity Class III: Pt takes buproprion, naltrexone and phentermine for wt loss; hold these meds during acute illness. Other chronic medical conditions: Chronic pain of both knees, polyarthralgia - continue with/resume home meds as and when able. Medications reviewed with the patient: albuterol as needed, bupropion 150 Mg daily, diclofenac gel daily to both knees, Flonase as needed, meloxicam 7.5 Mg daily in the morning, naltrexone 25 Mg daily, phentermine 15 Mg daily. DVT prophylaxis: SCDs Encouraged to ambulate frequently Patient verbalized understanding and agreement Disposition Anticipate to discharge to home tomorrow On oral antibiotics x 4 weeks Full code Admission and Anticipated Discharge Date Admission Date: August 07, 2024 Subjective Follow-up for diverticulitis with abscess, etc. Seen resting in bedside chair comfortable, in good spirits States she feels okay overall Right lower quadrant pain continues to improve Tolerating clear liquids well No fevers or chills, nausea No other new symptoms Review of Systems Review of Systems: all noted and negative except for above Physical Exam Physical Exam: General- oriented x 3, not in distress, speaks in sentences with no effort or accessory muscle use Eyes- anicteric Neck- no JVD Lungs- clear breath sounds bilaterally, no rales/wheezes Heart- normal rate, regular rhythm; no murmurs Abdomen- normal bowel sounds, nondistended, soft,Very mild tenderness right lower quadrant Extremities- no pretibial edema, no calf tenderness Neuro- alert, oriented x 3; no gross focal neurologic deficits Skin- warm & dry Results & Data Results & Data Vital Signs (Past 12 Hours) Vital Signs Temp Pulse Pulse Pulse Resp BP Pulse Ox 08/09/24 13:58 36.9 C 82 18 134/78 99 08/09/24 11:50 36.8 C 63 16 110/73 97 08/09/24 07:43 36.7 C 69 16 118/76 97 08/09/24 07:32 08/09/24 07:21 80 O2 Del Method 08/09/24 13:58 Room Air 08/09/24 11:50 Room Air 08/09/24 07:43 Room Air 08/09/24 07:32 Room Air 08/09/24 07:21 all noted and reviewed including below
--- NOTE | 2024-08-10 08:43 | Surgery Progress Note ---
Date of Service August 10, 2024 Assessment & Plan (1) Diverticulitis of intestine with perforation and abscess: Plan: 48-year-old female with vague intermittent lower abdominal pain for the past 2 to 3 months found to have complicated diverticulitis of the sigmoid colon with phlegmon and small abscess on outpatient CT scan of the abdomen and pelvis. There is question of possible fistula to the bladder however patient has no concerning symptoms for fistula. Her leukocytosis has resolved. Her pain is minimal at this time. 08/10/2024 avss abdominal pain stable no leukocytosis Plan: She will require at least 3 to 4 days of IV antibiotics and transition to oral antibiotics for 2 weeks. Will likely need to repeat CT scan in 1 week to assess response to antibiotic therapy. She will need a colonoscopy in 6 to 8 weeks once through the acute phase. She may require colorectal evaluation given concern for possible fistula however this can be reassessed after repeating CT scan. will also need urology evaluation for possible mass/fistula to bladder. No acute surgical or intervention required at this time. continue medical management. IV Zosyn, antiemetics and pain management as needed. Okay for low fiber diet. Will follow along. Admission and Anticipated Discharge Date Admission Date: August 07, 2024 Subjective doing well; no pain. tolerating low fiber diet, no N/V. no fevers Physical Exam Constitutional: WD/WN, vitals as above cooperative and comfortable; no acute distress and not ill appearing Gastrointestinal (Abdomen): Inspection/Auscultation: abdomen normal to inspection; abdomen not distended Percussion/Palpation: + abdomen tender (mild in the LLQ) and abdomen soft; no guarding, abdomen not rigid and abdomen not firm Psychiatric: A+Ox3, euthymic affect Results & Data Vital Signs (Past 12 Hours) Vital Signs Temp Pulse Resp BP Pulse Ox O2 Del Method 08/10/24 07:00 36.9 C 65 16 104/64 97 Room Air 08/09/24 21:07 36.5 C 80 18 129/82 98 Room Air
[2024-08-10] MEDS: FERROUS SULFATE 325 MG TAB PO SCH (08:51)
--- NOTE | 2024-08-10 17:11 | Hospitalist Progress Note ---
Date of Service August 10, 2024 Assessment & Plan (1) Diverticulitis: Plan Per admitting service with addendum: 08/07/[address] scan of abdomen pelvis w/ iv and oral contrast findings: Findings suggesting acute diverticulitis with perforation and abscess formation. Abscess measures 20 x 47 mm. Surrounding inflammatory phlegmon and suggestion of fistula between the sigmoid colon, left bladder, and anterior abdominal wall musculature. GI/surgical consultation is recommended. Marked bladder wall thickening and hyperenhancement, likely secondary to above process. Follow-up is advised to exclude a bladder mass. Malpositioned IUD. Pt is being managed for the following: Diverticulitis/abscess Sepsis POA: Secondary to above. WBC and heart rate elevated at presentation. Lactate WNL, Pro-Michael WNL. Patient referred to the ED due to abnormal outpatient CTAP. See above. Patient reports low-grade lower abdominal pain for months, denies fever. N.p.o., IV fluids, Zosyn, general surgery consult Reach out to IR in a.m. if abscess can be drained percutaneously. Follow admitting blood culture. 08/09/2024 Progressing well Afebrile Right lower quadrant pain improving Blood cultures: Negative so far Evaluated by general surgery No procedures planned Recommend repeat CT abdomen pelvis in 1 week Elevated by infectious disease service Recommend 4 weeks of ciprofloxacin 5 mg p.o. twice daily and Augmentin 8 7 5 mg [address] abdomen and pelvis in 3 weeks at [facility]-to be reviewed by Dr. Gallagher infectious disease service at [facility] [address] 08/10 stable overall continue IV Zosyn Anticipate discharge home tomorrow Chronic anemia, history of thalassemia minor: Hemoglobin 11.2 at presentation, about baseline. Monitor. Malpositioned IUD: Follow-up with gynecology as an outpatient. Obesity Class III: Pt takes buproprion, naltrexone and phentermine for wt loss; hold these meds during acute illness. Other chronic medical conditions: Chronic pain of both knees, polyarthralgia - continue with/resume home meds as and when able. Medications reviewed with the patient: albuterol as needed, bupropion 150 Mg daily, diclofenac gel daily to both knees, Flonase as needed, meloxicam 7.5 Mg daily in the morning, naltrexone 25 Mg daily, phentermine 15 Mg daily. DVT prophylaxis: SCDs Encouraged to ambulate frequently Patient verbalized understanding and agreement Disposition Anticipate to discharge to home tomorrow On oral antibiotics x 4 weeks Full code Admission and Anticipated Discharge Date Admission Date: August 07, 2024 Subjective delayed entry date of service noted above seen resting in bed, comfortable in good spirits states she continues to feel improved overall less LLQ pain tolerating diet well no problems with BM Review of Systems Review of Systems: all noted and negative except for above Physical Exam Physical Exam: General- oriented x 3, not in distress, speaks in sentences with no effort or accessory muscle use Eyes- anicteric Neck- no JVD Lungs- clear breath sounds bilaterally, no rales/wheezes Heart- normal rate, regular rhythm; no murmurs Abdomen- normal bowel sounds, nondistended, soft, nontender Extremities- no pretibial edema, no calf tenderness Neuro- alert, oriented x 3; no gross focal neurologic deficits Skin- warm & dry Results & Data Results & Data Vital Signs (Past 12 Hours) Vital Signs Temp Pulse Resp BP Pulse Ox O2 Del Method 08/10/24 14:11 36.8 C 73 16 117/75 98 Room Air 08/10/24 07:00 36.9 C 65 16 104/64 97 Room Air all noted and reviewed including below
[2024-08-11 06:50] VITALS: RESP 18; O2SAT 97
--- NOTE | 2024-08-11 08:06 | Surgery Progress Note ---
Date of Service August 11, 2024 Assessment & Plan (1) Diverticulitis of intestine with perforation and abscess: Plan: tolerating low fiber diet without n/v or increase in abd pain having BMs and passing flatus vss, afebrile, labs pending started on IV zosyn 08/07/24 , ok to transition to oral antibiotics and continue for 2 weeks on d/c Has o/p repeat ct scheduled and o/p pcp appt. She will need a colonoscopy in 6 to 8 weeks If WBC wnl pt stable for d/c from a gen surgical standpoint Admission and Anticipated Discharge Date Admission Date: August 07, 2024 Supervising Physician Co-Signing Physician Notes pnt S&E, labs reviewed, agree with above. admitted with diverticulitis w/ abscess/phlegmon, responding to abx. tolerating low fiber diet, okay to d/c, cont oral abx, repeat ct in 3 weeks. outpnt colonoscopy in 2-3 months. Subjective pt denies urinary symptoms (dysuria , discolored urine, foul smell), CP , sob Abd discomfort tolerable Review of Systems Constitutional: no fever and no chills Respiratory: no dyspnea Cardiovascular: no chest pain Gastrointestinal: + abdominal pain; no nausea and no vomit ing Genitourinary: no dysuria, no urinary frequency and no problem reported Musculoskeletal: no muscle weakness Psychiatric: no confusion Physical Exam Constitutional: well developed, cooperative and comfortable; no acute distress Respiratory: normal respiratory effort and able to speak in complete sentences; no respiratory distress Cardiovascular: Rate/Rhythm: regular rate Gastrointestinal (Abdomen): Inspection/Auscultation: abdomen not distended Percussion/Palpation: + abdomen tender and abdomen soft Musculoskeletal: no cyanosis or clubbing, extremities motor strength 5/5 Psychiatric: A+Ox3, euthymic affect Results & Data Vital Signs (Past 12 Hours) Vital Signs Temp Pulse Resp BP Pulse Ox O2 Del Method 08/11/24 06:49 97.5 F L 60 18 99/61 L 97 Room Air 08/10/24 22:04 98.2 F 69 14 123/73 96 Room Air PG Care Time/CCT Total # of Minutes Spent Total Time Spent with Patient: Total time spent is greater than 50% in coordination of care (as documented) at patient's floor/unit and/or counseling patient: Coding Level of Care Code 09994 SUB INP/OBS CARE 07/28MIN Diagnoses Diverticulitis of intestine with perforation and abscess K57.80
[2024-08-11 09:41] LABS: Basophils # (auto) 0.04 K/uL (0.00-0.20); Basophils % (auto) 0.4 %; Eosinophils # (auto) 0.15 K/uL (0.00-0.50); Eosinophils % (auto) 1.5 %; Hematocrit (blood only) 34.7 % (37.0-47.0); Hemoglobin 10.6 g/dl (12.0-16.0); Immature Granulocytes # (auto) 0.09 K/uL (0.01-0.20); Immature Granulocytes % (auto) 0.9 %; Lymphocytes # (auto) 2.65 K/uL (1.20-3.40); Lymphocytes % (auto) 26.7 %; Mean Corpuscular Hemoglobin 18.9 pg (25.0-34.0); Mean Corpuscular Hgb Conc 30.5 g/dL (32.0-36.0); Monocytes # (auto) 0.38 K/uL (0.11-0.59); Monocytes % (auto) 3.8 %; Neutrophils # (auto) 6.63 K/uL (1.40-6.50); Neutrophils % (auto) 66.7 %; RDW Coefficient of Variation 17.7 % (11.5-14.5); RDW Standard Deviation 35.8 fL (36.4-46.3); White Blood Count 9.94 K/ul (4.8-10.8)
[2024-08-11 09:48] LABS: Mean Platelet Volume 10.2 fL (9.4-12.4); Platelet Count 315 K/uL (130-400)
[2024-08-11 10:03] LABS: Microcytosis Present; Ovalocytes 1+; Polychromasia 2+; Tear Drop Cells 1+
[2024-08-11 15:27] VITALS: BP 125/74; PULSE 76; TEMP 98.2
--- NOTE | 2024-08-11 16:13 | Discharge Summary ---
Discharge Summary Date of Service August 11, 2024 delayed entry date of service noted above Principal Dx & Hospital Course #1 = Principal Diagnosis (1) Diverticulitis: Plan Per admitting service with addendum: 08/07/[address] scan of abdomen pelvis w/ iv and oral contrast findings: Findings suggesting acute diverticulitis with perforation and abscess formation. Abscess measures 20 x 47 mm. Surrounding inflammatory phlegmon and suggestion of fistula between the sigmoid colon, left bladder, and anterior abdominal wall musculature. GI/surgical consultation is recommended. Marked bladder wall thickening and hyperenhancement, likely secondary to above process. Follow-up is advised to exclude a bladder mass. Malpositioned IUD. Pt is being managed for the following: Diverticulitis/abscess Sepsis POA: Secondary to above. WBC and heart rate elevated at presentation. Lactate WNL, Pro-Michael WNL. Patient referred to the ED due to abnormal outpatient CTAP. See above. Patient reports low-grade lower abdominal pain for months, denies fever. Blood cultures: Negative Evaluated by general surgery No procedures planned, Continue IV antibiotic Recommend repeat CT abdomen pelvis in 1 week Elevated by infectious disease service Recommend 4 weeks of ciprofloxacin 5 mg p.o. twice daily and Augmentin 8 7 5 mg [address] abdomen and pelvis in [facility] weeks at [facility]-to be reviewed by Dr. Gallagher infectious disease service at [facility] Remains stable, afebrile Left lower quadrant discomfort improved No Problems with bowel movement Anticipate discharge home tomorrow Monitor carefully for interaction between Ciprofloxacin and Phentermine. Patient states she will discontinue the Phentermine. Marked bladder wall thickening and hyperenhancement Seen on outpatient CT scan performed August 07, 2024 Follow-up is advised to exclude a bladder mass Calcified atherosclerosis of the abdominal vessels Also seen on CT scan of the abdomen 08/07/2024 Further work up, management, and ff up as outpatient Chronic anemia, history of thalassemia minor: Hemoglobin 11.2 at presentation, about baseline. Monitor. Malpositioned IUD: Follow-up with gynecology as an outpatient. Obesity Class III: Pt takes buproprion, naltrexone and phentermine for wt loss Other chronic medical conditions: Chronic pain of both knees, polyarthralgia - continue with/resume home meds as and when able. Notes For Next Care Provider Marked bladder wall thickening and hyperenhancement Seen on outpatient CT scan performed August 07, 2024 Follow-up is advised to exclude a bladder mass Medication Changes From Visit Ciprofloxacin Augmentin Admission HPI Per Admitting Provider 48-year-old lady with PMH of prediabetes, intermittent asthma, morbid obesity, left tubo-ovarian mass, chronic pain of both knees, polyarthralgia, thalassemia minor who is being evaluated as an outpatient for malpositioned IUD and received CT scan of abdomen pelvis which showed diverticulitis with perforation/abscess/fistula formation and hence was sent to the ED. Patient denies any fever/chills/sweats, reports ongoing low-grade lower abdominal pain for few months. Denies any increase in abd pain recently. Reports appetite okay, denies pain or burning while passing urine, reports moving bowels as usual. Patient reports having last colonoscopy about 3 to 4 years ago and denies any abnormal report. Patient denies smoking/alcohol/recreational drug use. Medications reviewed with the patient at bedside in detail. Full code. Plan of care discussed with the patient in detail, she voiced understanding and was agreeable to plan of care. Admission Exam Per Admitting Provider GENERAL: Alert and oriented x3. NAD, on RA. Class III obese HEENT: No pallor, no icterus. Pupils equal, round and reactive to light. Oral mucosa moist. NECK: No JVD, no neck masses. HEART: S1 and S2 heard. Regular rate and rhythm. No murmur, no gallop. RESPIRATORY SYSTEM: Normal AP diameter. No accessory muscle use. No wheezing, no crackles. ABDOMEN: Soft, bowel sounds present, LLQ tender x mild, no distention. CENTRAL NERVOUS SYSTEM: No facial droop. Speech is clear. Obeys simple commands. Moves extremities. EXTREMITIES: No edema, no erythema seen. Discharge Exam General- oriented x 3, not in distress, speaks in sentences with no effort or accessory muscle use Eyes- anicteric Neck- no JVD Lungs- clear breath sounds bilaterally, no rales/wheezes Heart- normal rate, regular rhythm; no murmurs Abdomen- normal bowel sounds, nondistended, soft, nontender Extremities- no pretibial edema, no calf tenderness Neuro- alert, oriented x 3; no gross focal neurologic deficits Skin- warm & dry Updated Medication List Medication Instructions Recorded Confirmed Type levonorgestrel 21 mcg/24 hr (up to 1 device intrauterine UNKNOWN 02/19/20 08/07/24 History 8 years) 52 mg intrauterine device (Mirena) mometasone 50 mcg/actuation nasal 2 spray intranasal DAILY PRN 02/19/20 08/07/24 History spray (Nasonex) unknown multivitamin 1 cap PO DAILY 02/19/20 08/07/24 History bupropion HCl 150 mg tablet,12 hr 150 mg PO DAILY 08/07/24 08/07/24 History sustained-release meloxicam 7.5 mg tablet 7.5 mg DAILY 08/07/24 08/07/24 History phentermine 15 mg capsule 15 mg DAILY 08/07/24 08/07/24 History naltrexone 50 mg tablet 25 mg PO DAILY 08/08/24 08/08/24 History amoxicillin 875 mg-potassium 1 tab PO TID 28 days #84 tabs 08/11/24 Rx clavulanate 125 mg tablet ciprofloxacin HCl 500 mg tablet 500 mg PO BID 28 days #56 tabs 08/11/24 Rx (Cipro) Hospital Stay Data Consultations 08/07/24 20:42 ED Decision to Admit Stat 08/07/24 21:43 Consult General Surgery Routine 08/08/24 09:21 Consult Infectious Diseases Routine Pending Results Patient Have Any Pending Studies at Discharge: No Discharge Instructions Given to Patient (Per Discharging Provider) PLEASE REFER TO YOUR NEW MEDICATION LIST AND FOLLOW INSTRUCTIONS CAREFULLY. YOUR NEW MEDICATIONS INCLUDE: Ciprofloxacin, Augmentin-antibiotics Please take a probiotic daily while taking antibiotics and at least a month later. Drink plenty of water. Call your primary care physician immediately if you develop palpitations, dizziness, passing out, or diarrhea to rule out C. difficile colitis. You will need a repeat CAT scan in 1 week. This can be arranged by your primary care physician You also need to have a repeat CAT scan in 3 weeks per infectious disease service recommendation. The clinic will be calling you for the schedule. After 6 to 8 weeks, it is recommended that you have a colonoscopy as well. PLEASE CALL YOUR PRIMARY CARE PHYSICIAN OR RETURN TO THE ER IF WITH WORSENING OF SYMPTOMS, INCLUDING Abdominal pain, nausea vomiting, fevers or chills, pain with bowel movement, blood in your stools, diarrhea, etc. FOLLOW UP WITH PRIMARY CARE PHYSICIAN OUTLINED ABOVE. Total Time Total Time Spent Total Time Spent (In Minutes): 35 minutes
== END 2024-08-11 16:15 | disposition home or self-care (01) | DRG 872 ==
LOC: ED 18:18 → EDINP 21:57 → SUATTDRO 21:57 → 2W 23:29 → 3N 08-09 13:55

== ENCOUNTER 2024-09-23 04:01 | Inpatient (IN) ==
--- OUTSIDE RECORDS SUMMARY | 2024-09-23 04:09 | External Medical Summary | Summary of Care ---
Author Name Unknown Organization [facility] Address [address] [place] [address] Phone [phone] Care Team Providers Care Form Grader Operator Name Role Phone SoilaJoyce lewis Jennifer DO Primary Care Provider Encounter Details Date Type Department Care Team (Late st Contact Info) Description 09/17/2024 Orders Only Interventional Radiology [facility], [facility] [address] [place] [address] Stephani Hunter, QUARRY SUPERVISOR DIMENSION STONE Abscess* Allergies Active Allergy Reactions Criticality Noted Date Comments Morphine And Codeine High 08/13/2004 lose consciousness documented as of this encounter (statuses as of 09/17/2024) Medications MULTI-VITAMIN PO TABS One tablet daily 30 0 8 Active Cetirizine-Pseudo ephedrine ER (ZYRTEC-D ALLERGY & CONGESTION) 5-120 MG TB12 Take 1 Tab by mouth 2 times a day. 6 Active Levonorgestrel 20 MCG/DAY Intrauterine Intrauterine Device (Mirena) Insert 1 Each into uterus once. Active Fluticasone Propionate 50 MCG/ACT Nasal Suspension (Flonase) 2 sprays each nostril daily. Can increase to twice daily as needed. 3 Each 3 4 Active Mometasone Furoate 0.1 % External CreamIndications: Dermatitis Apply topically to affected area daily. Apply to behind ear. 45 g 3 4 Active buPROPion HCl ER (SR) 150 MG [...] a day. 350 g 1 4 Active Albuterol Sulfate HFA 108 (90 Base) MCG/ACT Inhalation Aerosol Solution Use two puffs every four hours as needed for wheezing,cough , chest tightness, shortness of breath, prior to excerise - Inhalation 18 g 5 4 Active Meloxicam 7.5 MG Oral Tablet (Mobic) TAKE 1 TABLET BY MOUTH IN THE MORNING FOR PAIN 30 Tablet 3 5 Active Amoxicillin-Pot Clavulanate 875-125 MG Oral Tablet (Augmentin) Take 1 Tablet by mouth in the morning and 1 Tablet at noon and 1 Tablet before bedtime. 30 Tablet 1 5 Active Ciprofloxacin HCl 500 MG Oral Tablet (Cipro) Take 1 Tablet by mouth in the morning and 1 Tablet before bedtime. 20 Tablet 1 5 Active documented as of this encounter (statuses as of 09/17/2024) Active Problems Problem Noted Date Diagnosed Date [...] as of this encounter (statuses as of 09/17/2024) Resolved Problems Problem Noted Date Diagnosed Date [...] as of this encounter (statuses as of 09/17/2024) Immunizations Name Administration Dates Next Due COVID-19 [...] ages 0-17 years) Not on file 06/14/2024 Food Insecurity Answer Date Recorded Within the past 12 months, y ou worried that your food would run out before you got the money to buy more. Never true 06/14/20 24 Within the past 12 months, t he food you bought just didn't last and you didn't have money to get more. Never true 06/14/2024 Do you need food for this week? No 06/14/2024 Comments No Sex and Gender Information Value Date Recorded Sex Assigned at Female 06/14/2024 1:46 PM EST Legal Sex Female 6:01 AM EST Gender Identity Female 06/14/2024 1:46 PM EST Sexual Orientation Straight 06/14/2024 1: 46 PM EST Occupation Industry Job Start Date Job End Date [id number] Not on file Not on file Not on f ile documented as of this encounter Plan of Treatment Upcoming Encounters Date Type Department Care Team (Late st Contact Info) Description 09/19/2024 9:30 AM EDT Hospital Encounter Interventional Radiology [facility], [facility] [address] [address] [place] [address] 10/02/2024 11:40 AM EDT Office Visit Family Practice [facility] [address] [facility] [place] [address] Myah Valdivia CRNP [address] [facility] [place] [address] 10/10/2024 2:45 PM EDT [facility] [address] [place] [address] Leti Watts, [address] [place] [address] Scheduled Orders Name Type Priority Associated Diagnoses Orde r Schedule IR ASPIRATION ABSCESS/COLLECTION Medical Imaging Routine Abscess Expected: 09/19/2024, Expires: 10/18/2025 Scheduled Procedures Name Priority Associated Diagnoses Date/Ti [...] of 2) 10/17/2023 COVID-19 Vaccine ( - 2023- season) 2024 [...] on patient's age to complete this topic Meningitis B Vaccine (Bexsero/Trumemba) Aged Out No longer eligible based on patient's age to complete this topic documented as of this encounter Medical Devices Not on filedocumented as of this encounter Visit Diagnoses Diagnosis Abscess- Primary Cellulitis and abscess of unspecified site documented in this encounter Advance Directives Documents on File Type Date Recorded Patient [employer] Expl anation Advance Directives and Living Will 03/22/2005 Power of Paving Machine Operator 03/22/2005 * No Code Status (Latest Code Status on File) Date Activated Date Inactivated Comments 03/22/2005 10:26 AM 03/22/2005 10:26 AM Care Teams Form Grader Operator Relationship Specialty Start Date End Date Joyce Dorantes DO [address] [place] [address] PCP - General Family Medicine 12/23/15 documented as of this encounter
--- OUTSIDE RECORDS SUMMARY | 2024-09-23 04:09 | External Medical Summary | Summary of Care ---
Author Name Unknown Organization [facility] Address [address] [place] [address] Phone [phone] Care Team Providers Care Rough Planer Tender Name Role Phone Joyce Dorantes DO Primary Care Provider [phone] Reason for Referral * Evaluate & Treat - Unlimited Visits (Within 3 days (urgent)) - Authorized Specialty Diagnoses / Procedures Referred By Alda pan Referred To Contact General Surgery Diagnoses Colonic diverticular abscess Colonic fistula Joyce Dorantes DO [address] [address] Phone: tel: fax: Referral ID Status Reason Start Date Expiration Date Visits Requested Visits Authorized [id number] Authorized Specialty Services Required 09/04/2024 [id number] Question Answer Referral Priority Within 3 days (urgent) Where should this appointment be scheduled? [facility] What condition is the patient being seen for? General Surgery Conditions What condition is the patient being seen for? All other conditions Reason for Visit * Reason Onset Date Comments Follow Up 09/04/2024 Encounter Details Date Type Department Care Team (Late st Contact Info) Description 09/04/2024 Telephone Family Practice [facility] [address] [place] [address] Joyce Dorantes DO [address] [address] Follow Up Allergies Active Allergy Reactions Criticality Noted Date Comments Morphine And Codeine High 08/13/2004 lose consciousness documented as of this encounter (statuses as of 09/07/2024) Medications MULTI-VITAMIN PO TABS One tablet daily [...] - Inhalation 18 g 5 4 Active Amoxicillin-Pot Clavulanate 875-125 MG Oral Tablet (Augmentin) 1 Tablet. 5 Active Ciprofloxacin HCl 500 MG Oral Tablet (Cipro) 1 Tablet. 5 Active Meloxicam 7.5 MG Oral Tablet (Mobic) TAKE 1 TABLET BY MOUTH IN THE MORNING FOR PAIN 30 Tablet 3 5 Active documented as of this encounter (statuses as of 09/07/2024) Active Problems Problem Noted Date Diagnosed Date [...] as of this encounter (statuses as of 09/07/2024) Resolved Problems Problem Noted Date Diagnosed Date [...] as of this encounter (statuses as of 09/07/2024) Immunizations Name Administration Dates Next Due COVID-19 [...] No 06/14/2024 Does the household have a [facility] source of income? (Household - for ages [...] Industry Job Start Date Job End Date [employer] Not on file Not on file Not on f ile documented as of this encounter Miscellaneous Notes * Telephone Encounter - Joyce Dorantes DO - 09/04/2024 12:29 PM EST [place] text from IR Previous abscess collection airfilled, likely fistula; not drained d/t concern of creating enterocutaneous fistula Gen surgery referral placed, please schedule documented in this encounter Plan of Treatment Upcoming Encounters Date Type Department Care Team (Late st Contact Info) Description 10/02/2024 11:40 AM EDT Office Visit Family Practice [facility] [address] [place] [address] Myah Valdivia CRNP [address] [place] [address] 10/10/2024 2:45 PM EDT [facility] [address] [place] [address] Leti Watts DO [address], [place] [id number] Scheduled Procedures Name Priority Associated Diagnoses Date/Ti me COLONOSCOPY FLEXIBLE PROXIMA L DIAGNOSTIC Recall Special screening for malignant neoplasms, colon Scheduled Referrals Name Type Priority Associated Diagnoses Orde r Schedule SURGERY REFERRAL OP Referral Within 3 days (urgent) Colonic diverticular abscess Colonic fistula Ordered: 09/04/2024 Health Maintenance Due Date Last Done Comments [...] as of this encounter Visit Diagnoses Diagnosis Colonic diverticular abscess- Primary Abscess of intestine Colonic fistula Fistula of intestine, excluding rectum and anus documented in this encounter Advance Directives Documents on File Type Date Recorded Patient Buffing Wheel Raker Expl anation Advance Directives and Living Will 03/22/2005 Power of Turbine Engine Assembler 03/22/2005 * No Code Status (Latest Code Status on File) Date Activated Date Inactivated Comments 03/22/2005 10:26 AM 03/22/2005 10:26 AM Care Teams Rough Planer Tender Relationship Specialty Start Date End Date Joyce Dorantes DO [address] [address] PCP - General Family Medicine 12/23/15 documented as of this encounter
--- OUTSIDE RECORDS SUMMARY | 2024-09-23 04:09 | External Medical Summary | Summary of Care ---
Author Name Unknown Organization [facility] Address [address] [place] [address] Phone [phone] Care Team Providers Care Staffing Operations Manager Name Role Phone Jose E Joyce Jennifer JC Primary Care Provider [phone] Reason for Referral * Precert (Within 10 days (routine)) - Pending Review Specialty Diagnoses / Procedures Referred By Contac t Referred To Contact Radiology Diagnoses Abscess Procedures IR ASPIRATION ABSCESS/COLLECTION Abad Gallegos MD [address] [place] [address] Phone: tel: fax: Referral ID Status Reason Start Date Expiration Date V isits Requested Visits Authorized [id number] Pending Review 10/11/2024 [id number] Reason for Visit * Precert (Within 10 days (routine)) - Authorized Specialty Diagnoses / Procedures Referred By Alda pan Referred To Contact Radiology Diagnoses Abscess of skin and subcutaneous tissue Procedures [place] IMG-GUIDE FLUID COLLXN DRAINAG CATH PERITON Leti Marina DO [address] [place] [address] Phone: tel: fax: Referral ID Status Reason Start Date Expiration Date V isits Requested Visits Authorized [id number] Authorized Precert 09/17/2024 12/16/2024 [id number] Encounter Details Date Type Department Care Team (Latest Contact Info) Description 09/19/2024 8:17 AM EDT - 09/19/2024 11:45 AM EDT Hospital Encounter Radiology Waiting Room [facility] [address] [place] [address] Fermin Lutz MD [address] [place] [id number] Arrived Discharge Disposition: Home - Self Care Allergies Active Allergy Reactions Criticality Noted Date Comments Morphine And Codeine High 08/13/2004 lose consciousness documented as of this encounter (statuses as of 09/20/2024) Medications MULTI-VITAMIN PO TABS One tablet daily [...] as of this encounter (statuses as of 09/20/2024) Active Problems Problem Noted Date Diagnosed Date [...] as of this encounter (statuses as of 09/20/2024) Resolved Problems Problem Noted Date Diagnosed Date [...] as of this encounter (statuses as of 09/20/2024) Immunizations Name Administration Dates Next Due COVID-19 [...] Industry Job Start Date Job End Date [employer] Not on file Not on file Not on f ile documented as of this encounter Last Filed Vital Signs Vital Sign Reading Time Taken Comments Blood Pressure 99/62 09/19/2024 11:15 AM EDT Pulse 64 09/19/2024 11:25 AM EDT Temperature 36.7 C (98.1 F) 09/19/2024 11:25 AM E DT Respiratory Rate 24 09/19/2024 11:25 AM EDT Oxygen Saturation 100% 09/19/2024 11:25 AM EDT Inhaled Oxygen Concentration - - Weight - - Height - - Body Mass Index - - documented in this encounter Discharge Instructions * Discharge Instr - AVS* Abad Gallegos MD - 09/19/2024 10:42 AM EDT Discharge Date: 09/19/2024 Provider: Dr. Abad Gallegos If you are experiencing any problems related to your procedure, please contact Interventional Radiology at [phone] during normal business hours: Tuesday - Tuesday, 8:00 am - 4:00 pm. If a problem occurs outside of normal business hours, please call the hospital weigh machine operator at [phone] and ask for the Interventional Radiologist cyber defense incident responder. Contact scheduling for Interventional Radiology at [phone] during normal business hours: Tuesday - Tuesday, 8:00 am - 4:00 pm. The information below provides you with the instructions and the list of medications you need to betaking following discharge from the hospital. If you have any questions, please ask before leaving.Please carry this letter with you when you see your doctor in the clinic. If you have questions, you can reach us at the numbers above. SPECIAL INSTRUCTIONS Drainage Catheter Insertion A catheter was placed in the diverticular abscess under imaging guidance. The abscess does connect to your large intestine. This is called a fistula. Sometimes fistulas resolve on their own and sometimes they need surgical intervention. Please flush your catheter once a day with 5mL saline to prevent catheter clogging. Follow up with surgery. If the drain is still in place after your appointment with surgery, we will bring you back to check if the fistula has resolved. Home Care When showering, please cover your incisions and/or exit site of catheter from skin with plastic wrap to avoid them getting wet. Do not go swimming, take baths, or soak in a hot tub. Check site daily to make sure the catheter is secure. If your physician placed a securement device and it starts to come off, please replace. We can then call a prescription into the [facility] pharmacy for an additional securement device. If your physician placed sutures, and they are no longer securing the catheter to your skin, please call our department. Be sure to empty drainage bag and record the output. Flushing your Catheter Your catheter will need to be flushed daily to ensure it drains properly. We can call a prescription into a pharmacy close to you for the flushes if needed. Unfortunately, only certain pharmacies carry pre-filled sterile saline flushes, so we may need to call the prescription into the [facility] pharmacy if no one close to you carries them. Flush your catheter once daily with 5 mL (1/2 pre-filled syringe) Sterile Normal Saline (or as instructed upon discharge.) Wash your hands. Gather alcohol swab, 10 mL of 0.9% NSS flush and a clean towel/tissue. Twist the drainage bag connector counter-clockwise and place on a clean towel or tissue. Clean the connector with an alcohol swab for 10 seconds. Remove the white cap from 0.9% NSS flush, gently pull plunger back and then forward to remove air. Connect 0.9% NSS flush to the catheter by twisting it clockwise onto the connection hub. Gently flush entire 10 mL of 0.9% NSS into catheter. Remove flush from hub by twisting counter-clockwise. Clean the connector with an alcohol swab for 10 seconds. Re-connect the drainage bag by inserting the connector piece into the catheter hub and twisting it in a clockwise direction until tight. Wash your hands. * Remember to deduct 10 mL from daily drainage total to account for flushing. Follow Up When less than 10 mL drainage is collected in a 24 hour time period for 3 consecutive days, please call Interventional Radiology at the number provided above to have a CAT scan/evaluation by a physician. When to Call Interventional Radiology Call Interventional Radiology right away if you have any of the following: Fever above 100 degrees Fahrenheit Increased bleeding, redness, swelling, warmth, or discharge at the incision site. Constant or increasing pain, numbness, coldness, or tingling around the incision area. Leaking noted around the catheter. Vomiting or nausea that does not go away. If at any time you feel you have a medical emergency, call 911 for emergency assistance. Symptoms can include: Chest Pain Sudden, severe shortness of breath Rapid heart rate Sudden onset of weakness See your referring physician for a follow-up appointment. Do not smoke or use tobacco products in any way! If you feel suicidal or homicidal, please call the crisis hotline at 2-333-578-IRJR ([phone]) MODERATE SEDATION You may have received medication that made you comfortable/sedated you during your procedure. This is considered moderate sedation. This medication was given to relax you. You may also not remember having the procedure done. It may take up to 24 hours for this medication to be out of your system. Because of this, you should observe the following for the next 24 hours: Do not drink alcohol or take depressant drugs. Do not operate any type of machinery that requires hand-eye coordination. Do not sign any legal papers or documents. Do not make any financial decisions. You should be in the presence of an adult for the remainder of the day. If you are experiencing any problems related to your procedure, you should contact the Interventional Radiology physician unless otherwise directed. Driving: N/A. Diet: You may resume your current diet as tolerated. Return to work or school: You may return to school or work after the procedure, unless otherwise instructed by the physician. documented in this encounter H&P Notes * Abad Gallegos MD - 09/19/2024 8:46 AM EDT HISTORY & PHYSICAL - Vascular and Interventional Radiology Name: Kely Mercado Location: IR HISTORY OF PRESENT ILLNESS: Kely Mercado is a 48 year old with thalassemia minor and diverticulitis complicated by abscessseen today in IR for drainage catheter placement. Drain placement was aborted at [facility] due to concernfor enterrocutaneous fistula. This was discussed with surgery who felt that benefits of drain outweighed risks. Kely Mercado is otherwise in her normal state of health without acute complaints. Past Medical History: Diagnosis Date Allergic rhinitis [...] performed by Sly Peña MD at [facility] COLPOSCOPY OF CERVIX W/BIOPSY 09/01/2004 IR ASPIRATION ABSCESS/COLLECTION 09/04/2024 KNEE ARTHROSCOPY/REPAIR LIGAMENT Right ACL replaced KNEE ARTHROSCOPY/REPAIR LIGAMENT Left 07/04/2010 [place] DELIVERY ONLY TREATMENT OF INCOMPLETE 07/04/2004 URIEL EMBO SUBCLAVIAN BY NECK 07/04/1999 Social History Socioeconomic History Marital status: Spouse name: WHITNEY Grey Number of children: Not on file Years of education: Not on file Highest education level: Not on file Occupational History Occupation: [employer] Employer: [employer] Tobacco Use Smoking status: Never Smokeless tobacco: [...] 1 dog(s) Lives on a farm: No genetic scientist; no occupation related worsening of symptoms. 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 (Adult - for ages 18 years and over): No Does your family have trouble paying for medicine? (Household - for ages 0-17 years): Not on file Food Insecurity: No Food Insecurity (06/14/2024) Food Insecurity Worried About Running Out of Food in the Last Year: Never true Ran Out of Food in the Last Year: Never true Do you need food for this week? [...] Stability Do you currently live in a care home or have no steady place to sleep [...] - for ages0-17 years): Not on file Family History Problem Relation Name Age of Onset Osteoarthritis Mother No Known Problems Sister Allergies Brother rhinitis, cats No Known Problems Brother Allergies Grandmother (Maternal) rhinitis Asthma Grandmother (Maternal) Dementia Grandmother (Maternal) Allergies Grandmother (Paternal) rhinitis Asthma Grandmother (Paternal) Diabetes Grandmother (Paternal) Diabetes Grandfather (Paternal) No Past Hx Son Cervical Cancer Aunt (Unspecified) Great Aunt Review of patient's allergies indicates: Allergen Reactions Morphine And Codeine lose consciousness Prior to Admission medications Medication Sig Last Dose Discont. Amoxicillin-Pot Clavulanate 875-125 MG Oral Tablet (Augmentin) Take 1 Tablet by mouth in the morning and 1 Tablet at noon and 1 Tablet before bedtime. 09/18/2024 Morning Ciprofloxacin HCl 500 MG Oral Tablet (Cipro) Take 1 Tablet by mouth in the morning and 1 Tablet before bedtime. 09/18/2024 Morning Meloxicam 7.5 MG Oral Tablet (Mobic) TAKE 1 TABLET BY MOUTH IN THE MORNING FOR PAIN 09/18/2024 Morning Albuterol Sulfate HFA 108 (90 Base) MCG/ACT Inhalation Aerosol Solution Use two puffs every four hours as needed for wheezing,cough, chest tightness, shortness of breath, prior to excerise - Inhalation Unknown Diclofenac Sodium 1 % External Gel (Voltaren) Apply topically to affected area 4 times a day. 09/18/2024 Morning Fluticasone Propionate 50 MCG/ACT Nasal Suspension (Flonase) 2 sprays each nostril daily. Can increase to twice daily as needed. 09/18/2024 Morning Mometasone Furoate 0.1 % External Cream Apply topically to affected area daily. Apply to behind ear. 09/18/2024 Morning buPROPion HCl ER (SR) 150 MG Oral Tablet Extended Release 12 Hour (Wellbutrin SR) Take 1 tab by mouth once a day for 1 week then take 1 tab twice a day (morning & late afternoon) 09/18/2024 Morning Naltrexone HCl 50 MG Oral Tablet (Revia) Take 1/2 tab by mouth once a day for 1 week then take 1/2 tab twice a day (morning & late afternoon) 09/18/2024 Morning Levonorgestrel 20 MCG/DAY Intrauterine Intrauterine Device (Mirena) Insert 1 Each into uterus once.Unknown Cetirizine-Pseudoephedrine ER (ZYRTEC-D ALLERGY & CONGESTION) 5-120 MG TB12 Take 1 Tab by mouth2 times a day. 09/18/2024 Morning MULTI-VITAMIN PO TABS One tablet daily 09/18/2024 Morning REVIEW OF SYSTEMS: Per HPI. OBJECTIVE: PHYSICAL EXAM: BP 144/82 | Pulse 65 | Temp 36.1 C (97 F) (Tympanic) | Resp 18 | SpO2 100% Constitutional: no acute distress HEENT: mucous membranes moist Neck: supple Chest: normal respiratory effort Neuro: alert and oriented Medications, labs and imaging were reviewed. PRE-SEDATION ASSESSMENT: Pelvic Drain Placement Level of sedation planned: Moderate Patient's allergies reviewed: Yes H&P Review / Interval Note Documentation: There is no H&P on file. Diverticular abscess Difficulty with sedation / anesthesia: No Sleep apnea: Yes History of snoring: Yes History of difficult intubation: No Decreased ROM neck flexion/extension: No Tracheal deviation: No Decreased ability to open mouth / TMJ: No Loose teeth / dentures / partial: No Congenital deformities / abnormalities: No Dysphagia: No Mallampati Classification: III - soft palate, base of uvula visible ASA Risk Stratification (Select One): ASA 2 - Mild systemic disease, no functional limitations The patient was identified and the procedure verified: Yes IMPRESSION/PLAN: Kely Mercado is a 48 year old with thalassemia minor and diverticular abscess seen today in IRfor drain placement. Okay to proceed under moderate sedation. documented in this encounter Nursing Notes * Rayna Longoria RN - 09/19/2024 11:34 AM EDT DISCHARGE - POST INTERVENTIONAL RADIOLOGY PROCEDURE Patient meets discharge criteria for Interventional Radiology. Vital signs stable. Dressing clean, dry, and intact. IV site removed. Patient awake and oriented to pre procedure baseline. Discharge instructions given, no questions at this time. Patient and patients educated on flushing the catheter. Instructed to apple picking supervisor flushes from pharmacy after discharge. Patient tolerating liquids, with no nausea/vomiting. All belongings sent with patient. Discharged to home. Vital Signs: BP: 99/62 (09/19/24 1115) Temp: 36.7 C (98.1 F) (09/19/24 1125) Pulse: 64 (09/19/24 1125) Resp: 24 (09/19/241124) SpO2: 100 % (09/19/24 1125) Neurological: Yusuf Coma Scale - For patients greater than two years old Eyes Open: Spontaneous (09/19/241124) Best Verbal Response: Verbally appropriate for age (09/19/24 112) Best Motor Response: Obeys commands appropriate for age (09/19/241124) Coma Score: 15 (09/19/245) Activity: Four Extremities LOC: Fully Awake or Pre-Anesthetic Level of Consciousness BP: Less than (+/-) 20% Resp: Deep Breathe and Cough Freely (09/19 1114) Respiratory: Pain Assessment Flowsheet Row Most Recent Value Pain Assessment Scale [facility] Adult Scale 0-10 (18 years and older) Pain Score 0 (no pain) * Jenna Dietz RN - 09/19/2024 9:48 AM EDT termite helper note Name: Kely Mercado Date: 09/19/2024 Time: 9:41 AM Procedure: Image Guided Pelvic Fluid Collection Aspiration vs. Drain Insertion Patient ID band checked using two identifiers. Patient placed supine on procedure table with comfort measures intact and safety strap in place. Hemodynamic monitoring placed and initiated. Patient denies any current complaints at current time. RT staff prepares and preps patient for procedure. Re-evaluation Statement: RN received verbal confirmation that the patient was reevaluated by Dr Gallegos immediately prior to the start of sedation at 9:54 AM. 9:50 AM Grid placed. Investment Recovery Technician CT images obtained. 9:54 AM Patient prepped and ready. 2 mg versed and 50 mcg fentanyl given for pt comfort Procedure by physician. 9:55 AM Timeout performed by Dr. Abad Gallegos. Correct catheter size verbalized and verified during timeout. 9:55 AM Procedure started by Dr. Abad Gallegos, and scrubbed RT Amada Snyder Numbing left pelvic sitewith 1% buffered lidocaine. US utilized for anatomical analysis of patient and access needle guidance. 9:57 AM Needle placed. Images obtained. 9:59 AM Needle adjusted. Images obtained. 2 mg versed given for pt comfort 10:04 AM Access obtained. Guidewire inserted. Images obtained. 10:10 AM 50 mcg fentanyl given for pt comfort 10:17 AM 50 mcg fentanyl given for pt comfort 10:21 AM [employer] Drainage Catheter 12 Fr. x 25 cm LOT [id number] Exp 03/07/27 placed. 10:23 AM Fluid specimen aspirated to be sent to laboratory via tube system immediately following closure of case for further testing. 10:29 AM Sutures applied to site. Procedure complete. 10:34 AM Area cleaned. StatLock securement device applied. Catheter placed to gravity bag. Warren bag attached to patient's leg prior to leaving procedure room. Total Output: 5 mL Dark Sanguineous fluid Patient tolerated procedure well without complications. All wires, catheters, sheaths and other devices have been inspected prior to the procedure for damage. This has been confirmed by the scrubbed RT and the operating physician. All items not intended to remain in the patient have been inspected, accounted for and have been removed from the patient atthe end of the procedure. This has been confirmed by the scrubbed RT and the operating physician. Patient did receive conscious sedation for their procedure, and was sedated from 9:54 AM to 10:40 AM. Total medications given Versed: 4 mg Fentanyl: 150 mcg 1% buffered lidocaine: 4 mL Please see doctor's operative note for additional details. * Raquel Nieto RN - 09/19/2024 9:30 AM EDT Attempted to contact Kely to complete pre operative instructions for Interventional Radiology procedure, did not answer the phone. Message left with instructions regarding arrival time of 0830 , medications and NPO status. Made aware of need for a otr van cdl truck driver. Instructed to return call to IR nurse [phone] and leave a message on voicemail if necessary. Will attempt again at later time. * Raquel Nieto RN - 09/19/2024 9:30 AM EDT PRE PROCEDURE SEDATION ASSESSMENT [facility] INTERVENTIONAL RADIOLOGY Information obtained via phone call? yes Chart review? yes Spoke with patient/caregiver(name)? yes: Kely - patient IR procedure to be performed: Pelvic Abscess Aspiration/Drain Placement Patient with recent illness (within 2 weeks): no Sleep apnea? yes Uses cpap/bipap? yes Home O2 use(LPM)? no Difficulty breathing when lying flat? no Infectious Disease? (MRSA, VRE, CDIFF, TB, Hepatitis, HIV/Aids, COVID-19 other): no History of falls (past 6 months)? no Ambulation aid (walker, cane, crutches, wheelchair)?no History of anesthesia complications (prolonged awakening, PONV, difficult airway)? no Able to fully extend neck, turn head side to side and open mouth? yes If female (11-55) chance of ? NO Contrast Dye Allergy? no Allergy prepped ordered ? not applicable Review of patient's allergies indicates: Allergen Reactions Morphine And Codeine lose consciousness Review of systems Pulmonary complications? (COPD/Emphysema, Asthma, Oxygen use, tobacco history, shortness of breath,PE, Pulm HTN): Yes: asthma, KENJI on CPAP Cardiovascular complications? (HTN, Pacemaker/defib, VA, Arrhythmia, CHF, Heart Murmur, Heart surgery): no Metabolic/Diabetes history? (Diabetes, steroid use, thyroid disease, obesity): Yes: prediabetes Hematology/Oncology complications? (Anemia, bleeding/clotting disorder, anticoagulation/coagulopathy, cancer): Yes: thalassemia minor, thrombocytopenia Gastrointestinal complications? (Hernia, reflux, ulcers, liver problems, ostomy, IBS, diverticulitis): Yes: obesity Gynecological complications? (Fibroids, PCOS) YES: left tubo-ovarian mass; pelvic abscess Genitourinary complications? (Kidney, bladder, prostate) no Musculoskeletal complications? (Arthritis, contractions, amputations, other bone/joint): Yes: chronic knee pain Neuro/Psych complications? (Seizures, stroke, mental handicap, paralysis, neuropathy, depression, anxiety, migraines, substance abuse): no * Judi Calhoun LPN - 09/19/2024 8:40 AM EDT Patient or the Patients Legally Authorized Guest Service Manager has been advised that (1) the Patient meets criteria for testing and (2) the administration of anesthesia, radiation or other imaging agents may have a harmful impact to an unborn child. The Patient or Patients Representativewere offered the opportunity to ask questions as to necessity of such testing and potential outcomes. Consent for testing has been declined. documented in this encounter Plan of Treatment Upcoming Encounters Date Type Department Care Team (Late st Contact Info) Description 10/02/2024 11:40 AM EDT Office Visit [facility] [address] [place] [address] [facility]div[facility] [address] [facility] [address] 10/10/2024 2:45 PM EDT [facility] [address] [place] [address] Leti Watts, [address] [place] [address] Pending Results Name Type Priority Associated Diagnoses Date /Time IR ASPIRATION ABSCESS/COLLECTION Medical Imaging Routine Abscess 09/19/2024 10:24 AM EDT CULTURE, WOUND, DEEP, AEROBIC AND ANAEROBIC Lab Routine 09/19/2024 9:34 AM EDT Scheduled Orders Name Type Priority Associated Diagnoses Orde r Schedule IR ASPIRATION ABSCESS/COLLECTION Medical Imaging Routine Abscess Expected: 10/11/2024 (Approximate), Expires: 10/20/2025 Scheduled Procedures Name Priority Associated Diagnoses Date/Ti [...] (1 of 2) 10/17/2023 COVID-19 Vaccine ( season) 2024 08/30/2020, 08/06/2020 [...] Procedure Name Priority Date/Time Associated Diagnosis Comments IR ASPIRATION ABSCESS/COLLECTION Routine 09/19/2024 10:24 AM EDT Abscess Procedure Note - Abad Gallegos MD / Ha Gamez DO - 09/19/2024 10:24 AM EDTThis note is in progress. PROCEDURE: CT guided pelvic fistula drainage catheter placement. INDICATION: 48 year old female with known divericulitis abscess andfistulous connection between the bladder, sigmoid colon, and anteriorabdominal wall requiring drainage catheter placement. ATTENDING (OPERATING PHYSICIAN): Dr Abad Gallegos SCRUBBED RESIDENT (OPERATING PHYSICIAN): Dr Ha Gamez SUPPORTING PROVIDER (MEASUREMENT AND VERIFICATION ENGINEER): Amada BANKS. CONSENT: After a detailed discussion of the procedure, risks, benefits andalternative treatment options, informed consent was obtained. TIME OUT: A time out procedure was performed. The patient's identificationwas verified. Informed consent with agreement of procedure, site andposition was obtained. All necessary equipment was available prior toprocedure. CONTRAST: No contrast was administered. COMPLICATIONS: None. ANESTHESIA: Local lidocaine. IV Versed. IV Fentanyl. SEDATION TIME: Start to end: 9:54 - 10:40 AM. Qualified nurse sedationobserver Jenna Dietz RN. MEDICATIONS: See MAR PROCEDURE DESCRIPTION: After survey CT images of the pelvis wereperformed, the collection in the anterior pelvic wall was studied. Thenthe access site was selected in the anterior pelvic wall and the site wasprepped and draped in the usual sterile fashion. The skin and deep softtissues were anesthetized and using image guidance, a 5 Fr [id number] was inserted into the collection. Approximately 5 mL ofdark serosanguinous fluid was removed, placed in empty vials and sent tomicrobiology. An 035 wire was inserted into the collection via the accessand after tract dilation, a 12 Fr locking loop catheter was inserted overthe wire. The catheter was secured to the patient and attached to agravity drainage bag. The procedure was performed under the personal supervision of Dr. Viveros who was present for the entire procedure. FINDINGS: Survey CT images demonstrate a fistulous collection in the anteriorpelvis. Final imaging demonstrates the catheter looped in the collection.No complication noted on post placement imaging. IMPRESSION IMPRESSION: Successful CT-guided percutaneous drainage catheter placement in theanterior pelvis. PLAN: Follow-up of culture results and appropriate management per theprimary team. The gravity drainage bag should always be attached to thepatient's drainage catheter and should be flushed once a day with 10 mL ofsterile saline. Please record drain output daily. The patient will returnto IR outpatient clinic for drain removal evaluation in 7 to 10 days postdischarge from the hospital (unless drain is removed during admission). Inpreparation for this visit, the patient will undergo a low dose CT Scanthat includes the drainage catheter on the day of appointment. CULTURE, WOUND, DEEP, AEROBIC AND ANAEROBIC Routine 09/19/2024 9:34 AM EDT documented in this encounter Visit Diagnoses Diagnosis Abscess Cellulitis and abscess of unspecified site documented in this encounter Administered Medications Inactive Administered Medications - up to 3 most recent administrations Medication Order MAR Action Action Date Dose Rate Site buffered lidocaine 1 % inj Intradermal, ONCE PRN INTRA PROCEDURE, Starting on Tue09/19/24 at 1029, Until Tue09/19/24 at 1029, Intra-Op Given 09/19/2024 10:29 AM EDT 4 mL fentaNYL (PF) inj ONCE PRN INTRA PROCEDURE, Starting on Tue09/19/24 at 0954, Until Tue09/19/24 at 1017, Intra-Op Given 09/19/2024 10:17 AM EDT 50 mcg Given 09/19/2024 10:10 AM EDT 50 mcg Given 09/19/2024 9:54 AM EDT 50 mcg midazolam (Versed) 2 MG/2ML inj ONCE PRN INTRA PROCEDURE, Starting on Tue09/19/24 at 0954, Until Tue09/19/24 at 0959, Intra-Op Given 09/19/2024 9:59 AM EDT 2 mg Given 09/19/2024 9:54 AM EDT 2 mg documented in this encounter Active and Recently Administered Medications Times are shown in EDT. PRN Medication Order 09/17/2024 09/18/2024 09/19/2024 buffered lidocaine 1 % inj (COMPLETED) Intradermal, ONCE PRN INTRA PROCEDURE, Starting on Tue09/19/24 at 1029, Until Tue09/19/24 at 1029, Intra-Op 1029 (Given - Provid er: Abad Gallegos MD) fentaNYL (PF) inj (COMPLETED) ONCE PRN INTRA PROCEDURE, Starting on Tue09/19/24 at 0954, Until Tue09/19/24 at 1017, Intra-Op 0954 (Given - Provid er: Jenna Dietz RN)1010 (Given - Provider: Jenna Dietz, GARO)1017 (Given - Provider: Jenna Dietz, RN) midazolam (Versed) 2 MG/2ML inj (COMPLETED) ONCE PRN INTRA PROCEDURE, Starting on Tue09/19/24 at 0954, Until Tue09/19/24 at 0959, Intra-Op 0954 (Given - Provid er: Jenna Dietz RN)0959 (Given - Provider: Jenna Dietz RN) documented in this encounter Advance Directives Documents on File Type Date Recorded Patient Guest Service Manager Expl anation Advance Directives and Living Will 03/22/2005 Power of Biodiesel Production Technician 03/22/2005 * No Code Status (Latest Code Status on File) Date Activated Date Inactivated Comments 03/22/2005 10:26 AM 03/22/2005 10:26 AM Care Teams Staffing Operations Manager Relationship Specialty Start Date End Date Joyce Dorantes DO [address] [place] [address] PCP - General Family Medicine 12/23/15 documented as of this encounter"
--- OUTSIDE RECORDS SUMMARY | 2024-09-23 04:09 | External Medical Summary | Summary of Care ---
Author Name Unknown Organization [facility] Address [address] [place] [address] Phone [phone] Care Team Providers Care Trust Mail Clerk Name Role Phone PrashantJoyce duran Primary Care Provider [phone] Reason for Visit * Reason Onset Date Comments Fever 09/20/2024 Encounter Details Date Type Department Care Team (Late st Contact Info) Description 09/20/2024 Telephone Interventional Radiology [facility] [place] [facility] [address] [place] [address] Abad Gallegos MD [address] [place] [address] Fever Allergies Active Allergy Reactions Criticality Noted Date [...] ear. 45 g 3 12/23/19 24 Active buPROPion HCl ER (SR) 150 MG [...] area 4 times a day. 350 g 12/30/19 24 Active Albuterol Sulfate HFA 108 (90 Base) MCG/ACT Inhalation Aerosol Solution Use two puffs every four hours as needed for wheezing,cough, chest tightness, shortness of breath, prior to excerise - Inhalation 18 g 05/15/20 24 Active Meloxicam 7.5 MG Oral Tablet (Mobic) TAKE 1 TABLET BY MOUTH IN THE MORNING FOR PAIN 30 Tablet 3 08/24/19 25 Active Amoxicillin-Pot Clavulanate 875-125 MG Oral Tablet (Augmentin) Take 1 Tablet by mouth in the morning and 1 Tablet at noon and 1 Tablet before bedtime. 30 Tablet 1 09/15/19 25 Active Ciprofloxacin HCl 500 MG Oral Tablet (Cipro) Take 1 Tablet by mouth in the morning and 1 Tablet before bedtime. 20 Tablet 1 09/15/19 25 Active Normal Saline Flush 0.9 % Intravenous SolutionIndicati ons:Administer 5mL into the catheter every morning. Flush as directed by interventional radiology 300 mL 11:49 AM EDT 09/20/19 25 Active documented as of this encounter (statuses [...] Industry Job Start Date Job End Date [employer] Not on file Not on file Not on f ile documented as of this encounter Miscellaneous Notes * Telephone Encounter - Abad Gallegos MD - 09/20/2024 1:14 PM EDT Nargis called reporting fever and change in drain output. Her fever started today and has been as high as 102. She is still taking the Augmentin and Cipro. She also reports that the drainage has changed from bloody output to dark brown, like stool. I advised that it is likely that stool is coming out of her drain, unsurprising given the communication to bowel, and no changes need to be made regarding flushing. I reached out to her surgeon, Dr. Watts regarding changing antibiotics vs admission. The cultures on drain fluid are pending but likely polymicrobial. Dr. Watts advised if Nargis feels well enough to stay at home, she should continueher antibiotics and take Tylenol for fevers. If she feels unwell or has persistent fevers over the next 24-48 hours she should go to her local ED. I conveyed this to Nargis who expressed understanding. documented in this encounter Plan of Treatment Upcoming Encounters Date Type Department Care Team (Late st Contact Info) Description 10/02/2024 11:40 AM EDT Office Visit Family [facility] [address] [facility] [place] [address] Myah Valdivia CRNP [address] [place] [address] 10/10/2024 2:45 PM EDT Office Visit General Surgery, [place] [address] [place] [address] Leti Watts DO [address] [place] [address] Scheduled Procedures Name Priority Associated Diagnoses Date/Ti [...] Documents on File Type Date Recorded Patient Package Line Relief Operator Expl anation Advance Directives and Living Will 03/22/2005 Power of Flame Planer 03/22/2005 * No Code Status (Latest Code Status on File) Date Activated Date Inactivated Comments 03/22/2005 10:26 AM 03/22/2005 10:26 AM Care Teams Trust Mail Clerk Relationship Specialty Start Date End Date Joyce Dorantes DO [address] [place] [address] PCP - General Family Medicine 12/23/15 documented as of this encounter
--- OUTSIDE RECORDS SUMMARY | 2024-09-23 04:09 | External Medical Summary ---
Author Name Unknown Address Unknown Organization K01:[facility] - [address] [place] [address] Laboratory Report Ordering Provider Test Date Status JOSTIN REYNOLDS 09/19/2024 09:34:00 Final Multiple other species of ae robic and/or anaerobic bacteria.
No further workup routinely performed Observation Date Value Abnormality Reference (Units ) Status Bacteria identified in Specimen by Culture 09/19/2024 09:34:00 [id number]^BACTERO IDES FRAGILIS GROUP Abnormal Final Many Bacteroides fragilis gr oup Gram Stain 09/19/2024 09:34:00 Moderate Polymorphonuclear le ukocytes Abnormal Final Gram Stain 09/19/2024 09:34:00 No squamous epithelial cells seen Abnormal Final Gram Stain 09/19/2024 09:34:00 Many Gram positive bacilli Ab normal Final Gram Stain 09/19/2024 09:34:00 Moderate Gram negative bacill i Abnormal Final Gram Stain 09/19/2024 09:34:00 Moderate Gram positive cocci Abnormal Final Gram Stain 09/19/2024 09:34:00 Occasional Yeast Abnormal Final Test: Culture, Wound, Deep, Aerobic and Anaerobic
Specimen Source: Peritoneum
Specimen Type: Abscess
Specimen Date: 09/19/[id number]
Result Date: 09/22/2024 1451
Result Status: Final result
Abnormal: Yes
Resulting Lab: [facility]
[address]
[place] [id number]

CULTURE

Many Bacteroides fragilis group (Abnormal)

Multiple other species of aerobic and/or anaerobic bacteria.No further
workup routinely performed

STAIN

Moderate Polymorphonuclear leukocytes

No squamous epithelial cells seen

Many Gram positive bacilli

Moderate Gram negative bacilli

Moderate Gram positive cocci

Occasional Yeast

null Performing Location [facility] - [address] [facility] [address] [facility] [address]
--- OUTSIDE RECORDS SUMMARY | 2024-09-23 04:09 | External Medical Summary | Summary of Care ---
Author Name Unknown Organization [facility] Address [address] [place] [address] Phone [phone] Care Team Providers Care Community Affairs Director Name Role Phone Joyce Dorantes DO Primary Care Provider [phone] Reason for Visit * Reason Onset Date Comments Referral 08/13/2024 Encounter Details Date Type Department Care Team (Late st Contact Info) Description 08/13/2024 Telephone Family Practice [facility] [address] [facility] [place] [address] Joyce Dorantes DO [address] [facility] [place] [place] [address] Referral Allergies Active Allergy Reactions Criticality Noted Date Comments Morphine And Codeine High 08/13/2004 lose consciousness documented as of this encounter (statuses as of 09/11/2024) Medications MULTI-VITAMIN PO TABS One tablet daily [...] day. 350 g 1 12/30/19 24 Active Albuterol Sulfate HFA 108 (90 Base) MCG/ACT Inhalation Aerosol Solution Use two puffs every four hours as needed for wheezing,coug h, chest tightness, shortness of breath, prior to excerise - Inhalation 18 g 5 05/15/20 24 Active Amoxicillin-Pot Clavulanate 875-125 MG Oral Tablet (Augmentin) 1 Tablet. 08/11/19 25 Active Ciprofloxacin HCl 500 MG Oral Tablet (Cipro) 1 Tablet. 08/11/19 25 Active Meloxicam 7.5 MG Oral Tablet (Mobic) Take 1 Tablet by mouth in the morning. for pain.. 30 Tablet 3 04/03/20 24 025 Discontinued Phentermine HCl 15 MG Oral CapsuleIndicati ons:Morbid obesity due to excess calories (HCC) TAKE 1 CAPSULE BY MOUTH EVERY MORNING 30 Capsule 2 07/06/19 25 025 Discontinued(M edication List Clean Up) documented as of this encounter (statuses as of 09/11/2024) Active Problems Problem Noted Date Diagnosed Date [...] as of this encounter (statuses as of 09/11/2024) Resolved Problems Problem Noted Date Diagnosed Date [...] Allergic rhinitis 08/13/2004 10/06/2021 Allergic conjunctivitis 08/13/2004 07/11/2021 documented as of this encounter (statuses as of 09/11/2024) Immunizations Name Administration Dates Next Due COVID-19 [...] Industry Job Start Date Job End Date [employer] Not on file Not on file Not on f ile documented as of this encounter Miscellaneous Notes * Telephone Encounter - Bethany Santana OSA - 09/11/2024 1:19 PM EDT Pt wants to ask General Surgery in [place] to see if it is priority over the radiology appointments and will call back if she wants to schedule KENJI Wiggins 09/11/2024 1:20 PM * Telephone Encounter - Renetta Arzola OSA - 08/16/2024 9:13 AM EST Called pt to setup colonoscopy. Lmm for patient to call office back. * Telephone Encounter - Joyce Dorantes DO - 08/15/2024 4:25 PM EST Noted, colonoscopy was to be in 6-8 weeks, has f/u CT scheduled to monitor progress/resolution of abscess. thanks * Telephone Encounter - Sly Peña MD - 08/15/2024 3:58 PM EST Yes, would not pursue colonoscopy in setting of acute flare, didn't see PCP note but completed. Will cc Dr. Dorantes * Telephone Encounter - Grisel Palomino OSA - 08/13/2024 3:52 PM EST This is a day urgent for diverticulitis. Please see CT scan report from 08/07/24 showing acute diverticulitis with perforation with abscess formation. Should pt wait the 6-8 weeks before having colonoscopy? * Telephone Encounter - Chelo Geronimo OSA - 08/13/2024 2:36 PM EST Please call patient to schedule colonoscopy. Thank you. documented in this encounter Plan of Treatment Upcoming Encounters Date Type Department Care Team (Late st Contact Info) Description 10/02/2024 11:40 AM EDT Office Visit [facility] [address] [place] [address] Myah Valdivia CRNP [address] [place] [address] 10/10/2024 2:45 PM EDT Office Visit General Surgery, [place] [address] [place] [address] Leti Watts, [address] [place] [address] Scheduled Procedures Name Priority Associated Diagnoses Date/Ti [...] Documents on File Type Date Recorded Patient Vector Control Assistant Expl anation Advance Directives and Living Will 03/22/2005 Power of Record Cutter 03/22/2005 * No Code Status (Latest Code Status on File) Date Activated Date Inactivated Comments 03/22/2005 10:26 AM 03/22/2005 10:26 AM Care Teams Community Affairs Director Relationship Specialty Start Date End Date Joyce Dorantes DO [address] [place] [address] PCP - General Family Medicine 12/23/15 documented as of this encounter
--- OUTSIDE RECORDS SUMMARY | 2024-09-23 04:10 | External Medical Summary | Summary of Care ---
Author Name Unknown Organization [facility] Address [address] [place] [address] Phone [phone] Care Team Providers Care Department Sales Manager Name Role Phone PrashantoJyce duran Primary Care Provider [phone] Reason for Referral * Ancillary Services (Within 3 days (urgent)) - Authorized Specialty Diagnoses / Procedures Referred By Alda pan Referred To Contact Interventional Radiology / Radiology Diagnoses Diverticulitis of large intestine with abscess, unspecified bleeding status Leti Watts DO [address] [place] [address] Phone: tel: fax: Referral ID Status Reason Start Date Expiration Date Visits Requested Visits Authorized [id number] Authorized Ancillary Services Required 09/06/2024 [id number] Question Answer Referral Priority Within 3 days (urgent) Where should this appointment be scheduled? [facility] Where Will The Procedure Be Performed? [facility] Comments Please enter the reason for consult: Drainage Procedure - Please note: Place separate order for fluid analysis prior to the procedure. Interventional Radiology does not place orders for fluid analysis. Are outside images available?: Yes - Images available in Epic Patient recently denied IR drainage due to concern for completing a fistula. Discussed with patient that this would make surgery much easier even if she does form an EC fistula. She is OK with drainage. Please re evaluate Reason for Visit * Reason Comments NEW PATIENT * Evaluate & Treat - Unlimited Visits (Within 3 days (urgent)) - Authorized Specialty Diagnoses / Procedures Referred By Contac t Referred To Contact General Surgery Diagnoses Colonic diverticular abscess Colonic fistula Joyce Dorantes, DO [address] [place] [address] Phone: tel: fax: Referral ID Status Reason Start Date Expiration Date Visits Requested Visits Authorized [id number] Authorized Specialty Services Required 09/04/[phone] Encounter Details Date Type Department Care Team (Latest Contact Info) Description 09/06/2024 2:30 PM EST Office Visit General Surgery, [place] [address] [place] [address] Leti Watts, [address], [place] [id number] Diverticulitis of large intestine with abscess, unspecified bleeding status* Allergies Active Allergy Reactions Criticality Noted Date Comments Morphine And Codeine High 08/13/2004 lose consciousness documented as of this encounter (statuses as of 09/06/2024) Medications MULTI-VITAMIN PO TABS One tablet daily [...] FOR PAIN 30 Tablet 3 5 Active Phentermine HCl 15 MG Oral CapsuleIndicatio ns:Morbid obesity due to excess calories (HCC) TAKE 1 CAPSULE BY MOUTH EVERY MORNING 30 Capsule 2 5 025 Discontin ued(Medic ation List Clean Up) documented as of this encounter (statuses as of 09/06/2024) Active Problems Problem Noted Date Diagnosed Date [...] as of this encounter (statuses as of 09/06/2024) Resolved Problems Problem Noted Date Diagnosed Date [...] as of this encounter (statuses as of 09/06/2024) Immunizations Name Administration Dates Next Due COVID-19 [...] Industry Job Start Date Job End Date [employer] Not on file Not on file Not on f ile documented as of this encounter Last Filed Vital Signs Vital Sign Reading Time Taken Comments Blood Pressure 138/75 09/06/2024 2:41 PM EST Pulse 70 09/06/2024 2:41 PM EST Temperature - - Respiratory Rate - - Oxygen Saturation 100% 09/06/2024 2:41 PM EST Inhaled Oxygen Concentration - - Weight 96.3 kg (212 lb 6.4 oz) 09/06/2024 2:41 P M EST Height 157.5 cm (5' 2") 09/06/2024 2:41 PM EST Body Mass Index 38.85 09/06/2024 2:41 PM EST documented in this encounter Progress Notes * Ancelmo Serrano, Medical Student - 09/06/2024 2:43 PM EST COLORECTAL SURGERY [facility] Kely Mercado [id number] 09/06/2024 Cc: complicated diverticulitis HPI: Kley Mercado is a 48 year old female referred by Joyce Dorantes DO who presents in clinic for complicated diverticulitis. Canceled CT guided pelvic abscess drainage on 09/04/2024 out of fear of completing a enterocutaneous fistula. Pt seen at [facility] with diverticulitis and discharged on 08/11/24. Seen by ID who recommended 4wk tx of cipro and augmentin with repeat CT with F/u colonoscopy in 6-8weeks. She had repeat CT on 08/22 that showed abscess adjacent to sigmoid colon which was larger than her previous CT. Was seen by IR in [place] and procedure was aborted as there was concern that drainagewould cause enterocutaneous fistula Currently, she has zero abdominal pain. She denies any previous episodes of diverticulitis, although she did have pus noted in her sigmoid colon on colonoscopy in 2020. Denies pneumaturia. Patient states all of this workup began due to a dislodged IUD. TVUS showed a possible ovarian mass which prompted MRI pelvis. MRI pelvis showed a large abscess and diverticulitis. Last Colonoscopy: 03/2021 Findings & Specimens: Multiple small-mouthed diverticula were found in the sigmoid colon. Purulent discharge was seen in association with the diverticular opening. Internal hemorrhoids were found during retroflexion. The exam was otherwise without abnormality on direct and retroflexion views. Impression: - Diverticulosis in the sigmoid colon. Purulent discharge was seen in association with the diverticular opening. - Internal hemorrhoids. - The examination was otherwise normal on direct and retroflexion views. - No specimens collected. Review of Systems: Consitutional: Currently afebrile but fever 1-2 times while traveling last fall (April-May) Negative for chills GI: no nausea, vomiting, pain in left lower quadrant inguinal area on deep palpation. Constant for a couple months. Negative for hematosczeia, negative for pain on defication : Negative hematuria, dysuria, pneumaturia Past Medical History: Diagnosis Date Allergic rhinitis [...] performed by Sly Peña MD at ENDOSCOPY [facility] COLPOSCOPY OF CERVIX W/BIOPSY 09/01/2004 IR ASPIRATION ABSCESS/COLLECTION 09/04/2024 KNEE ARTHROSCOPY/REPAIR LIGAMENT Right ACL replaced KNEE ARTHROSCOPY/REPAIR LIGAMENT Left 07/04/2010 CO DELIVERY ONLY TREATMENT OF INCOMPLETE 07/04/2004 URIEL [...] Apply to behind ear. 45 g 3 buPROPion HCl ER (SR) [...] affected area 4 times a day. 350 g1 Albuterol Sulfate HFA 108 (90 Base) MCG/ACT Inhalation Aerosol Solution Use two puffs every four hours as needed for wheezing,cough, chest tightness, shortness of breath, prior to excerise - Inhalation 18 g 5 Amoxicillin-Pot Clavulanate 875-125 MG Oral Tablet (Augmentin) 1 Tablet. Ciprofloxacin HCl 500 MG Oral Tablet (Cipro) 1 Tablet. Meloxicam 7.5 MG Oral Tablet (Mobic) TAKE 1 TABLET BY MOUTH IN THE MORNING FOR PAIN 30 Tablet 3 No current facility-administered medications for this visit. Review of patient's allergies indicates: Allergen Reactions Morphine And Codeine lose consciousness Family History Problem Relation Name Age of Onset Osteoarthritis Mother No Known Problems Sister Allergies Brother rhinitis, cats No Known Problems Brother Allergies Grandmother (Maternal) rhinitis Asthma Grandmother (Maternal) Dementia Grandmother (Maternal) Allergies Grandmother (Paternal) rhinitis Asthma Grandmother (Paternal) Diabetes Grandmother (Paternal) Diabetes Grandfather (Paternal) No Past Hx Son Cervical Cancer Aunt (Unspecified) Great Aunt Social History Tobacco Use Smoking status: Never Smokeless tobacco: Never Tobacco comments: no passive smoke exposures Vaping Use Vaping status: Never Used Substance Use Topics Alcohol use: Yes Comment: 2-3 drinks/month Drug use: No Physical Examination: BP 138/75 | Pulse 70 | Ht 1.575 m (5' 2") | Wt 96.3 kg (212 lb 6.4 oz) | SpO2 100% | BMI 38.85 kg/m | BSA 2.05 m General: alert and oriented, answers questions appropriately Neuro: AxO x3 CV: no JVD Lung: symmetrical chest rise, nonlabored breathing Abdomen: soft, non distended. Pain on deep palpation on left inguinal area. Extremities: no edema Integument: warm, dry Labs: Labs: 09/03/2024 CBC showed elevated WBC (12.08), elevated HGB (11.1), and Low hematocrit (35.1%). Suggests ongoing infection. Culture has yet to be released. Radiology: 08/22 CT abd pelvis IMPRESSION Slightly larger fistulous abscess adjacent to the sigmoid colon Assessment: 48 year old female with complicated diverticulitis Plan: - I reviewed patient's CT with her. There is significant inflammation of the sigmoid colon and bladder dome. We discussed that placing a drain in this area can help reduce the inflammation and reduceher chance of needing a stoma at the time of surgery. I discussed that a fistula may very well formas in [place] discussed with the patient. She voiced understanding - low threshold for admission given CT findings. Patient is currently completely asymptomatic, which is surprising I saw and evaluated the patient today. I have reviewed the resident/fellow physician note and agree. Leti Watts DO Colorectal Surgery documented in this encounter Plan of Treatment Upcoming Encounters Date Type Department Care Team (Late st Contact Info) Description 10/02/2024 11:40 AM EDT Office Visit Family Practice [facility] [address] [place] [address] Myah Valdivia CRNP [address] [place] [address] 10/10/2024 2:45 PM EDT Office Visit General Surgery, [place] [address] [place] [address] Leti Watts, [address] [place] [address] Scheduled Procedures Name Priority Associated Diagnoses Date/Ti me COLONOSCOPY FLEXIBLE PROXIMA L DIAGNOSTIC Recall Special screening for malignant neoplasms, colon Scheduled Referrals Name Type Priority Associated Diagnoses Orde r Schedule INTERVENTIONAL RADIOLOGY REFERRAL OP Referral Within 3 days (urgent) Diverticulitis of large intestine with abscess, unspecified bleeding status Ordered: 09/06/2024 Health Maintenance Due Date Last Done Comments Hepatitis C Screening 10/17/1991 DTap/Tdap Vaccines (1 - Tdap) 1992 Hepatitis B Vaccine (1 of 3 - 19+ 3-dose series) 1992 Pneumococcal Vaccine: 50+ Years (1 of 2 - PCV) 1992 HPV/Co-Test 10/17/2003 Cologuard 2018 Fecal Occult Blood Test 2018 Sigmoidoscopy 2018 Zoster Vaccines (1 of 2) 10/17/2023 COVID-19 Vaccine (2023- season) 2024 08/30/2020, 08/06/2020 [...] as of this encounter Visit Diagnoses Diagnosis Diverticulitis of large intestine with abscess, unspecified bleeding status- Primary documented in this encounter Advance Directives Documents on File Type Date Recorded Patient Primary Care Nurse Expl anation Advance Directives and Living Will 03/22/2005 Power of Bulk Intake Worker 03/22/2005 * No Code Status (Latest Code Status on File) Date Activated Date Inactivated Comments 03/22/2005 10:26 AM 03/22/2005 10:26 AM Care Teams Department Sales Manager Relationship Specialty Start Date End Date Joyce Dorantes DO [address] [place] [address] PCP - General Family Medicine 12/23/15 documented as of this encounter
--- OUTSIDE RECORDS SUMMARY | 2024-09-23 04:10 | External Medical Summary ---
Author Name Unknown Address Unknown Organization [id number]:[facility] [address] [place] [address] Laboratory Report Ordering Provider Test Date Status GIBRAN MAGALLANES 09/03/2024 09:10:38 Final Observation Date Value Abnormality Reference (Units ) Status WBC, Total 09/03/2024 09:10:38 12.08 Above high normal 4 .00-10.80 (K/uL) Final RBC 09/03/2024 09:10:38 5.79 3.85-5.15 (M/uL) Final Hemoglobin 09/03/2024 09:10:38 11.1 Below low normal 12 .0-15.3 (g/dL) Final HCT 09/03/2024 09:10:38 35.1 Below low normal 36. 0-45.2 (%) Final MCV 09/03/2024 09:10:38 60.6 81.5-97.5 (fL) Final MCH 09/03/2024 09:10:38 19.2 27.0-34.0 (pg) Final MCHC 09/03/2024 09:10:38 31.6 32.0-36.0 (g/dL) Final RDW 09/03/2024 09:10:38 19.8 11.5-15.5 (%) Final Platelets 09/03/2024 09:10:38 345 140-400 (K /uL) Final MPV 09/03/2024 09:10:38 10.0 6.6-11.1 ( fL) Final Performing Location LAB[facility]ATORY [facility] [address] [place] [address]
--- OUTSIDE RECORDS SUMMARY | 2024-09-23 04:10 | External Medical Summary | Summary of Care ---
Author Name Unknown Organization [facility] Address [address] [place] [address] Phone [phone] Care Team Providers Care Greenkeeper Name Role Phone PrashantJoyce duran Jennifer JC Primary Care Provider [phone] Encounter Details Date Type Department Care Team (Late st Contact Info) Description 08/30/2024 Orders Only Interventional Radiology [address] [place] [address] [address] [place] [address] Zack Gutierrez MD [address] [place] [address] Abscess* Allergies Active Allergy Reactions Criticality Noted Date Comments Morphine And Codeine High 08/13/2004 lose consciousness documented as of this encounter (statuses as of 08/30/2024) Medications MULTI-VITAMIN PO TABS One tablet daily [...] differently:ExternalPRN, Apply to behind ear., Reported on 08/15/2024 buPROPion HCl ER (SR) 150 MG Oral [...] Information Patient taking differently:TopicalTID PRN, Reported on 08/15/2024 Albuterol Sulfate HFA 108 (90 Base) MCG/ACT Inhalation Aerosol Solution Use two puffs every four hours as needed for wheezing,cough, chest tightness, shortness of breath, prior to excerise - Inhalation 18 g 5 4 Active Phentermine HCl 15 MG Oral CapsuleIndicatio ns:Morbid obesity due to excess calories (HCC) TAKE 1 CAPSULE BY MOUTH EVERY MORNING 30 Capsule 2 5 Active Additional Information Patient not taking.Reported on 08/15/2024 Amoxicillin-Pot Clavulanate 875-125 MG Oral Tablet (Augmentin) 1 Tablet. 5 Active Ciprofloxacin HCl 500 MG Oral Tablet (Cipro) 1 Tablet. 5 Active Meloxicam 7.5 MG Oral Tablet (Mobic) TAKE 1 TABLET BY MOUTH IN THE MORNING FOR PAIN 30 Tablet 3 5 Active documented as of this encounter (statuses as of 08/30/2024) Active Problems Problem Noted Date Diagnosed Date [...] as of this encounter (statuses as of 08/30/2024) Resolved Problems Problem Noted Date Diagnosed Date [...] as of this encounter (statuses as of 08/30/2024) Immunizations Name Administration Dates Next Due COVID-19 [...] Industry Job Start Date Job End Date [employer] Not on file Not on file Not on f ile documented as of this encounter Plan of Treatment Upcoming Encounters Date Type Department Care Team (Late st Contact Info) Description 08/31/2024 3:45 PM EST [facility] [address] [phone] 09/05/2024 10:00 AM EST Office Visit Nutrition & Weight Management, [facility] [address] [place] [address] Nata Alba PA-C [address] [place] [address] 10/02/2024 11:40 AM EDT Office Visit Family Practice [facility] [address] [place] [address] Myah Valdivia CRNP [address] [place] [address] Scheduled Orders Name Type Priority Associated Diagnoses Orde r Schedule IR ASPIRATION ABSCESS/COLLECTION Medical Imaging Routine Abscess Expected: 09/06/2024, Expires: 11/27/2024 Scheduled Procedures Name Priority Associated Diagnoses Date/Ti [...] Documents on File Type Date Recorded Patient Cat Breeder Expl anation Advance Directives and Living Will 03/22/2005 Power of Training Mgr 03/22/2005 * No Code Status (Latest Code Status on File) Date Activated Date Inactivated Comments 03/22/2005 10:26 AM 03/22/2005 10:26 AM Care Teams Greenkeeper Relationship Specialty Start Date End Date Joyce Dorantes DO [address] [place] [address] PCP - General Family Medicine 12/23/15 documented as of this encounter
--- OUTSIDE RECORDS SUMMARY | 2024-09-23 04:10 | External Medical Summary ---
Author Name Unknown Address Unknown Organization [facility] [address] [place] [address] Laboratory Report Ordering Provider Test Date Status JOSTIN REYNOLDS 09/03/2024 09:10:38 Final Warfarin Therapy
INR: 2 .0-3.0 conventional anticoagulation
INR: 2.5- 3.5 high intensity anticoagulation Observation Date Value Abnormality Reference (Units ) Status PT 09/03/2024 09:10:38 16.0 Above high normal 11 .6-15.2 (seconds) Final INR 09/03/2024 09:10:38 1.3 Above high normal 0. 8-1.2 Final Performing Location [facility] [address] [place] [address]
--- OUTSIDE RECORDS SUMMARY | 2024-09-23 04:10 | External Medical Summary | Summary of Care ---
Author Name Unknown Organization [facility] Address [address] [place] [address] Phone [phone] Care Team Providers Care Harness And Bag Inspector Name Role Phone SoilaJoyce lewis Jennifer JC Primary Care Provider [phone] Reason for Visit * Reason Comments Outpatient Testing Encounter Details Date Type Department Care Team (Late st Contact Info) Description 08/30/2024 9:00 AM EST Laboratory Laboratory, [facility] [address] [place] [phone] [facility] [address] [place] [address] Perforated diverticulum Allergies Active Allergy Reactions Criticality Noted Date [...] Industry Job Start Date Job End Date [employer] Not on file Not on file Not on f ile documented as of this encounter Plan of Treatment Upcoming Encounters Date Type Department Care Team (Late st Contact Info) Description 08/31/2024 3:45 PM EST Imaging Radiology [facility] 1st Floor, [place] [address] [phone] 09/05/2024 10:00 AM EST Office Visit Nutrition & Weight Management, [facility] [address] [address] Nata Alba PA-C [address] [place] [address] 10/02/2024 11:40 AM EDT Office Visit Family Practice [facility] [address] [place] [address] Myah Valdivia CRNP [address] [place] [address] Pending Results Name Type Priority Associated Diagnoses Date /Time ERYTHROCYTE SEDIMENTATION RATE (ESR) Lab Routine Perforated diverticulum 08/30/2024 9:00 AM EST COMPREHENSIVE METABOLIC PANEL Lab Routine Perforated diverticulum 08/30/2024 9:00 AM EST CRP (INFLAMMATORY MARKER) Lab Routine Perforated diverticulum 08/30/2024 9:00 AM EST Scheduled Procedures Name Priority Associated [...] as of this encounter Visit Diagnoses Diagnosis Perforated diverticulum documented in this encounter Advance Directives Documents on File Type Date Recorded Patient Catastrophe Claims Supervisor Expl anation Advance Directives and Living Will 03/22/2005 Power of Mail Processing Machine Operator 03/22/2005 * No Code Status (Latest Code Status on File) Date Activated Date Inactivated Comments 03/22/2005 10:26 AM 03/22/2005 10:26 AM Care Teams Harness And Bag Inspector Relationship Specialty Start Date End Date Joyce Dorantes DO [address] [place] [address] PCP - General Family Medicine 12/23/15 documented as of this encounter
--- OUTSIDE RECORDS SUMMARY | 2024-09-23 04:10 | External Medical Summary ---
Author Name Unknown Address Unknown Organization [id number]:[facility] [address] [place] [address] Laboratory Report Ordering Provider Test Date Status SONAGIBRAN 09/03/2024 09:10:38 Final Observation Date Value Abnormality Reference (Units ) Status SYNC LEUKOCYTES IN BLOOD BY AUTOMATED COUNT 09/03/2024 09:10:38 12.08 Above high normal 4.00-10.80 (K/uL) Final Neutrophils/100 leukocytes in Blood by Manual count 09/03/2024 09:10:38 70.0 40.0-75.0 (%) Final Lymphocytes/100 leukocytes in Blood by Manual count 09/03/2024 09:10:38 21.0 18.0-42.0 (%) Final Monocytes/100 leukocytes in Blood by Manual count 09/03/2024 09:10:38 7.0 1.0-11.0 (%) Final Eosinophils/100 leukocytes in Blood by Manual count 09/03/2024 09:10:38 1.0 0.0-6.0 (%) Final Metamyelocytes/100 leukocytes in Blood by Manual count 09/03/2024 09:10:38 1.0 Above high normal <=0.0 (%) Final Neutrophils [#/volume] in Blood by Manual count 09/03/2024 09:10:38 8.46 Above high normal 1.80-7.70 (K/uL) Final Lymphocytes [#/volume] in Blood by Manual count 09/03/2024 09:10:38 2.54 1.00-4.80 (K/uL) Final Monocytes [#/volume] in Blood by Manual count 09/03/2024 09:10:38 0.85 0.00-1.10 (K/uL) Final Eosinophils [#/volume] in Blood by Manual count 09/03/2024 09:10:38 0.12 0.00-0.70 (K/uL) Final Metamyelocytes [#/volume] in Blood by Manual count 09/03/2024 09:10:38 0.12 Above high normal <=0.00 (K/uL) Final Nucleated erythrocytes/100 leukocytes [Ratio] in Blood by Automated count 09/03/2024 09:10:38 Final Ovalocytes [Presence] in Blood by Light microscopy 09/03/2024 09:10:38 Moderate Abnormal None Seen Final Schistocytes 09/03/2024 09:10:38 Few Abnormal None Seen Final Performing Location [facility] [place] [address] [facility] [address]
--- OUTSIDE RECORDS SUMMARY | 2024-09-23 04:10 | External Medical Summary ---
Author Name Unknown Address Unknown Organization [facility] [address] [place] [address] Laboratory Report Ordering Provider Test Date Status GIBRAN MAGALLANES 09/03/2024 09:10:38 Final Observation Date Value Abnormality Reference (Units ) Status BUN 09/03/2024 09:10:38 14 6-20 (mg/dL) Final Creatinine 09/03/2024 09:10:38 0.8 0.5-1.0 (mg/dL) Final Glomerular filtration rate/1.73 sq M.predicted [Volume Rate/Area] in Serum, Plasma or Blood by Creatinine-based formula (CKD-EPI) 09/03/2024 09:10:38 86 >=60 (mL/min) Final eGFR is calculated based on the CKD-EPI 2020 equation. Sodium 09/03/2024 09:10:38 138 135-146 (m mol/L) Final Potassium 09/03/2024 09:10:38 4.2 3.5-5.1 (m mol/L) Final Cl 09/03/2024 09:10:38 101 98-107 (mm ol/L) Final CO2 09/03/2024 09:10:38 29 22-32 (mmo l/L) Final Anion gap 09/03/2024 09:10:38 8 7-15 (mmol /L) Final Glucose 09/03/2024 09:10:38 141 Above high normal 70 -120 (mg/dL) Final Albumin 09/03/2024 09:10:38 4.1 3.8-5.0 (g /dL) Final AST (Aspartate aminotransferase) 09/03/2024 09:10:38 13 10-35 (U/L) Fin al Alk Phos 09/03/2024 09:10:38 95 35-130 (U/ L) Final Bilirubin, Total 09/03/2024 09:10:38 0.6 <=1 .2 (mg/dL) Final Calcium 09/03/2024 09:10:38 9.5 8.4-10.2 ( mg/dL) Final Protein 09/03/2024 09:10:38 7.8 6.0-8.3 (g /dL) Final ALT (Alanine aminotransferase) 09/03/2024 09:10:38 11 10-35 (U/L) Codey zamudio Performing Location LAB[facility]ATORY [place] [address] [facility] [address]
--- OUTSIDE RECORDS SUMMARY | 2024-09-23 04:10 | External Medical Summary ---
Author Name Unknown Address Unknown Organization K01:[facility] - [address] [place] [address] Laboratory Report Ordering Provider Test Date Status GIBRAN MAGALLANES 09/03/2024 09:10:38 Final Observation Date Value Abnormality Reference (Units ) Status Erythrocyte sedimentation rate by Photometric method 09/03/2024 09:10:38 60 Above high normal <30 (mm/hour) Final Performing Location [facility] [place] [address] [place] [address]
--- OUTSIDE RECORDS SUMMARY | 2024-09-23 04:10 | External Medical Summary | Summary of Care ---
Author Name Unknown Organization [facility] Address [address] [place] [address] Phone [phone] Care Team Providers Care Landscape Manager Name Role Phone PrashantJoyce duran Jennifer JC Primary Care Provider [phone] Reason for Visit * Reason Onset Date Comments Patient Instructions 08/31/2024 Scheduling 08/31/2024 Encounter Details Date Type Department Care Team (Late st Contact Info) Description 08/31/2024 Telephone Interventional Radiology, [address] [address] Heraclio Martin RN Patient Instructions; Scheduling Allergies Active Allergy Reactions Criticality Noted Date Comments Morphine And Codeine High 08/13/2004 lose consciousness documented as of this encounter (statuses as of 08/31/2024) Medications MULTI-VITAMIN PO TABS One tablet daily [...] as of this encounter (statuses as of 08/31/2024) Active Problems Problem Noted Date Diagnosed Date [...] as of this encounter (statuses as of 08/31/2024) Resolved Problems Problem Noted Date Diagnosed Date [...] grade 1 10/30/2004 01/25/2022 Polycystic ovaries 09/14/2004 07/25/202 2 Asthma with severity to be determined 08/13/2004 08/24/2011 Overview (10/13/2015): ICD-10 update of inactive term Allergic rhinitis 08/13/2004 10/06/2021 Allergic conjunctivitis 08/13/200401/02 documented as of this encounter (statuses as of 08/31/2024) Immunizations Name Administration Dates Next Due COVID-19 [...] Industry Job Start Date Job End Date [employer] Not on file Not on file Not on f ile documented as of this encounter Miscellaneous Notes * Telephone Encounter - Heraclio Martin RN - 08/31/2024 9:44 AM EST Spoke with patient over the phone to schedule CT Pelvic Abscess Drain, agreed to schedule on 09/04/2024 at 1100 . Pt instructed to report to [facility] for CBC, PT/INR between now and the day of theprocedure. Pt verbalized understanding of instructions and had no further questions at this time. Patient identified by: name and date of Person taught: Patient METHOD: Lecture-telephone interview PATIENT INSTRUCTIONS GIVEN: - General Preoperative Instructions Reviewed - Medication Instructions Reviewed - NPO Instructions Reviewed, pt to stop eating 8 hours prior to procedure and stop drinking 2 hoursprior to procedure. -Roller Coaster Operator required Location and check-in instructions - Obtain blood work as ordered Verbalizes understanding of education: Yes Procedure date at time of Imaging Encounter: 09/04/2024 at 1100 What procedure is patient having? CT Pelvic Abscess Drain Laterality confirmed as Not Applicable Does the patient have a yellow bar? did not The Patient was given the opportunity to ask questions concerning the procedure. Signature: Heraclio Martin RN 08/31/2024 documented in this encounter Plan of Treatment Upcoming Encounters Date Type Department Care Team (Late st Contact Info) Description 09/05/2024 10:00 AM EST Office Visit Nutrition & Weight Management, [facility] [address] [place] [address] Nata Alba PA-C [address] [place] [address] 10/02/2024 11:40 AM EDT Office Visit Family Practice [facility] [address] [place] [address] Myah Valdivia CRNP [address] [place] [address] Scheduled Orders Name Type Priority Associated Diagnoses Orde r Schedule CBC Lab Routine Abscess Expected: 08/31/2024, Expires: 5 PT INR Lab Routine Abscess Expected: 08/31/2024, Expires: 5 Scheduled Procedures Name Priority Associated Diagnoses Date/Ti [...] Documents on File Type Date Recorded Patient Wax Engraver Expl anation Advance Directives and Living Will 03/22/2005 Power of Primary Special Education Teacher 03/22/2005 * No Code Status (Latest Code Status on File) Date Activated Date Inactivated Comments 03/22/2005 10:26 AM 03/22/2005 10:26 AM Care Teams Landscape Manager Relationship Specialty Start Date End Date Joyce Dorantes DO [address] [place] [address] PCP - General Family Medicine 12/23/15 documented as of this encounter
--- OUTSIDE RECORDS SUMMARY | 2024-09-23 04:10 | External Medical Summary | Summary of Care ---
Author Name Unknown Organization [facility] Address [address] [place] [address] Phone [phone] Care Team Providers Care Condenser Winder Name Role Phone Joyce Dorantes DO Primary Care Provider [phone] Encounter Details Date Type Department Care Team (Late st Contact Info) Description 09/03/2024 Orders Only PATIENT PORTAL DO NOT DELETE THIS DEPT USED BY [place] [address] Allergies Active Allergy Reactions Criticality Noted Date Comments Morphine And Codeine High 08/13/2004 lose consciousness documented as of this encounter (statuses as of 09/03/2024) Medications MULTI-VITAMIN PO TABS One tablet daily [...] as of this encounter (statuses as of 09/03/2024) Active Problems Problem Noted Date Diagnosed Date [...] as of this encounter (statuses as of 09/03/2024) Resolved Problems Problem Noted Date Diagnosed Date [...] as of this encounter (statuses as of 09/03/2024) Immunizations Name Administration Dates Next Due COVID-19 [...] Industry Job Start Date Job End Date [employer] Not on file Not on file Not on f ile documented as of this encounter Plan of Treatment Upcoming Encounters Date Type Department Care Team (Late st Contact Info) Description 09/04/2024 11:00 AM EST Hospital Encounter [facility], Operating Room, [facility] - 4th Floor [address] [phone] [facility], In And Out Surgery [address] [address] 09/04/2024 11:00 AM EST [address] [address] 09/04/2024 11:00 AM EST - 09/04/2024 12:00 PM EST Surgery [facility], Operating Room, [facility] - 4th Floor [address] [place] [phone] [facility], In And Out Surgery [address] [place] [address] PRE / POST CARE 09/05/2024 10:00 AM EST Office Visit Nutrition & Weight Management, [facility] [address] [place] [address] Nata Alba PA-C [address] [place] [address] 10/02/2024 11:40 AM EDT Office Visit Family Practice [facility] [address] [place] [address] Myah Valdivia CRNP [address] [place] [address] Scheduled Procedures Name Priority Associated Diagnoses Date/Ti me PRE / POST CARE Abscess 09/04/2024 11:00 AM EST COLONOSCOPY FLEXIBLE PROXIMAL DIAGNOSTIC Recall Special screening for malignant neoplasms, [...] 7-Year 11/21/2025 11/21/2018 Lipid Panel 07/25/2029 07/25/2024, 0803/2019, 09/23/2010, Additional history exists Colonoscopy 03/04/2031 03/04/2021, [...] Documents on File Type Date Recorded Patient Clin Asst Expl anation Advance Directives and Living Will 03/22/2005 Power of Groundhand 03/22/2005 * No Code Status (Latest Code Status on File) Date Activated Date Inactivated Comments 03/22/2005 10:26 AM 03/22/2005 10:26 AM Care Teams Condenser Winder Relationship Specialty Start Date End Date Joyce Dorantes DO [address] [place] [address] PCP - General Family Medicine 12/23/15 documented as of this encounter
--- OUTSIDE RECORDS SUMMARY | 2024-09-23 04:10 | External Medical Summary | Summary of Care ---
Author Name Unknown Organization [facility] Address [address] [place] [address] Phone [phone] Care Team Providers Care Technology And Engineering Teacher Name Role Phone SoilaJoyce lewis Jennifer JC Primary Care Provider [phone] Reason for Visit * Reason Comments Outpatient Testing Encounter Details Date Type Department Care Team (Late st Contact Info) Description 09/03/2024 9:30 AM EST Laboratory Laboratory, [facility] [address] [place] [address] [facility] [address] [place] [address] Abnormal MRI, pelvis; Abscess Allergies Active Allergy Reactions Criticality Noted Date [...] Industry Job Start Date Job End Date [employer] Not on file Not on file Not on f ile documented as of this encounter Plan of Treatment Upcoming Encounters Date Type Department Care Team (Late st Contact Info) Description 09/04/2024 11:00 AM EST Hospital Encounter OR [facility], Operating Room, [facility] - 4th Floor [address] [address] [facility], In And Out Surgery [address] [address] 09/04/2024 11:00 AM EST Appointment Radiology, [facility] [address] [address] 09/04/2024 11:00 AM EST - 09/04/2024 12:00 PM EST Surgery OR [facility], Operating Room, [facility] - 4th Floor [address] [address] [facility], In And Out Surgery [address] [address] PRE / POST CARE 09/05/2024 10:00 AM EST Office Visit Nutrition & Weight Management, [facility] [address] [place] [address] Nata Alba PA-C [address] [place] [address] 10/02/2024 11:40 AM EDT Office Visit Family Practice [facility] [address] [place] [address] Myah Valdivia CRNP [address] [place] [address] Pending Results Name Type Priority Associated Diagnoses Date /Time ERYTHROCYTE SEDIMENTATION RATE (ESR) Lab STAT Abnormal MRI, pelvis 09/03/2024 9:10 AM EST Scheduled Procedures Name Priority Associated [...] Priority Date/Time Associated Diagnosis Comments DIFFERENTIAL, AUTOMATED STAT 09/03/2024 9:10 AM EST Abnormal MRI, pelvis COMPREHENSIVE METABOLIC PANEL STAT 09/03/2024 9:10 AM EST Abnormal MRI, pelvis CBC STAT 09/03/2024 9:10 AM EST Abnormal MRI, pelvis PT INR Routine 09/03/2024 9:10 AM EST Abscess CBC STAT 09/03/2024 9:10 AM EST Abnormal MRI, pelvis DIFFERENTIAL, TECHNOLOGIST REVIEW Routine 09/03/2024 9:10 AM EST Abnormal MRI, pelvis documented in this encounter Results * (ABNORMAL) DIFFERENTIAL, TECHNOLOGIST REVIEW (09/03/2024 9:10 AM EST) WBC 12.08(H) 4.00 - 10.80 K/uL 09/03/2024 9:42 AM EST [facility]10 Neutrophils % 70.0 40.0 - 75.0 % 09/03/2024 9:42 AM EST [facility]10 Lymphocytes % 21.0 18.0 - 42.0 % 09/03/2024 9:42 AM EST [facility]10 Monocytes % 7.0 1.0 - 11.0 % 09/03/2024 9:42 AM EST [facility]10 Eosinophils % 1.0 0.0 - 6.0 % 09/03/2024 9:42 AM EST [facility] 57[facility]10 Metamyelocytes % 1.0(H) <=0.0 % 09/04/19 9:42 AM EST [facility] 57[facility]10 Absolute Neutrophils 8.46(H) 1.80 - 7.70 K/uL 09/03/2024 9:42 AM EST [facility]10 Absolute Lymphocytes 2.54 1.00 - 4.80 K/uL 09/03/2024 9:42 AM EST [facility] [place] [facility]10 Absolute Monocytes 0.85 0.00 - 1.10 K/uL 09/03/2024 9:42 AM EST [facility] [place] [facility]10 Absolute Eosinophils 0.12 0.00 - 0.70 K/uL 09/03/2024 9:42 AM EST [facility]10 Absolute Metamyelocytes 0.12(H) <=0.00 K/uL 09/03/2024 9:42 AM EST [facility] 57[facility]10 nRBCs 09/03/2024 9:42 AM EST [facility]10 Ovalocytes Moderate( A) None Seen 09/03/2024 9:42 AM EST [facility]10 Schistocytes Few(A) None Seen 09/03/2024 9:42 AM EST [facility]10 Blood Venous blood specimen / Unknown Venipuncture / Unknown 09/03/2024 9:10 AM EST 09/03/2024 9:10 AM EST Joyce Cerdaworcesterjoshua LAB BLOOD ORDERABLES Final Result Performing Organization Address City/[facility]/ZIP Co de Phone Number [facility] [phone] [facility] [place] [address] * DIFFERENTIAL, AUTOMATED (09/03/2024 9:10 AM EST) Blood Venous blood specimen / Unknown Venipuncture / Unknown 09/03/2024 9:10 AM EST 09/03/2024 9:10 AM EST Joyce Cerdaworcesterjoshua LAB BLOOD ORDERABLES Final Result Performing Organization Address City/[facility] Co de Phone Number [phone] [facility] [place] [address] * (ABNORMAL) CBC (09/03/2024 9:10 AM EST) WBC 12.08(H) 4.00 - 10.80 K/uL 09/03/2024 9:42 AM EST [facility] [place]10 RBC 5.79 3.85 - 5.15 M/uL 09/03/2024 9:42 AM EST [facility] 57-10 HGB 11.1(L) 12.0 - 15.3 g/dL 09/03/2024 9:42 AM EST [facility] 57-10 HCT 35.1(L) 36.0 - 45.2 % 09/03/2024 9:42 AM EST [facility] 57-10 MCV 60.6 81.5 - 97.5 fL 09/03/2024 9:42 AM EST [facility]10 MCH 19.2 27.0 - 34.0 pg 09/03/2024 9:42 AM EST [facility]10 MCHC 31.6 32.0 - 36.0 g/dL 09/03/2024 9:42 AM EST [facility] 57-10 RDW 19.8 11.5 - 15.5 % 09/03/2024 9:42 AM EST [facility] 57-10 PLT 345 140 - 400 K/uL 09/03/2024 9:42 AM EST [facility] 57-10 MPV 10.0 6.6 - 11.1 fL 09/03/2024 9:42 AM EST [facility] 57-10 Blood Venous blood specimen / Unknown Venipuncture / Unknown 09/03/2024 9:10 AM EST 09/03/2024 9:10 AM EST us Joyce Dorantes DO LAB BLOOD ORDERABLES Final Result Performing Organization Address City/[facility]/ZIP Co de Phone Number [phone] [place] [address] * (ABNORMAL) PT INR (09/03/2024 9:10 AM EST) Pathologist [facility] Prothrombin Time 16.0(H) 11.6 - 15.2 seconds 09/03/2024 9:41 AM EST [facility] 57-10 INR 1.3(H) 0.8 - 1.2 09/03/2024 9:41 AM EST [facility] 57-10 Blood Venous blood specimen / Unknown Venipuncture / Unknown 09/03/2024 9:10 AM EST 09/03/2024 9:10 AM EST Narrative [facility] [place] 57-10 - 09/03/2024 9:41 AM EST Warfarin Therapy INR: 2.0-3.0 conventional anticoagulation INR: 2.5-3.5 high intensity anticoagulation us Zack Gutierrez MD LAB BLOOD ORDERABLES Final Resul t [facility] [place] [address] * (ABNORMAL) COMPREHENSIVE METABOLIC PANEL (09/03/2024 9:10 AM EST) Pathologist [facility] BUN 14 6 - 20 mg/dL 09/03/2024 9:45 AM EST [facility]10 CREATININE 0.8 0.5 - 1.0 mg/dL 09/03/2024 9:45 AM EST [facility] [place] [facility] 57[facility]10 EGFR 86 >=60 mL/min 09/03/2024 9:45 AM EST [facility] [place] [facility] 57[facility]10 Comment:eGFR is calculated b ased on the CKD-EPI 2020 equation. SODIUM 138 135 - 146 mmol/L 09/03/2024 9:45 AM EST [facility]10 POTASSIUM 4.2 3.5 - 5.1 mmol/L 09/03/2024 9:45 AM EST [facility] [place] [facility]10 CHLORIDE 101 98 - 107 mmol/L 09/03/2024 9:45 AM EST [facility]10 CO2 29 22 - 32 mmol/L 09/03/2024 9:45 AM EST [facility]10 ANION GAP 8 7 - 15 mmol/L 09/03/2024 9:45 AM EST [facility]10 GLUCOSE 141(H) 70 - 120 mg/dL 09/03/2024 9:45 AM EST [facility] 57[facility]10 Albumin 4.1 3.8 - 5.0 g/dL 09/03/2024 9:45 AM EST [facility] 57[facility]10 AST 13 10 - 35 U/L 09/03/2024 9:45 AM EST [facility] [place] [facility]10 Alkaline Phosphatase 95 35 - 130 U/L 09/03/2024 9:45 AM EST [facility]10 Bilirubin, Total 0.6 <=1.2 mg/dL 09/03/2024 9:45 AM EST [facility]10 CALCIUM 9.5 8.4 - 10.2 mg/dL 09/03/2024 9:45 AM EST [facility]10 Protein 7.8 6.0 - 8.3 g/dL 09/03/2024 9:45 AM EST [facility]10 ALT 11 10 - 35 U/L 09/03/2024 9:45 AM EST [facility]10 Blood Venous blood specimen / Unknown Venipuncture / Unknown 09/03/2024 9:10 AM EST 09/03/2024 9:10 AM EST Joyce Dorantes DO LAB BLOOD ORDERABLES Final Result [facility] [place] [facility] [place] [address] documented in this encounter Visit Diagnoses Diagnosis Abnormal MRI, pelvis Nonspecific (abnormal) findings on radiological and other examination of abdominal area, including retroperitoneum Abscess Cellulitis and abscess of unspecified site Abscess Cellulitis and abscess of unspecified site documented in this encounter Advance Directives Documents on File Type Date 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
--- OUTSIDE RECORDS SUMMARY | 2024-09-23 04:10 | External Medical Summary | Summary of Care ---
Author Name Unknown Organization [facility] Address [address] [place] [address] Phone [phone] Care Team Providers Care Brick Chimney Builder Name Role Phone Thierry Dorantesa Jennifer JC Primary Care Provider [phone] Encounter Details Date Type Department Care Team (Latest Contact Info) Description 09/04/2024 10:53 AM EST - 09/04/2024 11:59 PM [facility] Hospital Encounter Radiology, [address] [phone] Arrived Discharge Disposition: Home - Self Care Allergies Active Allergy Reactions Criticality Noted Date Comments Morphine And Codeine High 08/13/2004 lose consciousness documented as of this encounter (statuses as of 09/05/2024) Medications MULTI-VITAMIN PO TABS One tablet daily [...] g 3 4 Active Additional Information Patient not taking.Reported on 09/04/2024 buPROPion HCl ER (SR) 150 MG Oral [...] g 1 4 Active Additional Information Patient not taking.Reported on 09/04/2024 Albuterol Sulfate HFA 108 (90 Base) MCG/ACT [...] Active Additional Information Patient not taking.Reported on 09/04/2024 Amoxicillin-Pot Clavulanate 875-125 MG Oral Tablet (Augmentin) 1 Tablet. 5 Active Ciprofloxacin HCl 500 MG Oral Tablet (Cipro) 1 Tablet. Active Meloxicam 7.5 MG Oral Tablet (Mobic) TAKE 1 TABLET BY MOUTH IN THE MORNING FOR PAIN 30 Tablet 3 5 Active documented as of this encounter (statuses as of 09/05/2024) Active Problems Problem Noted Date Diagnosed Date [...] as of this encounter (statuses as of 09/05/2024) Resolved Problems Problem Noted Date Diagnosed Date [...] as of this encounter (statuses as of 09/05/2024) Immunizations Name Administration Dates Next Due COVID-19 [...] Industry Job Start Date Job End Date [email or web address] Not on file Not on file Not on f ile documented as of this encounter Plan of Treatment Upcoming Encounters Date Type Department Care Team (Late st Contact Info) Description 09/06/2024 2:30 PM EST Office Visit General Surgery, [place] [address] [place] [address] Leti Watts DO [address] [place] [address] 10/02/2024 11:40 AM EDT Office Visit Family Practice [facility] [place] [address] Myah Valdivia CRNP [address] [place] [address] Scheduled Procedures Name Priority Associated Diagnoses Date/Ti [...] Associated Diagnosis Comments IR ASPIRATION ABSCESS/COLLECTION Routine 09/04/2024 12:13 PM EST Abscess documented in this encounter Results * IR ASPIRATION ABSCESS/COLLECTION (09/04/2024 12:13 PM EST) Anatomical Region Laterality Modality Any Computed Tomogra phy 09/04/2024 12:5 6 PM EST Impressions 09/04/2024 12:54 PM EST IMPRESSION: Canceled drainage Narrative 09/04/2024 12:54 PM EST PROCEDURE: Canceled CT-guided pelvic abscess drainage INDICATION: Pelvic collection ATTENDING (OPERATING PHYSICIAN): Brenda CONSENT: After a detailed discussion of the procedure, risks, benefits and alternative treatment options, informed consent was obtained. TIME OUT: A time out procedure was performed. The patient's identification was verified. Informed consent with agreement of procedure, site and position was obtained. All necessary equipment was available prior to procedure. CONTRAST: No contrast was administered. COMPLICATIONS: None. MEDICATIONS: See MAR PROCEDURE DESCRIPTION: CT images of the pelvis were obtained without oral or IV contrast localizing the collection noted previously on August 07, 2024. The collection is almost completely suggesting continuity with bowel wall, likely colon.. Plan procedure was canceled for fear of completing a enterocutaneous fistula. FINDINGS: Air-filled collection Procedure Note Zack Gutierrez MD - 09/04/2024 PROCEDURE: Canceled CT-guided pelvic abscess drainage INDICATION: Pelvic collection ATTENDING (OPERATING PHYSICIAN): Brenda CONSENT: After a detailed discussion of the procedure, risks, benefits andalternative treatment options, informed consent was obtained. TIME OUT: A time out procedure was performed. The patient's identificationwas verified. Informed consent with agreement of procedure, site andposition was obtained. All necessary equipment was available prior toprocedure. CONTRAST: No contrast was administered. COMPLICATIONS: None. MEDICATIONS: See [facility] PROCEDURE DESCRIPTION: CT images of the pelvis were obtained without oralor IV contrast localizing the collection noted previously on August. The collection is almost completely suggesting continuity withbowel wall, likely colon.. Plan procedure was canceled for fear ofcompleting a enterocutaneous fistula. 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
--- OUTSIDE RECORDS SUMMARY | 2024-09-23 04:10 | External Medical Summary | Summary of Care ---
Author Name Unknown Organization [facility] Address [address] [place] [address] Phone [phone] Care Team Providers Care Crochet Beader Name Role Phone PrashantJoyce duran Jennifer JC Primary Care Provider Reason for Visit * Reason Onset Date Comments Patient Instructions 08/31/2024 Scheduling 08/31/2024 Encounter Details Date Type Department Care Team (Late st Contact Info) Description 08/31/2024 Telephone Interventional Radiology, [address] [address] Heraclio Martin RN Patient Instructions; [...] Industry Job Start Date Job End Date [email or web address] Not on file Not on file Not on f ile documented as of this encounter Miscellaneous Notes * Telephone Encounter - Myah Valdivia CRNP - 08/31/2024 1:17 PM EST Inboxologist Note: Inboxologist Covering Provider Noted All replies or additional communication must be routed to the PCP * Telephone Encounter - Heraclio Martin RN - 08/31/2024 9:44 AM EST Spoke with patient over the phone to schedule CT Pelvic Abscess Drain, agreed to schedule on 09/04/2024 at 1100 . Pt instructed to report to [facility] lab for CBC, PT/INR between now and [...] and stop drinking 2 hoursprior to procedure. -Restaurant Cashier required Location and check-in instructions - Obtain [...] 09/04/2024 11:00 AM EST Hospital Encounter OR [facility], Operating Room, [facility] - 4th Floor [address] [address] [facility], In And Out Surgery [address] [address] 09/04/2024 11:00 AM EST Appointment Radiology, [facility] [address] [address] 09/04/2024 11:00 AM EST - 09/04/2024 12:00 PM EST Surgery OR [facility], Operating Room, [facility] - 4th Floor [address] [address] [facility], In And Out Surgery [address] [address] PRE / POST CARE 09/05/2024 10:00 AM EST Office Visit Nutrition & Weight Management, 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
--- OUTSIDE RECORDS SUMMARY | 2024-09-23 04:10 | External Medical Summary | Summary of Care ---
Author Name Unknown Organization [facility] Address [address] [place] [address] Phone [phone] Care Team Providers Care Plant Protection Superintendent Name Role Phone Jose EJoyce Jennifer JC Primary Care Provider [phone] Reason for Visit * Auth/Cert Specialty Diagnoses / Procedures Referred By Alda pan Referred To Contact Diagnoses Abscess Abscess [L02.91] Procedures PRE / POST CARE PRE / POST CARE [facility] [address] [place] [address] Phone: [phone] OR [facility], Operating Room, [facility] - 4th Floor [address] [facility] [place] [address] Phone: tel: Referral ID Status Reason Start Date Expiration Date Visits Re quested Visits Authorized [id number] Encounter Details Date Type Department Care Team (Latest Contact Info) Description 09/04/2024 9:49 AM EST - 09/04/2024 12:26 PM EST Hospital Encounter OR [facility], Operating Room, [facility] - 4th Floor [address] [facility] [place] [address] [facility], In And Out Surgery [address] [place] [address] Discharge Disposition: Home - Self Care Allergies [...] Industry Job Start Date Job End Date [employer] Not on file Not on file Not on f ile documented as of this encounter Last Filed Vital Signs Vital Sign Reading Time Taken Comments Blood Pressure 125/78 09/04/2024 11:29 AM EST Pulse 62 09/04/2024 11:29 AM EST Temperature 36 C (96.8 F) 09/04/2024 10:01 AM EST Respiratory Rate 22 09/04/2024 11:29 AM EST Oxygen Saturation 97% 09/04/2024 11:29 AM EST Inhaled Oxygen Concentration - - Weight 97.1 kg (214 lb) 09/04/2024 10:01 AM EST Height 157.5 cm (5' 2") 09/04/2024 10:01 AM EST Body Mass Index 39.14 09/04/2024 10:01 AM EST documented in this encounter H&P Notes * Zack Gutierrez MD - 09/04/2024 11:23 AM EST HISTORY & PHYSICAL - Interventional Radiology Service [facility] [address] Name: Kely Mercado Location: OR [facility]/MS Date: 09/04/2024 Time: 11:24 AM CHIEF COMPLAINT: Drainage pelvic collection HISTORY OF PRESENT ILLNESS: Tubular pelvic collection (08/22). Increased risk of fistula to bowel or bladder, increased risk bowel injury, possibly requiring surgical management. Past Medical History: Diagnosis Date Allergic rhinitis [...] performed by Sly Peña MD at ENDOSCOPY [facility] COLPOSCOPY OF CERVIX W/BIOPSY 09/01/2004 KNEE ARTHROSCOPY/REPAIR LIGAMENT Right ACL replaced KNEE ARTHROSCOPY/REPAIR LIGAMENT Left 07/04/2010 NC DELIVERY ONLY TREATMENT OF INCOMPLETE 07/04/2004 URIEL EMBO SUBCLAVIAN BY NECK 07/04/1999 Social History Socioeconomic History Marital status: Spouse name: WHITNEY Grey Number of children: Not on file Years of education: Not on file Highest education level: Not on file Occupational History Occupation: [employer] Employer: [employer] Tobacco Use Smoking [...] 1 dog(s) [place] 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 Entered By: Teddy Ford MD 08/13/2004 environmentalist Single Works from Home Works for [employer] Social Needs Financial Resource Strain: Low Risk [...] Stability Do you currently live in a halfway or have no steady place to sleep [...] Allergen Reactions Morphine And Codeine lose consciousness Current Facility-Administered Medications Medication Dose Route Frequency Provider Last Rate Last Admin Isolyte-S pH 7.4 infusion 25 mL/hr Intravenous Continuous Zack Gutierrez MD 25 mL/hr at 09/04/24 [id number] mL/hr at 09/04/24 1021 REVIEW OF SYSTEMS: Constitutional: (-) fever chills sweats or weight loss OBJECTIVE: BP 122/71 | Pulse 64 | Temp 36 C (96.8 F) (Tympanic) | Resp 17 | Ht 1.575 m (5' 2") | Wt 97.1 kg (214 lb) | SpO2 100% | BMI 39.14 kg/m | BSA 2.06 m PHYSICAL EXAM: Constitutional: no acute distress CV: normal rate and rhythm, no murmur, gallops or rub Chest: normal respiratory effort, lungs clear to auscultation and percussion, breath sounds normal Abdomen: normal: soft, bowel sounds normal, no masses, tenderness or organomegaly LABS: CBC Results: PT INR Results: Results for orders placed or performed in visit on 09/03/24 PT INR Result Value Ref Range Prothrombin Time 16.0 (H) 11.6 - 15.2 seconds INR 1.3 (H) 0.8 - 1.2 *Note: Due to a large number of results and/or encounters for the requested time period, some results have not been displayed. A complete set of results can be found in Results Review. BUN Results: Lab Results Component Value Date/Time BUN - [facility] 14 09/03/2024 09:10 AM BUN - [facility] 19 08/30/2024 09:00 AM BUN - [facility] 17 04/30/2024 12:14 PM BUN - [facility] 19 02/28/2020 02:28 PM BUN - [facility] 18 03/11/2011 03:48 PM BUN - [facility] 18 09/23/2010 09:07 AM Creatinine Results: Lab Results Component Value Date/Time CREATININE - [facility] 0.8 09/03/2024 09:10 AM CREATININE - [facility] 0.8 08/30/2024 09:00 AM CREATININE - [facility] 0.8 04/30/2024 12:14 PM CREATININE - [facility] 0.8 02/28/2020 02:28 PM CREATININE - [facility] 0.7 03/11/2011 03:48 PM CREATININE - [facility] 0.8 09/23/2010 09:07 AM Potassium Results: Lab Results Component Value Date/Time POTASSIUM - [facility] 4.2 09/03/2024 09:10 AM POTASSIUM - [facility] 4.5 08/30/2024 09:00 AM POTASSIUM - [facility] 4.0 04/30/2024 12:14 PM POTASSIUM - [facility] 4.0 02/28/2020 02:28 PM POTASSIUM - [facility] 4.1 03/11/2011 03:48 PM POTASSIUM - [facility] 4.2 09/23/2010 09:07 AM INFORMED CONSENT: Yes PRE-SEDATION ASSESSMENT IMPRESSION/PLAN: Pelvic abscess drainage Zack Gutierrez MD documented in this encounter Nursing Notes * Heraclio Martin RN - 09/04/2024 12:06 PM EST Procedure aborted, see procedure note for more details. * Heraclio Martin RN - 09/04/2024 11:40 AM EST After initial scan, patient's doctor contacted by Dr. Gutierrez for further input. Waiting for patient's doctor to return phone call. Procedure on hold at this time. Patient resting comfortably at this time. * Heraclio Martin RN - 09/04/2024 11:23 AM EST Procedure: CT Guided Pelvis abscess/fluid collection drainage vs. aspiration Pt placed on procedure table with comfort measures intact. Hemodynamic monitoring placed and initiated, VS stable. Pt denies any complaints at current time. CT alto singer images obtained. Dr. Gutierrez. After initial CT scan, Dr. Gutierrez calls patient's PCP to receive further guidance. Per Dr. Gutierrez, procedure is aborted due to risk to patient. Dr. Gutierrez recommends patient get a surgical consult. Patient agreeable, transported back to [facility]. documented in this encounter Miscellaneous Notes * Pre-Sedation Assessment - Zack Gutierrez MD - 09/04/2024 11:26 AM EST PRE-SEDATION ASSESSMENT PRE-SEDATION ASSESSMENT: Pelvic Abscess Level of sedation planned: Minimal Patient's allergies reviewed: Yes H&P Review / Interval Note Documentation: There is no H&P on file. Difficulty with sedation / anesthesia: No Sleep apnea: No History of snoring: No History of difficult intubation: No Decreased ROM neck flexion/extension: No Tracheal deviation: No Decreased ability to open mouth / TMJ: No Loose teeth / dentures / partial: No Congenital deformities / abnormalities: No Dysphagia: No Mallampati Classification: II - soft palate, uvula, fauces visible Chest: Clear Heart: Regular Rhythm ASA Risk Stratification (Select One): ASA 2 - Mild systemic disease, no functional limitations The patient was identified and the procedure verified: Yes The patient was reevaluated immediately prior to the sedation: 09/04/2024 11:26 AM documented in this encounter Plan of Treatment Upcoming Encounters Date Type Department Care Team (Late st Contact Info) Description 09/05/2024 10:00 AM EST Office Visit Nutrition & Weight Management, [facility] [address] [facility] [address] Nata Alba PA-C [address] [facility] [address] 09/06/2024 2:30 PM EST Office Visit General Surgery, [place] [address] [place] [address] Leti Watts, [address] [place] [address] 10/02/2024 11:40 AM EDT Office Visit Family Practice [facility] [address] [place] [address] Myah Valdivia CRNP [address] [place] [address] Scheduled Procedures Name Priority Associated Diagnoses Date/Ti [...] Procedure Name Priority Date/Time Associated Diagnosis Comments URINE SCREEN, POINT OF CARE (ENTER/EDIT) STAT 09/04/2024 9:57 AM EST documented in this encounter Results * URINE SCREEN, POINT OF CARE (ENTER/EDIT) (09/04/2024 9:57 AM EST) hCG Beta, Urine Negative Negative Procedural Control Valid? Yes Lot Number [id number] Expiration Date Urine 09/04/2024 9:57 AM EST Zack Gutierrez MD LAB POINT OF CARE TEST ENTER/[facility] T ORDERABLES Final Result documented in this encounter Administered Medications Inactive Administered Medications - up to 3 most recent administrations Medication Order MAR Action Action Date Dose Rate Site Isolyte-S pH 7.4 infusion Intravenous, at 25 mL/hr, All Patients EXCEPT Dialysis patients Plasma-LYTE 148, isolyte-S, and isolyte-S pH 7.4 are considered equivalent - including for MAR barcode scanning., CONTINUOUS, Starting on Tue09/04/24 at 1030, Until Tue09/04/24 at 1626, Pre-Op New Bag 09/04/2024 10:21 AM EST 25 mL/hr 25 mL/h r documented in this encounter Active and Recently Administered Medications Times are shown in EST. Continuous Medication Order 09/02/2024 09/03/2024 09/04/2024 Isolyte-S pH 7.4 infusion Intravenous, at 25 mL/hr, All Patients EXCEPT Dialysis patients Plasma-LYTE 148, isolyte-S, and isolyte-S pH 7.4 are considered equivalent - including for MAR barcode scanning., CONTINUOUS, Starting on Tue09/04/24 at 1030, Until 09/04/24 at 1626, Pre-Op 1021 (New Bag - Prov ider: Jyoti Jamil RN) documented in this encounter Advance Directives Documents on File Type Date Recorded Patient Wood Gouger Expl anation Advance Directives and Living Will 03/22/2005 Power of Surveyor Geophysical Prospecting 03/22/2005 * No Code Status (Latest Code Status on File) Date Activated Date Inactivated Comments 03/22/2005 10:26 AM 03/22/2005 10:26 AM Care Teams Plant Protection Superintendent Relationship Specialty Start Date End Date Joyce Dorantes DO [address] [place] [address] PCP - General Family Medicine 12/23/15 documented as of this encounter
--- OUTSIDE RECORDS SUMMARY | 2024-09-23 04:10 | External Medical Summary | Summary of Care ---
Author Name Unknown Organization [facility] Address [address] [place] [address] Phone [phone] Care Team Providers Care [employer] Name Role Phone PrashantJoyce duran Jennifer JC Primary Care Provider Reason for Visit * Reason Onset Date Comments Patient Instructions 08/31/2024 Scheduling 08/31/2024 Encounter Details Date Type Department Care Team (Late st Contact Info) Description 08/31/2024 Telephone Interventional Radiology, [address] [address] Heraclio Martin RN Patient Instructions; [...] Industry Job Start Date Job End Date [employer] Not on file Not on file Not on f ile documented as of this encounter Miscellaneous Notes * Telephone Encounter - Heraclio Martin RN - 08/31/2024 9:44 AM EST Spoke with patient over the phone to schedule CT Pelvic Abscess Drain, agreed to schedule on 09/04/2024 at 1100 . Pt instructed to report to [facility] for CBC, PT/INR between now and [...] and stop drinking 2 hoursprior to procedure. -Superintendent Oil Well Services required Location and check-in instructions - Obtain [...] Office Visit Nutrition & Weight Management, [facility] [address] [place] [address] Nata Alba PA-C [address] [place] [address] 10/02/2024 11:40 AM EDT Office Visit Family Practice [facility] [address] [place] [address] Myah Valdivia CRNP [address] [place] [address] Scheduled Orders Name Type Priority Associated Diagnoses [...] Documents on File Type Date Recorded Patient Product Examiner Expl anation Advance Directives and Living Will 03/22/2005 Power of Firer Retort 03/22/2005 * No Code Status (Latest Code Status on File) Date Activated Date Inactivated Comments 03/22/2005 10:26 AM 03/22/2005 10:26 AM Care Teams [employer] Relationship Specialty Start Date End Date Joyce Dorantes DO [address] [place] [address] PCP - General Family Medicine 12/23/15 documented as of this encounter
--- OUTSIDE RECORDS SUMMARY | 2024-09-23 04:11 | External Medical Summary | Summary of Care ---
Author Name Unknown Organization [facility] Address [address] [place] [address] Phone [phone] Care Team Providers Care Outcomes Manager Name Role Phone PrashantJoyce duran Jennifer JC Primary Care Provider [phone] Reason for Visit * Reason Onset Date Comments Appointment 06/26/2024 Encounter Details Date Type Department Care Team (Late st Contact Info) Description 06/26/2024 Telephone Hematology/Oncology Treatment, [place] [address] [place] [address] Lauren Galindo MD Appointment Allergies Active Allergy Reactions Criticality Noted Date Comments Morphine And Codeine High 08/13/2004 lose consciousness documented as of this encounter (statuses as of 08/22/2024) Medications MULTI-VITAMIN PO TABS One tablet daily [...] Patient taking differently:TopicalTID PRN, Reported on 08/15/2024 Meloxicam 7.5 MG Oral Tablet (Mobic) Take [...] as of this encounter (statuses as of 08/22/2024) Active Problems Problem Noted Date Diagnosed Date [...] as of this encounter (statuses as of 08/22/2024) Resolved Problems Problem Noted Date Diagnosed Date [...] as of this encounter (statuses as of 08/22/2024) Immunizations Name Administration Dates Next Due COVID-19 [...] Industry Job Start Date Job End Date [employer] Not on file Not on file Not on f ile documented as of this encounter Miscellaneous Notes * Telephone Encounter - Janet Pantoja OSA - 08/22/2024 1:12 PM EST Sent letter * Telephone Encounter - Qasim Mcguire RN - 08/22/2024 12:48 PM EST Yes we should see patient in follow up. She has been also following with Project Management Instructor/Onc as well which is ok but has been dealing with diverticulitis/abscess/perforation more recently so ok to schedule this in a few weeks or so, non-urgent. Please be advised she was admitted to [facility] for a prolonged duration so if we tried contacting her during that, that may be why we were unable to reach her. * Telephone Encounter - Janet Pantoja OSA - 08/22/2024 12:39 PM EST Nursing can you please review and see if patient needs to see Hem/Onc (if she followed up with mix mill tender?) if so, I will send a letter. Thanks. * Telephone Encounter - Janet Pantoja OSA [...] up appointment. LMOM to return call to hi * Telephone Encounter - Kaley Jean-Baptiste RN [...] Description 08/31/2024 3:45 PM EST [facility] [address] [place] [address] 09/05/2024 10:00 AM EST Office Visit Nutrition & Weight Management, [facility] [address] [address] Nata Alba PA-C [address] [place] [address] 10/02/2024 11:40 AM EDT Office Visit Family Practice [facility] [address] [place] [address] Myah Valdivia CRNP [address] [place] [address] Scheduled Procedures Name Priority Associated Diagnoses Date/Ti [...] Documents on File Type Date Recorded Patient Global Human Resources Director Expl anation Advance Directives and Living Will 03/22/2005 Power of Web Interface Developer 03/22/2005 * No Code Status (Latest Code Status on File) Date Activated Date Inactivated Comments 03/22/2005 10:26 AM 03/22/2005 10:26 AM Care Teams Outcomes Manager Relationship Specialty Start Date End Date Joyce Dorantes DO [address] [place] [address] PCP - General Family Medicine 12/23/15 documented as of this encounter
--- OUTSIDE RECORDS SUMMARY | 2024-09-23 04:11 | External Medical Summary | Summary of Care ---
Author Name Unknown Organization [facility] Address [address] [place] [address] Phone [phone] Care Team Providers Care Licensed Mass Real Estate Appraiser Name Role Phone Joyce Dorantes DO Primary Care Provider Reason for Visit * Reason Onset Date Comments Referral 08/13/2024 Encounter Details Date Type Department Care Team (Late st Contact Info) Description 08/13/2024 Telephone Family Practice [facility] [address] [facility] [address] Joyce Dorantes DO [address] [place] [address] Referral Allergies Active Allergy Reactions Criticality Noted Date Comments Morphine And Codeine High 08/13/2004 lose consciousness documented as of this encounter (statuses as of 08/16/2024) Medications MULTI-VITAMIN PO TABS One tablet daily [...] Oral Tablet (Cipro) 1 Tablet. 5 Active documented as of this encounter (statuses as of 08/16/2024) Active Problems Problem Noted Date Diagnosed Date [...] as of this encounter (statuses as of 08/16/2024) Resolved Problems Problem Noted Date Diagnosed Date [...] as of this encounter (statuses as of 08/16/2024) Immunizations Name Administration Dates Next Due COVID-19 [...] Industry Job Start Date Job End Date [employer] Not on file Not on file Not [...] Care Team (Late st Contact Info) Description 08/22/2024 10:00 AM EST Imaging Radiology [address] [place] [address] 08/31/2024 3:45 PM EST Imaging Radiology [address], [place] [address] [place] [address] 09/05/2024 10:00 AM EST Office Visit Nutrition & Weight Management, [facility] [address] [place] [address] Nata Alba PA-C [address] [place] [address] 10/02/2024 11:40 AM EDT Office Visit Family Practice [facility] [address] [place] [address] Myah Valdivia CRNP [address] [place] [address] Scheduled Procedures Name Priority Associated Diagnoses Date/Ti [...] Documents on File Type Date Recorded Patient Assistant Professor Of Music Expl anation Advance Directives and Living Will 03/22/2005 Power of Covering Machine Tender 03/22/2005 * No Code Status (Latest Code Status on File) Date Activated Date Inactivated Comments 03/22/2005 10:26 AM 03/22/2005 10:26 AM Care Teams Licensed [employer] Real Estate Appraiser Relationship Specialty Start Date End Date Joyce Dorantes DO [address] [place] [address] PCP - General Family Medicine 12/23/15 documented as of this encounter
--- OUTSIDE RECORDS SUMMARY | 2024-09-23 04:11 | External Medical Summary | Summary of Care ---
Author Name Unknown Organization [facility] Address [address] [place] [address] Phone [phone] Care Team Providers Care Hotel Registration Clerk Name Role Phone Joyce Dorantes DO Primary Care Provider [phone] Reason for Visit * Reason Onset Date Comments Referral 08/13/2024 Encounter Details Date Type Department Care Team (Late st Contact Info) Description 08/13/2024 Telephone [facility] [address] [facility] [address] Joyce Dorantes DO [address] [place] [address] Referral Allergies Active Allergy Reactions Criticality Noted Date Comments Morphine And Codeine High 08/13/2004 lose consciousness documented as of this encounter (statuses as of 08/14/2024) Medications MULTI-VITAMIN PO TABS One tablet daily [...] EVERY MORNING 30 Capsule 2 5 Active Amoxicillin-Pot Clavulanate 875-125 MG Oral Tablet (Augmentin) 1 Tablet. 5 Active Ciprofloxacin HCl 500 MG Oral Tablet (Cipro) 1 Tablet. 5 Active documented as of this encounter (statuses as of 08/14/2024) Active Problems Problem Noted Date Diagnosed Date [...] as of this encounter (statuses as of 08/14/2024) Resolved Problems Problem Noted Date Diagnosed Date [...] as of this encounter (statuses as of 08/14/2024) Immunizations Name Administration Dates Next Due COVID-19 [...] Industry Job Start Date Job End Date [email or web address] Not on file Not on file Not on f ile documented as of this encounter Miscellaneous Notes * Telephone Encounter - Grisel Palomino OSA [...] Care Team (Late st Contact Info) Description 08/15/2024 1:40 PM EST Office Visit [facility] [address] [place] [address] Joyce Dorantes DO [address] [place] [address] 08/22/2024 10:00 AM EST Imaging Radiology [address], [place] [address] [place] [address] 08/31/2024 3:45 PM EST Imaging Radiology [address], [place] [address] [place] [address] 09/05/2024 10:00 AM EST Office Visit Nutrition & Weight Management, [facility] [address] [place] [address] Nata Alba PA-C [address] [place] [address] 10/02/2024 11:40 AM EDT Office Visit [facility] [address] [place] [address] Myah Valdivia CRNP [address] [place] [address] Scheduled Procedures Name Priority Associated Diagnoses Date/Ti [...] Documents on File Type Date Recorded Patient Computational Theory Scientist Expl anation Advance Directives and Living Will 03/22/2005 Power of Skip Hoist Operator 03/22/2005 * No Code Status (Latest Code Status on File) Date Activated Date Inactivated Comments 03/22/2005 10:26 AM 03/22/2005 10:26 AM Care Teams Hotel Registration Clerk Relationship Specialty Start Date End Date Joyce Dorantes DO [address] [place] [address] PCP - General Family Medicine 12/23/15 documented as of this encounter
--- OUTSIDE RECORDS SUMMARY | 2024-09-23 04:11 | External Medical Summary | Summary of Care ---
Author Name Unknown Organization [facility] Address [address] [facility] [address] Phone [phone] Care Team Providers Care Lacer And Tier Name Role Phone Joyce Dorantes DO Primary Care Provider [phone] Reason for Visit * Reason Comments Hospital Follow-Up [facility] d/c 08/11/2024, c omplicated diverticulitis, treated with antibiotics Encounter Details Date Type Department Care Team (Late st Contact Info) Description 08/15/2024 1:40 PM EST Office Visit Family Practice [facility] [address] [facility] [place] [address] Joyce Dorantes DO [address] [facility] [place] [address] Hospital discharge follow-up*; Perforated diverticulum Allergies Active Allergy Reactions Criticality [...] MORNING 30 Capsule 2 07/06/19 25 Active Additional Information Patient not taking.Reported on 08/15/2024 Amoxicillin-Pot Clavulanate 875-125 MG Oral Tablet (Augmentin) 1 Tablet. 08/11/19 25 Active Ciprofloxacin HCl 500 MG Oral Tablet (Cipro) 1 Tablet. 08/11/19 25 Active Meloxicam 7.5 MG Oral Tablet (Mobic) Take 1 Tablet by mouth in the morning. for pain.. 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, dehydrated [...] Industry Job Start Date Job End Date [employer] Not on file Not on file Not on f ile documented as of this encounter Last Filed Vital Signs Vital Sign Reading Time Taken Comments Blood Pressure 112/64 08/15/2024 1:46 PM EST Pulse 70 08/15/2024 1:46 PM EST Temperature 36.3 C (97.4 F) 08/15/2024 1:46 PM ES T Respiratory Rate 16 08/15/2024 1:46 PM EST Oxygen Saturation 98% 08/15/2024 1:46 PM EST Inhaled Oxygen Concentration - - Weight 97.1 kg (214 lb) 08/15/2024 1:46 PM EST Height - - Body Mass Index 39.14 07/25/2024 11:14 AM EST documented in this encounter Progress Notes * Joyce Dorantes, DO - 08/15/2024 2:06 PM EST Subjective: Kley Mercado is a 48 year old female. Chief Complaint Patient presents with Hospital Follow-Up [facility] d/c 08/11/2024, complicated diverticulitis, treated with antibiotics HPI: Pt presents for hospital follow up. Admitted to [facility] 08/07/24 after abnormality seen on imaging for chronic generalized abd/pelvic pain.Imaging also showed a malpositioned IUD. She remained afebrile. No hx of diverticulitis in the past. Discharged on 08/11/24. Seen by ID who recommended 4wk tx of cipro and augmentin with repeat CT in 1 week and 1 month. F/u colonoscopy in 6-8 weeks. Abnormality of the bladder was also noted on imaging. Pt is feeling moderately well, tolerating abx. Denies fever/chills. PHM: Patient Active Problem List Diagnosis Intermittent asthma with reliever use up to twice per week KENJI (obstructive sleep apnea) Prediabetes Thalassemia minor Chronic pain of both knees Medication management Nipple discharge Thrombocytopenia, congenital and hereditary (HCC) Morbid obesity due to excess calories (HCC) Left tubo-ovarian mass Polyarthralgia Eyelid gland swelling, right Current Outpatient Medications Medication Sig Dispense Refill [...] 500 MG Oral Tablet (Cipro) 1 Tablet. Phentermine HCl 15 MG Oral Capsule TAKE 1 CAPSULE BY MOUTH EVERY MORNING (Patient not taking: Reported on 08/15/2024) 30 Capsule 2 No current facility-administered medications for this visit. Past Medical History: Diagnosis Date Allergic rhinitis Asthma, severity to be determined Cyst of left ovary 04/15/2023 Consider annual ultrasound Dysplasia of cervix, unspecified 09/2004 lgsil colpo wnl 3/ Hemoglobinopathy (HCC) thalasemia minor Morbid obesity due [...] performed by Sly Peña MD at ENDOSCOPY [facility] COLPOSCOPY OF CERVIX W/BIOPSY 09/01/2004 KNEE ARTHROSCOPY/REPAIR LIGAMENT Right ACL replaced KNEE ARTHROSCOPY/REPAIR LIGAMENT Left 07/04/2010 [facility] DELIVERY ONLY TREATMENT OF INCOMPLETE 07/04/2004 URIEL EMBO SUBCLAVIAN BY NECK 07/04/1999 Review of patient's allergies indicates: Allergen Reactions Morphine And Codeine lose consciousness Objective: BP 112/64 (BP Site: Left Arm, BP Position: Sitting, BP Cuff Size: Large) | Pulse 70 | Temp 97.4 F(36.3 C) (Tympanic) | Resp 16 | Wt 214 lb (97.1 kg) | SpO2 98% | BMI 39.14 kg/m | BSA 2.06 m Review of Systems: As per HPI, all other ROS neg. Physical Exam: General: alert, healthy, and no distress Heart: regular rate & rhythm, no murmur, and no gallops Lungs: chest symmetric with normal AP diameter, no chest deformities noted, no chest wall tenderness, lungs clear to auscultation Abdomen: abdomen soft, normal bowel sounds, no masses or organomegaly, and no rebound or guarding, + milder lower abd tenderness Hospital discharge follow-up (Primary) Perforated diverticulum - ERYTHROCYTE SEDIMENTATION RATE (ESR); Future; Expected date: 08/15/2024 - COMPREHENSIVE METABOLIC PANEL; Future; Expected date: 08/15/2024 - CRP (INFLAMMATORY MARKER); Future; Expected date: 08/15/2024 Cont abx F/u CT already ordered for 1 week, call sooner if fever/chills, abd pain, n/v/d Follow up: as needed. Joyce Dorantes DO documented in this encounter Plan of Treatment Upcoming Encounters Date Type Department Care Team (Late st Contact Info) Description 08/31/2024 3:45 PM EST Imaging Radiology [facility] 1st Floor, [place] [address] [place] [phone] 09/05/2024 10:00 AM EST Office Visit Nutrition & Weight Management, [facility] [address] [place] [address] Nata Alba PA-C [address] [place] [address] 10/02/2024 11:40 AM EDT Office Visit Family [facility] [address] [place] [address] Myah Valdivia CRNP [address] [place] [address] Scheduled Orders Name Type Priority Associated Diagnoses Orde r Schedule ERYTHROCYTE SEDIMENTATION RATE (ESR) Lab Routine Perforated diverticulum Expected: 08/15/2024 (Approximate), Expires: 08/15/2025 COMPREHENSIVE METABOLIC PANEL Lab Routine Perforated diverticulum Expected: 08/15/2024 (Approximate), Expires: 08/15/2025 CRP (INFLAMMATORY MARKER) Lab Routine Perforated diverticulum Expected: 08/15/2024 (Approximate), Expires: 08/15/2025 Scheduled Procedures Name Priority Associated Diagnoses Date/Ti [...] as of this encounter Visit Diagnoses Diagnosis Hospital discharge follow-up- Primary Other follow-up examination Perforated diverticulum documented in this encounter Advance Directives Documents on File Type Date Recorded Patient Food Vendor Expl anation Advance Directives and Living Will 03/22/2005 Power of Conservation Officer 03/22/2005 * No Code Status (Latest Code Status on File) Date Activated Date Inactivated Comments 03/22/2005 10:26 AM 03/22/2005 10:26 AM Care Teams Lacer And Tier Relationship Specialty Start Date End Date Joyce Dorantes DO [address] [place] [address] PCP - General Family Medicine 12/23/15 documented as of this encounter"
--- OUTSIDE RECORDS SUMMARY | 2024-09-23 04:11 | External Medical Summary | Summary of Care ---
Author Name Unknown Organization [facility] Address [address] [place] [address] Phone [phone] Care Team Providers Care Cooking Appliance Repair Technician Name Role Phone Joyce Dorantes DO Primary Care Provider [phone] Reason for Referral * Precert (Within 10 days (routine)) - Pending Review Specialty Diagnoses / Procedures Referred By Alda pan Referred To Contact Radiology Diagnoses Diverticulitis of colon Procedures CT ABD/PELVIS W IV AND W ORAL CONTRAST CT ABD/PELVIS W WO IV CONTRAST AND W ORAL CONT Joyce Dorantes DO [address] [place] [address] Phone: tel: fax: Referral ID Status Reason Start Date Expiration Date V isits Requested Visits Authorized [id number] Pending Review 08/18/2024 999 999 * Ancillary Services (Within 3 days (urgent)) - Authorized Specialty Diagnoses / Procedures Referred By Alda pan Referred To Contact Gastroenterology Diagnoses Diverticulitis of colon Joyce Dorantes DO [address] [place] [address] Phone: tel: fax: Referral ID Status Reason Start Date Expiration Date Visits Requested Visits Authorized [id number] Authorized Ancillary Services Required 08/13/2024 999 999 Question Answer Referral Priority Within 3 days (urgent) Where should this appointment be scheduled? [facility] Comments ALERT: Do not order for pediatric patients (18 years or younger). Cancel off screen and order PEDS GASTROENTEROLOGY CONSULT (Type: 1 visit only-Evaluate and Treat) The following Pt. Instructions are available: - Gastro Colonoscopy Prep Instructions [24306] - Gastro Colonoscopy Prep Instructions (Hungarian Version) [90142] Go to the Pt. Instructions section within the Visit Navigator to access. Colonoscopy ASGE Guidelines: Abnormal finding on radiologic exam ADDITIONAL INFORMATION 1. Is the patient on Coumadin? No 2. Is the patient on Pradaxa? No Follow up post diverticulitis 08/11/2024 Reason for Visit * Reason Onset Date Comments Order Request 08/13/2024 S/p diverticulit is follow up Encounter Details Date Type Department Care Team (Late st Contact Info) Description 08/13/2024 Telephone Family Practice [facility] [address] [place] [address] Joyce Dorantes DO [address] [place] [address] Order Request (S/p diverticulitis follow up ) Allergies Active Allergy Reactions Criticality Noted Date Comments Morphine And Codeine High 08/13/2004 lose consciousness documented as of this encounter (statuses as of 08/13/2024) Medications MULTI-VITAMIN PO TABS One tablet daily [...] as of this encounter (statuses as of 08/13/2024) Active Problems Problem Noted Date Diagnosed Date [...] as of this encounter (statuses as of 08/13/2024) Resolved Problems Problem Noted Date Diagnosed Date [...] as of this encounter (statuses as of 08/13/2024) Immunizations Name Administration Dates Next Due COVID-19 [...] Industry Job Start Date Job End Date [employer] Not on file Not on file Not on f ile documented as of this encounter Miscellaneous Notes * Telephone Encounter - Joyce Dorantes DO - 08/13/2024 2:31 PM EST Orders signed Please schedule * Telephone Encounter - Erica Marin RN - 08/13/2024 1:58 PM EST Patient has upcoming appt for hospital d/c for diverticulitis with abscess and perforation. No surgical intervention completed, she was told to have her PCP order a [address] scan as well as a 6-8 week colonoscopy. (She does have a post d/c office visit on 08/15 as well) Pended orders for CT scan and colonscopy Dr Dorantes, If agreeable? Thank you! documented in this encounter Plan of Treatment Upcoming Encounters Date Type Department Care Team (Late st Contact Info) Description 08/15/2024 1:40 PM EST Office Visit [facility] [address] [place] [address] Joyce Dorantes DO [address] [place] [address] 08/22/2024 10:00 AM EST Imaging Radiology [address], [place] [address] [place] [address] 08/31/2024 3:45 PM EST Imaging Radiology [address], [place] [address] [place] [address] 09/05/2024 10:00 AM EST Office Visit Nutrition & Weight Management, [facility] [address] [place] [address] Nata Alba PA-C [address] [place] [address] 10/02/2024 11:40 AM EDT Office Visit [facility] [address] [place] [address] Myah Valdivia CRNP [address] [place] [address] Scheduled Orders Name Type Priority Associated Diagnoses Orde r Schedule CT ABD/PELVIS W IV AND W ORAL CONTRAST Medical Imaging Routine Diverticulitis of colon Expected: 08/18/2024 (Approximate), Expires: 11/10/2024 Scheduled Procedures Name Priority Associated Diagnoses Date/Ti me COLONOSCOPY FLEXIBLE PROXIMA L DIAGNOSTIC Recall Special screening for malignant neoplasms, colon Scheduled Referrals Name Type Priority Associated Diagnoses Orde r Schedule COLONOSCOPY, GI REFERRAL OP Referral Within 3 days (urgent) Diverticulitis of colon Ordered: 08/13/2024 Health Maintenance Due Date Last Done Comments [...] this encounter Visit Diagnoses Diagnosis Diverticulitis of colon- Primary Diverticulitis of colon (without mention of hemorrhage) documented in this encounter Advance Directives Documents on File Type Date Recorded Patient Mine Safety Engineer Expl anation Advance Directives and Living Will 03/22/2005 Power of Knitted Garment Finisher 03/22/2005 * No Code Status (Latest Code Status on File) Date Activated Date Inactivated Comments 03/22/2005 10:26 AM 03/22/2005 10:26 AM Care Teams Cooking Appliance Repair Technician Relationship Specialty Start Date End Date Jocye Dorantes DO [address] [place] [address] PCP - General Family Medicine 12/23/15 documented as of this encounter
--- OUTSIDE RECORDS SUMMARY | 2024-09-23 04:11 | External Medical Summary | Summary of Care ---
Author Name Unknown Organization [facility] Address [address] [place] [address] Phone [phone] Care Team Providers Care Training And Development Director Name Role Phone PrashantJoyce duran Jennifer JC Primary Care Provider [phone] Reason for Visit * Reason Onset Date Comments Appointment 06/26/2024 Encounter Details Date Type Department Care Team (Late st Contact Info) Description 06/26/2024 Telephone Hematology/Oncology Treatment, [place] [address] [place] [address] Lauren Galindo MD Appointment Allergies [...] Industry Job Start Date Job End Date [employer] Not on file Not on file Not on f ile documented as of this encounter Miscellaneous Notes * Telephone Encounter - Janet Pantoja OSA - 08/22/2024 1:12 PM EST Sent letter * Telephone Encounter - Qasim Mcguire RN - 08/22/2024 12:48 PM EST Yes we should see patient in follow up. She has been also following with Intermediate Manager/Onc as well which is ok but has been dealing with diverticulitis/abscess/perforation more recently so ok to schedule this in a few weeks or so, non-urgent. Please be advised she was admitted to [facility] for a prolonged duration so if we tried contacting her during that, that may be why we were unable to reach her. * Telephone Encounter - Janet aPntoja OSA - 08/22/2024 12:39 PM EST Nursing can you please review and see if patient needs to see Hem/Onc (if she followed up with facility coordinator?) if so, I will send a letter. [...] up appointment. LMOM to return call to de * Telephone Encounter - Kaley Jean-Baptiste RN [...] Description 08/31/2024 3:45 PM EST [facility] [address] [place] [address] 09/05/2024 10:00 AM EST Office Visit Nutrition & Weight Management, [facility] [address] [place] [address] Nata Alba PA-C [address] [place] [address] 10/02/2024 11:40 AM EDT Office Visit Family Practice [facility] [address] [place] [address] Myah Valdivia CRNP [address] [place] [address] Scheduled Procedures Name Priority Associated Diagnoses Date/Ti [...] Documents on File Type Date Recorded Patient Geriatric Nurse Expl anation Advance Directives and Living Will 03/22/2005 Power of Javascript Front End Developer 03/22/2005 * No Code Status (Latest Code Status on File) Date Activated Date Inactivated Comments 03/22/2005 10:26 AM 03/22/2005 10:26 AM Care Teams Training And Development Director Relationship Specialty Start Date End Date Joyce Dorantes DO [address] [place] [address] PCP - General Family Medicine 12/23/15 documented as of this encounter
--- OUTSIDE RECORDS SUMMARY | 2024-09-23 04:11 | External Medical Summary ---
Author Name Unknown Address Unknown Organization [id number]:[facility] [place] [address] [place] [address] Laboratory Report Ordering Provider Test Date Status GIBRAN MAGALLANES 08/30/2024 09:00:40 Final Observation Date Value Abnormality Reference (Units ) Status BUN 08/30/2024 09:00:40 19 6-20 (mg/dL) Final Creatinine 08/30/2024 09:00:40 0.8 0.5-1.0 (mg/dL) Final Glomerular filtration rate/1.73 sq M.predicted [Volume Rate/Area] in Serum, Plasma or Blood by Creatinine-based formula (CKD-EPI) 08/30/2024 09:00:40 88 >=60 (mL/min) Final eGFR is calculated based on the CKD-EPI 2020 equation. Sodium 08/30/2024 09:00:40 144 135-146 (m mol/L) Final Potassium 08/30/2024 09:00:40 4.5 3.5-5.1 (m mol/L) Final Cl 08/30/2024 09:00:40 105 98-107 (mm ol/L) Final CO2 08/30/2024 09:00:40 28 22-32 (mmo l/L) Final Anion gap 08/30/2024 09:00:40 11 7-15 (mmol /L) Final Glucose 08/30/2024 09:00:40 106 70-120 (mg /dL) Final Albumin 08/30/2024 09:00:40 4.2 3.8-5.0 (g /dL) Final AST (Aspartate aminotransferase) 08/30/2024 09:00:40 18 10-35 (U/L) Final Alk Phos 08/30/2024 09:00:40 95 35-130 (U/ L) Final Bilirubin, Total 08/30/2024 09:00:40 0.5 <=1 .2 (mg/dL) Final Calcium 08/30/2024 09:00:40 10.0 8.4-10.2 ( mg/dL) Final Protein 08/30/2024 09:00:40 7.0 6.0-8.3 (g /dL) Final ALT (Alanine aminotransferase) 08/30/2024 09:00:40 24 10-35 (U/L) Final Performing Location [facility] [place] [address]
--- OUTSIDE RECORDS SUMMARY | 2024-09-23 04:11 | External Medical Summary ---
Author Name Unknown Address Unknown Organization [id number]:[facility]ATORY [facility] [place] - [address] [place] [address] Laboratory Report Ordering Provider Test Date Status GIBRAN MAGALLANES 08/30/2024 09:00:40 Final Observation Date Value Abnormality Reference (Units ) Status Erythrocyte sedimentation rate by Photometric method 08/30/2024 09:00:40 35 Above high normal <30 (mm/hour) Final Performing Location LABORATORY [facility] - [address] [place] [address]
--- OUTSIDE RECORDS SUMMARY | 2024-09-23 04:11 | External Medical Summary | Summary of Care ---
Author Name Unknown Organization [facility] Address [address] [place] [address] Phone [phone] Care Team Providers Care Public Interviewer Name Role Phone SoilaJoyce lewis Jennifer JC Primary Care Provider [phone] Reason for Visit * Reason Comments eRx-Medication Refill Encounter Details Date Type Department Care Team (Late st Contact Info) Description 08/24/2024 Refill [facility] [address] [facility] [address] Myah Ron CRNP [address] [place] [address] Allergies Active Allergy Reactions Criticality Noted Date Comments Morphine And Codeine High 08/13/2004 lose consciousness documented as of this encounter (statuses as of 08/24/2024) Medications MULTI-VITAMIN PO TABS One tablet daily [...] PAIN 30 Tablet 3 08/24/19 25 Active Meloxicam 7.5 MG Oral Tablet (Mobic) Take 1 Tablet by mouth in the morning. for pain.. 30 Tablet 3 04/03/20 24 025 Discontinued documented as of this encounter (statuses as of 08/24/2024) Active Problems Problem Noted Date Diagnosed Date [...] as of this encounter (statuses as of 08/24/2024) Resolved Problems Problem Noted Date Diagnosed Date [...] as of this encounter (statuses as of 08/24/2024) Immunizations Name Administration Dates Next Due COVID-19 [...] Industry Job Start Date Job End Date [employer] Not on file Not on file Not on f ile documented as of this encounter Miscellaneous Notes * Telephone Encounter - Payal Desir [facility] - 08/24/2024 3:21 PM ESTSigned Prescriptions: Disp Refills Meloxicam 7.5 MG Oral Tablet (Mobic) 30 Tab*3 Sig: TAKE 1 TABLETBY MOUTH IN THE MORNING FOR PAINAuthorizing Provider: MYAH RON User: PAYAL DESIR documented in this encounter Plan of Treatment Upcoming Encounters Date Type Department Care Team (Late st Contact Info) Description 08/31/2024 3:45 PM EST [facility] [address] [place] [phone] 09/05/2024 10:00 AM EST Office Visit Nutrition & Weight Management, [facility] [address] [place] [address] Nata Alba PA-C [address] [place] [address] 10/02/2024 11:40 AM EDT Office Visit Family Practice [facility] [address] [place] [address] Myah Ron CRNP [address] [place] [address] Scheduled Procedures Name Priority Associated Diagnoses Date/Ti [...] Documents on File Type Date Recorded Patient Superintendent Power Expl anation Advance Directives and Living Will 03/22/2005 Power of Buttermaker Helper 03/22/2005 * No Code Status (Latest Code Status on File) Date Activated Date Inactivated Comments 03/22/2005 10:26 AM 03/22/2005 10:26 AM Care Teams Public Interviewer Relationship Specialty Start Date End Date Joyce Dorantes DO [address] [place] [address] PCP - General Family Medicine 12/23/15 documented as of this encounter
--- OUTSIDE RECORDS SUMMARY | 2024-09-23 04:11 | External Medical Summary | Summary of Care ---
Author Name Unknown Organization [facility] Address [address] [place] [address] Phone [phone] Care Team Providers Care Special Warfare Combatant Crewman Name Role Phone Joyce Dorantes DO Primary Care Provider Reason for Visit * Reason Onset Date Comments Order Request 08/30/2024 Encounter Details Date Type Department Care Team (Late st Contact Info) Description 08/30/2024 Telephone Family Practice [facility] [address] [facility] [address] [facility] [place] [address] Order Request Allergies Active Allergy Reactions Criticality [...] Industry Job Start Date Job End Date [employer] Not on file Not on file Not on f ile documented as of this encounter Miscellaneous Notes * Telephone Encounter - Myah Valdivia CRNP - 08/30/2024 9:12 AM EST Inboxologist Note: Could you please clarify the ordered you are requesting(epic order number) Inboxologist Covering Provider All replies or additional communication must be routed to the PCP * Telephone Encounter - Mely Ybarra PA-C - 08/30/2024 8:52 AM EST I am sorry but this is not my patient. Recommend sending to ordering provider. Thanks! * Telephone Encounter - Karly Joshi OSA - 08/30/2024 8:43 AM EST Good morning we have a consult order in for a drainage procedure but we can't schedule with a consult can you place an order please thank you documented in this encounter Plan of Treatment Upcoming Encounters Date Type Department Care Team (Late st Contact Info) Description 08/31/2024 3:45 PM EST Imaging Radiology [facility] [address] [place] [phone] 09/05/2024 10:00 AM EST Office Visit Nutrition & Weight Management, [facility] [address] [place] [address] Nata Alba PA-C [address] [place] [address] 10/02/2024 11:40 AM EDT Office Visit Family Practice [facility] [address] [place] [address] Myah Valdivia CRNP [address] [place] [address] Scheduled Procedures Name Priority Associated Diagnoses Date/Ti [...] Documents on File Type Date Recorded Patient Dredge Or Barge Shore Hand Expl anation Advance Directives and Living Will 03/22/2005 Power of Starchmaker 03/22/2005 * No Code Status (Latest Code Status on File) Date Activated Date Inactivated Comments 03/22/2005 10:26 AM 03/22/2005 10:26 AM Care Teams Special Warfare Combatant Crewman Relationship Specialty Start Date End Date Joyce Dorantes DO [address] [place] [address] PCP - General Family Medicine 12/23/15 documented as of this encounter
--- OUTSIDE RECORDS SUMMARY | 2024-09-23 04:11 | External Medical Summary ---
Author Name Unknown Address Unknown Organization [id number]:[facility] [place] [place] [address] [place] [address] Laboratory Report Ordering Provider Test Date Status GIBRAN MAGALLANES 08/30/2024 09:00:40 Final Observation Date Value Abnormality Reference (Units ) Status CRP, low-sensitivity 08/30/2024 09:00:40 14 Above high normal <=5 (mg/L) Final Performing Location [facility] [place] [address] [place] [address]
--- OUTSIDE RECORDS SUMMARY | 2024-09-23 04:11 | External Medical Summary | Summary of Care ---
Author Name Unknown Organization [facility] Address [address] [place] [address] Phone [phone] Care Team Providers Care Core Drier Name Role Phone Joyce Dorantes DO Primary Care Provider Reason for Visit * Reason Onset Date Comments Order Request 08/30/2024 Encounter Details Date Type Department Care Team (Late st Contact Info) Description 08/30/2024 Telephone Family Practice [facility] [address] [facility] [address] [facility] [place] [address] Order Request Allergies Active Allergy Reactions Criticality [...] Industry Job Start Date Job End Date [employer] Not on file Not on file Not [...] Description 08/31/2024 3:45 PM EST Imaging Radiology [facility] 1st [facility] [address] [place] [place] [id number] 09/05/2024 10:00 AM EST Office Visit Nutrition & Weight Management, [facility] [address] [place] [address] Nata Alba PA-C [address] [place] [address] 10/02/2024 11:40 AM EDT Office Visit Family Practice [facility] [address] [place] [address] Myah Valdivia CRNP [address] [place] [address] Scheduled Procedures Name Priority Associated Diagnoses Date/Ti [...] Documents on File Type Date Recorded Patient Electroencephalograph Technician Expl anation Advance Directives and Living Will 03/22/2005 Power of Cosmetic Sales Assistant 03/22/2005 * No Code Status (Latest Code Status on File) Date Activated Date Inactivated Comments 03/22/2005 10:26 AM 03/22/2005 10:26 AM Care Teams Core Drier Relationship Specialty Start Date End Date Joyce Dorantes DO [address] [place] [address] PCP - General Family Medicine 12/23/15 documented as of this encounter
--- OUTSIDE RECORDS SUMMARY | 2024-09-23 04:11 | External Medical Summary | Summary of Care ---
Author Name Unknown Organization [facility] Address [address] [place] [address] Phone [phone] Care Team Providers Care Framing Consultant Name Role Phone PrashantJoyce duran Jennifer JC Primary Care Provider [phone] Reason for Visit * Reason Onset Date Comments Appointment 06/26/2024 Encounter Details Date Type Department Care Team (Late st Contact Info) Description 06/26/2024 Telephone Hematology/Oncology Treatment, [place] [address] [place] [address] Lauren Galindo MD Appointment Allergies [...] Industry Job Start Date Job End Date [employer] Not on file Not on file Not on f ile documented as of this encounter Miscellaneous Notes * Telephone Encounter - Janet Pantoja OSA - 08/22/2024 1:12 PM EST Sent letter * Telephone Encounter - Qasim Mcguire RN - 08/22/2024 12:48 PM EST Yes we should see patient in follow up. She has been also following with Director Of Premium Seat Sales/Onc as well which is ok but has been dealing with diverticulitis/abscess/perforation more recently so ok to schedule this in a few weeks or so, non-urgent. Please be advised she was admitted to [facility] for a prolonged duration so if we tried contacting her during that, that may be why we were unable to reach her. * Telephone Encounter - Janet Pantoja OSA - 08/22/2024 12:39 PM EST Nursing can you please review and see if patient needs to see Hem/Onc (if she followed up with sprinkler tender?) if so, I will send a [...] up appointment. LMOM to return call to sc * Telephone Encounter - Kaley Jean-Baptiste RN [...] Description 08/31/2024 3:45 PM EST [facility] [address] [place] [address] 09/05/2024 10:00 AM EST Office Visit Nutrition & Weight Management, [facility] [address] [address] Nata Alba PA-C [address] [place] [place] [address] 10/02/2024 11:40 AM EDT Office Visit Family Practice [facility] [address] [address] Myah Valdivia CRNP [address] [place] [address] Scheduled Procedures Name Priority Associated Diagnoses Date/Ti [...] on File Type Date Recorded Patient Manager Distribution Expl anation Advance Directives and Living Will 03/22/2005 Power of Enterprise Application Developer 03/22/2005 * No Code Status (Latest Code Status on File) Date Activated Date Inactivated Comments 03/22/2005 10:26 AM 03/22/2005 10:26 AM Care Teams Framing Consultant Relationship Specialty Start Date End Date Joyce Dorantes DO [address] [place] [address] PCP - General Family Medicine 12/23/15 documented as of this encounter
--- OUTSIDE RECORDS SUMMARY | 2024-09-23 04:11 | External Medical Summary | Summary of Care ---
Author Name Unknown Organization [facility] Address [address] [place] [address] Phone [phone] Care Team Providers Care Radiation Protection Technician Name Role Phone Joyce Dorantes DO Primary Care Provider Reason for Visit * Reason Onset Date Comments Referral 08/13/2024 Encounter Details Date Type Department Care Team (Late st Contact Info) Description 08/13/2024 Telephone Family Practice [facility] [address] [facility] [address] Joyce Dorantes DO [address] [place] [facility] [place] [address] Referral Allergies Active Allergy Reactions Criticality Noted [...] Industry Job Start Date Job End Date [employer] Not on file Not on file Not on f ile documented as of this encounter Miscellaneous Notes * Telephone Encounter - Renetta Arzola OSA [...] Description 08/22/2024 10:00 AM EST Imaging Radiology [address] [place] [address] 08/31/2024 3:45 PM EST Imaging Radiology [address] [place] [address] 09/05/2024 10:00 AM EST Office Visit Nutrition & Weight Management, [facility] [address] [place] [address] Nata Alba PA-C [address] [place] [address] 10/02/2024 11:40 AM EDT Office Visit Family Practice [facility] [address] [place] [address] Myah Valdivia CRNP [address] [place] [address] Scheduled Procedures Name Priority Associated Diagnoses Date/Ti [...] Documents on File Type Date Recorded Patient General Education Professor Expl anation Advance Directives and Living Will 03/22/2005 Power of Interactive Media Marketing Strategist 03/22/2005 * No Code Status (Latest Code Status on File) Date Activated Date Inactivated Comments 03/22/2005 10:26 AM 03/22/2005 10:26 AM Care Teams Radiation Protection Technician Relationship Specialty Start Date End Date Joyce Dorantes DO [address] [place] [address] PCP - General Family Medicine 12/23/15 documented as of this encounter
--- OUTSIDE RECORDS SUMMARY | 2024-09-23 04:11 | External Medical Summary | Summary of Care ---
Author Name Unknown Organization [facility] Address [address] [place] [address] Phone [phone] Care Team Providers Care Net Washer Name Role Phone Joyce Dorantes DO Primary Care Provider Reason for Visit * Reason Onset Date Comments Order Request 08/30/2024 Encounter Details Date Type Department Care Team (Late st Contact Info) Description 08/30/2024 Telephone Family Practice [facility] [address] [facility] [place] [address] Joyce [facility]antes DO [facility] [place] [address] Order Request Allergies Active Allergy Reactions Criticality [...] Industry Job Start Date Job End Date [employer] Not on file Not on file Not [...] Description 08/31/2024 3:45 PM EST Imaging Radiology [facility] [address] [facility] [address] [address] 09/05/2024 10:00 AM EST Office Visit Nutrition & Weight Management, [facility] [address] [place] [address] Nata Alba PA-C [address] [place] [address] 10/02/2024 11:40 AM EDT Office Visit Family Practice [facility] [address] [place] [address] Myah Valdivia CRNP [address] [place] [address] Scheduled Procedures Name Priority Associated Diagnoses Date/Ti [...] Documents on File Type Date Recorded Patient Integrated Logistics Support Manager Expl anation Advance Directives and Living Will 03/22/2005 Power of Air Conditioning Installer 03/22/2005 * No Code Status (Latest Code Status on File) Date Activated Date Inactivated Comments 03/22/2005 10:26 AM 03/22/2005 10:26 AM Care Teams Net Washer Relationship Specialty Start Date End Date Joyce Dorantes DO [address] [place] [place] [address] PCP - General Family Medicine 12/23/15 documented as of this encounter
--- OUTSIDE RECORDS SUMMARY | 2024-09-23 04:12 | External Medical Summary | Summary of Care ---
Author Name Unknown Organization [facility] Address [address] [place] [facility] [place] [address] Phone [phone] Care Team Providers Care Credit And Collection Manager Name Role Phone Joyce Dorantes DO Primary Care Provider Reason for Visit * Reason Onset Date Comments Hospital Follow-Up 08/13/2024 [facility] d/c Encounter Details Date Type Department Care Team (Late st Contact Info) Description 08/13/[address] [facility] [address] [facility] [place] [address] Erica Marin, GARO Hospital Follow-Up ([facility] d/c ) Allergies Active Allergy Reactions Criticality Noted [...] Industry Job Start Date Job End Date [employer] Not on file Not on file Not on f ile documented as of this encounter Miscellaneous Notes * Telephone Encounter - Erica Marin RN - 08/13/2024 12:43 PM EST Images from the original note were not included. Transitions of Care Note Reason for Referral:Recent Admission Phone visit for follow up: JAMES Admitted to: [facility], Date: 08/07 Discharged to: home, Date: 08/11 Diagnosis driving hospitalization: acute diverticulitis with abscess and perforation Source/Contact: Patient SUBJECTIVE Consent: Verbal consent for review of hospital discharge: Yes REVIEW OF SYSTEMS Patient/Other Reports: Current patient/caregiver problems or concerns: Will need to have [address] scans per discharge instructions and Colonscopy in 6-8 weeks recommended at discharge as well CV: Denies problems Pulmonary: Denies problems Chills/Sweats/Fever:Denies chills/sweats Denies fever Appetite:Denies problems such as nausea, vomiting, burning, decreased appetite Current diet: low fiber Bowel: denies problems Bladder: denies problems Wound (If applicable): N/A Pain:Location- some abd discomfort Sleep:Denies problems FUNCTIONAL STATUS: ADL'S: Needs Assistance With:N/A as pt is independent IADL'S: Needs Assistance With:N/A as pt is independent Cognitive and Mental Health: denies problems, alert and oriented x 3, and able to communicate, understand instructions, process information. MEDICATION RECONCILIATION Medications: Discharge med list reviewed with patient or caregiver New medication(s) filled since hospitalization- Augmentin and ciprofloxacin OBJECTIVE ASSESSMENT Medication Risk Assessment: No risks identified Did patient fail outpatient treatment? No Discharge instructions available for review? Yes PLAN Symptom Monitoring Interventions:Member/caregiver education - signs and symptoms to contact PrimaryCare (DO NOT DELETE-Three juarez symptoms patient is to report to PCP) 1. Return/worsening abd pain 2. Fever/chills 3. Diarrhea/blood in stool Education And Training CoordinatorHost And Hostess of Care interventions/Action Plan: 5 - 7 day follow-up with PCP in place - Date: 08/15/24 Educated on role of JAMES completed with patient/caregiver. Educated patient/caregiver on patient right to have input on JAMES plan of care. Verification of Home Health/DME if indicated: YES not applicable Identified Care Gaps: Yes Care Gaps closed this call: Appointment made or confirmed, Medication optimization, and Transition of Care follow-up communication Re-evaluation of Plan of Care and progress towards goals achievement: Patient education this visit: Verbal, as above Plan to instructed to call Primary Care Provider with change in symptoms or as needed before next follow-up, discharge needs met, verbalizes understanding and agrees with plan. Erica Marin RN documented in this encounter Plan of Treatment Upcoming Encounters Date Type Department Care Team (Late st Contact Info) Description 08/15/2024 1:40 PM EST Office Visit [facility] [address] [facility] [place] [address] Joyce Dorantes, DO [address] [place] [address] 08/22/2024 10:00 AM EST Imaging Radiology [address] [place] [address] 08/31/2024 3:45 PM EST Imaging Radiology [address] [place] [address] 09/05/2024 10:00 AM EST Office Visit Nutrition & Weight Management, [facility] [address] [address] Nata Alba PA-C [address] [place] [address] 10/02/2024 11:40 AM EDT Office Visit Family Practice [facility] [address] [place] [address] Myah Valdivia CRNP [address] [place] [address] Scheduled Procedures Name Priority Associated Diagnoses Date/Ti [...] Documents on File Type Date Recorded Patient Tape Calender Expl anation Advance Directives and Living Will 03/22/2005 Power of Senior Technical Trainer 03/22/2005 * No Code Status (Latest Code Status on File) Date Activated Date Inactivated Comments 03/22/2005 10:26 AM 03/22/2005 10:26 AM Care Teams Credit And Collection Manager Relationship Specialty Start Date End Date Joyce Dorantes DO [address] [place] [address] PCP - General Family Medicine 12/23/15 documented as of this encounter
--- OUTSIDE RECORDS SUMMARY | 2024-09-23 04:12 | External Medical Summary | Summary of Care ---
Author Name Unknown Organization [facility] Address [address] [place] [address] Phone [phone] Care Team Providers Care Speech Language Therapist Name Role Phone Jose EJoyce Jennifer JC Primary Care Provider [phone] Reason for Referral * Precert (Within 10 days (routine)) - Pending Review Specialty Diagnoses / Procedures Referred By Alda pan Referred To Contact Radiology Diagnoses Diverticulitis of large intestine with perforation and abscess, unspecified bleeding status Procedures CT ABD/PELVIS W IV CONTRAST - WO ORAL CONTRAST Grayson Gallagher MD [address] [place] [address] Phone: tel: fax: Referral ID Status Reason Start Date Expiration Date V isits Requested Visits Authorized [id number] Pending Review 08/30/2024 [id number] Encounter Details Date Type Department Care Team (Late st Contact Info) Description 08/09/2024 Telephone Infectious Disease, [place] [address] [place] [address] Grayson Gallagher MD [address] [place] [address] Allergies Active Allergy Reactions Criticality Noted Date Comments Morphine And Codeine High 08/13/2004 lose consciousness documented as of this encounter (statuses as of 08/09/2024) Medications MULTI-VITAMIN PO TABS One tablet daily [...] as of this encounter (statuses as of 08/09/2024) Active Problems Problem Noted Date Diagnosed Date [...] as of this encounter (statuses as of 08/09/2024) Resolved Problems Problem Noted Date Diagnosed Date [...] as of this encounter (statuses as of 08/09/2024) Immunizations Name Administration Dates Next Due COVID-19 [...] No 06/14/2024 Does the household have a [facility] source of income? (Household - for ages [...] 1:46 PM EST Sexual Orientation Straight 06/14/2024 1 :46 PM EST Occupation Industry Job Start Date Job End Date [employer] Not on file Not on file Not on f ile documented as of this encounter Miscellaneous Notes * Telephone Encounter - Gr[place] Gallagher MD - 08/09/2024 12:[address] scan to F/U on the diverticulitis and abscess to be done in 3 weeks This documentation is from admission at [facility] on 08/07/2024: Ms. Mercado is a 48-year-old woman with PMHx of prediabetes, intermittent asthma, morbid obesity, osteoarthritis and thalassemia minor who was admitted to [facility] on 08/07/[address] scan of the abdomen and pelvis done for suspected malpositioned IUD showed diverticulitis complicated with perforation and abscess. Patient reported having low-grade fever with mild abdominal pain for few months now. On presentation to the emergency department, her blood pressure was high;however, the rest of the vitals were within normal limits. Initial workup showed leukocytosis of 13.8 (ANC 9.7); the rest of blood workup was not impressive. Patient did have an MRI of the pelvis performed at [facility] on 08/03 because of her malpositioned IUD which showed large inflammatory phlegmon in the anterior pelvis between the proximal sigmoid colon and the anterior bladder dome as well as anterior abdominal wall. There was some concern for perforated diverticulitis with abscess formation. It further demonstrated bilateral solid ovarian masses. CT scan of the abdomen and pelvis was further performed on 08/07 at [facility] which was suggestive of acute diverticulitis with perforation and abscess formation as well as possible fistula between the sigmoid colon, left bladder and anterior abdominal wall. ID team was consulted for further recommendations and to help guide antibiotic emmanuel atment. Assessment & Plan (1) Diverticulitis of intestine with perforation and abscess: (2) IUD complication: (3) Morbid obesity: Plan - Please continue of IV piptazo for today. - If by tomorrow, she remained stable and ready for discharge, can step down to oral Cipro 500 mg PO BID and Augmentin 875/125 TID for a total of 4 weeks. - She will require a repeat CT scan in 3 weeks (I ordered it in [facility] - she will get it done clayton stephenson). I will F/U on it and decide on further management accordingly. documented in this encounter Plan of Treatment Upcoming Encounters Date Type Department Care Team (Late st Contact Info) Description 09/05/2024 10:00 AM EST Office Visit Nutrition & Weight Management, [facility] [address] [place] [address] Nata Alba PA-C [address] [place] [address] 10/02/2024 11:40 AM EDT Office Visit Family Practice [facility] [address] [place] [address] Myah Valdivia CRNP [address] [place] [address] Scheduled Orders Name Type Priority Associated Diagnoses Orde r Schedule CT ABD/PELVIS W IV CONTRAST - WO ORAL CONTRAST Medical Imaging Routine Diverticulitis of large intestine with perforation and abscess, unspecified bleeding status Expected: 08/30/2024, Expires: 09/06/2025 Scheduled Procedures Name Priority Associated Diagnoses Date/Ti [...] Diagnoses Diagnosis Diverticulitis of large intestine with perforation and abscess, unspecified bleeding status- Primary documented in this encounter Advance Directives Documents on File Type Date Recorded Patient Product Support Manager Expl anation Advance Directives and Living Will 03/22/2005 Power of Net Developer Consultant 03/22/2005 * No Code Status (Latest Code Status on File) Date Activated Date Inactivated Comments 03/22/2005 10:26 AM 03/22/2005 10:26 AM Care Teams Speech Language Therapist Relationship Specialty Start Date End Date Joyce Dorantes DO [address] [place] [address] PCP - General Family Medicine 12/23/15 documented as of this encounter
--- OUTSIDE RECORDS SUMMARY | 2024-09-23 04:12 | External Medical Summary | Summary of Care ---
Author Name Unknown Organization [facility] Address [address] [place] [address] Phone [phone] Care Team Providers Care Air Control Electronics Operator Name Role Phone Thierry Dorantesa Jennifer JC Primary Care Provider Reason for Visit * Reason Onset Date Comments After Hours Call 08/07/2024 Encounter Details Date Type Department Care Team (Late st Contact Info) Description 08/07/2024 Telephone Family Practice [facility] [address] [facility] [place] [address] Myah Valdivia CRNP 132 [place] [address] After Hours Call Allergies Active Allergy Reactions Criticality Noted Date Comments Morphine And Codeine High 08/13/2004 lose consciousness documented as of this encounter (statuses as of 08/08/2024) Medications MULTI-VITAMIN PO TABS One tablet daily [...] as of this encounter (statuses as of 08/08/2024) Active Problems Problem Noted Date Diagnosed Date [...] as of this encounter (statuses as of 08/08/2024) Resolved Problems Problem Noted Date Diagnosed Date [...] as of this encounter (statuses as of 08/08/2024) Immunizations Name Administration Dates Next Due COVID-19 [...] Industry Job Start Date Job End Date [employer] Not on file Not on file Not on f ile documented as of this encounter Progress Notes * Myah Valdivia CRNP - 08/07/2024 5:39 PM ESTAfter hours call for stat CT read ; patient aware of CT showing acute diverticulitis with large abscess recommend emergency room visit at [facility]. Left message on patient identified voicemail at 17:40 on 08/07/2024. documented in this encounter Miscellaneous Notes * Telephone Encounter - Myah Valdivia CRNP - 08/08/2024 7:40 AM EST Report called to [facility] "Mir" at 540 pm 08/07/2024 documented in this encounter Plan of Treatment Upcoming Encounters Date Type Department Care Team (Late st Contact Info) Description 09/05/2024 10:00 AM EST Office Visit Nutrition & Weight Management, [address] [place] [address] Nata Alba PA-C [address] [place] [address] 10/02/2024 11:40 AM EDT Office Visit Family Practice [facility] [address] [place] [address] Myah Valdivia CRNP [address] [place] [address] Scheduled Procedures Name Priority Associated Diagnoses Date/Ti [...] Documents on File Type Date Recorded Patient Motor Runner Expl anation Advance Directives and Living Will 03/22/2005 Power of Prototype Sewer 03/22/2005 * No Code Status (Latest Code Status on File) Date Activated Date Inactivated Comments 03/22/2005 10:26 AM 03/22/2005 10:26 AM Care Teams Air Control Electronics Operator Relationship Specialty Start Date End Date Joyce Dorantes DO [address] [place] [address] PCP - General Family Medicine 12/23/15 documented as of this encounter
--- OUTSIDE RECORDS SUMMARY | 2024-09-23 04:12 | External Medical Summary | Summary of Care ---
Author Name Unknown Organization [facility] Address [address] [place] [address] Phone [phone] Care Team Providers Care Inventory Technician Name Role Phone Joyce Dorantes DO Primary Care Provider Reason for Visit * Reason Onset Date Comments Referral 08/13/2024 Encounter Details Date Type Department Care Team (Late st Contact Info) Description 08/13/2024 Telephone Family Practice [facility] [address] [facility] [address] Joyce Dorantes DO [address] [facility] [address] Referral Allergies Active Allergy Reactions Criticality Noted [...] Industry Job Start Date Job End Date [employer] Not on file Not on file Not [...] Description 08/15/2024 1:40 PM EST Office Visit [facility] [address] [place] [address] Joyce Dorantes DO [address] [place] [address] 08/22/2024 10:00 AM EST Imaging Radiology [address], [place] [address] [place] [address] 08/31/2024 3:45 PM EST Imaging Radiology [address], [place] [address] [place] [address] 09/05/2024 10:00 AM EST Office Visit Nutrition & Weight Management, [facility] [address] [place] [address] Nata Alba PA-C [address] [place] [address] 10/02/2024 11:40 AM EDT Office Visit [facility] [address] [place] [address] Myah Valdivia CRNP [address] [place] [address] Scheduled Procedures Name Priority Associated Diagnoses Date/Ti [...] on File Type Date Recorded Patient Cutter Hot Knife Expl anation Advance Directives and Living Will 03/22/2005 Power of Mesh Cutter 03/22/2005 * No Code Status (Latest Code Status on File) Date Activated Date Inactivated Comments 03/22/2005 10:26 AM 03/22/2005 10:26 AM Care Teams Inventory Technician Relationship Specialty Start Date End Date Joyce Dorantes DO [address] [place] [address] PCP - General Family Medicine 12/23/15 documented as of this encounter
--- OUTSIDE RECORDS SUMMARY | 2024-09-23 04:12 | External Medical Summary | Summary of Care ---
Author Name Unknown Organization [facility] Address [address] [place] [address] Phone [phone] Care Team Providers Care Emergency Management Coordinator Name Role Phone PrashantJoyce duran Primary Care Provider [phone] Reason for Visit * Reason Onset Date Comments Order Request 05/11/2024 Encounter Details Date Type Department Care Team (Late st Contact Info) Description 05/11/2024 Telephone Radiology [facility] [address], [place] [id number] Lauren Galindo MD Order Request Allergies Active Allergy Reactions Criticality Noted Date Comments Morphine And Codeine High 08/13/2004 lose consciousness documented as of this encounter (statuses as of 08/11/2024) Medications MULTI-VITAMIN PO TABS One tablet daily [...] 5 11/25/19 23 024 Discontin ued(Refil l) Phentermine HCl 15 MG Oral Capsule Take 1 Capsule by mouth in the morning. 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 * Telephone Encounter - Bushra Swain RDMS - 05/11/2024 4:07 PM EST Thank you for clarification. In that case, we would need an additional order for abdominal imaging. Could you please also enter "US abdomen, complete"? We will take care of getting patient scheduled properly. Thank you! * Telephone Encounter - Lauren Galindo MD - 05/11/2024 4:03 PM EST Hi Yes I need information about the liver vasculature- to look for evidence of portal HTN. Thank you * Telephone Encounter - Kaley Jean-Baptiste RN - 05/11/2024 3:22 PM EST TT sent to Dr Tolbert to address. * Telephone Encounter - Bushra Swain RDMS - 05/11/2024 2:59 PM EST Kely is scheduled for an 'abdomen, doppler complete' ultrasound on Tuesday. The reason for exam is "fatty liver, elevated CRP and ferritin". The office notes state "ultrasound liver (for fatty liver workup) and spleen (due to hemoglobinopathy)". The doppler ultrasound is used for mainly liver vasculature. We would evaluate portal veins, hepatic veins, hepatic arteries, etc. We do NOT do imaging of soft tissue organs with this. We would not image the spleen (or the pancreas, gallbladder, etc with this order). Was this order to be an "abdomen, complete" ultrasound (not doppler) instead? This would image liver, spleen, pancreas, gallbladder, aorta, kidneys and bile ducts. Please advise and confirm what studies are needed. Thank you! documented in this encounter Plan of Treatment Upcoming Encounters Date Type Department Care Team (Late st Contact Info) Description 08/15/2024 1:40 PM EST Office Visit Family Practice [facility] [address] [place] [address] Joyce Dorantes DO [address] [place] [address] 08/31/2024 3:45 PM EST Imaging Radiology [facility] 1st Floor, [place] [address] [place] [address] 09/05/2024 10:00 AM EST Office Visit Nutrition & Weight Management, [facility] [address] [place] [address] Nata Alba PA-C [address] [place] [address] 10/02/2024 11:40 AM EDT Office Visit Family Practice [facility] [address] [place] [address] Myah Valdivia CRNP [address] [place] [address] Scheduled Procedures Name Priority Associated Diagnoses Date/Ti [...] filedocumented as of this encounter Results * US ABDOMEN COMPLETE (05/30/2024 8:27 AM EST) Anatomical Region Laterality Modality Abdomen, Body Ultrasound 05/30/2024 8:52 AM EST Impressions 05/30/2024 8:49 AM EST IMPRESSION: Diffuse increase in echotexture of hepatic parenchyma. Discussion as above. Appropriate venous flow within visualized inferior vena cava and right upper quadrant vasculature. Please see above discussion. Narrative 05/30/2024 8:49 AM EST EXAM: US ABDOMEN DOPPLER COMPLETE; US ABDOMEN COMPLETE HISTORY: fatty liver, elevated CRP and ferritin TECHNIQUE: Real-time scanning is performed of the abdomen. Real-time scanning, color flow imaging and Doppler spectral analysis is performed right upper quadrant of hepatic vasculature. COMPARISON: CT CHEST W CONTRAST, ACC: [id number], dated 2020-12-12 14:25:56 FINDINGS: Gallbladder: Not abnormally [...] quantitatively within normal limits for size per length. Visualized parenchyma homogeneous without focal lesion. Ascites: None [...] expected cranial to caudal tapering. AP measurements: Proximal- 2.2 cm, mid-1.7 cm and distal-1.7 cm. Venous [...] is no evidence of definite filling defect. Procedure Note Kobe Miller MD - 05/30/2024 EXAM: US ABDOMEN DOPPLER COMPLETE; US ABDOMEN COMPLETE HISTORY: fatty liver, elevated CRP and ferritin TECHNIQUE: Real-time scanning is performed of the abdomen. Real-time scanning, color flow imaging and Doppler spectral analysis isperformed right upper quadrant of hepatic vasculature. COMPARISON: CT CHEST W CONTRAST, ACC: [id number], dated 2020-12-12 14:25:56 FINDINGS: Gallbladder: Not abnormally distended. No cholelithiasis or demonstrableintraluminal sludge. This is allowing for technical artifact. No currentultrasound evidence acute cholecystitis. No intrahepatic biliary dilatation. There is no extrahepatic biliarydilatation with common duct measuring approximally 2 mm. There is nogross choledocholithiasis. Liver: Size length: Right lobe approximate 16.0 cm Visualized parenchyma homogeneous but diffusely somewhat increased inechotexture; a nonspecific finding as can reflect fatty infiltration,chronic inflammation, cirrhosis, Orr, hemochromatosis and etc..Currently, however, visualized surface contour is smooth withoutnodularity. There is no discrete focal lesion. Spleen: Size length: 12.2 cm prominent but quantitatively within normallimits for size per length. Visualized parenchyma homogeneous withoutfocal lesion. Ascites: None demonstrated. Pancreas: Unfortunately, pancreatic bed obscured by overlying bowelparticularly distal body and tail. In visualized portions of parenchymano discrete focal lesion or pancreatic ductal dilatation. Kidneys: Size length: Right-11.6 cm and left-11.8 cm Renal contour is bilaterally maintained as is cortex in regard tothickness/echotexture. No focal lesion. No hydronephrosis. No demonstrable intrarenal calculus or perinephric abnormality. Abdominal aorta: No focal aneurysm. There is however an element of distalectasia with loss of expected cranial to caudal tapering. APmeasurements: Proximal-2.2 cm, mid-1.7 cm and distal-1.7 cm. Venous flow seen in visualized portion inferior vena cava Pleural effusion: None demonstrated. Appropriate venous flow is seen within the inferior vena cava and portalvein. Portal vein mildly prominent but within normal limits for diametermeasuring 1.3 cm. Hepatopetal flow is demonstrated. Appropriate venous flow identified in splenic vein superior mesentericvein hepatic arteries and hepatic veins. There is no evidence of definitefilling defect. IMPRESSION IMPRESSION: Diffuse increase in echotexture of hepatic parenchyma. Discussion asabove. Appropriate venous flow within visualized inferior vena cava and rightupper quadrant vasculature. Please see above discussion. Lauren Galindo MD [facility] [place] Final Result documented in this encounter Visit Diagnoses Diagnosis Fatty liver- Primary Other chronic nonalcoholic liver disease Fatty liver Other chronic nonalcoholic liver disease documented in this encounter Advance Directives Documents on File Type Date Recorded Patient Management Aide Expl anation Advance Directives and Living Will 03/22/2005 Power of Heavy Rail Train Operator 03/22/2005 * No Code Status (Latest Code Status on File) Date Activated Date Inactivated Comments 03/22/2005 10:26 AM 03/22/2005 10:26 AM Care Teams Emergency Management Coordinator Relationship Specialty Start Date End Date Joyce Dorantes DO [address] [facility] [place] [address] PCP - General Family Medicine 12/23/15 documented as of this encounter
--- OUTSIDE RECORDS SUMMARY | 2024-09-23 04:12 | External Medical Summary | Summary of Care ---
Author Name Unknown Organization [facility] Address [address] [place] [address] Phone [phone] Care Team Providers Care Fine Dining Server Name Role Phone SoilaJoyce lewis Jennifer JC Primary Care Provider [phone] Reason for Visit * Reason Onset Date Comments Information 08/08/[address] abd/pe l from 08/07/24 & MRI pelvis from 08/03/24 to [facility] at facilities request. Pt is admitted. Encounter Details Date Type Department Care Team (Late st Contact Info) Description 08/08/2024 Telephone Radiology [facility], [place] [address] [facility] [place] [address] Valery Lin L, RT (R) Information (Pushed CT abd/pel from 08/07/24... Allergies Active Allergy Reactions Criticality Noted Date [...] Industry Job Start Date Job End Date [employer] Not on file Not on file Not on f ile documented as of this encounter Miscellaneous Notes * Telephone Encounter - Valery Lin RT (R) - 08/08/2024 11:15 [address] EST [address] abd/pel from 08/07/24 & MRI pelvis from 08/03/24 to [facility] at facilities request. Pt is admitted. documented in this encounter Plan of Treatment Upcoming Encounters Date Type Department Care Team (Late st Contact Info) Description 09/05/2024 10:00 AM EST Office Visit Nutrition & Weight Management, [address] [place] [address] Nata Alba PA-C [address] [place] [address] 10/02/2024 11:40 AM EDT Office Visit Family [facility] [address] [place] [address] Myah Valdivia CRNP [address] [place] [address] Scheduled Procedures Name Priority Associated Diagnoses Date/Ti [...] Documents on File Type Date Recorded Patient Environmental Services Tech Expl anation Advance Directives and Living Will 03/22/2005 Power of Hose Operator 03/22/2005 * No Code Status (Latest Code Status on File) Date Activated Date Inactivated Comments 03/22/2005 10:26 AM 03/22/2005 10:26 AM Care Teams Fine Dining Server Relationship Specialty Start Date End Date Joyce Dorantes DO [address] [place] [address] PCP - General Family Medicine 12/23/15 documented as of this encounter
[2024-09-23 04:48] LABS: Appearance Urine Cloudy (Clear); Bacteria Urine Automated None Seen (None Seen); Bilirubin Urine Negative (Negative); Blood Urine Negative (Negative); Cast Urine Automated 0-2 /lpf (0-2); Color Urine Yellow; Glucose Urine UA Negative (Negative); Ketones Urine Negative (Negative); Leukocyte Esterase Urine Negative (Negative); Nitrite Urine Negative (Negative); Protein Urine Negative (Negative); Specific Gravity Urine 1.018 (1.000-1.030); Urobilinogen Urine Negative (Negative); WBC Urine Automated 0-5 /hpf (0-5); pH Urine 5.5 (4.5-7.5)
--- NOTE | 2024-09-23 04:59 | Emergency Department Note ---
Impression & Plan Diverticulitis of intestine with perforation and abscess ED Provider Note CHIEF COMPLAINT: Abdominal pain HISTORY OF PRESENTING ILLNESS: This 48-year-old female patient presents to the emergency department for evaluation of abdominal pain and possible infection. The patient states that she had an abscess drained at [facility] on 09/19/2024 secondary to diverticulitis. The patient developed a fever on 09/20/2024. The fevers have been 103 F maximum. The site around the drain has become red and hard in the contents of the drain have changed from a bloody fluid to a brown foul-smelling fluid. The patient had Tylenol at 11:30 PM. She is currently on Augmentin and Cipro. The patient contacted the IR team at [facility] who advised her to come to the ER for evaluation. She is not on any blood thinners. CT scan of the abdomen pelvis with IV and oral contrast on 08/07/23 showed acute diverticulitis with perforation and abscess formation. The abscess measures 20 x 47 mm. There is surrounding inflammatory phlegmon and suggestion of fistula between the sigmoid colon, left bladder, and anterior abdominal wall musculature. The patient was admitted to our facility at that time and was treated with IV antibiotics. The patient was recommended to have 4 weeks of ciprofloxacin and Augmentin with a repeat CT scan in 3 weeks. The patient states that she had a repeat CT scan without much improvement in the size of the abscess. The patient saw IR at [facility] for drainage of the abscess and drain placed. The patient will need eventual surgery for repair of the fistula etc. This was her first episode of diverticulitis. She had a colonoscopy at 43 years old that showed diverticulosis, but was otherwise normal. REVIEW OF SYSTEMS: See HPI for pertinent positives and pertinent negatives. ALLERGIES: Codeine MEDICATIONS: See below PAST MEDICAL HISTORY: See below PHYSICAL EXAM: VITALS: Vitals are noted on the nurse's note and reviewed by myself. GENERAL: Non toxic, in no acute distress, non-diaphoretic. SKIN: Capillary refill <2 sec. EYES: PERRLA. EOMI. Conjunctivae without injection, sclerae without icterus. NOSE: Patent without discharge. MOUTH: Mucous membranes moist. Uvula midline. Airway patent. NECK: Supple without nuchal rigidity. HEART: Regular rate and rhythm without murmurs gallops or rubs. LUNGS: Clear to auscultation bilaterally without wheezes, rales or rhonchi. No retractions or accessory muscle use. ABDOMEN: Positive bowel sounds x 4. Percutaneous drain in place in the lower central abdomen with surrounding erythema and induration. The patient is tender to palpation in the area of erythema and induration. There is some yellow purulent discharge coming from the drain site. There is also brown discharge into the drain bag. No CVA tenderness. The patient has guarding, but no rigidity, or rebound tenderness. MUSCULOSKELETAL: No gross musculoskeletal defects. NEURO: Patient was alert and oriented. No focal neurological deficits. DIFFERENTIAL DIAGNOSIS: Differential diagnosis includes cellulitis, abscess, sepsis, perforation, hepatitis, pancreatitis, cholecystitis, cholelithiasis, appendicitis, kidney stone, pyelonephritis, UTI, gastritis, gastroenteritis, mesenteric adenitis, obstruction, constipation, hernia, abdominal abscess, perforation, diverticulitis, IBD, ischemic colitis, abdominal aortic aneurysm, , ectopic , ovarian cyst, ovarian torsion, acute salpingitis, or others. ED COURSE AND MEDICAL DECISION MAKING: MEDICATIONS GIVEN: 1.5 L normal saline solution bolus. Tylenol 1000 mg IV. Zosyn 4.5 g IV. MONITOR: Continuous personnel monitor: Order was placed for continuous personnel monitor. Patient was placed on the personnel monitor and continuous pulse ox. Patient was noted to be in normal sinus rhythm at an initial rate of 74 bpm per my interpretation. INTERPRETATION OF LABS: I interpreted the labs with full lab results as below in the lab section of this note. Laboratory results pertinent to the emergent complaint are discussed in the MDM section below. The patient was advised to follow up with their PCP and/or specialist(s) for further outpatient monitoring and management of any abnormal results. INTERPRETATION OF IMAGING: Imaging studies were interpreted by myself and read by radiology as per the imaging section of this note. The patient was advised to follow up with their PCP and/or specialist(s) for further outpatient management of any non-emergent abnormal findings. CT scan of the abdomen pelvis with IV contrast showed redemonstration of anterior pelvic abscess superior to the urinary bladder dome with pigtail catheter reaching at central part measuring 4 x 2 x 2 cm with adjacent bladder dome mural thickening and surrounding pelvic stranding and inseparable from the sigmoid colon wall which is mostly a diverticular abscess. It has been partially drained after the pigtail catheter insertion. EXTERNAL RECORDS REVIEWED: I reviewed the patient's [facility] records from her IR drain placement as well as the records from her most recent admission as summarized above. CONSULTATIONS: Brien HO and Edie RAMIREZ of general surgery. On- call hospitalist. MDM SUMMARY: I examined the patient. The patient had been admitted at the beginning of August with a diverticular abscess and treated with IV antibiotics followed by a prolonged course of oral antibiotics. However, this did not improve the abscess. She then had a drain placed by IR at [facility] on 09/19/2024. She developed a fever the next day followed by redness and pain around the drain site. She has continued with symptoms and presented to our ER. On exam, there was erythema and induration as well as tenderness around to the percutaneous drain site. There was some purulent discharge from the drain site that was cultured with culture pending. The patient was initially afebrile, but did develop a fever while in the ER. The patient was never tachycardic or hypotensive. IV lock was placed and labs were drawn. The patient was given 1.5 L of normal saline solution bolus based on her ideal body weight. Blood cultures were obtained and the patient was given Zosyn 4.5 g IV. The patient was also given Tylenol 1000 mg IV with improvement of her pain as well as improvement of her fever. White blood cell count elevated at 15.32. Hemoglobin low at 10.5, but stable. Platelet count normal at 291. PT elevated at 12.3, but other coags were normal. Glucose 125, but CMP otherwise normal. Lactate and procalcitonin were normal. High sensitive troponin normal. Serum hCG negative. Urinalysis without evidence for UTI. Due to the patient's vital signs, appearance, and laboratory studies, I spoke with Brien HO of general surgery while waiting for the results of the CT scan to determine if this was a case that could be managed locally or if the patient would require transfer regardless of the CT scan findings. He stated that the patient may be able to be managed locally pending the results of the CT scan. Please refer to his dictation for further details. CT scan of the abdomen pelvis with IV contrast showed redemonstration of anterior pelvic abscess superior to the urinary bladder dome with pigtail catheter reaching at central part measuring 4 x 2 x 2 cm with adjacent bladder dome mural thickening and surrounding pelvic stranding and inseparable from the sigmoid colon wall which is mostly a diverticular abscess. It has been partially drained after the pigtail catheter insertion. After the results of the CT scan were received, I spoke with Edie RAMIREZ of general surgery who had Dr. Carr of general surgery reviewed the CT scan as well as the patient's case. General surgery stated that the patient could be admitted by medicine locally with IV antibiotics for treatment of the infection. The patient will eventually require surgical intervention at [facility], but not urgently at this time. I spoke with the on-call hospitalist who agreed to admit the patient for further evaluation and treatment. Please refer to their dictation for further details. The patient's care was transferred in stable condition. DIAGNOSIS: Diverticular abscess with infection around the percutaneous drain site Past Med/Surg History Problem List (Updated 09/23/24 @ 20:19 by Barbie Rankin PA-C) Iron deficiency anemia Thalassemia minor Colonic diverticular abscess IUD complication Diverticulitis of intestine with perforation and abscess (Acute) Diverticulitis Dietary counseling and surveillance Knee pain, bilateral KENJI (obstructive sleep apnea) Morbid obesity Fatigue Arthralgia PCOS (polycystic ovarian syndrome) Asthma (Acute 02/21/13) Surgical History Hx of dilation and curettage Hx of section H/O knee surgery (02/21/13) anterior cruciate Family History Grandmother (Paternal) Diabetes Mother Hyperlipidemia Father No problems noted. 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: No Beliefs That Will Affect Care: None marital status: Current Living Situation: Family current occupational status: employed How many Children do You have: 1 How many Children do You have Comment: son Other Information That Helps Us Care for You: No Feels Safe at Home: Yes Safety Concerns: Feels Safe At This Time Assistive Devices: Glasses Allergies Allergies Allergy/AdvReac Type Severity Reaction Status Date / Time codeine Allergy Unknown Unknown Verified 09/23/24 10:49 Home Meds Home Medications Medication Instructions Recorded Confirmed levonorgestrel 21 mcg/24 hr (up to 1 device intrauterine DIRECTED 02/19/20 09/23/24 8 years) 52 mg intrauterine device (Mirena) bupropion HCl 150 mg tablet,12 hr 150 mg PO BID 08/07/24 09/23/24 sustained-release meloxicam 7.5 mg tablet 7.5 mg DAILY 08/07/24 09/23/24 naltrexone 50 mg tablet 0 mg PO DAILY 08/08/24 09/23/24 amoxicillin 875 mg-potassium 1 tab PO TID 09/23/24 09/23/24 clavulanate 125 mg tablet ciprofloxacin HCl 500 mg tablet 500 mg PO BID 09/23/24 09/23/24 mometasone 50 mcg/actuation nasal 2 spray intranasal DAILY PRN 09/23/24 09/23/24 spray Allergy/Congestion multivitamin 1 tab PO DAILY 09/23/24 09/23/24 Results & Data (ED) Vital Signs Vital Signs - 24 hr 09/23/24 04:15 09/23/24 04:22 09/23/24 04:32 Temperature 37.4 C Temperature Source Oral Pulse Rate 87 Pulse Rate [Right Finger] Respiratory Rate 18 Respiratory Effort / Characteristics Non-Labored Spontaneous Respiratory Depth Normal Respiratory Pattern Regular Blood Pressure 137/75 Blood Pressure [Right Arm] Blood Pressure Mean 95 Blood Pressure Mean [Right Arm] Blood Pressure Position Sitting Blood Pressure Position [Right Arm] Pulse Oximetry 96 95 Oxygen Delivery Method Room Air Room Air Room Air Oxygen Flow Rate 94 Sepsis Recent Fever Within 48 Hours No Sepsis New/Unexplained Change in Mental Status N/A Sepsis Action Taken by Nursing No Action Required 09/23/24 04:35 09/23/24 04:35 09/23/24 06:03 Temperature 38.2 C H Temperature Source Oral Pulse Rate 75 Pulse Rate [Right Finger] 78 74 Respiratory Rate 16 16 Respiratory Effort / Characteristics Non-Labored Respiratory Depth Normal Respiratory Pattern Regular Blood Pressure Blood Pressure [Right Arm] 145/75 H 117/68 Blood Pressure Mean Blood Pressure Mean [Right Arm] 98 84 Blood Pressure Position Blood Pressure Position [Right Arm] Lying Lying Pulse Oximetry 95 97 Oxygen Delivery Method Room Air Room Air Oxygen Flow Rate Sepsis Recent Fever Within 48 Hours Sepsis New/Unexplained Change in Mental Status Sepsis Action Taken by Nursing 09/23/24 06:19 09/23/24 06:27 09/23/24 06:47 Temperature 37.6 C H 37.6 C H Temperature Source Oral Oral Pulse Rate Pulse Rate [Right Finger] 70 64 Respiratory Rate 16 14 Respiratory Effort / Characteristics Non-Labored Non-Labored Respiratory Depth Respiratory Pattern Blood Pressure Blood Pressure [Right Arm] 115/69 121/60 Blood Pressure Mean Blood Pressure Mean [Right Arm] 84 80 Blood Pressure Position Blood Pressure Position [Right Arm] Lying Lying Pulse Oximetry 97 97 Oxygen Delivery Method Room Air Room Air Oxygen Flow Rate Sepsis Recent Fever Within 48 Hours Sepsis New/Unexplained Change in Mental Status Sepsis Action Taken by Nursing 09/23/24 08:00 Temperature Temperature Source Pulse Rate Pulse Rate [Right Finger] 67 Respiratory Rate 15 Respiratory Effort / Characteristics Non-Labored Spontaneous Respiratory Depth Normal Respiratory Pattern Blood Pressure Blood Pressure [Right Arm] 125/67 Blood Pressure Mean Blood Pressure Mean [Right Arm] 86 Blood Pressure Position Blood Pressure Position [Right Arm] Semi-fowlers Pulse Oximetry 94 Oxygen Delivery Method Room Air Oxygen Flow Rate Sepsis Recent Fever Within 48 Hours Sepsis New/Unexplained Change in Mental Status Sepsis Action Taken by Nursing Laboratory Data 09/23/24 04:32 09/23/24 04:32 Lab Results 09/23/24 09/23/24 Range/Units 04:30 04:32 WBC 15.32 H (4.8-10.8) K/ul RBC 5.64 H (4.20-5.40) M/uL Hgb 10.5 L (12.0-16.0) g/dl Hct 34.4 L (37.0-47.0) % MCV 61.0 L (80.0-100.0) fL MCH 18.6 L (25.0-34.0) pg MCHC 30.5 L (32.0-36.0) g/dL RDW Std Deviation 36.1 L (36.4-46.3) fL RDW Coeff of Teodroo 18.7 H (11.5-14.5) % Plt Count 291 (130-400) K/uL MPV 9.6 (9.4-12.4) fL Immature Gran % (Auto) 0.8 % Neut % (Auto) 74.9 % Lymph % (Auto) 15.5 % [place] % (Auto) 7.2 % Eos % (Auto) 1.3 % Baso % (Auto) 0.3 % Neut # (Auto) 11.45 H (1.40-6.50) K/uL Lymph # (Auto) 2.38 (1.20-3.40) K/uL [place] # (Auto) 1.11 H (0.11-0.59) K/uL Eos # (Auto) 0.20 (0.00-0.50) K/uL Baso # (Auto) 0.05 (0.00-0.20) K/uL Immature Gran # (Auto) 0.13 (0.01-0.20) K/uL Polychromasia 1+ Ovalocytes 1+ PT 12.3 H (9.0-12.0) Seconds INR 1.1 (0.9-1.1) APTT 29 (21-31) Seconds PTT Ratio 1.1 Sodium 138 (136-145) mmol/L Potassium 3.7 (3.5-5.1) mmol/L Chloride 105 (98-107) mmol/L Carbon Dioxide 27 (21-32) mmol/L Anion Gap 6 (3-11) BUN 16 (6-23) mg/dl Creatinine 0.77 (0.6-1.2) mg/dl Est Cr Clr Drug Dosing 94.2 ml/min eGFR 93.92 BUN/Creatinine Ratio 20.8 H (10-20) Glucose 125 H (70-99(Fasting)) mg/dl Lactate 0.8 (0.4-2.0) mmol/L Calcium 9.4 (8.6-10.3) mg/dl Magnesium 1.7 (1.7-2.4) mg/dl Total Bilirubin 0.8 (0.2-1.0) mg/dl AST 13 (13-39) U/L ALT 15 (7-52) U/L Alkaline Phosphatase 79 (34-104) U/L Troponin I High Sens 4.7 (0-14) pg/ml Total Protein 7.3 (6.0-8.3) gm/dl Albumin 4.0 (3.4-5.0) gm/dl Globulin 3.3 (2.5-4.0) gm/dl Albumin/Globulin Ratio 1.2 (0.9-2) Procalcitonin 0.09 (0-0.5) ng/ml HCG, Qual Negative (Negative) Urine Color Yellow Urine Appearance Cloudy A (Clear) Urine pH 5.5 (4.5-7.5) Ur Specific [place] 1.018 (1.000-1.030) Urine Protein Negative (Negative) Urine Glucose (UA) Negative (Negative) Urine Ketones Negative (Negative) Urine Blood Negative (Negative) Urine Nitrite Negative (Negative) Urine Bilirubin Negative (Negative) Urine Urobilinogen Negative (Negative) Ur Leukocyte Esterase Negative (Negative) Urine WBC (Auto) 0-5 (0-5) /hpf Urine RBC (Auto) 6-10 H (0-2) /hpf U Hyaline Cast (Auto) 0-2 (0-2) /lpf U Epithel Cells (Auto) 11-20 H (0-2) /hpf Urine Bacteria (Auto) None Seen (None Seen) Administered Medications Acetaminophen (Acetaminophen 325 Mg Tab) 650 mg PO Q4H PRN PRN Reason: Moderate Pain (Scale 4, 5, 6) Stop: 10/23/24 10:44 Last Admin: 09/23/24 18:14 Dose: 650 mg Documented By: NURY Bupropion HCl (Bupropion Sr 150 Mg Tabcr) 150 mg PO BID [facility] Stop: 10/23/24 10:59 Last Admin: 09/23/24 11:43 Dose: 150 mg Documented By: NURY Heparin Sodium (Porcine) (Heparin Sod 5,000 Unit/0.5 Ml Vial) 5,000 units SQ Q8 DANIELE Stop: 10/23/24 13:59 Last Admin: 09/23/24 14:26 Dose: Not Given Documented By: NURY Piperacillin Sod/Tazobactam Sod (Zosyn) 4.5 gm in 100 mls @ 25 mls/hr IV Q8H [facility]; Protocol Stop: 10/03/24 10:59 Last Admin: 09/23/24 18:10 Dose: 25 mls/hr Documented By: Infusion: 09/23/24 15:38 Dose: Infused Documented By: Admin: 09/23/24 11:43 Dose: 25 mls/hr Documented By: NURY Lactated Ringer's (Lr) 1,000 mls @ 125 mls/hr IV .Q8H DANIELE Stop: 09/24/24 02:44 Last Admin: 09/23/24 11:11 Dose: 125 mls/hr Documented By: KD Discontinued Medications Sodium Chloride (Nss) 1,000 mls @ 999 mls/hr IV .Q1H1M ONE Stop: 09/23/24 06:10 Last Infusion: 09/23/24 06:32 Dose: Infused Documented By: Admin: 09/23/24 05:31 Dose: 999 mls/hr Documented By: RYLAND Co-signed By: ESTEFANY Acetaminophen (Ofirmev) 1,000 mg in 100 mls @ 400 mls/hr IV NOW STA Stop: 09/23/24 05:24 Last Infusion: 09/23/24 06:00 Dose: Infused Documented By: Admin: 09/23/24 05:30 Dose: 400 mls/hr Documented By: RYLAND Co-signed By: ESTEFANY Sodium Chloride (Nss) 500 mls @ 999 mls/hr IV .Q31M ONE Stop: 09/23/24 05:44 Last Infusion: 09/23/24 06:02 Dose: Infused Documented By: Admin: 09/23/24 05:31 Dose: 999 mls/hr Documented By: RYLAND Co-signed By: ESTEFANY Piperacillin Sod/Tazobactam Sod (Zosyn) 4.5 gm in 100 mls @ 200 mls/hr IV NOW ONE; Protocol Stop: 09/23/24 05:43 Last Infusion: 09/23/24 06:25 Dose: Infused Documented By: RYLAND Co-signed By: ESTEFANY Admin: 09/23/24 05:28 Dose: 200 mls/hr Documented By: RYLAND Co-signed By: ESTEFANY Ioversol (Optiray 320 100ml) 93 ml IV ONCE ONE Stop: 09/23/24 05:49 Last Admin: 09/23/24 05:49 Dose: 93 ml Documented By: MARY Imaging Data Radiologist's Impression: Chest X-Ray 09/23/24 04:22 EXAM: XR chest 1V not portable CLINICAL HISTORY: Sepsis. TECHNIQUE: An X-ray image of the chest is obtained in AP projection. COMPARISON: No prior studies are available for comparison. FINDINGS: Pulmonary Parenchyma: Lungs are clear bilaterally. No evidence of consolidation, collapse, or focal opacities. No pulmonary nodules are identified. No evidence of pleural effusion or pleural thickening. Heart and Mediastinum: Heart size and shape are normal. No mediastinal widening or masses. No hilar or mediastinal lymphadenopathy. Bony Thorax: Bony thorax appears intact without fractures or deformities. Soft Tissues: Soft tissues overlying the chest wall are unremarkable. IMPRESSION: 1. Normal chest X-ray. 2. No acute cardiopulmonary abnormalities are identified. Electronically signed by Declan James 09-23-2024 05:40 AM Abdomen/Pelvis CT 09/23/24 05:30 EXAM: CT abd pelvis IV con only CLINICAL HISTORY: Evaluate worsening infection/abscess after drainage. TECHNIQUE: CT of the abdomen and pelvis was performed with contrast, with the following protocol: axial images with, and reconstructed coronal and sagittal images.93 ml opti 320 intravenous contrast was administered. One of the following dose reduction techniques was utilized for this exam: Automated exposure control, adjustment of the mA and/or kV according to patient size, and use of iterative reconstruction. COMPARISON: Comparison is made with previous CT study on 08/07/2024 FINDINGS: Abdomen: Liver: Normal in size, shape, and density. No focal lesions, cysts, or masses were identified. Hepatic vasculature and biliary ducts are unremarkable. Gallbladder and Biliary System: The gallbladder is normal in size and shape. No wall thickening, pericholecystic fluid, or gallstones were identified. The common bile duct is normal in caliber without dilation. Pancreas: Pancreatic head, body, and tail are visualized and appear normal in size and density. No pancreatic masses or calcifications were noted. The pancreatic duct is not dilated. Spleen: Normal in size, shape, and density. No splenic lesions or masses were identified. Appendix: The appendix is normal in size without sona appendiceal fat stranding and without an appendicolith. No evidence of appendiceal abscess or perforation. Kidneys and Adrenal Glands: Both kidneys are normal in size, shape, and position. Cortical thickness is within normal limits. No renal calculi or hydronephrosis. Adrenal glands are unremarkable with no evidence of masses or hyperplasia. Pelvis: Urinary Bladder: Thick wall of the urinary bladder dome, indicating reactive cystitis. Uterus: Normal in size and contour. No masses or abnormal thickening. IUCD is noted in place. Ovaries: Not well visualized but no gross abnormalities noted. Vagina: Normal in contour and wall thickness. Cervix: No evidence of mass or abnormal thickening. Peritoneal and Retroperitoneal Structures: Redemonstration of anterior pelvic abscess superior to urinary bladder dome with pigtail catheter reaching its central part, measuring 4 x 2 x 2 cm with adjacent bladder dome mural thickening and surrounding pelvic stranding and inseparable from the sigmoid colon wall, mostly a diverticular abscess. No lymphadenopathy was noted. Bowel: The visualized bowel loops are normal in caliber. Diffuse colonic diverticulosis. Bones and Soft Tissues: Pelvic bones and soft tissues are unremarkable. No fractures or abnormal masses were identified. Bilateral fracture pars interarticularis of L5 vertebra with mild anterolisthesis of L5 over S1 vertebra by 7 mm. IMPRESSION: 1. Redemonstration of anterior pelvic abscess superior to urinary bladder dome with pigtail catheter reaching its central part, measuring 4 x 2 x 2 cm with adjacent bladder dome mural thickening and surrounding pelvic stranding and inseparable from the sigmoid colon wall, mostly a diverticular abscess. It has been partially drained after pigtail catheter insertion. 2. Diffuse colonic diverticulosis. 3. Thick wall of the urinary bladder dome, indicating reactive cystitis. (stable). Electronically signed by Declan James 09-23-2024 06:52 AM Discharge Plan Visit Data Chief Complaint: Abdominal Pain Stated Complaint: EARLY AUG FOR DIVERTICULITIS ED Provider: Catrachita Aguilar ED Midlevel Provider: Barbie Rankin Discharge Problem: Diverticulitis of intestine with perforation and abscess Patient Disposition: Admitted As Inpatient Condition: Good Discharge Instructions Interventions: ED Discharge Assessment Last Done: 09/23/24 10:18 Discharge Problem: Diverticulitis of intestine with perforation and abscess Qualifiers: Diverticulitis site: unspecified part of intestinal tract Diverticulitis bleeding: unspecified bleeding status Qualified Code(s): K57.80 - Diverticulitis of intestine, part unspecified, with perforation and abscess without bleeding
[2024-09-23 05:06] LABS: Albumin Globulin Ratio 1.2 (0.9-2); BUN Creatinine Ratio 20.8 (10-20); Bilirubin,Total 0.8 mg/dl (0.2-1.0); Calcium 9.4 mg/dl (8.6-10.3); Creatinine Clr Calc Pharmacy 94.2 ml/min; Globulin 3.3 gm/dl (2.5-4.0); Hematocrit (blood only) 34.4 % (37.0-47.0); Hemoglobin 10.5 g/dl (12.0-16.0); Magnesium 1.7 mg/dl (1.7-2.4); Mean Corpuscular Hemoglobin 18.6 pg (25.0-34.0); Mean Corpuscular Hgb Conc 30.5 g/dL (32.0-36.0); Mean Platelet Volume 9.6 fL (9.4-12.4); Platelet Count 291 K/uL (130-400); Potassium 3.7 mmol/L (3.5-5.1); RDW Coefficient of Variation 18.7 % (11.5-14.5); RDW Standard Deviation 36.1 fL (36.4-46.3); Red Blood Count 5.64 M/uL (4.20-5.40); Total Protein 7.3 gm/dl (6.0-8.3); White Blood Count 15.32 K/ul (4.8-10.8)
[2024-09-23 05:11] LABS: Troponin I High Sensitivity 4.7 pg/ml (0-14)
[2024-09-23 05:22] LABS: Basophils # (auto) 0.05 K/uL (0.00-0.20); Basophils % (auto) 0.3 %; Eosinophils % (auto) 1.3 %; Immature Granulocytes # (auto) 0.13 K/uL (0.01-0.20); Immature Granulocytes % (auto) 0.8 %; Lymphocytes # (auto) 2.38 K/uL (1.20-3.40); Lymphocytes % (auto) 15.5 %; Monocytes # (auto) 1.11 K/uL (0.11-0.59); Monocytes % (auto) 7.2 %; Neutrophils # (auto) 11.45 K/uL (1.40-6.50); Neutrophils % (auto) 74.9 %; Ovalocytes 1+; Polychromasia 1+
[2024-09-23 05:26] LABS: Pregnancy Test, Serum Negative (Negative)
[2024-09-23 05:28] LABS: INR 1.1 (0.9-1.1); Partial Thromboplastin Ratio 1.1; Partial Thromboplastin Time 29 Seconds (21-31); Prothrombin Time 12.3 Seconds (9.0-12.0)
[2024-09-23] MEDS: PIPERACILLIN/TAZOBACTAM 4.5 GM/100 ML BAG IV ONE (05:28)
[2024-09-23] MEDS: ACETAMINOPHEN 1,000 MG/100 ML VIAL IV STA (05:30)
[2024-09-23] MEDS: SODIUM CHLORIDE 0.9% 500 ML IV ONE (05:31)
[2024-09-23] MEDS: SODIUM CHLORIDE 0.9% 1,000 ML IV ONE (05:31)
--- NOTE | 2024-09-23 05:41 | XRay Report ---
EXAM: XR chest 1V not portable CLINICAL HISTORY: Sepsis. TECHNIQUE: An X-ray image of the chest is obtained in AP projection. COMPARISON: No prior studies are available for comparison. FINDINGS: Pulmonary Parenchyma: Lungs are clear bilaterally. No evidence of consolidation, collapse, or focal opacities. No pulmonary nodules are identified. No evidence of pleural effusion or pleural thickening. Heart and Mediastinum: Heart size and shape are normal. No mediastinal widening or masses. No hilar or mediastinal lymphadenopathy. Bony Thorax: Bony thorax appears intact without fractures or deformities. Soft Tissues: Soft tissues overlying the chest wall are unremarkable. IMPRESSION: 1. Normal chest X-ray. 2. No acute cardiopulmonary abnormalities are identified. Electronically signed by Declan James 09-23-2024 05:40 AM
[2024-09-23] MEDS: OPTIRAY 320 100ml IV ONE (05:49)
--- NOTE | 2024-09-23 06:36 | Surgery Consultation ---
Date of Consultation September 23, 2024 Assessment & Plan (1) Diverticulitis of intestine with perforation and abscess: I was notified of the patient's arrival to the emergency department by the emergency room clinician and I evaluated her in room A3. From a surgery perspective we recommend the following: Provide analgesics Provide antiemetics Provide antipyretics Would recommend hydrating the patient with intravenous fluids Would recommend keeping the patient n.p.o. for the present time Broad-spectrum antibiotics in form of Zosyn have been initiated which I would recommend continuing Treating clinician the emergency department has ordered a CT scan of the abdomen pelvis for further evaluation of the intra-abdominal process the patient is experiencing. Further decision making will largely hinge on the results of her CAT scan. Additional recommendations will be forthcoming based on the pending CT scan as noted above Supervising Physician Co-Signing Physician Notes Patient seen examined, labs and imaging reviewed, agree with above. Diverticular abscess status post IR drainage in [place], has had some purulent drainage around the drain and fevers over the past week. On exam she is currently febrile to 37.6, nontoxic, abdomen mildly tender around drain site with some small amount of purulent drainage around the drain. Drain contents have a feculent appearance. WBC 15, CT scan personally viewed and interpreted agree with the assessment of diverticular abscess status post drain placement with some residual fluid and pocket about 4 cm in size. She has been admitted for IV antibiotics. Would recommend having the images pushed to [place] so they are IR and colorectal can review and see if there is any indication for drain adjustment or placement of a second drain. No acute surgical intervention indicated. Surgery will follow. She can have clear liquids today. History of Present Illness Reason for Consultation: Diverticulitis with abscess History of Present Illness This is a 48-year-old female who was recently admitted to [facility] from August 07 through August 11 of this year secondary to diverticulitis. Prior to this admission the patient had an outpatient CT scan performed at an [facility] facility which showed patient had acute diverticulitis with an abscess measuring 28 x 47 mm. There is also concern the patient had a fistula between the sigmoid colon, left bladder, and anterior abdominal wall. Patient was treated conservatively at [facility] and discharged home on oral ciprofloxacin and Augmentin. The patient states that she continues to take this medication and has been compliant with it. Patient did have an infectious disease consultation and she was referred to [facility] where she had a repeat CAT scan performed that showed no change in her abscess and therefore interventional radiology placed a percutaneous drain on 09/19/2024. The patient presented to the emergency department [facility] because she has had fever over the past 24 to 48 hours ranging from 101-103. She also notes the area of her percutaneous drain insertion site is red and painful. She also notes that initially the drain output was purulent but now is feculent. She does not have any other abdominal pain other than the discomfort at her drain site. She does not have any nausea or vomiting. She has no urinary symptoms such as dysuria or discolored urine. Since arrival to the emergency department this morning the patient has had chest x-ray that showed no evidence of pneumonia. CBC revealed white blood cell count was elevated 15.3 (this value was normal at time of discharge from her previous hospitalization). Hemoglobin and hematocrit are 10.5 and 34.4 and her platelet count is normal. Coagulation studies are normal. Chemistry profile showed sodium and potassium as well as the BUN and creatinine are normal. The urinalysis was not indicative of infection. At the time of my interview she was resting comfortably in bed and she was in no distress. Allergies Allergy/AdvReac Type Severity Reaction Status Date / Time codeine Allergy Mild Unknown Unverified 08/07/24 21:57 Home Medications Medication Instructions Recorded Confirmed Type levonorgestrel 21 mcg/24 hr (up to 1 device intrauterine UNKNOWN 02/19/20 08/07/24 History 8 years) 52 mg intrauterine device (Mirena) mometasone 50 mcg/actuation nasal 2 spray intranasal DAILY PRN 02/19/20 08/07/24 History spray (Nasonex) unknown multivitamin 1 cap PO DAILY 02/19/20 08/07/24 History bupropion HCl 150 mg tablet,12 hr 150 mg PO DAILY 08/07/24 08/07/24 History sustained-release meloxicam 7.5 mg tablet 7.5 mg DAILY 08/07/24 08/07/24 History phentermine 15 mg capsule 15 mg DAILY 08/07/24 08/07/24 History naltrexone 50 mg tablet 25 mg PO DAILY 08/08/24 08/08/24 History Patient History Surgical History Hx of dilation and curettage Hx of section H/O knee surgery (02/21/13) anterior cruciate Family History Grandmother (Paternal) Diabetes Mother Hyperlipidemia Father No problems noted. Social History Smoking Status: Never smoker Second Hand Exposure: No; Do You Dip or Chew Tobacco: No; Hx Alcohol Use: No Hx Substance Use: No Preferred Language: Lao Communication Ability: Effective Customs Officer Required: No Beliefs That Will Affect Care: None marital status: Current Living Situation: Spouse current occupational status: employed How many Children do You have: 1 How many Children do You have Comment: son Feels Safe at Home: Yes Assistive Devices: CPAP and Glasses Review of Systems Review of Systems: All systems reviewed & are unremarkable except as noted in HPI & below Physical Exam Constitutional: WD/WN, vitals as above Eyes: no conjunctival abnormality Wears glasses ENMT: Ears: no hearing impairment and no external ear abnormality Mouth: no oropharynx abnormality Neck: trachea midline Respiratory: normal respiratory effort; no respiratory distress and no labored breathing Cardiovascular: Rate/Rhythm: regular rate and regular rhythm Gastrointestinal (Abdomen): Abdomen is soft without distention. There is no rigidity and there is no rebound tenderness or guarding. Patient has a percutaneous drain in place in the lower central abdomen. There is surrounding erythema at the insertion site without crepitus. The area is slightly indurated. The drain is draining feculent appearing material which is malodorous. Musculoskeletal: No calf tenderness Skin: no rashes Neurologic: moves all extremities Psychiatric: A+Ox3, euthymic affect Results & Data Vital Signs (Past 12 Hours) Vital Signs Temp Pulse Pulse Resp BP BP Pulse Ox 09/23/24 06:27 37.6 C H 70 16 115/69 97 09/23/24 06:19 37.6 C H 09/23/24 06:03 74 16 117/68 97 09/23/24 04:35 75 09/23/24 04:35 38.2 C H 78 16 145/75 H 95 09/23/24 04:32 09/23/24 04:22 95 09/23/24 04:15 37.4 C 87 18 137/75 96 O2 Del Method O2 Flow Rate 09/23/24 06:27 Room Air 09/23/24 06:19 09/23/24 06:03 Room Air 09/23/24 04:35 09/23/24 04:35 Room Air 09/23/24 04:32 Room Air 94 09/23/24 04:22 Room Air 09/23/24 04:15 Room Air PG Care Time/CCT Total # of Minutes Spent Total Time Spent with Patient: Total time spent is greater than 50% in coordination of care (as documented) at patient's floor/unit and/or counseling patient: Coding Level of Care Code 76765 IN/OBS CONSULT LVL 5,80M Diagnoses Diverticulitis of intestine with perforation and abscess K57.80
--- NOTE | 2024-09-23 06:52 | CT Scan Report ---
EXAM: CT abd pelvis IV con only CLINICAL HISTORY: Evaluate worsening infection/abscess after drainage. TECHNIQUE: CT of the abdomen and pelvis was performed with contrast, with the following protocol: axial images with, and reconstructed coronal and sagittal images.93 ml opti 320 intravenous contrast was administered. One of the following dose reduction techniques was utilized for this exam: Automated exposure control, adjustment of the mA and/or kV according to patient size, and use of iterative reconstruction. COMPARISON: Comparison is made with previous CT study on 08/07/2024 FINDINGS: Abdomen: Liver: Normal in size, shape, and density. No focal lesions, cysts, or masses were identified. Hepatic vasculature and biliary ducts are unremarkable. Gallbladder and Biliary System: The gallbladder is normal in size and shape. No wall thickening, pericholecystic fluid, or gallstones were identified. The common bile duct is normal in caliber without dilation. Pancreas: Pancreatic head, body, and tail are visualized and appear normal in size and density. No pancreatic masses or calcifications were noted. The pancreatic duct is not dilated. Spleen: Normal in size, shape, and density. No splenic lesions or masses were identified. Appendix: The appendix is normal in size without sona appendiceal fat stranding and without an appendicolith. No evidence of appendiceal abscess or perforation. Kidneys and Adrenal Glands: Both kidneys are normal in size, shape, and position. Cortical thickness is within normal limits. No renal calculi or hydronephrosis. Adrenal glands are unremarkable with no evidence of masses or hyperplasia. Pelvis: Urinary Bladder: Thick wall of the urinary bladder dome, indicating reactive cystitis. Uterus: Normal in size and contour. No masses or abnormal thickening. IUCD is noted in place. Ovaries: Not well visualized but no gross abnormalities noted. Vagina: Normal in contour and wall thickness. Cervix: No evidence of mass or abnormal thickening. Peritoneal and Retroperitoneal Structures: Redemonstration of anterior pelvic abscess superior to urinary bladder dome with pigtail catheter reaching its central part, measuring 4 x 2 x 2 cm with adjacent bladder dome mural thickening and surrounding pelvic stranding and inseparable from the sigmoid colon wall, mostly a diverticular abscess. No lymphadenopathy was noted. Bowel: The visualized bowel loops are normal in caliber. Diffuse colonic diverticulosis. Bones and Soft Tissues: Pelvic bones and soft tissues are unremarkable. No fractures or abnormal masses were identified. Bilateral fracture pars interarticularis of L5 vertebra with mild anterolisthesis of L5 over S1 vertebra by 7 mm. IMPRESSION: 1. Redemonstration of anterior pelvic abscess superior to urinary bladder dome with pigtail catheter reaching its central part, measuring 4 x 2 x 2 cm with adjacent bladder dome mural thickening and surrounding pelvic stranding and inseparable from the sigmoid colon wall, mostly a diverticular abscess. It has been partially drained after pigtail catheter insertion. 2. Diffuse colonic diverticulosis. 3. Thick wall of the urinary bladder dome, indicating reactive cystitis. (stable). Electronically signed by Declan James 09-23-2024 06:52 AM
--- NOTE | 2024-09-23 08:12 | History & Physical Report ---
Date of Service September 23, 2024 Assessment & Plan (1) Diverticulitis of intestine with perforation and abscess: (2) IUD complication: (3) Colonic diverticular abscess: (4) Arthralgia: (5) Knee pain, bilateral: (6) KENJI (obstructive sleep apnea): (7) Thalassemia minor: (8) Iron deficiency anemia: Plan Diverticular Abscess - Admit to med surg - General surgery consulted - appreciate recs: pt can be placed on IV antibiotics at this time and monitor response. If no improvement then will require transfer to [facility] for possible surgery - NPO and continue IV LR for maintenance fluids - Requested - IV zosyn, failed cipro/augmentin ( pt has been taking this for ~4 weeks). Consider ID consultation. - Follow BCx x 2 , WBC 15.32, lactate 0.8, temp elevated at 37.6 - Check UA, UCx for completeness - Miralax, zofran prn - Analgesia with tylenol, MS IV. Obesity, BMI 39 Weight Loss - 40 lbs since initiation fo naltrexone/bupropion therapy for weight management. Hold naltrexone at this time with contraindication with MS IV prn severe pain. Breast, Left, discharge - MRI brain completed in end of Jun for possible prolactinoma and was NEGATIVE. Breast discharge resolved. She reports having annual mamograms. 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 Abnormal position of the IUD, which is low in position and penetrates the myometrium. 2. Left ovarian mass, suspicious for a solid neoplasm. Recommend MRI pelvis with gadolinium. Patient had a normal CA 125 in Apr 2024. Patient has had multiple labs and reports concern with an increased ESR. 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 Of note, there is no endometrial stripe thickening. No change from 01/01/2021. Large inflammatory appearing phlegmon anterior pelvis involving and between the proximal sigmoid colon, anterior bladder dome, and anterior abdominal wall. Possible perforated diverticulitis, abscess formation, and marked inflammatory changes involving the bladder dome. CT might be helpful for further initial assessment. GI consultation is recommended. Malposition IUD located within the cervix. 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 - Could the IUD be removed surgically at the same time if needs abdominal washout? Will need to further discuss with general surgery. Bilateral Knee Pain Osteoarthritis vs RA - osteoarthritis/RA not clear. CRP significantly elevated 34 (normal<5). ESR borderline elevated. Rest of the autoimmune workup is negative - Mobic per home med rec Thallasemia Minor Iron deficiency Anemia - Recently established with Dr. Yo in the outpt setting DVT ppx: teds, scds Lines: PIV x 1, pigtail catheter abdomen FEN/GI: N.p.o. CODE: Full code Dispo: From home, likely to remain in the hospital x 1-2 days I spent a total of 77 minutes with greater than 50% of that time face to face with the patient, personally reviewing all current laboratories, imaging studies, past medication reconciliation, outpatient chart review, and discussion with specialists to collaborate care for the patient excluding time spent in the performance of separately billed services or time spent by another provider/QHP. Please see attending documentation for corrections and/or additions. 13:30 - I have placed a call to discuss CT abd/pelvis imaging to [facility] IR and will speak with their transfer team regarding possible transfer pending interpretation. -- gen surg says ok for clears for now. 13:55- Discussed with Transfer team at [facility] and IR in consultation regarding placement of pigtail catheter per Gen Surg [place] team request. Catheter is partially dislodged and will need to be exchanged there or as an outpatient although it is not critical at this moment. IR is requesting contrast be placed through the catheter to determine the fistula communication and then will require gen surg to take to the OR. If pt is transferred to [facility] for OR if accepted by hospitalist team and gen surg, IR will see here there as an inpatient and exchange the catheter. History of Present Illness Chief Complaint: Abdominal Pain Primary Care Provider: Joyce M. Newhouser, DO This is a 48 yo F with PMHX of thalassemia minor, Iron deficiency anemia, dural sinus thrombus in 1999, Left ovarian /adnexal pelvic mass. CA-125 = 13.6. Patient reports that her menses had ceased after IUD placement in 2007, Arthritis of bilateral knees, seasonal allergies , prediabetes, A1c 6.2% on 12/31/2023, and recent weight loss of 40 lbs in past ~6 months which she says is intentional with use of naltrexone/buproprion. Pt presents to the hospital for increased abdominal pain around 0400 and associated fever x 5 days. Her abdominal workup began due to a dislodged IUD. TVUS showed a possible ovarian mass which prompted MRI pelvis. MRI pelvis showed a large abscess and diverticulitis.recent hospitalization 08/07-2024 for abdominal pain noted to have diverticulitis on the CT abd pelvis. Seen by ID who recommended 4wk tx of cipro and augmentin with repeat CT with F/u colonoscopy in 6-8 weeks. She had repeat CT on 08/22 that showed abscess adjacent to sigmoid colon which was larger than her previous CT. Was seen by IR in [place] and procedure was aborted as there was concern that drainage would cause enterocutaneous fistula. She denies any previous episodes of diverticulitis, although she did have pus noted in her sigmoid colon on colonoscopy in 2020. 09/19/24 Pt underwent IR guided pigtail catheter placement at [facility] by Dr. Abad Gallegos She has developed increased pain since that time and is presenting now to [facility] for further evaluation. She admits to having intermittent fevers over the past 4 days without tylenol use of 100-101 F. States that initially drainage from the pigtail catheter on placement was dark red, however it changed to fecal matter ~2 days after placement(~09/21). Pt had called her surgeon to make them aware of the changes in the tubing matter. Pt noticed increased reddness, firmness and drainage of purulent material from around the tube in her abdomen at this same time, then had increased pain overnight and therefore presented to the ER. Here she is febrile with Tmax 37.6, BP is stable at 125/67, HR 67, on room air. Allergies Allergy/AdvReac Type Severity Reaction Status Date / Time codeine Allergy Unknown Unknown Verified 09/23/24 10:49 Home Medications Medication Instructions Recorded Confirmed Type levonorgestrel 21 mcg/24 hr (up to 1 device intrauterine DIRECTED 02/19/20 09/23/24 History 8 years) 52 mg intrauterine device (Mirena) bupropion HCl 150 mg tablet,12 hr 150 mg PO BID 08/07/24 09/23/24 History sustained-release meloxicam 7.5 mg tablet 7.5 mg DAILY 08/07/24 09/23/24 History naltrexone 50 mg tablet 0 mg PO DAILY 08/08/24 09/23/24 History amoxicillin 875 mg-potassium 1 tab PO TID 09/23/24 09/23/24 History clavulanate 125 mg tablet ciprofloxacin HCl 500 mg tablet 500 mg PO BID 09/23/24 09/23/24 History mometasone 50 mcg/actuation nasal 2 spray intranasal DAILY PRN 09/23/24 09/23/24 History spray Allergy/Congestion multivitamin 1 tab PO DAILY 09/23/24 09/23/24 History Past Med/Surg History Problem List Iron deficiency anemia Thalassemia minor Colonic diverticular abscess IUD complication Diverticulitis of intestine with perforation and abscess (Acute) Diverticulitis Dietary counseling and surveillance Knee pain, bilateral KENJI (obstructive sleep apnea) Morbid obesity Fatigue Arthralgia PCOS (polycystic ovarian syndrome) Asthma (Acute 02/21/13) Surgical History Hx of dilation and curettage Hx of section H/O knee surgery (02/21/13) anterior cruciate Family History Grandmother (Paternal) Diabetes Mother Hyperlipidemia Father No problems noted. Social History Smoking Status: Never smoker Second Hand Exposure: No; Do You Dip or Chew Tobacco: No; Hx Alcohol Use: No Hx Substance Use: No Preferred Language: Kiswahili Communication Ability: Effective Support Staff Required: No Beliefs That Will Affect Care: None marital status: Current Living Situation: Family current occupational status: employed How many Children do You have: 1 How many Children do You have Comment: son Other Information That Helps Us Care for You: No Feels Safe at Home: Yes Safety Concerns: Feels Safe At This Time Assistive Devices: Glasses Review of Systems Review of Systems: Constitutional: + fever, no sweats or chills Eyes: No diplopia, no worsening or blurred vision ENT: normal hearing, no trouble swallowing Respiratory: No cough, sputum, dyspnea at rest or on exertion Cardiovascular: No chest pain, tightness or palpitations Abdomen: As per HPI, + pain, no nausea, vomiting, diarrhea or constipation, no lower abdominal crampin SOLE SPLITTER: No breast discharge from left nipple, no vaginal bleeding, no menses, IUD is in cervix. Musculoskeletal: + Chronic joint pain on meloxicam, no calf pain, swelling Neurologic: No weakness, numbness/tingling, or balance problems Psychiatric: No anxiety or depression Skin: No rash or itch Physical Exam Physical Exam: General: awake, alert, no apparent distress, obese white female, BMI 38.5 Head: Normocephalic, atraumatic ENT: PERRL, EOMI, no pharyngeal exudate, mucous membranes moist Chest: Clear to auscultation, on room air, no adventitious breath sounds Cardiac: Regular rate and rhythm, no murmur, no JVD, normal peripheral pulses, good capillary refill Abdominal: NABS x 4 quadrants, soft, Pigtail catheter in place, surrounding erythema and induration of the skin, also with purulent material coming out from around the tubing, +distended,+tender to palpation, no rebound or guarding Extremities: Normal inspection, no peripheral edema or erythema, calfs nontender to palpation Psych: Normal mood and affect Neuro: AAO x 3, strength intact bilaterally and rated 5/5, no motor deficits, speech is clear, no peripheral sensory deficits Results & Data Results & Data Vital Signs (Past 12 Hours) Vital Signs Temp Pulse Pulse Resp BP BP Pulse Ox 09/23/24 06:47 64 14 121/60 97 09/23/24 06:27 37.6 C H 70 16 115/69 97 09/23/24 06:19 37.6 C H 09/23/24 06:03 74 16 117/68 97 09/23/24 04:35 75 09/23/24 04:35 38.2 C H 78 16 145/75 H 95 09/23/24 04:32 09/23/24 04:22 95 09/23/24 04:15 37.4 C 87 18 137/75 96 O2 Del Method O2 Flow Rate 09/23/24 06:47 Room Air 09/23/24 06:27 Room Air 09/23/24 06:19 09/23/24 06:03 Room Air 09/23/24 04:35 09/23/24 04:35 Room Air 09/23/24 04:32 Room Air 94 09/23/24 04:22 Room Air 09/23/24 04:15 Room Air Laboratory Results 09/23/24 05:09 Gram Stain - Final Abdomen Aerobic and Anaerobic Culture - Pending 09/23/24 04:40 Aerobic Blood Culture - Pending Blood Anaerobic Blood Culture - Pending 09/23/24 04:32 Aerobic Blood Culture - Pending Blood Anaerobic Blood Culture - Pending 09/23/24 09/23/24 04:32 04:30 WBC 15.32 H RBC 5.64 H Hgb 10.5 L Hct 34.4 L MCV 61.0 L MCH 18.6 L MCHC 30.5 L RDW Std Deviation 36.1 L RDW Coeff of Teodoro 18.7 H Plt Count 291 MPV 9.6 Immature Gran % (Auto) 0.8 Neut % (Auto) 74.9 Lymph % (Auto) 15.5 Logan % (Auto) 7.2 Eos % (Auto) 1.3 Baso % (Auto) 0.3 Neut # (Auto) 11.45 H Lymph # (Auto) 2.38 Logan # (Auto) 1.11 H Eos # (Auto) 0.20 Baso # (Auto) 0.05 Immature Gran # (Auto) 0.13 Polychromasia 1+ Ovalocytes 1+ PT 12.3 H INR 1.1 APTT 29 PTT Ratio 1.1 Sodium 138 Potassium 3.7 Chloride 105 Carbon Dioxide 27 Anion Gap 6 BUN 16 Creatinine 0.77 Est Cr Clr Drug Dosing 94.2 eGFR 93.92 BUN/Creatinine Ratio 20.8 H Glucose 125 H Lactate 0.8 Calcium 9.4 Magnesium 1.7 Total Bilirubin 0.8 AST 13 ALT 15 Alkaline Phosphatase 79 Troponin I High Sens 4.7 Total Protein 7.3 Albumin 4.0 Globulin 3.3 Albumin/Globulin Ratio 1.2 Procalcitonin 0.09 HCG, Qual Negative Urine Color Yellow Urine Appearance Cloudy A Urine pH 5.5 Ur Specific May 1.018 Urine Protein Negative Urine Glucose (UA) Negative Urine Ketones Negative Urine Blood Negative Urine Nitrite Negative Urine Bilirubin Negative Urine Urobilinogen Negative Ur Leukocyte Esterase Negative Urine WBC (Auto) 0-5 Urine RBC (Auto) 6-10 H U Hyaline Cast (Auto) 0-2 U Epithel Cells (Auto) 11-20 H Urine Bacteria (Auto) None Seen Diagnostic Findings Chest X-Ray 09/23/24 04:22 EXAM: XR chest 1V not portable CLINICAL HISTORY: Sepsis. TECHNIQUE: An X-ray image of the chest is obtained in AP projection. COMPARISON: No prior studies are available for comparison. FINDINGS: Pulmonary Parenchyma: Lungs are clear bilaterally. No evidence of consolidation, collapse, or focal opacities. No pulmonary nodules are identified. No evidence of pleural effusion or pleural thickening. Heart and Mediastinum: Heart size and shape are normal. No mediastinal widening or masses. No hilar or mediastinal lymphadenopathy. Bony Thorax: Bony thorax appears intact without fractures or deformities. Soft Tissues: Soft tissues overlying the chest wall are unremarkable. IMPRESSION: 1. Normal chest X-ray. 2. No acute cardiopulmonary abnormalities are identified. Electronically signed by Declan James 09-23-2024 05:40 AM Abdomen/Pelvis CT 09/23/24 05:30 EXAM: CT abd pelvis IV con only CLINICAL HISTORY: Evaluate worsening infection/abscess after drainage. TECHNIQUE: CT of the abdomen and pelvis was performed with contrast, with the following protocol: axial images with, and reconstructed coronal and sagittal images.93 ml opti 320 intravenous contrast was administered. One of the following dose reduction techniques was utilized for this exam: Automated exposure control, adjustment of the mA and/or kV according to patient size, and use of iterative reconstruction. COMPARISON: Comparison is made with previous CT study on 08/07/2024 FINDINGS: Abdomen: Liver: Normal in size, shape, and density. No focal lesions, cysts, or masses were identified. Hepatic vasculature and biliary ducts are unremarkable. Gallbladder and Biliary System: The gallbladder is normal in size and shape. No wall thickening, pericholecystic fluid, or gallstones were identified. The common bile duct is normal in caliber without dilation. Pancreas: Pancreatic head, body, and tail are visualized and appear normal in size and density. No pancreatic masses or calcifications were noted. The pancreatic duct is not dilated. Spleen: Normal in size, shape, and density. No splenic lesions or masses were identified. Appendix: The appendix is normal in size without sona appendiceal fat stranding and without an appendicolith. No evidence of appendiceal abscess or perforation. Kidneys and Adrenal Glands: Both kidneys are normal in size, shape, and position. Cortical thickness is within normal limits. No renal calculi or hydronephrosis. Adrenal glands are unremarkable with no evidence of masses or hyperplasia. Pelvis: Urinary Bladder: Thick wall of the urinary bladder dome, indicating reactive cystitis. Uterus: Normal in size and contour. No masses or abnormal thickening. IUCD is noted in place. Ovaries: Not well visualized but no gross abnormalities noted. Vagina: Normal in contour and wall thickness. Cervix: No evidence of mass or abnormal thickening. Peritoneal and Retroperitoneal Structures: Redemonstration of anterior pelvic abscess superior to urinary bladder dome with pigtail catheter reaching its central part, measuring 4 x 2 x 2 cm with adjacent bladder dome mural thickening and surrounding pelvic stranding and inseparable from the sigmoid colon wall, mostly a diverticular abscess. No lymphadenopathy was noted. Bowel: The visualized bowel loops are normal in caliber. Diffuse colonic diverticulosis. Bones and Soft Tissues: Pelvic bones and soft tissues are unremarkable. No fractures or abnormal masses were identified. Bilateral fracture pars interarticularis of L5 vertebra with mild anterolisthesis of L5 over S1 vertebra by 7 mm. IMPRESSION: 1. Redemonstration of anterior pelvic abscess superior to urinary bladder dome with pigtail catheter reaching its central part, measuring 4 x 2 x 2 cm with adjacent bladder dome mural thickening and surrounding pelvic stranding and inseparable from the sigmoid colon wall, mostly a diverticular abscess. It has been partially drained after pigtail catheter insertion. 2. Diffuse colonic diverticulosis. 3. Thick wall of the urinary bladder dome, indicating reactive cystitis. (stable). Electronically signed by Declan James 09-23-2024 06:52 AM Code Status & VTE Plan Code Status Full code - discussed with pt at bedside. Supervising Physician Co-Signing Physician Notes Patient is a 48-year-old female with multiple comorbidities presents with history of worsening abdominal pain associated with fever. Patient was recently diagnosed to have diverticular abscess requiring IR intervention requiring pigtail catheter placement in [place]. Despite being on oral antibiotics as recommended by infectious disease, patient continued to have symptoms. Please review HPI for complete details of presentation. I personally reviewed blood work and imaging studies. On exam patient is obese, no apparent distress, normocephalic atraumatic, EOMI, normal breath sounds, clear to auscultation, S1- S2, no murmur, no pedal edema, abdomen soft, protuberant,+ tenderness right and left lower quadrant,+ pericatheter erythema, drainage, alert, awake, oriented, grossly no focal deficits. Patient is being managed for diverticular abscess, failed outpatient oral antibiotic therapy. Will start on broad-spectrum antibiotics IV Zosyn. Check nasal MRSA, will consider adding MRSA coverage if positive. Follow-up cultures. Appreciate surgery input. Continue IV fluids, clear liquid diet for now. I personally interviewed and examined the patient at bedside. I have reviewed the advanced practitioner's documentation on the date of service referred in note and agree with plan. Patient's care is coordinated with Dodie Crockett PA-C. Please refer to the documentation above for details of patient's presentation and for discussion of other issues. I spent a total [id number] coordinating, documenting, and providing care for this patient excluding time spent in the performance of separately billed services or time spent by another provider/QHP.
--- NOTE | 2024-09-23 08:44 | Electrocardiogram Report ---
Test Reason : Blood Pressure : */* mmHG Vent. Rate : 78 BPM Atrial Rate : 78 BPM P-R Int : 134 ms QRS Dur : 90 ms QT Int : 372 ms P-R-T Axes : 49 33 59 degrees QTcB Int : 424 ms Normal sinus rhythm Normal ECG No previous ECGs available Confirmed by Ned England ([id number]) on 09/23/2024 8:44:46 AM Referred By: REFERRED SELF Confirmed By: Ned England
[2024-09-23] MEDS ORDERED: NALTREXONE HCL 50 MG TAB PO SCH (10:45)
[2024-09-23] MEDS ORDERED: MoRPHine SULFATE 2 MG/ML CARP IV PRN (10:45)
[2024-09-23] MEDS ORDERED: POLYETHYLENE (MIRALAX) 17 GM PACK PO PRN (10:45)
[2024-09-23] MEDS ORDERED: ONDANSETRON INJ 2 MG/ML 2 ML VIAL IV PRN (10:45)
[2024-09-23] MEDS: LACTATED RINGER'S 1,000 ML IV SCH (11:11)
[2024-09-23] MEDS: PIPERACILLIN/TAZOBACTAM 4.5 GM/100 ML BAG IV SCH (11:43)
[2024-09-23] MEDS: buPROPion SR 150 MG TABCR PO SCH (11:43)
[2024-09-23] MEDS: HEPARIN SOD 5,000 UNIT/0.5 ML VIAL SQ SCH (14:26)
--- NOTE | 2024-09-23 14:42 | XRay Report ---
EXAMINATION: X-ray KUB/abdomen 1 view CLINICAL HISTORY: Contrast through pigtail tube confirmed fistula PRIORS: Abdomen CT 09/23/2024 TECHNIQUE: Single frontal view abdomen FINDINGS: High density contrast noted within the pigtail catheter and loop of large suresh/ascending and sigmoid colon. The focal outpouching of bowel which abuts the urinary bladder on CT image 46, series 100 is noted. There is contrast within the urinary bladder that is lower attenuation than the new/current injected contrast. This may be residual from the 09/23/2024 examination. No definite high density contrast noted in the urinary bladder. A large amount of formed stool seen throughout the colon. IMPRESSION: High density hand injected contrast within the colon with no new/high density contrast in the urinary bladder. If clinical concern warrants, an additional KUB/time delayed image could be considered to assess over time. Electronically signed by Kat Galvan 09-23-2024 2:42 PM
[2024-09-23] MEDS: ACETAMINOPHEN 325 MG TAB PO PRN (18:14)
--- NOTE | 2024-09-24 06:29 | Hospitalist Progress Note ---
Date of Service September 24, 2024 Assessment & Plan (1) Diverticulitis of intestine with perforation and abscess: Plan: Kely Mercado is a 48y/o F with PMHx significant for prediabetes, intermittent asthma, KENJI on CPAP, morbid obesity on Contrave, dural sinus thrombosis in 1999, left tubo-ovarian mass, chronic pain of both knees, polyarthralgia, thalassemia minor and thrombocytopenia who presented to the ED on 09/23/2024 with complaint of increased abdominal pain and associated fever x 5 days. Outpatient pelvic MRI as per below also revealed a large inflammatory appearing phlegmon anterior pelvis involving and between the proximal sigmoid colon, anterior bladder dome and anterior abdominal wall concerning for possible perforated diverticulitis and abscess formation with marked inflammatory changes involving the bladder dome. Outpatient CTAP with and without contrast performed on 08/07/2024 which showed findings suggesting acute diverticulitis with perforation and abscess formation measuring 20 x 47 mm. Surrounding inflammatory phlegmon and suggestion of fistula between the sigmoid colon, left bladder and anterior abdominal wall musculature. Previously admitted under our service last month secondary to above findings. Evaluated by general surgery at that time. No surgical intervention required at the time. Blood cultures negative. Discharged home on 08/11/2024 on 4-week course of oral Augmentin PLUS oral ciprofloxacin as advised by ID. Advised at that time to undergo repeat CTAP imaging 1 week after and then 3 weeks after discharge to monitor response to ABX therapy. Repeat CTAP performed on 08/22/2024 concerning for a slightly larger fistulous abscess adjacent to the sigmoid colon (previously 4.7 x 2 cm and increased to 5.9 x 2.2 cm). Had been seen by IR at [facility] and drainage procedure was aborted as there was concern it would cause an enterocutaneous fistula. Patient met with a colorectal surgeon, Dr. Leti Watts, at [facility] on 09/06/2024. Determination was made to proceed with surgical intervention. Underwent IR-guided pigtail catheter drain placement at [facility] performed by Dr. Abad Gallegos on 09/19/2024. Repeat CTAP with contrast done yesterday with redemonstration of anterior pelvic abscess superior to urinary bladder dome with pigtail catheter reaching its central part, measuring 4 x 2 x 2 cm with adjacent bladder dome mural thickening and surrounding pelvic stranding and inseparable from the sigmoid colon wall, mostly a diverticular abscess. It has been partially drained after pigtail catheter insertion. Thick wall of the urinary bladder dome, indicating reactive cystitis (stable). Admitting KACIE previously discussed case with transfer team at [facility] and IR in consultation regarding this. Pigtail catheter is partially dislodged and will need to be exchanged but this is not urgent at the moment. IR requested to have contrast placed through the pigtail catheter to determine the fistula communication. KUB with contrast confirmed colonic fistula tracking. Appreciate general surgery consultation and recommendations. Continue IV Zosyn. Leukocytosis resolved. Continue with clear liquid diet today as advised by general surgery. No plan for acute surgical intervention at this time. Per general surgery's note today: "I think the plan would be to get her tolerating a low fiber diet and if she is feeling better and without fever, she could be discharged with short course follow-up with interventional radiology and colorectal surgery in [place] [employer]." (2) IUD complication: (3) Bilateral ovarian tumors: Plan: Follows with Cecy WO[facility]RA[facility] at [facility]. Prior outpatient TVUS performed on 05/30/2024 noted abnormal positioning of her IUD (low in position and penetrates the myometrium) as well as a LEFT ovarian mass suspicious for a solid neoplasm. Prior CA 125 WNL. Failed removal of Mirena IUD during outpatient WOOD ENGRAVER visit in June 2024. Pelvic MRI performed on 08/03/2024 revealed bilateral solid low T2 signal ovarian masses, possibly fibromas/thecomas, measuring 21 x 20 x 26 mm on the right and 20 x 27 x 22 mm on the left. No endometrial stripe thickening. No change from 01/01/2021. Fibromas and thecomas are benign ovarian tumors as seen on above MRI findings. Will require follow-up for removal of the malpositioned IUD after abdominal abscess is resolved. (4) Bladder wall thickening: Plan: Noted on outpatient CTAP done on 08/07/2024 as per above. Likely secondary to above process, however follow-up is recommended to exclude a bladder mass. (5) Galactorrhea of left breast: Plan: Was experiencing left breast milky discharge last year. Had brain MRI completed last June to assess for possible prolactinoma which was NEGATIVE. Also underwent bilateral breast MRI in May 2024 which was grossly unremarkable. Discharge now spontaneously resolved. Reports having annual mammograms. (6) Dural sinus thrombosis: Plan: History of dural sinus thrombosis in 1999, at which time she had undergone a complete hypercoagulable workup and was found to be negative for any hypercoagulable mutations. (7) Obesity: (8) Recent weight loss: Plan: Weight loss of 40lbs since initiation of naltrexone and bupropion therapy for weight management. Hold naltrexone at this time 2/2 contraindication/drug-drug interaction with PRN IV morphine. (9) Chronic pain of both knees: (10) Generalized osteoarthritis: Plan: Known moderate to severe arthritis of bilateral knees and sees [facility] as an outpatient. H/O elevated inflammatory markers. Was seen and evaluated by [facility] in July 2024. Rest of autoimmune workup was negative. On meloxicam 7.5mg daily as an outpatient - hold for now. (11) KENJI (obstructive sleep apnea): Plan: Continue CPAP HS. (12) Thalassemia minor: (13) Iron deficiency anemia: Plan: Known history of thalassemia minor. She has known family history of thalassemia. Baseline Hgb around 10-11 per chart review. Hgb 9.3 this morning - suspect dilutional component contributing to mild drop. Continue to monitor H/H. Has followed with Dr. Galindo in the past at [facility]. Working on establishing with Dr. Cerarto in the outpatient setting currently. Other Chronic Medical Conditions: Prediabetes - Hgb A1c was 6.2 in December 2023. Hgb A1c 5.8% this admission. No indication for SSI coverage at this time. DVT Prophylaxis: SQ Heparin Code Status: FULL CODE PCP: Joyce Dorantes DO Disposition: Admitted in med/surg - discharge uncertain at this time pending above clinical course. Patient seen in collaboration with Dr. Farah. Please see addendum. I spent a total of 55 minutes coordinating, documenting, and providing care for this patient excluding time spent in the performance of separately billed services or time spent by another provider/QHP. This included personally reviewing all current laboratories and imaging studies, medical reconciliation, outpatient chart review and discussion with specialists. This chart was completed in part utilizing Speech Voice Recognition Software. Grammatical errors, random word insertions, pronoun errors, and incomplete sentences are an occasional consequence of this system due to software limitations, ambient noise, and hardware issues. Any formal questions or concerns about the content, text, or information contained within the body of this dictation should be directly addressed to the provider for clarification. Admission and Anticipated Discharge Date Admission Date: September 23, 2024 Supervising Physician Co-Signing Physician Notes Patient is seen and examined at bedside. Still having abdominal pain, erythema, discharge around the catheter site. Afebrile today. Tolerating liquid diet. No nausea, vomiting. On exam patient is obese, no apparent distress, normocephalic atraumatic, EOMI, normal breath sounds, clear to auscultation, S1- S2, no murmur, no pedal edema, abdomen soft, protuberant,+ tenderness right and left lower quadrant,+ pericatheter erythema, drainage, alert, awake, oriented, grossly no focal deficits. Patient is being managed for diverticular abscess, failed outpatient oral antibiotic therapy. Blood cultures negative to date. Wound cultures pending. Nasal MRSA negative. Continue IV Zosyn. Appreciate surgery input. No plan for surgical intervention currently. Continue liquid diet for today per surgery. Plan to eventually transition to low fiber diet as able and eventual follow-up with colorectal surgery on discharge. I personally interviewed and examined the patient at bedside. I have reviewed the advanced practitioner's documentation on the date of service referred in note and agree with plan. Patient's care is coordinated with Mariposa Dumont PA-C. Please refer to the documentation above for details of patient's presentation and for discussion of other issues. I spent a total [id number] coordinating, documenting, and providing care for this patient excluding time spent in the performance of separately billed services or time spent by another provider/QHP. Subjective Patient seen and examined at bedside in room W355-1. NAEO. No documented fever since yesterday around 06:30. Still experiencing pain around the site of her pigtail catheter which is located suprapubically but has been tolerating a clear liquid diet. Also with some erythema surround the pigtail catheter insertion site. Drainage into the pigtail catheter is feculent in appearance. Was having some purulent drainage material that was coming out from around the catheter tubing at the insertion site but notes this is slightly decreasing in amount/frequency. Endorses adequate pain control with PRN po Tylenol however is asking to switch to the IV Tylenol formulation as this provided her with better pain control previously. Reports poor tolerance to narcotic pain medications - wants to limit their use as much as possible. Had a BM earlier this morning which was formed. Denies any SOB, chest pain, hematochezia, melena, dysuria or nausea/vomiting. Review of Systems Review of Systems: At least ten systems reviewed and negative, except as noted in the subjective section. Physical Exam Physical Exam: General: Obese, F. BMI 39. A+Ox3. Nontoxic in appearance. NAD. Conversing appropriately. HEENT: Normocephalic, atraumatic. Conjunctivae normal. External ear and nose normal, oropharynx moist. Respiratory: Normal respiratory effort. Lungs clear to auscultation bilaterally. On RA. No accessory muscle use. Cardiovascular: Regular rate/rhythm. Normal peripheral pulses. No BLE edema. Abdomen/GI: Normoactive bowel sounds. + suprapubic pigtail catheter drain with mild surrounding erythema. + TTP around suprapubic pigtail catheter site but no guarding or rebound. Abdomen not distended. + feculent-appearing output noted in pigtail catheter tubing. + firmness with palpation of area surrounding the pigtail catheter insertion site. Extremities/Musculoskeletal: No cyanosis or clubbing. Extremities motor strength intact. Actively moves all extremities. Neurologic: No overt focal deficits, CN's II-XI not formally tested but appear grossly intact bilaterally. Results & Data Results & Data Vital Signs (Past 12 Hours) Vital Signs Temp Pulse Resp BP Pulse Ox O2 Del Method 09/23/24 19:31 36.8 C 67 16 127/77 96 Room Air Laboratory Results Short CBC 09/24/24 Range/Units 05:59 WBC 9.83 (4.8-10.8) K/ul Hgb 9.3 L (12.0-16.0) g/dl Hct 30.4 L (37.0-47.0) % Plt Count 245 (130-400) K/uL [facility] 09/24/24 05:59 Sodium 140 Potassium 3.5 Chloride 107 Carbon Dioxide 28 BUN 7 Creatinine 0.67 Glucose 104 H Calcium 8.7 Diagnostic Findings Chest X-Ray 09/23/24 04:22 EXAM: XR chest 1V not portable CLINICAL HISTORY: Sepsis. TECHNIQUE: An X-ray image of the chest is obtained in AP projection. COMPARISON: No prior studies are available for comparison. FINDINGS: Pulmonary Parenchyma: Lungs are clear bilaterally. No evidence of consolidation, collapse, or focal opacities. No pulmonary nodules are identified. No evidence of pleural effusion or pleural thickening. Heart and Mediastinum: Heart size and shape are normal. No mediastinal widening or masses. No hilar or mediastinal lymphadenopathy. Bony Thorax: Bony thorax appears intact without fractures or deformities. Soft Tissues: Soft tissues overlying the chest wall are unremarkable. IMPRESSION: 1. Normal chest X-ray. 2. No acute cardiopulmonary abnormalities are identified. Electronically signed by Declan James 09-23-2024 05:40 AM Abdomen/Pelvis CT 09/23/24 05:30 EXAM: CT abd pelvis IV con only CLINICAL HISTORY: Evaluate worsening infection/abscess after drainage. TECHNIQUE: CT of the abdomen and pelvis was performed with contrast, with the following protocol: axial images with, and reconstructed coronal and sagittal images.93 ml opti 320 intravenous contrast was administered. One of the following dose reduction techniques was utilized for this exam: Automated exposure control, adjustment of the mA and/or kV according to patient size, and use of iterative reconstruction. COMPARISON: Comparison is made with previous CT study on 08/07/2024 FINDINGS: Abdomen: Liver: Normal in size, shape, and density. No focal lesions, cysts, or masses were identified. Hepatic vasculature and biliary ducts are unremarkable. Gallbladder and Biliary System: The gallbladder is normal in size and shape. No wall thickening, pericholecystic fluid, or gallstones were identified. The common bile duct is normal in caliber without dilation. Pancreas: Pancreatic head, body, and tail are visualized and appear normal in size and density. No pancreatic masses or calcifications were noted. The pancreatic duct is not dilated. Spleen: Normal in size, shape, and density. No splenic lesions or masses were identified. Appendix: The appendix is normal in size without sona appendiceal fat stranding and without an appendicolith. No evidence of appendiceal abscess or perforation. Kidneys and Adrenal Glands: Both kidneys are normal in size, shape, and position. Cortical thickness is within normal limits. No renal calculi or hydronephrosis. Adrenal glands are unremarkable with no evidence of masses or hyperplasia. Pelvis: Urinary Bladder: Thick wall of the urinary bladder dome, indicating reactive cystitis. Uterus: Normal in size and contour. No masses or abnormal thickening. IUCD is noted in place. Ovaries: Not well visualized but no gross abnormalities noted. Vagina: Normal in contour and wall thickness. Cervix: No evidence of mass or abnormal thickening. Peritoneal and Retroperitoneal Structures: Redemonstration of anterior pelvic abscess superior to urinary bladder dome with pigtail catheter reaching its central part, measuring 4 x 2 x 2 cm with adjacent bladder dome mural thickening and surrounding pelvic stranding and inseparable from the sigmoid colon wall, mostly a diverticular abscess. No lymphadenopathy was noted. Bowel: The visualized bowel loops are normal in caliber. Diffuse colonic diverticulosis. Bones and Soft Tissues: Pelvic bones and soft tissues are unremarkable. No fractures or abnormal masses were identified. Bilateral fracture pars interarticularis of L5 vertebra with mild anterolisthesis of L5 over S1 vertebra by 7 mm. IMPRESSION: 1. Redemonstration of anterior pelvic abscess superior to urinary bladder dome with pigtail catheter reaching its central part, measuring 4 x 2 x 2 cm with adjacent bladder dome mural thickening and surrounding pelvic stranding and inseparable from the sigmoid colon wall, mostly a diverticular abscess. It has been partially drained after pigtail catheter insertion. 2. Diffuse colonic diverticulosis. 3. Thick wall of the urinary bladder dome, indicating reactive cystitis. (stable). Electronically signed by Declan James 09-23-2024 06:52 AM KUB X-Ray 09/23/24 14:02 EXAMINATION: X-ray KUB/abdomen 1 view CLINICAL HISTORY: Contrast through pigtail tube confirmed fistula PRIORS: Abdomen CT 09/23/2024 TECHNIQUE: Single frontal view abdomen FINDINGS: High density contrast noted within the pigtail catheter and loop of large suresh/ascending and sigmoid colon. The focal outpouching of bowel which abuts the urinary bladder on CT image 46, series 100 is noted. There is contrast within the urinary bladder that is lower attenuation than the new/current injected contrast. This may be residual from the 09/23/2024 examination. No definite high density contrast noted in the urinary bladder. A large amount of formed stool seen throughout the colon. IMPRESSION: High density hand injected contrast within the colon with no new/high density contrast in the urinary bladder. If clinical concern warrants, an additional KUB/time delayed image could be considered to assess over time. Electronically signed by Kat Galvan 09-23-2024 2:42 PM Medications Administered Acetaminophen (Acetaminophen 325 Mg Tab) 650 mg PO Q4H PRN PRN Reason: Moderate Pain (Scale 4, 5, 6) Stop: 10/23/24 10:44 Last Admin: 09/24/24 02:27 Dose: 650 mg Documented By: Admin: 09/23/24 18:14 Dose: 650 mg Documented By: NURY Bupropion HCl (Bupropion Sr 150 Mg Tabcr) 150 mg PO BID DANIELE Stop: 10/23/24 10:59 Last Admin: 09/24/24 10:38 Dose: 150 mg Documented By: Admin: 09/23/24 20:12 Dose: Not Given Documented By: Admin: 09/23/24 11:43 Dose: 150 mg Documented By: NURY Heparin Sodium (Porcine) (Heparin Sod 5,000 Unit/0.5 Ml Vial) 5,000 units SQ Q8 DANIELE Stop: 10/23/24 13:59 Last Admin: 09/24/24 05:03 Dose: Not Given Documented By: Admin: 09/23/24 20:11 Dose: Not Given Documented By: Admin: 09/23/24 14:26 Dose: Not Given Documented By: NURY Piperacillin Sod/Tazobactam Sod (Zosyn) 4.5 gm in 100 mls @ 25 mls/hr IV Q8H [facility]; Protocol Stop: 10/03/24 10:59 Last Admin: 09/24/24 11:26 Dose: 25 mls/hr Documented By: Infusion: 09/24/24 06:30 Dose: Infused Documented By: Admin: 09/24/24 02:28 Dose: 25 mls/hr Documented By: Infusion: 09/23/24 22:10 Dose: Infused Documented By: Admin: 09/23/24 18:10 Dose: 25 mls/hr Documented By: Infusion: 09/23/24 15:38 Dose: Infused Documented By: Admin: 09/23/24 11:43 Dose: 25 mls/hr Documented By: NURY Acetaminophen (Ofirmev) 1,000 mg in 100 mls @ 400 mls/hr IV Q8H PRN PRN Reason: Pain/Fever Stop: 09/27/24 09:39 Last Infusion: 09/24/24 11:16 Dose: Infused Documented By: Admin: 09/24/24 10:45 Dose: 400 mls/hr Documented By: CHARY Multivitamins (Multivitamin Tab) 1 tab PO DAILY DANIELE Stop: 10/24/24 08:59 Last Admin: 09/24/24 10:38 Dose: 1 tab Documented By: CHARY Discontinued Medications Sodium Chloride (Nss) 1,000 mls @ 999 mls/hr IV .Q1H1M ONE Stop: 09/23/24 06:10 Last Infusion: 09/23/24 06:32 Dose: Infused Documented By: Admin: 09/23/24 05:31 Dose: 999 mls/hr Documented By: RYLAND Co-signed By: ESTEFANY Acetaminophen (Ofirmev) 1,000 mg in 100 mls @ 400 mls/hr IV NOW STA Stop: 09/23/24 05:24 Last Infusion: 09/23/24 06:00 Dose: Infused Documented By: Admin: 09/23/24 05:30 Dose: 400 mls/hr Documented By: RYLAND Co-signed By: ESTEFANY Sodium Chloride (Nss) 500 mls @ 999 mls/hr IV .Q31M ONE Stop: 09/23/24 05:44 Last Infusion: 09/23/24 06:02 Dose: Infused Documented By: Admin: 09/23/24 05:31 Dose: 999 mls/hr Documented By: RYLAND Co-signed By: ESTEFANY Piperacillin Sod/Tazobactam Sod (Zosyn) 4.5 gm in 100 mls @ 200 mls/hr IV NOW ONE; Protocol Stop: 09/23/24 05:43 Last Infusion: 09/23/24 06:25 Dose: Infused Documented By: RYLAND Co-signed By: ESTEFANY Admin: 09/23/24 05:28 Dose: 200 mls/hr Documented By: RYLAND Co-signed By: ESTEFANY Lactated Ringer's (Lr) 1,000 mls @ 125 mls/hr IV .Q8H DANIELE Stop: 09/24/24 02:44 Last Infusion: 09/24/24 04:23 Dose: Infused Documented By: Admin: 09/23/24 20:09 Dose: 125 mls/hr Documented By: Infusion: 09/23/24 19:11 Dose: Infused Documented By: Admin: 09/23/24 11:11 Dose: 125 mls/hr Documented By: NURY Ioversol (Optiray 320 100ml) 93 ml IV ONCE ONE Stop: 09/23/24 05:49 Last Admin: 09/23/24 05:49 Dose: 93 ml Documented By: PLW (1) Diverticulitis of intestine with perforation and abscess Diverticulitis bleeding: unspecified bleeding status Diverticulitis site: unspecified part of intestinal tract Qualified Code(s): K57.80 - Diverticulitis of intestine, part unspecified, with perforation and abscess without bleeding (2) IUD complication Device complication type: unspecified Encounter type: sequela Qualified Code(s): T83.9XXS - Unspecified complication of genitourinary prosthetic device, implant and graft, sequela (7) Obesity Obesity classification: unspecified obesity classification Obesity type: unspecified obesity type Serious obesity comorbidity presence: unspecified whether serious comorbidity present Qualified Code(s): E66.9 - Obesity, unspecified (13) Iron deficiency anemia Iron deficiency anemia type: unspecified iron deficiency Qualified Code(s): D50.9 - Iron deficiency anemia, unspecified
[2024-09-24 06:36] LABS: Hematocrit (blood only) 30.4 % (37.0-47.0); Hemoglobin 9.3 g/dl (12.0-16.0); Mean Corpuscular Hemoglobin 18.9 pg (25.0-34.0); Mean Corpuscular Hgb Conc 30.6 g/dL (32.0-36.0); Mean Corpuscular Volume 61.7 fL (80.0-100.0); Mean Platelet Volume 10.6 fL (9.4-12.4); Platelet Count 245 K/uL (130-400); RDW Standard Deviation 37.3 fL (36.4-46.3); Red Blood Count 4.93 M/uL (4.20-5.40); White Blood Count 9.83 K/ul (4.8-10.8)
[2024-09-24 07:02] LABS: BUN Creatinine Ratio 10.4 (10-20); Calcium 8.7 mg/dl (8.6-10.3); Creatinine Clr Calc Pharmacy 109.1 ml/min; Magnesium 1.8 mg/dl (1.7-2.4); Potassium 3.5 mmol/L (3.5-5.1)
[2024-09-24 07:54] LABS: Estimated Average Glucose 120 mg/dl; Hemoglobin A1C 5.8 % (4.5-5.6)
[2024-09-24] MEDS: MULTIVITAMIN TAB PO SCH (10:38)
[2024-09-24] MEDS: ACETAMINOPHEN 1,000 MG/100 ML VIAL IV PRN (10:45)
--- NOTE | 2024-09-24 12:40 | Surgery Progress Note ---
Date of Service September 24, 2024 Assessment & Plan (1) Diverticulitis of intestine with perforation and abscess: Plan: Her CT images and results were personally viewed and interpreted by myself Continue clear liquids for today No plans for any surgical intervention Her leukocytosis has resolved Continue IV antibiotics and IR drain I think the plan would be to get her tolerating a low fiber diet and if she is feeling better and without fever, she could be discharged with short course follow-up with interventional radiology and colorectal surgery in [place] Surgery will follow Admission and Anticipated Discharge Date Admission Date: September 23, 2024 Subjective Patient seen and examined. Has less pain than yesterday. Afebrile. Tolerating clear liquids. Review of Systems Constitutional: no fever and no chills Respiratory: no cough and no dyspnea Cardiovascular: no chest pain and no dyspnea on exertion Gastrointestinal: + abdominal pain; no nausea and no vomit ing Genitourinary: no dysuria and no urinary urgency Integumentary: + erythema; no wounds Neurologic: no gait abnormality and no headache(s) Psychiatric: no behavioral changes and no depression Physical Exam Constitutional: WD/WN, vitals as above Respiratory: normal respiratory effort, lungs clear to auscultation Cardiovascular: RRR, no murmur, no edema Gastrointestinal (Abdomen): Inspection/Auscultation: + abdomen abnormal to inspection and abdomen not distended Percussion/Palpation: + abdomen tender (Left lower quadrant and suprapubic) and abdomen soft; no guarding and no hernia Cellulitis of the abdominal wall surrounding her suprapubic intra-abdominal drain Musculoskeletal: no cyanosis or clubbing, extremities motor strength 5/5 Skin: no rashes, warm and dry Psychiatric: A+Ox3, euthymic affect Results & Data Vital Signs (Past 12 Hours) Vital Signs Temp Pulse Resp BP Pulse Ox O2 Del Method 09/24/24 07:47 36.7 C 68 16 106/69 98 Room Air PG Care Time/CCT Total # of Minutes Spent Total Time Spent with Patient: Total time spent is greater than 50% in coordination of care (as documented) at patient's floor/unit and/or counseling patient: Coding Level of Care Code 49211 SUB INP/OBS CARE 2/35MIN Diagnoses Diverticulitis of intestine with perforation and abscess K57.80 Diverticulitis bleeding: unspecified bleeding status Diverticulitis site: unspecified part of intestinal tract (1) Diverticulitis of intestine with perforation and abscess Diverticulitis bleeding: unspecified bleeding status Diverticulitis site: unspecified part of intestinal tract Qualified Code(s): K57.80 - Diverticulitis of intestine, part unspecified, with perforation and abscess without bleeding
--- NOTE | 2024-09-25 07:03 | Hospitalist Progress Note ---
Date of Service September 25, 2024 Assessment & Plan (1) Diverticulitis of intestine with perforation and abscess: Plan: Kely Mercado is a 48y/o F with PMHx significant for prediabetes, intermittent asthma, KENJI on CPAP, morbid obesity on Contrave, dural sinus thrombosis in 1999, left tubo-ovarian mass, chronic pain of both knees, polyarthralgia, thalassemia minor and thrombocytopenia who presented to the ED on 09/23/2024 with complaint of increased abdominal pain and associated fever x 5 days. Outpatient pelvic MRI as per below also revealed a large inflammatory appearing phlegmon anterior pelvis involving and between the proximal sigmoid colon, anterior bladder dome and anterior abdominal wall concerning for possible perforated diverticulitis and abscess formation with marked inflammatory changes involving the bladder dome. Outpatient CTAP with and without contrast performed on 08/07/2024 which showed findings suggesting acute diverticulitis with perforation and abscess formation measuring 20 x 47 mm. Surrounding inflammatory phlegmon and suggestion of fistula between the sigmoid colon, left bladder and anterior abdominal wall musculature. Previously admitted under our service last month secondary to above findings and evaluated by general surgery. No surgical intervention required at the time. Blood cultures negative. Discharged home on 08/11/2024 on 4-week course of oral Augmentin PLUS oral ciprofloxacin as advised by ID. Advised at that time to undergo repeat CTAP imaging 1 week after and then 3 weeks after discharge to monitor response to ABX therapy. Repeat CTAP performed on 08/22/2024 concerning for a slightly larger fistulous abscess adjacent to the sigmoid colon (previously 4.7 x 2 cm and increased to 5.9 x 2.2 cm). Had been seen by IR at [facility] and drainage procedure was aborted as there was concern it would cause an enterocutaneous fistula. Patient met with a colorectal surgeon, Dr. Leti Watts, at [facility] on 09/06/2024. Determination was made to proceed with surgical intervention. Underwent IR-guided pigtail catheter drain placement at [facility] performed by Dr. Abad Gallegos on 09/19/2024. Repeat CTAP with contrast done on admission with redemonstration of anterior pelvic abscess superior to urinary bladder dome with pigtail catheter reaching its central part, measuring 4 x 2 x 2 cm with adjacent bladder dome mural thickening and surrounding pelvic stranding and inseparable from the sigmoid colon wall, mostly a diverticular abscess. It has been partially drained after pigtail catheter insertion. Thick wall of the urinary bladder dome, indicating reactive cystitis (stable). Admitting KACIE previously discussed case with transfer team at [facility] and IR in consultation regarding this. Pigtail catheter is partially dislodged and will need to be exchanged but this is not urgent at the moment. IR requested to have contrast placed through the pigtail catheter to determine the fistula communication. KUB with contrast confirmed colonic fistula tracking. Appreciate general surgery consultation. Leukocytosis resolved. Blood cultures from 09/23/2024 with NGTD. Wound culture with low counts of mixed probable gastrointestinal microbiota. Continue IV Zosyn. Will advance to low fiber diet. No indication for acute surgical intervention at this time. Will need short course follow-up with IR and colorectal surgery in [place] following discharge. ID consult pending to determine best course of ABX treatment on discharge. (2) IUD complication: (3) Bilateral ovarian tumors: Plan: Follows with Cecy CUSTODIAL SUPERVISOR at [facility]. Prior outpatient TVUS performed on 05/30/2024 noted abnormal positioning of her IUD (low in position and penetrates the myometrium) as well as a LEFT ovarian mass suspicious for a solid neoplasm. Prior CA 125 WNL. Failed removal of Mirena IUD during outpatient CUSTODIAL SUPERVISOR visit in June 2024. Pelvic MRI performed on 08/03/2024 revealed bilateral solid low T2 signal ovarian masses, possibly fibromas/thecomas, measuring 21 x 20 x 26 mm on the right and 20 x 27 x 22 mm on the left. No endometrial stripe thickening. No change from 01/01/2021. Fibromas and thecomas are benign ovarian tumors as seen on above MRI findings. Will require follow-up for removal of the malpositioned IUD after abdominal abscess is resolved. (4) Bladder wall thickening: Plan: Noted on outpatient CTAP done on 08/07/2024 as per above. Likely secondary to above process, however follow-up is recommended to exclude a bladder mass. (5) Galactorrhea of left breast: Plan: Was experiencing left breast milky discharge last year. Had brain MRI completed last June to assess for possible prolactinoma which was NEGATIVE. Also underwent bilateral breast MRI in May 2024 which was grossly unremarkable. Discharge now spontaneously resolved. Reports having annual mammograms. (6) Dural sinus thrombosis: Plan: History of dural sinus thrombosis in 1999, at which time she had undergone a complete hypercoagulable workup and was found to be negative for any hypercoagulable mutations. (7) Obesity: (8) Recent weight loss: Plan: Weight loss of 40lbs since initiation of naltrexone and bupropion therapy for weight management. Hold naltrexone at this time 2/2 contraindication/drug-drug interaction with PRN IV morphine. (9) Chronic pain of both knees: (10) Generalized osteoarthritis: Plan: Known moderate to severe arthritis of bilateral knees and sees [facility] as an outpatient. H/O elevated inflammatory markers. Was seen and evaluated by [facility] in July 2024. Rest of autoimmune workup was negative. On meloxicam 7.5mg daily as an outpatient but will continue holding for now. (11) KENJI (obstructive sleep apnea): Plan: Continue CPAP HS. (12) Thalassemia minor: (13) Iron deficiency anemia: Plan: Known history of thalassemia minor. She has known family history of thalassemia. Baseline Hgb around 10-11 per chart review. Hgb stable today. Continue to monitor H/H. Has followed with Dr. Galindo in the past at [facility]. Working on establishing with Dr. Cerrato in the outpatient setting currently. Other Chronic Medical Conditions: Prediabetes - Hgb A1c was 6.2 in December 2023. Hgb A1c 5.8% this admission. No indication for SSI coverage at this time. DVT Prophylaxis: SQ Heparin Code Status: FULL CODE PCP: Joyce Dorantes, DO Disposition: Admitted in med/surg - ? possible discharge home tomorrow if she tolerates the low fiber diet and continues to improve with IV Zosyn therapy. Appreciate ID consult to determine best ABX course moving forward in anticipation for discharge. Patient seen in collaboration with Dr. Farah. Please see addendum. I spent a total of 45 minutes coordinating, documenting, and providing care for this patient excluding time spent in the performance of separately billed services or time spent by another provider/QHP. This included personally reviewing all current laboratories and imaging studies, medical reconciliation, outpatient chart review and discussion with specialists. This chart was completed in part utilizing Speech Voice Recognition Software. Grammatical errors, random word insertions, pronoun errors, and incomplete s entences are an occasional consequence of this system due to software limitations, ambient noise, and hardware issues. Any formal questions or concerns about the content, text, or information contained within the body of this dictation should be directly addressed to the provider for clarification. Admission and Anticipated Discharge Date Admission Date: September 23, 2024 Supervising Physician Co-Signing Physician Notes Patient is seen and examined at bedside. Abdominal pain, erythema much improved. No new complaints. Wound cultures growing E. coli, bacteroids. On exam, patient is obese, no apparent distress, normocephalic atraumatic, EOMI, normal breath sounds, clear to auscultation, S1-S2, no murmur, no pedal edema, abdomen soft, protuberant,+ tenderness right and left lower quadrant,+ pericatheter erythema, drainage, alert, awake, oriented, grossly no focal deficits. Patient is being managed for diverticular abscess, failed outpatient oral antibiotic therapy. Blood cultures negative to date. Wound cultures growing E. coli, bacteroids.. Nasal MRSA negative. Continue IV Zosyn. Appreciate surgery input. No plan for surgical intervention currently. Plan to advance to low fiber diet today. Follow-up cultures and adjust antibiotics as needed. Needs follow-up with colorectal surgery on discharge. I personally interviewed and examined the patient at bedside. I have reviewed the advanced practitioner's documentation on the date of service referred in note and agree with plan. Patient's care is coordinated with Mariposa Dumont PA-C. Please refer to the documentation above for details of patient's presentation and for discussion of other issues. I spent a total [id number] coordinating, documenting, and providing care for this patient excluding time spent in the performance of separately billed services or time spent by another provider/QHP. Subjective Patient seen and examined in room W355-1. NAEO. Mentions that her abdominal pain is improving with PRN IV Tylenol. Continues to tolerate a clear liquid diet. Denies any nausea or vomiting. Feels erythema surrounding the insertion site of her abdominal pigtail catheter is improving. Review of Systems Review of Systems: At least ten systems reviewed and negative, except as noted in the subjective section. Physical Exam Physical Exam: General: Obese, F. BMI 39. A+Ox3. Nontoxic in appearance. NAD. Conversing appropriately. HEENT: Normocephalic, atraumatic. Conjunctivae normal. External ear and nose normal, oropharynx moist. Respiratory: Normal respiratory effort. Lungs clear to auscultation bilaterally. On RA. No accessory muscle use. Cardiovascular: Regular rate/rhythm. Normal peripheral pulses. No BLE edema. Abdomen/GI: Normoactive bowel sounds. Erythema surrounding suprapubic catheter drain appears to be improving. + purulent discharge noted inferior to the suprapubic catheter insertion site. + TTP around catheter site and in LLQ but no guarding or rebound. + feculent-appearing output noted in catheter tubing and collecting bag. + firmness with palpation of area surrounding the catheter insertion site. Extremities/Musculoskeletal: No cyanosis or clubbing. Extremities motor strength intact. Actively moves all extremities. Neurologic: No overt focal deficits, CN's II-XI not formally tested but appear grossly intact bilaterally. Results & Data Results & Data Vital Signs (Past 12 Hours) Vital Signs Temp Pulse Resp BP Pulse Ox O2 Del Method 09/24/24 20:06 36.8 C 93 H 18 126/82 100 Room Air Laboratory Results Short CBC 09/25/24 Range/Units 08:17 WBC 9.06 (4.8-10.8) K/ul Hgb 10.5 L (12.0-16.0) g/dl Hct 34.7 L (37.0-47.0) % Plt Count 381 D (130-400) K/uL BMP 09/25/24 08:17 Sodium 141 Potassium 3.6 Chloride 105 Carbon Dioxide 28 BUN 6 Creatinine 0.82 Glucose 108 H Calcium 9.4 Diagnostic Findings Chest X-Ray 09/23/24 04:22 EXAM: XR chest 1V not portable CLINICAL HISTORY: Sepsis. TECHNIQUE: An X-ray image of the chest is obtained in AP projection. COMPARISON: No prior studies are available for comparison. FINDINGS: Pulmonary Parenchyma: Lungs are clear bilaterally. No evidence of consolidation, collapse, or focal opacities. No pulmonary nodules are identified. No evidence of pleural effusion or pleural thickening. Heart and Mediastinum: Heart size and shape are normal. No mediastinal widening or masses. No hilar or mediastinal lymphadenopathy. Bony Thorax: Bony thorax appears intact without fractures or deformities. Soft Tissues: Soft tissues overlying the chest wall are unremarkable. IMPRESSION: 1. Normal chest X-ray. 2. No acute cardiopulmonary abnormalities are identified. Electronically signed by Jacob Declan 09-23-2024 05:40 AM Abdomen/Pelvis CT 09/23/24 05:30 EXAM: CT abd pelvis IV con only CLINICAL HISTORY: Evaluate worsening infection/abscess after drainage. TECHNIQUE: CT of the abdomen and pelvis was performed with contrast, with the following protocol: axial images with, and reconstructed coronal and sagittal images.93 ml opti 320 intravenous contrast was administered. One of the following dose reduction techniques was utilized for this exam: Automated exposure control, adjustment of the mA and/or kV according to patient size, and use of iterative reconstruction. COMPARISON: Comparison is made with previous CT study on 08/07/2024 FINDINGS: Abdomen: Liver: Normal in size, shape, and density. No focal lesions, cysts, or masses were identified. Hepatic vasculature and biliary ducts are unremarkable. Gallbladder and Biliary System: The gallbladder is normal in size and shape. No wall thickening, pericholecystic fluid, or gallstones were identified. The common bile duct is normal in caliber without dilation. Pancreas: Pancreatic head, body, and tail are visualized and appear normal in size and density. No pancreatic masses or calcifications were noted. The pancreatic duct is not dilated. Spleen: Normal in size, shape, and density. No splenic lesions or masses were identified. Appendix: The appendix is normal in size without sona appendiceal fat stranding and without an appendicolith. No evidence of appendiceal abscess or perforation. Kidneys and Adrenal Glands: Both kidneys are normal in size, shape, and position. Cortical thickness is within normal limits. No renal calculi or hydronephrosis. Adrenal glands are unremarkable with no evidence of masses or hyperplasia. Pelvis: Urinary Bladder: Thick wall of the urinary bladder dome, indicating reactive cystitis. Uterus: Normal in size and contour. No masses or abnormal thickening. IUCD is noted in place. Ovaries: Not well visualized but no gross abnormalities noted. Vagina: Normal in contour and wall thickness. Cervix: No evidence of mass or abnormal thickening. Peritoneal and Retroperitoneal Structures: Redemonstration of anterior pelvic abscess superior to urinary bladder dome with pigtail catheter reaching its central part, measuring 4 x 2 x 2 cm with adjacent bladder dome mural thickening and surrounding pelvic stranding and inseparable from the sigmoid colon wall, mostly a diverticular abscess. No lymphadenopathy was noted. Bowel: The visualized bowel loops are normal in caliber. Diffuse colonic diverticulosis. Bones and Soft Tissues: Pelvic bones and soft tissues are unremarkable. No fractures or abnormal masses were identified. Bilateral fracture pars interarticularis of L5 vertebra with mild anterolisthesis of L5 over S1 vertebra by 7 mm. IMPRESSION: 1. Redemonstration of anterior pelvic abscess superior to urinary bladder dome with pigtail catheter reaching its central part, measuring 4 x 2 x 2 cm with adjacent bladder dome mural thickening and surrounding pelvic stranding and inseparable from the sigmoid colon wall, mostly a diverticular abscess. It has been partially drained after pigtail catheter insertion. 2. Diffuse colonic diverticulosis. 3. Thick wall of the urinary bladder dome, indicating reactive cystitis. (stable). Electronically signed by Declan James 09-23-2024 06:52 AM KUB X-Ray 09/23/24 14:02 EXAMINATION: X-ray KUB/abdomen 1 view CLINICAL HISTORY: Contrast through pigtail tube confirmed fistula PRIORS: Abdomen CT 09/23/2024 TECHNIQUE: Single frontal view abdomen FINDINGS: High density contrast noted within the pigtail catheter and loop of large usresh/ascending and sigmoid colon. The focal outpouching of bowel which abuts the urinary bladder on CT image 46, series 100 is noted. There is contrast within the urinary bladder that is lower attenuation than the new/current injected contrast. This may be residual from the 09/23/2024 examination. No definite high density contrast noted in the urinary bladder. A large amount of formed stool seen throughout the colon. IMPRESSION: High density hand injected contrast within the colon with no new/high density contrast in the urinary bladder. If clinical concern warrants, an additional KUB/time delayed image could be considered to assess over time. Electronically signed by Kat Galvan 09-23-2024 2:42 PM Medications Administered Acetaminophen (Acetaminophen 325 Mg Tab) 650 mg PO Q4H PRN PRN Reason: Moderate Pain (Scale 4, 5, 6) Stop: 10/23/24 10:44 Last Admin: 09/24/24 02:27 Dose: 650 mg Documented By: Admin: 09/23/24 18:14 Dose: 650 mg Documented By: NURY Bupropion HCl (Bupropion Sr 150 Mg Tabcr) 150 mg PO BID DANIELE Stop: 10/23/24 10:59 Last Admin: 09/25/24 08:25 Dose: 150 mg Documented By: Admin: 09/24/24 20:10 Dose: Not Given Documented By: Admin: 09/24/24 10:38 Dose: 150 mg Documented By: Admin: 09/23/24 20:12 Dose: Not Given Documented By: Admin: 09/23/24 11:43 Dose: 150 mg Documented By: NURY Heparin Sodium (Porcine) (Heparin Sod 5,000 Unit/0.5 Ml Vial) 5,000 units SQ Q8 DANIELE Stop: 10/23/24 13:59 Last Admin: 09/25/24 05:07 Dose: Not Given Documented By: Admin: 09/24/24 20:10 Dose: Not Given Documented By: Admin: 09/24/24 15:06 Dose: Not Given Documented By: Admin: 09/24/24 05:03 Dose: Not Given Documented By: Admin: 09/23/24 20:11 Dose: Not Given Documented By: Admin: 09/23/24 14:26 Dose: Not Given Documented By: NURY Piperacillin Sod/Tazobactam Sod (Zosyn) 4.5 gm in 100 mls @ 25 mls/hr IV Q8H DANIELE; Protocol Stop: 10/03/24 10:59 Last Admin: 09/25/24 11:13 Dose: 25 mls/hr Documented By: Infusion: 09/25/24 07:53 Dose: Infused Documented By: Admin: 09/25/24 03:42 Dose: 25 mls/hr Documented By: Infusion: 09/24/24 22:32 Dose: Infused Documented By: Admin: 09/24/24 18:32 Dose: 25 mls/hr Documented By: Infusion: 09/24/24 15:58 Dose: Infused Documented By: Admin: 09/24/24 11:26 Dose: 25 mls/hr Documented By: Infusion: 09/24/24 06:30 Dose: Infused Documented By: Admin: 09/24/24 02:28 Dose: 25 mls/hr Documented By: Infusion: 09/23/24 22:10 Dose: Infused Documented By: Admin: 09/23/24 18:10 Dose: 25 mls/hr Documented By: Infusion: 09/23/24 15:38 Dose: Infused Documented By: Admin: 09/23/24 11:43 Dose: 25 mls/hr Documented By: NURY Acetaminophen (Ofirmev) 1,000 mg in 100 mls @ 400 mls/hr IV Q8H PRN PRN Reason: Pain/Fever Stop: 09/27/24 09:39 Last Infusion: 09/25/24 12:01 Dose: Infused Documented By: Admin: 09/25/24 11:25 Dose: 400 mls/hr Documented By: Infusion: 09/25/24 04:00 Dose: Infused Documented By: Admin: 09/25/24 03:41 Dose: 400 mls/hr Documented By: Infusion: 09/24/24 19:00 Dose: Infused Documented By: Admin: 09/24/24 18:33 Dose: 400 mls/hr Documented By: Infusion: 09/24/24 11:16 Dose: Infused Documented By: Admin: 09/24/24 10:45 Dose: 400 mls/hr Documented By: CHARY Multivitamins (Multivitamin Tab) 1 tab PO DAILY DANIELE Stop: 10/24/24 08:59 Last Admin: 09/25/24 08:26 Dose: 1 tab Documented By: Admin: 09/24/24 10:38 Dose: 1 tab Documented By: CHARY Discontinued Medications Sodium Chloride (Nss) 1,000 mls @ 999 mls/hr IV .Q1H1M ONE Stop: 09/23/24 06:10 Last Infusion: 09/23/24 06:32 Dose: Infused Documented By: Admin: 09/23/24 05:31 Dose: 999 mls/hr Documented By: RYLAND Co-signed By: ESTEFANY Acetaminophen (Ofirmev) 1,000 mg in 100 mls @ 400 mls/hr IV NOW STA Stop: 09/23/24 05:24 Last Infusion: 09/23/24 06:00 Dose: Infused Documented By: Admin: 09/23/24 05:30 Dose: 400 mls/hr Documented By: RYLAND Co-signed By: ESTEFANY Sodium Chloride (Nss) 500 mls @ 999 mls/hr IV .Q31M ONE Stop: 09/23/24 05:44 Last Infusion: 09/23/24 06:02 Dose: Infused Documented By: Admin: 09/23/24 05:31 Dose: 999 mls/hr Documented By: RYLAND Co-signed By: ESTEFANY Piperacillin Sod/Tazobactam Sod (Zosyn) 4.5 gm in 100 mls @ 200 mls/hr IV NOW ONE; Protocol Stop: 09/23/24 05:43 Last Infusion: 09/23/24 06:25 Dose: Infused Documented By: RYLAND Co-signed By: ESTEFANY Admin: 09/23/24 05:28 Dose: 200 mls/hr Documented By: RYLAND Co-signed By: ESTEFANY Lactated Ringer's (Lr) 1,000 mls @ 125 mls/hr IV .Q8H DANIELE Stop: 09/24/24 02:44 Last Infusion: 09/24/24 04:23 Dose: Infused Documented By: Admin: 09/23/24 20:09 Dose: 125 mls/hr Documented By: Infusion: 09/23/24 19:11 Dose: Infused Documented By: Admin: 09/23/24 11:11 Dose: 125 mls/hr Documented By: NURY Ioversol (Optiray 320 100ml) 93 ml IV ONCE ONE Stop: 09/23/24 05:49 Last Admin: 09/23/24 05:49 Dose: 93 ml Documented By: MARY (1) Diverticulitis of intestine with perforation and abscess Diverticulitis bleeding: unspecified bleeding status Diverticulitis site: unspecified part of intestinal tract Qualified Code(s): K57.80 - Diverticulitis of intestine, part unspecified, with perforation and abscess without bleeding (2) IUD complication Device complication type: unspecified Encounter type: sequela Qualified Code(s): T83.9XXS - Unspecified complication of genitourinary prosthetic device, implant and graft, sequela (7) Obesity Obesity classification: unspecified obesity classification Obesity type: unspecified obesity type Serious obesity comorbidity presence: unspecified whether serious comorbidity present Qualified Code(s): E66.9 - Obesity, unspecified (13) Iron deficiency anemia Iron deficiency anemia type: unspecified iron deficiency Qualified Code(s): D50.9 - Iron deficiency anemia, unspecified
--- NOTE | 2024-09-25 08:26 | Surgery Progress Note ---
Date of Service September 25, 2024 Assessment & Plan (1) Diverticulitis of intestine with perforation and abscess: Plan: Advance her to a low fiber diet No plans for any surgical intervention Her leukocytosis has resolved Continue IV antibiotics and IR drain Will need short course follow-up with interventional radiology and colorectal surgery in [place] Surgery will follow, she is certainly improving Tentative plan for discharge home tomorrow if she tolerates her diet and continues to improve with IV antibiotic therapy Admission and Anticipated Discharge Date Admission Date: September 23, 2024 Subjective Patient seen and examined. States her pain is improved. States the cellulitis of the abdominal wall is improved. She is afebrile. Tolerating clear liquids. Review of Systems Constitutional: no fever and no chills Respiratory: no cough and no dyspnea Cardiovascular: no chest pain and no dyspnea on exertion Gastrointestinal: + abdominal pain; no nausea and no vomit ing Genitourinary: no dysuria and no urinary urgency Integumentary: + erythema; no wounds Neurologic: no gait abnormality and no headache(s) Psychiatric: no behavioral changes and no depression Physical Exam Constitutional: WD/WN, vitals as above Respiratory: normal respiratory effort, lungs clear to auscultation Cardiovascular: RRR, no murmur, no edema Gastrointestinal (Abdomen): Inspection/Auscultation: + abdomen abnormal to inspection and abdomen not distended Percussion/Palpation: + abdomen tender (Left lower quadrant and suprapubic) and abdomen soft; no guarding and no hernia Cellulitis of the abdominal wall surrounding her suprapubic intra-abdominal drain, improved from yesterday Musculoskeletal: no cyanosis or clubbing, extremities motor strength 5/5 Skin: no rashes, warm and dry Psychiatric: A+Ox3, euthymic affect Results & Data Vital Signs (Past 12 Hours) Vital Signs Temp Pulse Resp BP Pulse Ox O2 Del Method 09/25/24 08:05 36.8 C 68 17 120/81 98 Room Air PG Care Time/CCT Total # of Minutes Spent Total Time Spent with Patient: Total time spent is greater than 50% in coordination of care (as documented) at patient's floor/unit and/or counseling patient: Coding Level of Care Code 30580 SUB INP/OBS CARE 07/28MIN Diagnoses Diverticulitis of intestine with perforation and abscess K57.80 Diverticulitis bleeding: unspecified bleeding status Diverticulitis site: unspecified part of intestinal tract (1) Diverticulitis of intestine with perforation and abscess Diverticulitis bleeding: unspecified bleeding status Diverticulitis site: unspecified part of intestinal tract Qualified Code(s): K57.80 - Diverticulitis of intestine, part unspecified, with perforation and abscess without bleeding
[2024-09-25 08:53] LABS: Hematocrit (blood only) 34.7 % (37.0-47.0); Hemoglobin 10.5 g/dl (12.0-16.0); Mean Corpuscular Hemoglobin 18.6 pg (25.0-34.0); Mean Corpuscular Hgb Conc 30.3 g/dL (32.0-36.0); Mean Corpuscular Volume 61.4 fL (80.0-100.0); Mean Platelet Volume 10.4 fL (9.4-12.4); Platelet Count 381 K/uL (130-400); RDW Coefficient of Variation 18.8 % (11.5-14.5); Red Blood Count 5.65 M/uL (4.20-5.40); White Blood Count 9.06 K/ul (4.8-10.8)
[2024-09-25 09:29] LABS: Calcium 9.4 mg/dl (8.6-10.3); Potassium 3.6 mmol/L (3.5-5.1)
[2024-09-25 09:34] LABS: BUN Creatinine Ratio 7.3 (10-20); Creatinine Clr Calc Pharmacy 89.1 ml/min
[2024-09-26 08:10] LABS: Hemoglobin 9.8 g/dl (12.0-16.0); Mean Corpuscular Hgb Conc 30.6 g/dL (32.0-36.0); Mean Corpuscular Volume 61.9 fL (80.0-100.0); Platelet Count 331 K/uL (130-400); RDW Coefficient of Variation 18.2 % (11.5-14.5); RDW Standard Deviation 37.2 fL (36.4-46.3); Red Blood Count 5.17 M/uL (4.20-5.40); White Blood Count 9.04 K/ul (4.8-10.8)
[2024-09-26 08:27] LABS: BUN Creatinine Ratio 11.1 (10-20); Calcium 8.7 mg/dl (8.6-10.3); Creatinine Clr Calc Pharmacy 90.2 ml/min; Magnesium 1.9 mg/dl (1.7-2.4); Potassium 3.6 mmol/L (3.5-5.1)
--- NOTE | 2024-09-26 09:34 | Surgery Progress Note ---
Date of Service September 26, 2024 Assessment & Plan (1) Diverticulitis of intestine with perforation and abscess: Plan: I think at this point she is stable for discharge from a surgical standpoint She is tolerating a low fiber diet and much improved with IV antibiotic therapy She is going to follow-up with her colorectal surgeon which I think she should reach out when she is discharged to see if they have any further recommendations regarding her drain or follow-up She should be on p.o. antibiotics for likely several weeks while this drain is in place Surgery will sign off at this time, please call with any questions or concerns Admission and Anticipated Discharge Date Admission Date: September 23, 2024 Subjective Patient seen and examined. Continues to improve. States his cellulitis is almost resolved. Afebrile. Tolerating a low fiber diet. Review of Systems Constitutional: no fever and no chills Respiratory: no cough and no dyspnea Cardiovascular: no chest pain and no dyspnea on exertion Gastrointestinal: + abdominal pain; no nausea and no vomit ing Genitourinary: no dysuria and no urinary urgency Integumentary: no wounds and no erythema Neurologic: no gait abnormality and no headache(s) Psychiatric: no behavioral changes and no depression Physical Exam Constitutional: WD/WN, vitals as above Respiratory: normal respiratory effort, lungs clear to auscultation Cardiovascular: RRR, no murmur, no edema Gastrointestinal (Abdomen): Inspection/Auscultation: abdomen normal to inspection; abdomen not distended Percussion/Palpation: + abdomen tender (Left lower quadrant and suprapubic) and abdomen soft; no guarding and no hernia Cellulitis of the abdominal wall almost resolved Musculoskeletal: no cyanosis or clubbing, extremities motor strength 5/5 Skin: no rashes, warm and dry Psychiatric: A+Ox3, euthymic affect Results & Data Vital Signs (Past 12 Hours) Vital Signs Temp Pulse Resp BP Pulse Ox O2 Del Method 09/26/24 07:46 36.8 C 59 L 18 112/68 96 Room Air PG Care Time/CCT Total # of Minutes Spent Total Time Spent with Patient: Total time spent is greater than 50% in coordination of care (as documented) at patient's floor/unit and/or counseling patient: Coding Level of Care Code 78510 SUB INP/OBS CARE 07/28MIN Diagnoses Diverticulitis of intestine with perforation and abscess K57.80 Diverticulitis bleeding: unspecified bleeding status Diverticulitis site: unspecified part of intestinal tract (1) Diverticulitis of intestine with perforation and abscess Diverticulitis bleeding: unspecified bleeding status Diverticulitis site: unspecified part of intestinal tract Qualified Code(s): K57.80 - Diverticulitis of intestine, part unspecified, with perforation and abscess without bleeding
--- NOTE | 2024-09-26 14:22 | Infectious Disease Consult ---
Date of Service September 26, 2024 Telehealth Information I performed this visit using a real-time telehealth connection between my location and the patients location ([facility]). After connecting through interactive tele-video, patient was identified by name and date of and/or wristband check.Patient (or authorized healthcare technical service representative) was informed that this was a telemedicine visit and it was being conducted confidentially over secure lines. My office door was closed and no on e else was present in the room with me.Patient (or authorized healthcare technical service representative) provided consent to proceed with the visit, expressed an understanding of privacy and security of the telemedicine visit, and gave permission to have a hospital technical service representative in the room in order to assist with the visit and to conduct portions of the visit, as needed. I informed the patient (or authorized healthcare technical service representative) that I reviewed their record and presented the opportunity for them to ask any questions regarding the visit today. The patient agreed to participate. Assessment & Plan (1) Diverticulitis of intestine with perforation and abscess: Plan Patient with significantly persistent abdominal abscess, does not seem to be decreased significantly after approximately 6 weeks of oral antibiotics. Isolate obtained at this time E coli now resistant to Augmentin as well as ciprofloxacin, she does have a surgical appointment October 10 and she should continue with the surgical appointments as source control will likely only be obtained by surgical means at this point given the recurrence, failure to decrease, likelihood of fistulous tract. Until that time reasonable to temporize with continued antibiotics until final surgical source control can be obtained. We will place on approximately 6 weeks of IV antibiotics at this time with repeat CT scan approximately 2-3 weeks. If patient has complete source control during the 6 weeks, can continue with antibiotics for additional 3-4 days and discontinue. - Ceftriaxone 2 g IV Q 24 hours for 6 weeks starting now - metronidazole 500 mg Q 8 hours for 6 weeks -repeat CT scan abdomen and pelvis with contrast in 2-3 weeks - follow up with surgical appointments October 10 - CBC, CMP q.week - follow-up Infectious Disease Clinic in approximately 5 weeks if surgical control has not been obtained Appreciate consultation, please do not hesitate to reach out for any further questions or concerns. Jean Paul Ho MD PGY5 Infectious Disease History of Present Illness History of Present Illness 48 y/o F PMhx: thalassemia minor, dural sinus thrombus 1999, recent history 08/07/24 with intra-abdominal abscess 2 cm x 4.7cm d/t diverticulitis prescribed cipro/flagyl for [address] 08/22/24 with slight increase in abscess, underwent attempted IR drain placement however was aborted d/t concern for fistula formation , underwent IR guided pigtail drain placement on 09/19/24 w growth of bacteroides species. Preseted at this time with abdominal pain, fevers Tmax 38.2, WBC 15, CT with similar size anterior pelvis abscess with drain in place, cultures with e. Coli, bacteroides species. Allergies Allergy/AdvReac Type Severity Reaction Status Date / Time codeine Allergy Unknown Unknown Verified 09/23/24 10:49 Home Medications Medication Instructions Recorded Confirmed Type levonorgestrel 21 mcg/24 hr (up to 1 device intrauterine DIRECTED 02/19/20 09/23/24 History 8 years) 52 mg intrauterine device (Mirena) bupropion HCl 150 mg tablet,12 hr 150 mg PO BID 08/07/24 09/23/24 History sustained-release meloxicam 7.5 mg tablet 7.5 mg DAILY 08/07/24 09/23/24 History naltrexone 50 mg tablet 0 mg PO DAILY 08/08/24 09/23/24 History amoxicillin 875 mg-potassium 1 tab PO TID 09/23/24 09/23/24 History clavulanate 125 mg tablet ciprofloxacin HCl 500 mg tablet 500 mg PO BID 09/23/24 09/23/24 History mometasone 50 mcg/actuation nasal 2 spray intranasal DAILY PRN 09/23/24 09/23/24 History spray Allergy/Congestion multivitamin 1 tab PO DAILY 09/23/24 09/23/24 History Patient History Surgical History Hx of dilation and curettage Hx of section H/O knee surgery (02/21/13) anterior cruciate Family History Grandmother (Paternal) Diabetes Mother Hyperlipidemia Father No problems noted. Social History Smoking Status: Never smoker Second Hand Exposure: No; Do You Dip or Chew Tobacco: No; Hx Alcohol Use: No Hx Substance Use: No Preferred Language: Luxembourger Communication Ability: Effective Fuel Technician Required: No Beliefs That Will Affect Care: None marital status: Current Living Situation: Family current occupational status: employed How many Children do You have: 1 How many Children do You have Comment: son Other Information That Helps Us Care for You: No Feels Safe at Home: Yes Safety Concerns: Feels Safe At This Time Assistive Devices: None Review of Systems CONSTITUTIONAL: Denies weight loss, fever and chills. HEENT: Denies changes in vision and hearing. RESPIRATORY: Denies SOB and cough. CV: Denies palpitations and CP. GI: Denies abdominal pain, nausea, vomiting and diarrhea. : Denies dysuria and urinary frequency. MSK: Denies myalgia and joint pain. SKIN: Denies rash and pruritus. NEUROLOGICAL: Denies headache and syncope PSYCHIATRIC: Denies recent changes in mood. Denies anxiety and depression. Physical Exam GENERAL: Appears as stated age. No acute distress. abdominal drain in place. NEUROLOGIC: No focal neurological deficits. Cranial nerves grossly intact. Results & Data Vital Signs (Past 12 Hours) Vital Signs Temp Pulse Resp BP Pulse Ox O2 Del Method 09/26/24 07:46 36.8 C 59 L 18 112/68 96 Room Air Laboratory Results 09/23/24 05:09 Gram Stain - Final Abdomen Aerobic and Anaerobic Culture - Preliminary Escherichia coli Bacteroides thetaiotaomicr grp Bacteroides fragilis 09/26/24 07:51 WBC 9.04 RBC 5.17 Hgb 9.8 L Hct 32.0 L MCV 61.9 L MCH 19.0 L MCHC 30.6 L RDW Std Deviation 37.2 RDW Coeff of Teodoro 18.2 H Plt Count 331 MPV 10.0 Sodium 140 Potassium 3.6 Chloride 104 Carbon Dioxide 29 Anion Gap 7 BUN 9 Creatinine 0.81 Est Cr Clr Drug Dosing 90.2 eGFR 88.38 BUN/Creatinine Ratio 11.1 Glucose 104 H Calcium 8.7 Magnesium 1.9 Diagnostic Findings Chest X-Ray 09/23/24 04:22 EXAM: XR chest 1V not portable CLINICAL HISTORY: Sepsis. TECHNIQUE: An X-ray image of the chest is obtained in AP projection. COMPARISON: No prior studies are available for comparison. FINDINGS: Pulmonary Parenchyma: Lungs are clear bilaterally. No evidence of consolidation, collapse, or focal opacities. No pulmonary nodules are identified. No evidence of pleural effusion or pleural thickening. Heart and Mediastinum: Heart size and shape are normal. No mediastinal widening or masses. No hilar or mediastinal lymphadenopathy. Bony Thorax: Bony thorax appears intact without fractures or deformities. Soft Tissues: Soft tissues overlying the chest wall are unremarkable. IMPRESSION: 1. Normal chest X-ray. 2. No acute cardiopulmonary abnormalities are identified. Electronically signed by Jacob Declan 09-23-2024 05:40 AM Abdomen/Pelvis CT 09/23/24 05:30 EXAM: CT abd pelvis IV con only CLINICAL HISTORY: Evaluate worsening infection/abscess after drainage. TECHNIQUE: CT of the abdomen and pelvis was performed with contrast, with the following protocol: axial images with, and reconstructed coronal and sagittal images.93 ml opti 320 intravenous contrast was administered. One of the following dose reduction techniques was utilized for this exam: Automated exposure control, adjustment of the mA and/or kV according to patient size, and use of iterative reconstruction. COMPARISON: Comparison is made with previous CT study on 08/07/2024 FINDINGS: Abdomen: Liver: Normal in size, shape, and density. No focal lesions, cysts, or masses were identified. Hepatic vasculature and biliary ducts are unremarkable. Gallbladder and Biliary System: The gallbladder is normal in size and shape. No wall thickening, pericholecystic fluid, or gallstones were identified. The common bile duct is normal in caliber without dilation. Pancreas: Pancreatic head, body, and tail are visualized and appear normal in size and density. No pancreatic masses or calcifications were noted. The pancreatic duct is not dilated. Spleen: Normal in size, shape, and density. No splenic lesions or masses were identified. Appendix: The appendix is normal in size without sona appendiceal fat stranding and without an appendicolith. No evidence of appendiceal abscess or perforation. Kidneys and Adrenal Glands: Both kidneys are normal in size, shape, and position. Cortical thickness is within normal limits. No renal calculi or hydronephrosis. Adrenal glands are unremarkable with no evidence of masses or hyperplasia. Pelvis: Urinary Bladder: Thick wall of the urinary bladder dome, indicating reactive cystitis. Uterus: Normal in size and contour. No masses or abnormal thickening. IUCD is noted in place. Ovaries: Not well visualized but no gross abnormalities noted. Vagina: Normal in contour and wall thickness. Cervix: No evidence of mass or abnormal thickening. Peritoneal and Retroperitoneal Structures: Redemonstration of anterior pelvic abscess superior to urinary bladder dome with pigtail catheter reaching its central part, measuring 4 x 2 x 2 cm with adjacent bladder dome mural thickening and surrounding pelvic stranding and inseparable from the sigmoid colon wall, mostly a diverticular abscess. No lymphadenopathy was noted. Bowel: The visualized bowel loops are normal in caliber. Diffuse colonic diverticulosis. Bones and Soft Tissues: Pelvic bones and soft tissues are unremarkable. No fractures or abnormal masses were identified. Bilateral fracture pars interarticularis of L5 vertebra with mild anterolisthesis of L5 over S1 vertebra by 7 mm. IMPRESSION: 1. Redemonstration of anterior pelvic abscess superior to urinary bladder dome with pigtail catheter reaching its central part, measuring 4 x 2 x 2 cm with adjacent bladder dome mural thickening and surrounding pelvic stranding and inseparable from the sigmoid colon wall, mostly a diverticular abscess. It has been partially drained after pigtail catheter insertion. 2. Diffuse colonic diverticulosis. 3. Thick wall of the urinary bladder dome, indicating reactive cystitis. (stable). Electronically signed by Declan James 09-23-2024 06:52 AM KUB X-Ray 09/23/24 14:02 EXAMINATION: X-ray KUB/abdomen 1 view CLINICAL HISTORY: Contrast through pigtail tube confirmed fistula PRIORS: Abdomen CT 09/23/2024 TECHNIQUE: Single frontal view abdomen FINDINGS: High density contrast noted within the pigtail catheter and loop of large suresh/ascending and sigmoid colon. The focal outpouching of bowel which abuts the urinary bladder on CT image 46, series 100 is noted. There is contrast within the urinary bladder that is lower attenuation than the new/current injected contrast. This may be residual from the 09/23/2024 examination. No definite high density contrast noted in the urinary bladder. A large amount of formed stool seen throughout the colon. IMPRESSION: High density hand injected contrast within the colon with no new/high density contrast in the urinary bladder. If clinical concern warrants, an additional KUB/time delayed image could be considered to assess over time. Electronically signed by Kat Galvan 09-23-2024 2:42 PM (1) Diverticulitis of intestine with perforation and abscess Diverticulitis bleeding: unspecified bleeding status Diverticulitis site: unspecified part of intestinal tract Qualified Code(s): K57.80 - Diverticulitis of intestine, part unspecified, with perforation and abscess without bleeding
[2024-09-26] MEDS: metroNIDAZOLE 500 MG/100 ML BAG IV SCH (15:50)
--- NOTE | 2024-09-26 15:55 | Hospitalist Progress Note ---
Date of Service September 26, 2024 Assessment & Plan (1) Diverticulitis of intestine with perforation and abscess: Plan: Kely Mercado is a 48y/o F with PMHx significant for prediabetes, intermittent asthma, KENJI on CPAP, morbid obesity on Contrave, dural sinus thrombosis in 1999, left tubo-ovarian mass, chronic pain of both knees, polyarthralgia, thalassemia minor and thrombocytopenia who presented to the ED on 09/23/2024 with complaint of increased abdominal pain and associated fever x 5 days. Outpatient pelvic MRI as per below also revealed a large inflammatory appearing phlegmon anterior pelvis involving and between the proximal sigmoid colon, anterior bladder dome and anterior abdominal wall concerning for possible perforated diverticulitis and abscess formation with marked inflammatory changes involving the bladder dome. Outpatient CTAP with and without contrast performed on 08/07/2024 which showed findings suggesting acute diverticulitis with perforation and abscess formation measuring 20 x 47 mm. Surrounding inflammatory phlegmon and suggestion of fistula between the sigmoid colon, left bladder and anterior abdominal wall musculature. Previously admitted under our service last month secondary to above findings and evaluated by general surgery. No surgical intervention required at the time. Blood cultures negative. Discharged home on 08/11/2024 on 4-week course of oral Augmentin PLUS oral ciprofloxacin as advised by ID. Advised at that time to undergo repeat CTAP imaging 1 week after and then 3 weeks after discharge to monitor response to ABX therapy. Repeat CTAP performed on 08/22/2024 concerning for a slightly larger fistulous abscess adjacent to the sigmoid colon (previously 4.7 x 2 cm and increased to 5.9 x 2.2 cm). Had been seen by IR at [facility] and drainage procedure was aborted as there was concern it would cause an enterocutaneous fistula. Patient met with a colorectal surgeon, Dr. Leti Watts, at [facility] on 09/06/2024. Determination was made to proceed with surgical intervention. Underwent IR-guided pigtail catheter drain placement at [facility] performed by Dr. Abad Gallegos on 09/19/2024. Repeat CTAP with contrast done on admission with redemonstration of anterior pelvic abscess superior to urinary bladder dome with pigtail catheter reaching its central part, measuring 4 x 2 x 2 cm with adjacent bladder dome mural thickening and surrounding pelvic stranding and inseparable from the sigmoid colon wall, mostly a diverticular abscess. It has been partially drained after pigtail catheter insertion. Thick wall of the urinary bladder dome, indicating reactive cystitis (stable). Admitting KACIE previously discussed case with transfer team at [facility] and IR in consultation regarding this. Pigtail catheter is partially dislodged and will need to be exchanged but this is not urgent at the moment. IR requested to have contrast placed through the pigtail catheter to determine the fistula communication. KUB with contrast confirmed colonic fistula tracking. Appreciate general surgery consultation - stable for discharge from a surgical standpoint. Leukocytosis resolved. Blood cultures from 09/23/2024 with NGTD. Wound culture (swabbed drainage from the suprapubic catheter insertion site) growing E. coli with resistance to Zosyn. Appreciate ID consult. Plan for IV Rocephin 2g Q24H and po Flagyl 500mg Q8H x 6 weeks starting from today. Will need weekly labs including CBC and CMP. Home infusion therapy form filled and given to CM. Will need repeat CTAP with contrast in 2-3 weeks. Follow-up with ID as an outpatient warranted if surgical control has not been obtained. Patient has an appointment on 10/10/[address] Leti Watts (colorectal surgery) at [facility]. Also has an appointment with Dr. Ross Ch of [facility] on 10/12/2024 to obtain a second opinion. Records including CTAP imaging from this admission and her above wound culture result are being faxed over to Dr. Ch's office. PICC line consent obtained and in patient's chart. (2) IUD complication: (3) Bilateral ovarian tumors: Plan: Follows with [facility] at [facility]. Prior outpatient TVUS performed on 05/30/2024 noted abnormal positioning of her IUD (low in position and penetrates the myometrium) as well as a LEFT ovarian mass suspicious for a solid neoplasm. Prior CA 125 WNL. Failed removal of Mirena IUD during outpatient [facility] visit in June 2024. Pelvic MRI performed on 08/03/2024 revealed bilateral solid low T2 signal ovarian masses, possibly fibromas/thecomas, measuring 21 x 20 x 26 mm on the right and 20 x 27 x 22 mm on the left. No endometrial stripe thickening. No change from 01/01/2021. Fibromas and thecomas are benign ovarian tumors as seen on above MRI findings. Will require follow-up for removal of the malpositioned IUD after abdominal abscess is resolved. (4) Bladder wall thickening: Plan: Noted on outpatient CTAP done on 08/07/2024 as per above. Likely secondary to above process, however follow-up is recommended to exclude a bladder mass. Can follow-up with PCP regarding this. (5) Galactorrhea of left breast: Plan: Was experiencing left breast milky discharge last year. Had brain MRI completed last June to assess for possible prolactinoma which was NEGATIVE. Also underwent bilateral breast MRI in May 2024 which was grossly unremarkable. Discharge now spontaneously resolved. Reports having annual mammograms. (6) Dural sinus thrombosis: Plan: History of dural sinus thrombosis in 1999, at which time she had undergone a complete hypercoagulable workup and was found to be negative for any hypercoagulable mutations. (7) Obesity: (8) Recent weight loss: Plan: Weight loss of 40lbs since initiation of naltrexone and bupropion therapy for weight management. Hold naltrexone at this time 2/2 contraindication/drug-drug interaction with PRN IV morphine. (9) Chronic pain of both knees: (10) Generalized osteoarthritis: Plan: Known moderate to severe arthritis of bilateral knees and sees [facility] as an outpatient. H/O elevated inflammatory markers. Was seen and evaluated by [facility] in July 2024. Rest of autoimmune workup was negative. On meloxicam 7.5mg daily as an outpatient but will continue holding for now. (11) KENJI (obstructive sleep apnea): Plan: Continue CPAP HS. (12) Thalassemia minor: (13) Iron deficiency anemia: Plan: Known history of thalassemia minor. She has known family history of thalassemia. Baseline Hgb around 9-11 per chart review. Hgb remains stable. Continue to monitor H/H. Has followed with Dr. Galindo in the past at [facility]. Working on establishing with Dr. Cerrato in the outpatient setting currently. Other Chronic Medical Conditions: Prediabetes - Hgb A1c was 6.2 in December 2023. Hgb A1c 5.8% this admission. No indication for SSI coverage at this time. DVT Prophylaxis: SQ Heparin Code Status: FULL CODE PCP: Joyce Dorantes DO Disposition: Possible discharge home tomorrow if able to arrange IV ABX therapy. IV ABX form completed and given to CM. Patient seen in collaboration with Dr. Pinto. Please see addendum. I spent a total of 50 minutes coordinating, documenting, and providing care for this patient excluding time spent in the performance of separately billed services or time spent by another provider/QHP. This included personally reviewing all current laboratories and imaging studies, medical reconciliation, outpatient chart review and discussion with specialists. This chart was completed in part utilizing Speech Voice Recognition Software. Grammatical errors, random word insertions, pronoun errors, and incomplete sentences are an occasional consequence of this system due to software limitations, ambient noise, and hardware issues. Any formal questions or concerns about the content, text, or information contained within the body of this dictation should be directly addressed to the provider for clarification. Admission and Anticipated Discharge Date Admission Date: September 23, 2024 Supervising Physician Co-Signing Physician Notes Pt seen and examined by me, care coordinated w/ PA, pls refer to her note above for further detail. Pt w/ diverticular abscess, currently feels improved, she is afebrile,leukocytosis resolved. Pt seen by inpt surgery, also has outpt colorectal surgery follow ups scheduled. ID consulted and reviewed today - recommend IV ceftriaxone for 6 weeks and flagyl for 6 weeks. She will also need ID outpt follow up and CT abd/ pelvis in 2-3 weeks. Pt denies any chest pain, shortness of breath. She is asking about discharge. Will need PICC line placed, consent obtained. CM involved in DC planning given need for IV abx on DC. MD Millie Subjective Patient seen and examined in room W355-1. NAEO. Mentions that her abdominal pain continues to improve. Tolerating a low fiber diet without issue. Denies any nausea or vomiting. Discussed wound culture results that were collected from drainage around her pigtail catheter site. Awaiting ID consult for antibiotic recommendations. Review of Systems Review of Systems: At least ten systems reviewed and negative, except as noted in the subjective section. Physical Exam Physical Exam: General: Obese, F. BMI 39. A+Ox3. Nontoxic in appearance. NAD. Conversing appropriately. HEENT: Normocephalic, atraumatic. Conjunctivae normal. External ear and nose normal, oropharynx moist. Respiratory: Normal respiratory effort. Lungs clear to auscultation bilaterally. On RA. No accessory muscle use. Cardiovascular: Regular rate/rhythm. Normal peripheral pulses. No BLE edema. Abdomen/GI: Normoactive bowel sounds. Erythema surrounding suprapubic catheter drain appears to be improving. + dried serous drainage surrounding suprapubic catheter insertion site. + TTP around catheter site and in LLQ but no guarding or rebound. + feculent-appearing output noted in catheter tubing and collecting bag. + firmness with palpation of area surrounding the catheter insertion site. Extremities/Musculoskeletal: No cyanosis or clubbing. Extremities motor strength intact. Actively moves all extremities. Neurologic: No overt focal deficits, CN's II-XI not formally tested but appear grossly intact bilaterally. Results & Data Results & Data Vital Signs (Past 12 Hours) Vital Signs Temp Pulse Resp BP Pulse Ox O2 Del Method 09/26/24 15:33 36.6 C 64 18 118/74 100 Room Air 09/26/24 07:46 36.8 C 59 L 18 112/68 96 Room Air Laboratory Results Short CBC 09/26/24 Range/Units 07:51 WBC 9.04 (4.8-10.8) K/ul Hgb 9.8 L (12.0-16.0) g/dl Hct 32.0 L (37.0-47.0) % Plt Count 331 (130-400) K/uL BMP 09/26/24 07:51 Sodium 140 Potassium 3.6 Chloride 104 Carbon Dioxide 29 BUN 9 Creatinine 0.81 Glucose 104 H Calcium 8.7 (1) Diverticulitis of intestine with perforation and abscess Diverticulitis bleeding: unspecified bleeding status Diverticulitis site: unspecified part of intestinal tract Qualified Code(s): K57.80 - Diverticulitis of intestine, part unspecified, with perforation and abscess without bleeding (2) IUD complication Device complication type: unspecified Encounter type: sequela Qualified Code(s): T83.9XXS - Unspecified complication of genitourinary prosthetic device, implant and graft, sequela (7) Obesity Obesity classification: unspecified obesity classification Obesity type: unspecified obesity type Serious obesity comorbidity presence: unspecified whether serious comorbidity present Qualified Code(s): E66.9 - Obesity, unspecified (13) Iron deficiency anemia Iron deficiency anemia type: unspecified iron deficiency Qualified Code(s): D50.9 - Iron deficiency anemia, unspecified
[2024-09-26] MEDS: metroNIDAZOLE 500 MG TAB PO SCH (16:19)
[2024-09-26] MEDS: cefTRIAXone SODIUM 2,000 MG/50 ML BAG IV SCH (16:19)
[2024-09-26 18:59] VITALS: RESP 16
[2024-09-27 06:55] LABS: Mean Corpuscular Hemoglobin 18.6 pg (25.0-34.0); Mean Corpuscular Hgb Conc 30.6 g/dL (32.0-36.0); Mean Platelet Volume 10.2 fL (9.4-12.4); Platelet Count 461 K/uL (130-400)
[2024-09-27 07:20] LABS: Calcium 9.6 mg/dl (8.6-10.3); Creatinine Clr Calc Pharmacy 94.9 ml/min; Magnesium 2.1 mg/dl (1.7-2.4); Phosphorus 3.8 mg/dl (2.5-4.9); Potassium 3.8 mmol/L (3.5-5.1)
[2024-09-27 14:48] VITALS: BP 127/79; PULSE 73; TEMP 98.2; O2SAT 97
--- NOTE | 2024-09-27 16:00 | Discharge Summary ---
Discharge Summary Date of Service September 27, 2024 Principal Dx & Hospital Course #1 = Principal Diagnosis (1) Diverticulitis of intestine with perforation and abscess: Patient is a 48y/o F with PMHx significant for prediabetes, intermittent asthma, KENJI on CPAP, morbid obesity on Contrave, dural sinus thrombosis in 1999, left tubo-ovarian mass, chronic pain of both knees, polyarthralgia, thalassemia minor and thrombocytopenia who presented to the ED on 09/23/2024 with complaint of increased abdominal pain and associated fever x 5 days. Complex recent medical course: known diverticulitis with abscess over the past few months. Outpatient CTAP with and without contrast performed on 08/07/2024 which showed findings suggesting acute diverticulitis with perforation and abscess formation measuring 20 x 47 mm. Surrounding inflammatory phlegmon and suggestion of fistula between the sigmoid colon, left bladder and anterior abdominal wall musculature. Previously admitted under our service and no surgical intervention recommended. Discharged home on 08/11/2024 on 4-week course of oral Augmentin PLUS oral ciprofloxacin as advised by ID. Repeat CTAP performed on 08/22/2024 concerning for a slightly larger fistulous abscess adjacent to the sigmoid colon (previously 4.7 x 2 cm and increased to 5.9 x 2.2 cm) and was transferred to [facility] due to concern for enterocutaneous fistula. Underwent IR-guided pigtail catheter drain placement at [facility] performed by Dr. Abad Gallegos on 09/19/2024 with coordination with colorectal service. On presentation this admission, CTAP with redemonstration of anterior pelvic abscess that has been partially drained after pigtail catheter insertion Discussed partially dislodged pigtail catheter with [facility] prior to admission, who felt it will need to be exchanged but is not urgent. KUB with contrast confirmed colonic fistula tracking. General surgery - stable for discharge from a surgical standpoint. Leukocytosis resolved. Blood cultures from 09/23/2024 with NGTD Wound culture growing E. coli with resistance to Zosyn. Appreciate ID consult Discharged on IV Rocephin 2g Q24H and PO Flagyl 500mg Q8H x 6 weeks starting from today (EOT 11/07) Will need weekly labs including CBC and CMP and repeat CT AP with contrast in 2- 3 weeks Follow-up with ID as an outpatient warranted if surgical control has not been obtained. Follow up with colorectal surgery at [facility] on 10/10/2024. Also has an appointment with [facility] colorecetal surgery on 10/12/2024 Drain sponge placed by gen surg near pigtail catheter with changing daily/as needed. 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 Prior outpatient TVUS performed on 05/30/2024 noted abnormal positioning of her IUD (low in position and penetrates the myometrium) as well as a LEFT ovarian mass suspicious for a solid neoplasm. Prior CA 125 WNL. Failed removal of Mirena IUD during outpatient SENIOR SYSTEMS SOFTWARE ENGINEER visit in June 2024. Pelvic MRI performed on 08/03/2024, change from 01/01/2021. Will require follow-up for removal of the malpositioned IUD after abdominal abscess is resolved. (4) Bladder wall thickening: Noted on outpatient CTAP done on 08/07/2024 as per above. Likely secondary to above process, however follow-up is recommended to exclude a bladder mass. (5) Obesity: (6) Recent weight loss: Weight loss of 40lbs since initiation of naltrexone and bupropion therapy for weight management. Hold naltrexone at this time 2/2 contraindication/drug-drug interaction with PRN IV morphine. (7) Chronic pain of both knees: (8) Generalized osteoarthritis: Known moderate to severe arthritis of bilateral knees and sees [facility] opedics as an outpatient. H/O elevated inflammatory markers. Was seen and evaluated by [facility] Rheumatology in July 2024. Rest of autoimmune workup was negative. On meloxicam 7.5mg daily as an outpatient but will continue holding for now. (9) Thalassemia minor: (10) Iron deficiency anemia: Known history of thalassemia minor. She has known family history of thalassemia. Baseline Hgb around 9-11 per chart review. Hgb remains stable. Continue to monitor H/H. Has followed with Dr. Galindo in the past at [facility]. Working on establishing with Dr. Hernandez in the outpatient setting currently. DVT Prophylaxis: SQ Heparin Code Status: FULL CODE PCP: Joyce Dorantes DO Disposition: DC home today. Appreciate CM help with arranging IV ABX therapy. Patient seen in collaboration with Dr. Pinto. Please see addendum. Notes For Next Care Provider IV Rocephin 2g Q24H and oral Flagyl 500mg Q8H x 6 weeks (EOT 11/07) Continue daily probiotic while on chcf antibiotic course. Medication Changes From Visit Diverticulitis with abscess and pigtail catheter with scheduled colorectal follow up, on IV abx as above Admission HPI Per Admitting Provider This is a 48 yo F with PMHX of thalassemia minor, Iron deficiency anemia, dural sinus thrombus in 1999, Left ovarian /adnexal pelvic mass. CA-125 = 13.6. Patient reports that her menses had ceased after IUD placement in 2007, Arthritis of bilateral knees, seasonal allergies , prediabetes, A1c 6.2% on 12/31/2023, and recent weight loss of 40 lbs in past ~6 months which she says is intentional with use of naltrexone/buproprion. Pt presents to the hospital for increased abdominal pain around 0400 and associated fever x 5 days. Her abdominal workup began due to a dislodged IUD. TVUS showed a possible ovaria n mass which prompted MRI pelvis. MRI pelvis showed a large abscess and diverticulitis.recent hospitalization 08/07-2024 for abdominal pain noted to have diverticulitis on the CT abd pelvis. Seen by ID who recommended 4wk tx of cipro and augmentin with repeat CT with F/u colonoscopy in 6-8 weeks. She had repeat CT on 08/22 that showed abscess adjacent to sigmoid colon which was larger than her previous CT. Was seen by IR in [place] and procedure was aborted as there was concern that drainage would cause enterocutaneous fistula. She denies any previous episodes of diverticulitis, although she did have pus noted in her sigmoid colon on colonoscopy in 2020. 09/19/24 Pt underwent IR guided pigtail catheter placement at [facility] by Dr. Abad Gallegos She has developed increased pain since that time and is presenting now to [facility] for further evaluation. She admits to having intermittent fevers over the past 4 days without tylenol use of 100-101 F. States that initially drainage from the pigtail catheter on placement was dark red, however it changed to fecal matter ~2 days after placement(~09/21). Pt had called her surgeon to make them aware of the changes in the tubing matter. Pt noticed increased reddness, firmness and drainage of purulent material from around the tube in her abdomen at this same time, then had increased pain overnight and therefore presented to the ER. Here she is febrile with Tmax 37.6, BP is stable at 125/67, HR 67, on room air. Admission Exam Per Admitting Provider General: awake, alert, no apparent distress, obese white female, BMI 38.5 Head: Normocephalic, atraumatic ENT: PERRL, EOMI, no pharyngeal exudate, mucous membranes moist Chest: Clear to auscultation, on room air, no adventitious breath sounds Cardiac: Regular rate and rhythm, no murmur, no JVD, normal peripheral pulses, good capillary refill Abdominal: NABS x 4 quadrants, soft, Pigtail catheter in place, surrounding erythema and induration of the skin, also with purulent material coming out from around the tubing, +distended,+tender to palpation, no rebound or guarding Extremities: Normal inspection, no peripheral edema or erythema, calfs nontender to palpation Psych: Normal mood and affect Neuro: AAO x 3, strength intact bilaterally and rated 5/5, no motor deficits, speech is clear, no peripheral sensory deficits Discharge Exam Gen: WD/WN, NAD, sitting in bedside chair, A&Ox3 HEENT: Normocephalic, atraumatic, conjunctivae moist, sclerae anicteric, mucous membranes moist Lung: Clear to Auscultation bilaterally, no wheezes/rales/rhonchi Heart: Regular rate, regular rhythm, no murmurs, rubs, or gallops Abdomen: Normoactive bowel sounds. + dried serous drainage surrounding suprapubic catheter insertion site, non-tender but firm, +light brown output noted in catheter tubing and collecting bag Extremities: no edema Skin: Warm, no rash Updated Medication List Medication Instructions Recorded Confirmed Type levonorgestrel 21 mcg/24 hr (up to 1 device intrauterine DIRECTED 02/19/20 09/23/24 History 8 years) 52 mg intrauterine device (Mirena) bupropion HCl 150 mg tablet,12 hr 150 mg PO BID 08/07/24 09/23/24 History sustained-release meloxicam 7.5 mg tablet 7.5 mg DAILY 08/07/24 09/23/24 History naltrexone 50 mg tablet 0 mg PO DAILY 08/08/24 09/23/24 History mometasone 50 mcg/actuation nasal 2 spray intranasal DAILY PRN 09/23/24 09/23/24 History spray Allergy/Congestion multivitamin 1 tab PO DAILY 09/23/24 09/23/24 History ceftriaxone 2 gram solution for 2 g IV DAILY #25 ea 09/27/24 Rx injection lactobacillus combination no.4 3 3,000 mmu cells PO DAILY #30 caps 09/27/24 Rx billion cell capsule (Probiotic) metronidazole 500 mg tablet 500 mg PO Q8H #126 tabs 09/27/24 Rx Hospital Stay Data Consultations 09/23/24 07:45 ED Decision to Admit Stat 09/23/24 10:45 Consult General Surgery Routine 09/25/24 13:15 Consult Infectious Diseases Routine Diagnostic Imagining Performed 09/23/24 05:30 CT abd pelvis IV con only Stat FINDINGS: Abdomen: Liver: Normal in size, shape, and density. No focal lesions, cysts, or masses were identified. Hepatic vasculature and biliary ducts are unremarkable. Gallbladder and Biliary System: The gallbladder is normal in size and shape. No wall thickening, pericholecystic fluid, or gallstones were identified. The common bile duct is normal in caliber without dilation. Pancreas: Pancreatic head, body, and tail are visualized and appear normal in size and density. No pancreatic masses or calcifications were noted. The pancreatic duct is not dilated. Spleen: Normal in size, shape, and density. No splenic lesions or masses were identified. Appendix: The appendix is normal in size without sona appendiceal fat stranding and without an appendicolith. No evidence of appendiceal abscess or perforation. Kidneys and Adrenal Glands: Both kidneys are normal in size, shape, and position. Cortical thickness is within normal limits. No renal calculi or hydronephrosis. Adrenal glands are unremarkable with no evidence of masses or hyperplasia. Pelvis: Urinary Bladder: Thick wall of the urinary bladder dome, indicating reactive cystitis. Uterus: Normal in size and contour. No masses or abnormal thickening. IUCD is noted in place. Ovaries: Not well visualized but no gross abnormalities noted. Vagina: Normal in contour and wall thickness. Cervix: No evidence of mass or abnormal thickening. Peritoneal and Retroperitoneal Structures: Redemonstration of anterior pelvic abscess superior to urinary bladder dome with pigtail catheter reaching its central part, measuring 4 x 2 x 2 cm with adjacent bladder dome mural thickening and surrounding pelvic stranding and inseparable from the sigmoid colon wall, mostly a diverticular abscess. No lymphadenopathy was noted. Bowel: The visualized bowel loops are normal in caliber. Diffuse colonic diverticulosis. Bones and Soft Tissues: Pelvic bones and soft tissues are unremarkable. No fractures or abnormal masses were identified. Bilateral fracture pars interarticularis of L5 vertebra with mild anterolisthesis of L5 over S1 vertebra by 7 mm. IMPRESSION: 1. Redemonstration of anterior pelvic abscess superior to urinary bladder dome with pigtail catheter reaching its central part, measuring 4 x 2 x 2 cm with adjacent bladder dome mural thickening and surrounding pelvic stranding and inseparable from the sigmoid colon wall, mostly a diverticular abscess. It has been partially drained after pigtail catheter insertion. 2. Diffuse colonic diverticulosis. 3. Thick wall of the urinary bladder dome, indicating reactive cystitis. (stable). Pending Results Patient Have Any Pending Studies at Discharge: Yes Discharge Instructions Given to Patient (Per Discharging Provider) MEDICATION CHANGES: Discharging on IV Rocephin 2g Q24H and oral Flagyl 500mg Q8H x 6 weeks starting from today. Continue daily probiotic while on fdc antibiotic course. SUMMARY OF TEST RESULTS: You were admitted to hospital with abdominal pain and fever after complex course of diverticulitis with abscess s/p IR-guided pigtail catheter drain placement at [facility] performed by Dr. Abad Gallegos on 09/19/2024. Repeat CTAP (09/23/24) with contrast done on admission with redemonstration of anterior pelvic abscess superior to urinary bladder dome with pigtail catheter reaching its central part, measuring 4 x 2 x 2 cm with adjacent bladder dome mural thickening and surrounding pelvic stranding and inseparable from the sigmoid colon wall, mostly a diverticular abscess. It has been partially drained after pigtail catheter insertion. Thick wall of the urinary bladder dome, indicating reactive cystitis (stable). Partially dislodged pigtail catheter will need to be exchanged but not urgent to be done, per gen surg. Wound culture growing E. coli with resistance to Zosyn PENDING TEST RESULTS: None RECOMMENDATIONS FOR FOLLOW-UP: Follow up with PCP as scheduled. Follow up with colorectal surgeon at [facility] as scheduled 10/10/24 (has also scheduled second opinion at [facility] on 10/12/24-records faxed) Per, ID continue antibiotic course as above for 6 weeks (EOT 11/07) Will need weekly labs for monitoring, including CBC and CMP as well as repeat CT abd/pelvis with contrast in 2-3 weeks Follow-up with ID as an outpatient warranted if surgical control has not been obtained. PICC line in place, home health coordinated and [facility] education completed. Drain sponge placed by gen surg near pigtail catheter with changing daily/as needed. Will require follow-up for removal of the malpositioned IUD with obgyn after abdominal abscess is resolved. OTHER INSTRUCTIONS: Seek medical attention if you have: * temperature above 101 * chest pain or trouble breathing * abdominal pain, nausea, vomiting * diarrhea, dark stools or bloody stools * any unanswered questions or concerns Call 911 if symptoms are severe. Please take good care of yourself. Call if you have any questions or problems. You can reach a [facility] hospitalist on duty at [facility] 24 hours a day by calling [phone]. Total Time Total Time Spent Total Time Spent (In Minutes): 60 Supervising Physician Co-Signing Physician Notes Pt seen and examined by me, care coordinated w/ NATONIO Araiza, pls refer to her note above for further detail. Pt w/ diverticular abscess, currently feels improved, she is afebrile,leukocytosis resolved. Pt seen by inpt surgery, also has outpt colorectal surgery follow ups scheduled. ID consulted - recommend IV ceftriaxone for 6 weeks and flagyl for 6 weeks. She will also need ID outpt follow up and CT abd/ pelvis in 2-3 weeks. MD Millie
== END 2024-09-27 17:00 | disposition home health service (06) | DRG 392 ==
LOC: ED 04:01 → SUATTDRO 08:17 → 3W 08:17